=== PATIENT | male | born 1980 | race Hispanic/Latino ===

== ENCOUNTER 2016-04-04 19:41 | Emergency (ER) | payer MEDICARE, MEDICAID ==
[2016-04-04 20:47] LABS: Bilirubin Small (Negative); Blood, Urine Trace (Negative); Clarity Cloudy (Clear); Glucose, Urine (Dipstick) Negative (Negative); Icto Negative (Negative); Leukocyte Small (Negative); Nitrite Positive (Negative); Protein, Urine (Dipstick) 30 mg/dL (Neg-Trace); Urobilinogen > or = 8.0 mg/dL (0.2-1.0)
[2016-04-04 20:54] LABS: Bacteria/HPF 3+ HPF (None Seen); RBC/HPF 0-3 HPF (0-3)
[2016-04-04] MEDS ORDERED: Sulfameth/Trimethoprim DS 800-160mg TAB ONE (21:08)
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
--- NOTE | 2016-04-04 23:08 | RAD ---
RIGHT FOOT THREE VIEWS: History: Right foot swelling. 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 No acute fracture, dis location, bony destruction or periosteal reaction is seen. POS: [facility]
== END 2016-04-04 21:17 | disposition home or self-care (01) ==
LOC: MADERS 19:41
DX: S90.31XA Contusion of right foot, initial encounter (principal); S30.0XXA Contusion of lower back and pelvis, initial encounter; N39.0 Urinary tract infection, site not specified; F17.210 Nicotine dependence, cigarettes, uncomplicated; F32.9 Major depressive disorder, single episode, unspecified; F41.9 Anxiety disorder, unspecified; W19.XXXA Unspecified fall, initial encounter
CPT/HCPCS: 81003; 81015; 87077; 87086; 87186; 99284

== ENCOUNTER 2016-05-14 11:29 | Emergency (ER) | payer MEDICARE, MEDICAID ==
[~2016-05-14 11:29] MED LIST: Sodium Chloride 0.9% 1,000 ML BAG ONE; Sodium Chloride 0.9% 100 ML BAG ONE
[2016-05-14] MEDS ORDERED: Promethazine HCl 25 MG/ML VIAL ONE (12:05)
[2016-05-14 12:21] LABS: #Basophils 0.1 thou/uL (0.0-0.2); #Eosinphils 0.2 thou/uL (0.0-0.7); #Monocytes 0.8 thou/uL (0.11-0.59); #Neutrophils 4.6 thou/uL (1.40-6.50); %Basophils 1.3 % (0.0-1.0); %Eosinophils 1.9 % (0.0-10.0); %Lymphocytes 41.1 % (21.0-51.0); %Monocytes 8.2 % (0.0-10.0); %Neutrophils 47.5 % (42.0-75.0); Hemoglobin 13.6 g/dL (14.0-18.0); Mean Corpuscular HGB CONC 32.8 g/dL (32.0-36.0); Mean Corpuscular Hemoglobin 31.6 pg (27.0-31.0); Mean Corpuscular Volume 96.4 fl (80.0-94.0); Platelet Count 276 thou/uL (130-400); RBC Distribution Width 12.4 % (11.5-14.5); Red Blood Cell (RBC) Count 4.29 mill/uL (4.70-6.10); White Blood Cell (WBC) Count 9.7 thou/uL (4.8-10.8)
[2016-05-14 12:23] LABS: Blood, Urine Small (Negative); Glucose, Urine (Dipstick) Negative (Negative); Leukocyte Large (Negative); Nitrite Positive (Negative); Protein, Urine (Dipstick) 30 mg/dL (Neg-Trace); Specific Gravity, Urine 1.015 (1.005-1.030); Urobilinogen > or = 8.0 mg/dL (0.2-1.0); pH, Urine 6.5 (5.0-9.0)
[2016-05-14 12:24] LABS: Clarity Cloudy (Clear)
[2016-05-14 12:26] LABS: Bilirubin Negative (Negative); Icto Negative (Negative)
[2016-05-14 12:27] LABS: Bacteria/HPF 3+ HPF (None Seen); Squamous Epithelial 0-3 HPF (0-3); WBC/HPF 21-50 HPF (0-3)
[2016-05-14 12:29] LABS: Lactic Acid 0.9 mmol/L (0.5-2.2)
[2016-05-14 12:36] LABS: ALT (SGPT) 34 U/L (0-55); AST (SGOT) 46 U/L (5-34); Albumin 3.3 g/dL (3.5-5.0); Alkaline Phosphatase 119 U/L (40-150); Anion Gap 11 mmol/L (10-20); BUN (Urea Nitrogen) 12 mg/dL (8.9-20.6); Bilirubin, Total 0.6 mg/dL (0.2-1.2); Calc. Creatinine Clearance 0 mL/min (70-130); Calcium 8.3 mg/dL (7.8-10.44); Carbon Dioxide 27 mmol/L (22-29); Chloride 108 mmol/L (98-107); Estimated GFR-MDRD Greater than 90; Globulin 3.5 g/dL (2.4-3.5); Glucose 111 mg/dL (70-105); Potassium 3.5 mmol/L (3.5-5.1); Protein, Total 6.8 g/dL (6.0-8.3); Sodium 142 mmol/L (136-145)
[2016-05-14] MEDS ORDERED: Meropenem 1 GM VIAL ONE (12:43)
== END 2016-05-14 13:50 | disposition short-term general hospital (02) ==
LOC: MADERS 11:29
DX: N12 Tubulo-interstitial nephritis, not specified as acute or chronic (principal); K21.9 Gastro-esophageal reflux disease without esophagitis; F41.9 Anxiety disorder, unspecified; F32.9 Major depressive disorder, single episode, unspecified; F17.210 Nicotine dependence, cigarettes, uncomplicated; Z79.899 Other long term (current) drug therapy
CPT/HCPCS: 36415; 80053; 81001; 83605; 85025; 87040; 87077; 87086; 87186; 96365; 96367; 96375; J1642; J2185; J2270; J2550; J7050

== ENCOUNTER 2016-05-19 20:49 | Inpatient (IN) | payer MEDICARE, MEDICAID ==
[2016-05-19] MEDS ORDERED: Calcium Carbonate 500 MG ChewTAB PO PRN (22:40)
[2016-05-19] MEDS ORDERED: cloNIDine HCl 0.1 MG TAB PO PRN (22:40)
[2016-05-19] MEDS ORDERED: clonazePAM 0.5 MG TAB PO SCH (22:45)
[2016-05-19] MEDS ORDERED: Baclofen 10 MG TAB PO SCH (22:45)
[2016-05-19] MEDS ORDERED: Famotidine 20 MG TAB PO SCH (22:45)
[2016-05-19] MEDS ORDERED: HYDROcodone/Acetaminophen 10/325 mg Tablet PO SCH (22:45)
[2016-05-19] MEDS ORDERED: Gabapentin 300 MG CAP PO SCH (22:45)
[2016-05-19] MEDS ORDERED: cefTRIAXone\\ROCEPHIN 2 GM in Sodium Chloride 0.9% 100 ML IVPB SCH (22:45)
[2016-05-20] MEDS ORDERED: Morphine Sulfate 2 MG/ML SYRINGE SLOW IVP SCH (02:15)
[2016-05-20] MEDS: Enoxaparin Sodium 40 MG/0.4 ML SYRINGE SC SCH (06:13)
[2016-05-20] MEDS: Baclofen 10 MG TAB PO SCH ×3 (06:13→21:11)
[2016-05-20] MEDS ORDERED: Acetaminophen 325 MG TAB PO PRN (08:41)
[2016-05-20] MEDS: clonazePAM 0.5 MG TAB PO SCH ×3 (08:56→20:52)
[2016-05-20] MEDS: Gabapentin 300 MG CAP PO SCH ×3 (08:56→20:52)
[2016-05-20] MEDS: Famotidine 20 MG TAB PO SCH ×2 (08:57→20:52)
[2016-05-20] MEDS ORDERED: Mag-Al Plus 1200 MG/1200 MG/120 MG/30 ML UDCUP PO PRN (08:58)
[2016-05-20] MEDS ORDERED: FLU VACC QS2016-17 36MOS UP/PF 0.5 ML SYRINGE IM ONE (09:00)
[2016-05-20 10:02] LABS: ALT (SGPT) 52 U/L (0-55); AST (SGOT) 70 U/L (5-34); Alkaline Phosphatase 121 U/L (40-150); Anion Gap 14 mmol/L (10-20); BUN (Urea Nitrogen) 20 mg/dL (8.9-20.6); Bilirubin, Total 0.4 mg/dL (0.2-1.2); Calc. Creatinine Clearance 198 mL/min (70-130); Calcium 8.2 mg/dL (7.8-10.44); Carbon Dioxide 22 mmol/L (22-29); Chloride 106 mmol/L (98-107); Estimated GFR-MDRD Greater than 90; Globulin 3.4 g/dL (2.4-3.5); Glucose 158 mg/dL (70-105); Protein, Total 6.4 g/dL (6.0-8.3); Sodium 138 mmol/L (136-145)
[2016-05-20] MEDS: Morphine Sulfate 2 MG/ML SYRINGE SLOW IVP PRN ×2 (10:13→23:21)
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
[2016-05-20] MEDS: HYDROcodone/Acetaminophen 10/325 mg Tablet PO PRN ×2 (12:10→19:18)
[2016-05-20] MEDS: cefTRIAXone\\ROCEPHIN 2 GM in Sodium Chloride 0.9% 100 ML IVPB SCH (20:52)
[2016-05-21 05:15] LABS: #Basophils 0.1 thou/uL (0.0-0.2); #Eosinphils 0.5 thou/uL (0.0-0.7); #Lymphocytes 4.1 thou/uL (1.20-3.40); #Monocytes 0.7 thou/uL (0.11-0.59); #Neutrophils 3.4 thou/uL (1.40-6.50); %Basophils 1.5 % (0.0-1.0); %Eosinophils 5.5 % (0.0-10.0); %Lymphocytes 46.2 % (21.0-51.0); %Monocytes 8.5 % (0.0-10.0); %Neutrophils 38.3 % (42.0-75.0); Hemoglobin 12.4 g/dL (14.0-18.0); Mean Corpuscular HGB CONC 33.9 g/dL (32.0-36.0); Mean Corpuscular Hemoglobin 32.2 pg (27.0-31.0); Mean Corpuscular Volume 94.9 fl (80.0-94.0); Mean Platelet Volume 6.7 fL (7.4-10.4); Platelet Count 220 thou/uL (130-400); RBC Distribution Width 12.7 % (11.5-14.5); Red Blood Cell (RBC) Count 3.84 mill/uL (4.70-6.10); White Blood Cell (WBC) Count 8.8 thou/uL (4.8-10.8)
[2016-05-21] MEDS: Enoxaparin Sodium 40 MG/0.4 ML SYRINGE SC SCH (05:46)
[2016-05-21] MEDS: HYDROcodone/Acetaminophen 10/325 mg Tablet PO PRN ×3 (05:47→19:09)
[2016-05-21] MEDS: Baclofen 10 MG TAB PO SCH ×3 (05:47→21:15)
[2016-05-21] MEDS: Gabapentin 300 MG CAP PO SCH ×3 (08:19→21:14)
[2016-05-21] MEDS: Famotidine 20 MG TAB PO SCH ×2 (08:19→21:15)
[2016-05-21] MEDS: clonazePAM 0.5 MG TAB PO SCH ×3 (08:20→21:14)
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
[2016-05-21] MEDS: Morphine Sulfate 2 MG/ML SYRINGE SLOW IVP PRN ×2 (10:52→23:29)
[2016-05-21] MEDS: cefTRIAXone\\ROCEPHIN 2 GM in Sodium Chloride 0.9% 100 ML IVPB SCH (21:15)
[2016-05-22] MEDS: Enoxaparin Sodium 40 MG/0.4 ML SYRINGE SC SCH (05:54)
[2016-05-22] MEDS: Baclofen 10 MG TAB PO SCH ×3 (05:54→21:36)
[2016-05-22] MEDS: HYDROcodone/Acetaminophen 10/325 mg Tablet PO PRN ×2 (05:55→16:17)
[2016-05-22] MEDS: Famotidine 20 MG TAB PO SCH ×2 (09:19→21:32)
[2016-05-22] MEDS: clonazePAM 0.5 MG TAB PO SCH ×3 (09:19→21:32)
[2016-05-22] MEDS: Gabapentin 300 MG CAP PO SCH ×3 (09:20→21:32)
[2016-05-22] MEDS: Morphine Sulfate 2 MG/ML SYRINGE SLOW IVP PRN ×2 (12:02→19:47)
[2016-05-22] MEDS ORDERED: Loperamide HCl 2 MG CAP PO PRN (12:32)
[2016-05-22] MEDS: Loperamide HCl 2 MG CAP PO PRN (13:21)
[2016-05-22] MEDS ORDERED: Morphine Sulfate 2 MG/ML SYRINGE SLOW IVP PRN (17:22)
[2016-05-22] MEDS: cefTRIAXone\\ROCEPHIN 2 GM in Sodium Chloride 0.9% 100 ML IVPB SCH (21:32)
[2016-05-23] MEDS: Enoxaparin Sodium 40 MG/0.4 ML SYRINGE SC SCH (05:42)
[2016-05-23] MEDS: Baclofen 10 MG TAB PO SCH ×3 (05:42→21:11)
[2016-05-23] MEDS: Morphine Sulfate 2 MG/ML SYRINGE SLOW IVP PRN ×3 (05:45→22:58)
[2016-05-23] MEDS: Famotidine 20 MG TAB PO SCH ×2 (09:03→21:11)
[2016-05-23] MEDS: Gabapentin 300 MG CAP PO SCH ×3 (09:04→21:11)
[2016-05-23] MEDS: clonazePAM 0.5 MG TAB PO SCH ×3 (09:04→21:11)
[2016-05-23] MEDS: HYDROcodone/Acetaminophen 10/325 mg Tablet PO PRN (10:46)
[2016-05-23] MEDS: cefTRIAXone\\ROCEPHIN 2 GM in Sodium Chloride 0.9% 100 ML IVPB SCH (21:11)
[2016-05-24] MEDS: Baclofen 10 MG TAB PO SCH ×3 (05:45→21:03)
[2016-05-24] MEDS: Enoxaparin Sodium 40 MG/0.4 ML SYRINGE SC SCH (05:45)
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
[2016-05-24] MEDS: clonazePAM 0.5 MG TAB PO SCH ×3 (08:58→21:02)
[2016-05-24] MEDS: Famotidine 20 MG TAB PO SCH ×2 (08:59→21:02)
[2016-05-24] MEDS: Gabapentin 300 MG CAP PO SCH ×3 (09:01→21:02)
[2016-05-24] MEDS: Morphine Sulfate 2 MG/ML SYRINGE SLOW IVP PRN ×2 (09:12→17:09)
[2016-05-24] MEDS: cefTRIAXone\\ROCEPHIN 2 GM in Sodium Chloride 0.9% 100 ML IVPB SCH (21:03)
[2016-05-25] MEDS: Morphine Sulfate 2 MG/ML SYRINGE SLOW IVP PRN ×3 (01:37→19:08)
[2016-05-25] MEDS: Baclofen 10 MG TAB PO SCH ×3 (06:07→21:06)
[2016-05-25] MEDS: Enoxaparin Sodium 40 MG/0.4 ML SYRINGE SC SCH (06:07)
[2016-05-25] MEDS: clonazePAM 0.5 MG TAB PO SCH ×3 (08:50→21:04)
[2016-05-25] MEDS: Famotidine 20 MG TAB PO SCH ×2 (08:50→21:04)
[2016-05-25] MEDS: Gabapentin 300 MG CAP PO SCH ×3 (08:50→21:04)
[2016-05-25] MEDS: HYDROcodone/Acetaminophen 10/325 mg Tablet PO PRN ×2 (14:10→23:45)
[2016-05-25] MEDS: cefTRIAXone\\ROCEPHIN 2 GM in Sodium Chloride 0.9% 100 ML IVPB SCH (21:05)
[2016-05-26] MEDS: Morphine Sulfate 2 MG/ML SYRINGE SLOW IVP PRN ×3 (03:25→20:14)
[2016-05-26] MEDS: Enoxaparin Sodium 40 MG/0.4 ML SYRINGE SC SCH (05:59)
[2016-05-26] MEDS: Baclofen 10 MG TAB PO SCH ×3 (05:59→21:25)
[2016-05-26 09:16] LABS: ALT (SGPT) 66 U/L (0-55); AST (SGOT) 76 U/L (5-34); Albumin 2.8 g/dL (3.5-5.0); Alkaline Phosphatase 105 U/L (40-150); Anion Gap 12 mmol/L (10-20); BUN (Urea Nitrogen) 20 mg/dL (8.9-20.6); Bilirubin, Total 0.4 mg/dL (0.2-1.2); Calc. Creatinine Clearance 220 mL/min (70-130); Carbon Dioxide 22 mmol/L (22-29); Chloride 109 mmol/L (98-107); Estimated GFR-MDRD Greater than 90; Globulin 3.4 g/dL (2.4-3.5); Glucose 94 mg/dL (70-105); Potassium 4.1 mmol/L (3.5-5.1); Protein, Total 6.2 g/dL (6.0-8.3); Sodium 139 mmol/L (136-145)
[2016-05-26] MEDS: Gabapentin 300 MG CAP PO SCH ×3 (11:21→21:25)
[2016-05-26] MEDS: Famotidine 20 MG TAB PO SCH ×2 (11:22→21:25)
[2016-05-26] MEDS: clonazePAM 0.5 MG TAB PO SCH ×3 (11:22→21:25)
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
[2016-05-26] MEDS: HYDROcodone/Acetaminophen 10/325 mg Tablet PO PRN (15:04)
[2016-05-26] MEDS: cefTRIAXone\\ROCEPHIN 2 GM in Sodium Chloride 0.9% 100 ML IVPB SCH (21:24)
[2016-05-27] MEDS: Morphine Sulfate 2 MG/ML SYRINGE SLOW IVP PRN ×3 (04:38→21:06)
[2016-05-27 05:16] LABS: Eosinophils 5 % (0-10); Hemoglobin 12.9 g/dL (14.0-18.0); Lymphocytes 20 % (21-51); MDiff Complete? YES; Mean Corpuscular Hemoglobin 32.6 pg (27.0-31.0); Mean Corpuscular Volume 95.8 fl (80.0-94.0); Mean Platelet Volume 6.8 fL (7.4-10.4); Monocytes 6 % (0-10); Neutrophil 40 % (42-75); PLT Morphology Comment Appears Adequate; Platelet Count 222 thou/uL (130-400); RBC Distribution Width 12.5 % (11.5-14.5); Reactive Lymphocytes 29 % (0-10); Red Blood Cell (RBC) Count 3.97 mill/uL (4.70-6.10); White Blood Cell (WBC) Count 9.5 thou/uL (4.8-10.8)
[2016-05-27] MEDS: Baclofen 10 MG TAB PO SCH ×3 (05:59→21:05)
[2016-05-27] MEDS: Enoxaparin Sodium 40 MG/0.4 ML SYRINGE SC SCH (05:59)
[2016-05-27] MEDS: clonazePAM 0.5 MG TAB PO SCH ×3 (08:51→21:05)
[2016-05-27] MEDS: Gabapentin 300 MG CAP PO SCH ×3 (08:51→21:05)
[2016-05-27] MEDS: Famotidine 20 MG TAB PO SCH ×2 (08:51→21:05)
[2016-05-27] MEDS: HYDROcodone/Acetaminophen 10/325 mg Tablet PO PRN (15:02)
[2016-05-27] MEDS: cefTRIAXone\\ROCEPHIN 2 GM in Sodium Chloride 0.9% 100 ML IVPB SCH (21:19)
[2016-05-28] MEDS: Baclofen 10 MG TAB PO SCH ×3 (06:14→21:00)
[2016-05-28] MEDS: Enoxaparin Sodium 40 MG/0.4 ML SYRINGE SC SCH (06:14)
[2016-05-28] MEDS: Morphine Sulfate 2 MG/ML SYRINGE SLOW IVP PRN ×3 (06:17→22:21)
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
[2016-05-28] MEDS: clonazePAM 0.5 MG TAB PO SCH ×3 (08:55→21:00)
[2016-05-28] MEDS: Famotidine 20 MG TAB PO SCH ×2 (08:55→22:22)
[2016-05-28] MEDS: Gabapentin 300 MG CAP PO SCH ×3 (08:55→21:00)
[2016-05-28] MEDS: cefTRIAXone\\ROCEPHIN 2 GM in Sodium Chloride 0.9% 100 ML IVPB SCH (21:01)
[2016-05-28] MEDS: HYDROcodone/Acetaminophen 10/325 mg Tablet PO PRN (21:04)
[2016-05-29] MEDS: HYDROcodone/Acetaminophen 10/325 mg Tablet PO PRN ×2 (03:14→21:12)
[2016-05-29] MEDS: Baclofen 10 MG TAB PO SCH ×3 (04:45→21:12)
[2016-05-29] MEDS: Morphine Sulfate 2 MG/ML SYRINGE SLOW IVP PRN ×3 (04:46→23:32)
[2016-05-29] MEDS: Enoxaparin Sodium 40 MG/0.4 ML SYRINGE SC SCH (04:46)
[2016-05-29] MEDS: clonazePAM 0.5 MG TAB PO SCH ×3 (09:27→21:12)
[2016-05-29] MEDS: Gabapentin 300 MG CAP PO SCH ×3 (09:27→21:11)
[2016-05-29] MEDS: Famotidine 20 MG TAB PO SCH ×2 (09:27→21:12)
[2016-05-29] MEDS: cefTRIAXone\\ROCEPHIN 2 GM in Sodium Chloride 0.9% 100 ML IVPB SCH (21:11)
[2016-05-30] MEDS: HYDROcodone/Acetaminophen 10/325 mg Tablet PO PRN (04:21)
[2016-05-30] MEDS: Enoxaparin Sodium 40 MG/0.4 ML SYRINGE SC SCH (05:08)
[2016-05-30] MEDS: Baclofen 10 MG TAB PO SCH ×3 (05:10→21:42)
[2016-05-30] MEDS: Famotidine 20 MG TAB PO SCH ×2 (07:58→20:42)
[2016-05-30] MEDS: clonazePAM 0.5 MG TAB PO SCH ×3 (07:58→20:42)
[2016-05-30] MEDS: Gabapentin 300 MG CAP PO SCH ×3 (07:59→20:42)
[2016-05-30] MEDS: Morphine Sulfate 2 MG/ML SYRINGE SLOW IVP PRN ×2 (07:59→16:22)
[2016-05-30] MEDS: cefTRIAXone\\ROCEPHIN 2 GM in Sodium Chloride 0.9% 100 ML IVPB SCH (20:41)
[2016-05-31] MEDS: Morphine Sulfate 2 MG/ML SYRINGE SLOW IVP PRN ×3 (00:23→17:57)
[2016-05-31] MEDS: Enoxaparin Sodium 40 MG/0.4 ML SYRINGE SC SCH (05:03)
[2016-05-31] MEDS: Baclofen 10 MG TAB PO SCH ×3 (05:03→21:23)
[2016-05-31] MEDS: Famotidine 20 MG TAB PO SCH ×2 (08:47→20:21)
[2016-05-31] MEDS: clonazePAM 0.5 MG TAB PO SCH ×3 (08:48→20:21)
[2016-05-31] MEDS: Gabapentin 300 MG CAP PO SCH ×3 (08:48→20:21)
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
[2016-05-31] MEDS: Loperamide HCl 2 MG CAP PO PRN (10:01)
[2016-05-31] MEDS: cefTRIAXone\\ROCEPHIN 2 GM in Sodium Chloride 0.9% 100 ML IVPB SCH (20:20)
[2016-06-01] MEDS: Morphine Sulfate 2 MG/ML SYRINGE SLOW IVP PRN ×3 (02:42→17:48)
[2016-06-01] MEDS: Baclofen 10 MG TAB PO SCH ×3 (05:30→21:18)
[2016-06-01] MEDS: Enoxaparin Sodium 40 MG/0.4 ML SYRINGE SC SCH (05:31)
[2016-06-01] MEDS: clonazePAM 0.5 MG TAB PO SCH ×3 (09:47→21:06)
[2016-06-01] MEDS: Gabapentin 300 MG CAP PO SCH ×3 (09:47→21:06)
[2016-06-01] MEDS: Famotidine 20 MG TAB PO SCH ×2 (09:48→21:06)
[2016-06-01] MEDS: HYDROcodone/Acetaminophen 10/325 mg Tablet PO PRN (15:42)
[2016-06-01] MEDS: cefTRIAXone\\ROCEPHIN 2 GM in Sodium Chloride 0.9% 100 ML IVPB SCH (21:05)
[2016-06-02] MEDS: Morphine Sulfate 2 MG/ML SYRINGE SLOW IVP PRN ×3 (01:50→20:13)
[2016-06-02] MEDS: Baclofen 10 MG TAB PO SCH ×3 (05:35→21:29)
[2016-06-02] MEDS: Enoxaparin Sodium 40 MG/0.4 ML SYRINGE SC SCH (05:36)
[2016-06-02 08:58] LABS: ALT (SGPT) 90 U/L (0-55); AST (SGOT) 89 U/L (5-34); Albumin 3.1 g/dL (3.5-5.0); Alkaline Phosphatase 94 U/L (40-150); Anion Gap 11 mmol/L (10-20); BUN (Urea Nitrogen) 20 mg/dL (8.9-20.6); Bilirubin, Total 0.3 mg/dL (0.2-1.2); Calc. Creatinine Clearance 222 mL/min (70-130); Calcium 8.5 mg/dL (7.8-10.44); Carbon Dioxide 23 mmol/L (22-29); Chloride 107 mmol/L (98-107); Estimated GFR-MDRD Greater than 90; Globulin 3.4 g/dL (2.4-3.5); Glucose 93 mg/dL (70-105); Potassium 4.1 mmol/L (3.5-5.1); Protein, Total 6.5 g/dL (6.0-8.3); Sodium 137 mmol/L (136-145)
[2016-06-02] MEDS: clonazePAM 0.5 MG TAB PO SCH ×3 (09:09→20:12)
[2016-06-02] MEDS: Gabapentin 300 MG CAP PO SCH ×3 (09:09→20:12)
[2016-06-02] MEDS: Famotidine 20 MG TAB PO SCH ×2 (09:09→20:12)
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
[2016-06-02] MEDS: HYDROcodone/Acetaminophen 10/325 mg Tablet PO PRN (16:57)
[2016-06-02] MEDS: cefTRIAXone\\ROCEPHIN 2 GM in Sodium Chloride 0.9% 100 ML IVPB SCH (20:12)
[2016-06-03] MEDS: Morphine Sulfate 2 MG/ML SYRINGE SLOW IVP PRN ×3 (04:24→22:17)
[2016-06-03 05:13] LABS: #Basophils 0.2 thou/uL (0.0-0.2); #Eosinphils 0.3 thou/uL (0.0-0.7); #Lymphocytes 4.3 thou/uL (1.20-3.40); #Monocytes 0.7 thou/uL (0.11-0.59); #Neutrophils 4.7 thou/uL (1.40-6.50); %Basophils 1.9 % (0.0-1.0); %Eosinophils 2.8 % (0.0-10.0); %Lymphocytes 42.4 % (21.0-51.0); %Monocytes 6.8 % (0.0-10.0); %Neutrophils 46.1 % (42.0-75.0); Hemoglobin 13.5 g/dL (14.0-18.0); Mean Corpuscular HGB CONC 34.5 g/dL (32.0-36.0); Mean Corpuscular Hemoglobin 33.1 pg (27.0-31.0); Mean Corpuscular Volume 96.2 fl (80.0-94.0); Mean Platelet Volume 6.5 fL (7.4-10.4); Platelet Count 227 thou/uL (130-400); RBC Distribution Width 12.2 % (11.5-14.5); Red Blood Cell (RBC) Count 4.07 mill/uL (4.70-6.10); White Blood Cell (WBC) Count 10.2 thou/uL (4.8-10.8)
[2016-06-03] MEDS: Baclofen 10 MG TAB PO SCH ×3 (05:39→21:01)
[2016-06-03] MEDS: Enoxaparin Sodium 40 MG/0.4 ML SYRINGE SC SCH (05:39)
[2016-06-03] MEDS: Gabapentin 300 MG CAP PO SCH ×3 (10:07→20:53)
[2016-06-03] MEDS: Famotidine 20 MG TAB PO SCH ×2 (10:08→20:53)
[2016-06-03] MEDS: clonazePAM 0.5 MG TAB PO SCH ×3 (10:09→20:53)
[2016-06-03] MEDS: cefTRIAXone\\ROCEPHIN 2 GM in Sodium Chloride 0.9% 100 ML IVPB SCH (20:54)
[2016-06-04] MEDS: Enoxaparin Sodium 40 MG/0.4 ML SYRINGE SC SCH (06:13)
[2016-06-04] MEDS: Baclofen 10 MG TAB PO SCH ×3 (06:13→21:17)
[2016-06-04] MEDS: Morphine Sulfate 2 MG/ML SYRINGE SLOW IVP PRN ×3 (06:20→23:22)
[2016-06-04] MEDS: Gabapentin 300 MG CAP PO SCH ×3 (09:24→21:16)
[2016-06-04] MEDS: clonazePAM 0.5 MG TAB PO SCH ×3 (09:24→21:16)
[2016-06-04] MEDS: Famotidine 20 MG TAB PO SCH ×2 (09:24→21:16)
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
[2016-06-04] MEDS: cefTRIAXone\\ROCEPHIN 2 GM in Sodium Chloride 0.9% 100 ML IVPB SCH (21:17)
[2016-06-05] MEDS: Baclofen 10 MG TAB PO SCH ×4 (05:56→22:34)
[2016-06-05] MEDS: Enoxaparin Sodium 40 MG/0.4 ML SYRINGE SC SCH (05:56)
[2016-06-05] MEDS: Morphine Sulfate 2 MG/ML SYRINGE SLOW IVP PRN ×2 (07:26→16:41)
[2016-06-05] MEDS: Gabapentin 300 MG CAP PO SCH ×4 (09:08→21:18)
[2016-06-05] MEDS: Famotidine 20 MG TAB PO SCH ×2 (09:08→21:18)
[2016-06-05] MEDS: clonazePAM 0.5 MG TAB PO SCH ×4 (09:08→21:18)
[2016-06-05] MEDS ORDERED: cefTRIAXone\\ROCEPHIN 2 GM VIAL ONE (21:14)
[2016-06-05] MEDS: cefTRIAXone\\ROCEPHIN 2 GM in Sodium Chloride 0.9% 100 ML IVPB SCH (21:17)
[2016-06-06] MEDS: Morphine Sulfate 2 MG/ML SYRINGE SLOW IVP PRN ×3 (00:50→20:46)
[2016-06-06] MEDS: Baclofen 10 MG TAB PO SCH ×3 (05:21→21:24)
[2016-06-06] MEDS: Enoxaparin Sodium 40 MG/0.4 ML SYRINGE SC SCH (05:21)
[2016-06-06] MEDS: clonazePAM 0.5 MG TAB PO SCH ×3 (10:00→20:45)
[2016-06-06] MEDS: Gabapentin 300 MG CAP PO SCH ×3 (10:01→20:45)
[2016-06-06] MEDS: Famotidine 20 MG TAB PO SCH ×2 (10:01→20:45)
[2016-06-06] MEDS: HYDROcodone/Acetaminophen 10/325 mg Tablet PO PRN (15:43)
[2016-06-06] MEDS ORDERED: cefTRIAXone\\ROCEPHIN 2 GM VIAL ONE (21:17)
[2016-06-06] MEDS: cefTRIAXone\\ROCEPHIN 2 GM in Sodium Chloride 0.9% 100 ML IVPB SCH (21:24)
[2016-06-07] MEDS: Baclofen 10 MG TAB PO SCH ×3 (05:28→21:36)
[2016-06-07] MEDS: Enoxaparin Sodium 40 MG/0.4 ML SYRINGE SC SCH (05:28)
[2016-06-07] MEDS: Morphine Sulfate 2 MG/ML SYRINGE SLOW IVP PRN ×2 (05:37→17:36)
[2016-06-07] MEDS ORDERED: Sterile Water Irrigation 1,000 ML BOT ONE (07:29)
[2016-06-07] MEDS: Famotidine 20 MG TAB PO SCH ×2 (08:07→21:36)
[2016-06-07] MEDS: clonazePAM 0.5 MG TAB PO SCH ×3 (08:08→21:36)
[2016-06-07] MEDS: Gabapentin 300 MG CAP PO SCH ×3 (08:08→21:35)
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
[2016-06-07] MEDS ORDERED: Morphine Sulfate 2 MG/ML SYRINGE ONE (17:33)
[2016-06-07] MEDS: cefTRIAXone\\ROCEPHIN 2 GM in Sodium Chloride 0.9% 100 ML IVPB SCH (21:39)
[2016-06-08] MEDS ORDERED: Morphine Sulfate 2 MG/ML SYRINGE ONE (01:44)
[2016-06-08] MEDS: Morphine Sulfate 2 MG/ML SYRINGE SLOW IVP PRN ×3 (01:52→21:16)
[2016-06-08 05:53] VITALS: BMI 29.9
[2016-06-08] MEDS: Baclofen 10 MG TAB PO SCH ×3 (05:54→21:04)
[2016-06-08] MEDS: Enoxaparin Sodium 40 MG/0.4 ML SYRINGE SC SCH (05:55)
[2016-06-08] MEDS: clonazePAM 0.5 MG TAB PO SCH ×3 (11:56→21:04)
[2016-06-08] MEDS: Gabapentin 300 MG CAP PO SCH ×3 (11:56→21:04)
[2016-06-08] MEDS: Famotidine 20 MG TAB PO SCH ×2 (11:56→21:04)
[2016-06-08] MEDS: cefTRIAXone\\ROCEPHIN 2 GM in Sodium Chloride 0.9% 100 ML IVPB SCH (21:04)
[2016-06-09] MEDS: Baclofen 10 MG TAB PO SCH ×2 (05:19→13:24)
[2016-06-09] MEDS: Enoxaparin Sodium 40 MG/0.4 ML SYRINGE SC SCH (05:19)
[2016-06-09] MEDS: Morphine Sulfate 2 MG/ML SYRINGE SLOW IVP PRN (05:20)
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
[2016-06-09 09:03] VITALS: BP 133/74; TEMP 98.4
[2016-06-09] MEDS: clonazePAM 0.5 MG TAB PO SCH (13:11)
[2016-06-09] MEDS: Famotidine 20 MG TAB PO SCH (13:11)
[2016-06-09] MEDS: Gabapentin 300 MG CAP PO SCH (13:11)
[2016-06-09] MEDS: HYDROcodone/Acetaminophen 10/325 mg Tablet PO PRN (13:24)
--- NOTE | 2016-06-14 07:19 | PQF ---
DEBBIE SMITH GROVER MD [id number] CLINICAL DOCUMENTATION CLARIFICATION FORM: POST DISCHARGE Addendum to original discharge summary date: ____ Late entry note date: __ The following CLINICAL INDICATORS - SIGNS / SYMPTOMS are present in the medical record: ACUTE PYELONEPHRITIS URINE CULTURE E. COLI PATIENT DOES SELF-CATHERIZATION 6-8 HOURS FOR NEUROGENIC BLADDER [ ]Positive urinalysis [ ]Hematuria [ ]Fever [ ]Documentation: UTI RISKS: [ ]History of neurogenic bladder [ ]History of self-catheterization [ ]History of indwelling catheter [ ]Documentation: UTI TREATMENT: [ ]Antibiotics [ ]Mendieta cath removed / changed Please provide a response below if a more specific term indicating a diagnosis and/or acuity level for this condition can be identified. Please exercise your independent, professional judgment in responding to the clarification form. Clinical indicators are providedat the top of this form for your review. For continuity of documentation, please document condition throughout progress notes and discharge summary. Thank you. [ ] Present on Admission (POA): [ ] Yes [ ] No [ ] Unable to determine [ ] UTI Acuity:[ ] Acute[ ] Chronic[ ] Acute on Chronic Site: [ ] Kidney[ ] Ureter[ ] Bladder[ ] Urethra [ ] Other site [ ] Unable to determine [ ] UTI due to or related to: [ ] Indwelling catheter [ ] Self-catheterization [ ] Neurogenic bladder [ ] Suprapubic catheter [ ] Does not apply to this patient [ ] Unable to determine [ ] Other diagnosis: _ Physician/Provider Signature Date Time (This form is maintained as a part of the permanent medical record) 2014 [employer] All Rights Reserved Nidhi Santiago [employer], [employer] [email or web address]
== END 2016-06-09 15:25 | disposition home or self-care (01) | DRG 690 ==
LOC: MADMS 20:49
PROVIDERS: ADMIT Family Medicine; ATTEND Family Medicine
DX: N10 Acute pyelonephritis (principal); G82.20 Paraplegia, unspecified; B96.20 Unspecified Escherichia coli [E. coli] as the cause of diseases classified elsewhere; M75.101 Unspecified rotator cuff tear or rupture of right shoulder, not specified as traumatic; N31.9 Neuromuscular dysfunction of bladder, unspecified; B18.2 Chronic viral hepatitis C; G89.4 Chronic pain syndrome; E66.9 Obesity, unspecified; Z88.1 Allergy status to other antibiotic agents; Z99.3 Dependence on wheelchair; S24.104S Unspecified injury at T11-T12 level of thoracic spinal cord, sequela; V59 Occupant of pick-up truck or van injured in other and unspecified transport accidents
CPT/HCPCS: 36415; 80053; 85025; 85652; 86140; A4216; A4217; G8978-GP-CJ; G8979-GP-CI; J0696; J1650; J2270; J7050

== ENCOUNTER 2016-06-29 13:02 | Emergency (ER) | payer MEDICARE, MEDICAID ==
--- NOTE | 2016-06-29 13:48 | RAD ---
RIGHT SHOULDER THREE VIEWS HISTORY: Fall. Right shoulder pain. COMPARISON: 05/16/2016 FINDINGS: Degenerative changes are seen in the acromioclavicular joint. No fracture, dislocation, or bone azul truction is identified. POS: [facility]
[2016-06-29] MEDS ORDERED: Ketorolac Tromethamine 60 MG/2 ML VIAL ONE (13:51)
== END 2016-06-29 14:10 | disposition home or self-care (01) ==
LOC: MADERS 13:02
DX: S40.011A Contusion of right shoulder, initial encounter (principal); E66.9 Obesity, unspecified; F41.9 Anxiety disorder, unspecified; F32.9 Major depressive disorder, single episode, unspecified; Z87.891 Personal history of nicotine dependence; W17.89XA Other fall from one level to another, initial encounter
CPT/HCPCS: 96372; J1885

== ENCOUNTER 2016-08-10 01:47 | Emergency (ER) | payer MEDICARE, MEDICAID ==
[2016-08-10 02:26] LABS: Clarity Cloudy (Clear); Glucose, Urine (Dipstick) Negative (Negative); Leukocyte Small (Negative); Nitrite Positive (Negative); Protein, Urine (Dipstick) Trace mg/dL (Neg-Trace); Specific Gravity, Urine 1.015 (1.005-1.030)
[2016-08-10 02:27] LABS: Bacteria/HPF 3+ HPF (None Seen); Bilirubin Negative (Negative); Blood, Urine Small (Negative)
[2016-08-10 02:28] LABS: Crystals/HPF RARE CA OXALATE HPF (Negative)
[2016-08-10] MEDS ORDERED: cefTRIAXone\\ROCEPHIN 2 GM VIAL ONE (02:46)
[2016-08-10 03:06] LABS: #Basophils 0.1 thou/uL (0.0-0.2); #Eosinphils 0.1 thou/uL (0.0-0.7); #Lymphocytes 3.8 thou/uL (1.20-3.40); #Monocytes 0.6 thou/uL (0.11-0.59); #Neutrophils 3.5 thou/uL (1.40-6.50); %Basophils 1.6 % (0.0-1.0); %Eosinophils 1.5 % (0.0-10.0); %Lymphocytes 46.8 % (21.0-51.0); %Monocytes 7.2 % (0.0-10.0); %Neutrophils 42.9 % (42.0-75.0); Hemoglobin 15.2 g/dL (14.0-18.0); Mean Corpuscular HGB CONC 33.2 g/dL (32.0-36.0); Mean Corpuscular Hemoglobin 31.4 pg (27.0-31.0); Mean Corpuscular Volume 94.5 fl (80.0-94.0); Mean Platelet Volume 6.9 fL (7.4-10.4); Platelet Count 259 thou/uL (130-400); RBC Distribution Width 12.1 % (11.5-14.5); Red Blood Cell (RBC) Count 4.83 mill/uL (4.70-6.10); White Blood Cell (WBC) Count 8.1 thou/uL (4.8-10.8)
[2016-08-10 03:12] LABS: ALT (SGPT) 55 U/L (8-55); AST (SGOT) 66 U/L (5-34); Albumin 3.6 g/dL (3.5-5.0); Alkaline Phosphatase 116 U/L (40-150); Anion Gap 14 mmol/L (10-20); BUN (Urea Nitrogen) 16 mg/dL (8.9-20.6); Bilirubin, Total 0.8 mg/dL (0.2-1.2); Calc. Creatinine Clearance 0 mL/min (70-130); Calcium 8.8 mg/dL (7.8-10.44); Carbon Dioxide 23 mmol/L (22-29); Chloride 105 mmol/L (98-107); Estimated GFR-MDRD Greater than 90; Globulin 4.3 g/dL (2.4-3.5); Glucose 95 mg/dL (70-105); Protein, Total 7.9 g/dL (6.0-8.3); Sodium 138 mmol/L (136-145)
[2016-08-10] MEDS ORDERED: Morphine Sulfate 2 MG/ML SYRINGE ONE (03:42)
[2016-08-10] MEDS ORDERED: Sodium Chloride 0.9% 100 ML BAG ONE (08:18)
[2016-08-10] MEDS ORDERED: Sodium Chloride 0.9% 1,000 ML BAG ONE (08:18)
== END 2016-08-10 04:16 | disposition short-term general hospital (02) ==
LOC: MADERS 01:47
DX: N12 Tubulo-interstitial nephritis, not specified as acute or chronic (principal); E66.9 Obesity, unspecified; F41.9 Anxiety disorder, unspecified; F32.9 Major depressive disorder, single episode, unspecified; Z87.891 Personal history of nicotine dependence; Z79.899 Other long term (current) drug therapy
CPT/HCPCS: 51701; 80053; 81003; 81015; 83605; 85025; 87040; 87077; 87086; 87186; 96365; 96375; 96376; J0696; J2270; J7050

== ENCOUNTER 2016-09-09 14:39 | Emergency (ER) | payer MEDICARE, MEDICAID ==
[2016-09-09] MEDS ORDERED: Tetracaine 0.5% OPHTH SOLN/PF 4 ML BOT ONE (15:07)
[2016-09-09] MEDS ORDERED: HYDROcodone/Acetaminophen 10/325 mg Tablet ONE (15:27)
[2016-09-09] MEDS ORDERED: Naproxen 500 MG TAB ONE (15:28)
[2016-09-09] MEDS ORDERED: Gentamicin Ophth Ointment 0.3% 3.5 gm Tube ONE (15:28)
== END 2016-09-09 15:45 | disposition home or self-care (01) ==
LOC: MADERS 14:39
DX: S05.01XA Injury of conjunctiva and corneal abrasion without foreign body, right eye, initial encounter (principal); K21.9 Gastro-esophageal reflux disease without esophagitis; F32.9 Major depressive disorder, single episode, unspecified; F41.9 Anxiety disorder, unspecified; Z87.891 Personal history of nicotine dependence; Z86.14 Personal history of Methicillin resistant Staphylococcus aureus infection; Z79.891 Long term (current) use of opiate analgesic; Z79.899 Other long term (current) drug therapy; X58.XXXA Exposure to other specified factors, initial encounter
CPT/HCPCS: 99283

== ENCOUNTER 2016-09-30 10:18 | Emergency (ER) | payer MEDICARE, MEDICAID ==
[2016-09-30] MEDS ORDERED: metroNIDAZOLE 500 MG/100 ML BAG ONE (10:48)
[2016-09-30] MEDS ORDERED: Morphine Sulfate 2 MG/ML SYRINGE ONE (10:48)
[2016-09-30] MEDS ORDERED: Promethazine HCl 25 MG/ML VIAL ONE (10:48)
[2016-09-30] MEDS ORDERED: cefTRIAXone\\ROCEPHIN 2 GM VIAL ONE ×2 (10:48→10:53)
[2016-09-30 10:52] LABS: Clarity Clear (Clear); Specific Gravity, Urine 1.015 (1.005-1.030)
[2016-09-30] MEDS ORDERED: cefTRIAXone\\ROCEPHIN 1 GM VIAL ONE (10:52)
[2016-09-30 10:53] LABS: Bilirubin Negative (Negative); Blood, Urine Moderate (Negative); Glucose, Urine (Dipstick) Negative (Negative); Leukocyte Small (Negative); Nitrite Positive (Negative); Protein, Urine (Dipstick) 30 mg/dL (Neg-Trace); WBC/HPF 21-50 HPF (0-3); pH, Urine 5.5 (5.0-9.0)
[2016-09-30 10:54] LABS: Bacteria/HPF 1+ HPF (None Seen); Squamous Epithelial 0-3 HPF (0-3)
[2016-09-30 10:58] LABS: #Basophils 0.2 thou/uL (0.0-0.2); #Eosinphils 0.1 thou/uL (0.0-0.7); #Lymphocytes 3.1 thou/uL (1.20-3.40); #Monocytes 1.2 thou/uL (0.11-0.59); #Neutrophils 11.1 thou/uL (1.40-6.50); %Basophils 1.1 % (0.0-1.0); %Eosinophils 0.5 % (0.0-10.0); %Lymphocytes 19.8 % (21.0-51.0); %Monocytes 7.3 % (0.0-10.0); %Neutrophils 71.3 % (42.0-75.0); Mean Corpuscular HGB CONC 33.4 g/dL (32.0-36.0); Mean Corpuscular Hemoglobin 31.4 pg (27.0-31.0); Platelet Count 235 thou/uL (130-400); RBC Distribution Width 12.4 % (11.5-14.5); Red Blood Cell (RBC) Count 4.78 mill/uL (4.70-6.10); White Blood Cell (WBC) Count 15.6 thou/uL (4.8-10.8)
--- NOTE | 2016-09-30 11:01 | RAD ---
FRONTAL VIEW CHEST: Comparison: 09-13-15 Indication: Sepsis. FINDINGS: Chest is stable to prior exam. Left chest port remains. Cardiac silhouette is accentuated by portabl e technique. IMPRESSION: No new, focal consolidation. POS: [facility]
[2016-09-30] MEDS ORDERED: Acetaminophen 500 MG TAB ONE ×2 (11:05)
[2016-09-30 11:12] LABS: CRP (Inflammatory) 1.85 mg/dL (= or < 0.5)
[2016-09-30 11:17] LABS: ALT (SGPT) 47 U/L (8-55); AST (SGOT) 46 U/L (5-34); Albumin 3.6 g/dL (3.5-5.0); Alkaline Phosphatase 118 U/L (40-150); Anion Gap 15 mmol/L (10-20); BUN (Urea Nitrogen) 19 mg/dL (8.9-20.6); Bilirubin, Total 0.9 mg/dL (0.2-1.2); Calc. Creatinine Clearance 0 mL/min (70-130); Calcium 8.7 mg/dL (7.8-10.44); Carbon Dioxide 21 mmol/L (22-29); Chloride 106 mmol/L (98-107); Estimated GFR-MDRD Greater than 90; Globulin 4.4 g/dL (2.4-3.5); Glucose 114 mg/dL (70-105); Potassium 3.7 mmol/L (3.5-5.1); Sodium 138 mmol/L (136-145)
[2016-09-30] MEDS ORDERED: metroNIDAZOLE 250 MG TAB ONE (11:38)
== END 2016-09-30 11:45 | disposition short-term general hospital (02) ==
LOC: MADERS 10:18
DX: N39.0 Urinary tract infection, site not specified (principal); A41.9 Sepsis, unspecified organism; K21.9 Gastro-esophageal reflux disease without esophagitis; G82.20 Paraplegia, unspecified; F32.9 Major depressive disorder, single episode, unspecified; F41.9 Anxiety disorder, unspecified; Z87.891 Personal history of nicotine dependence
CPT/HCPCS: 71010; 80053; 81001; 82150; 83605; 83690; 85025; 86140; 87077; 87086; 87186; 96365; 96375; J0696; J2270; J2550; J3370; J7050

== ENCOUNTER 2016-10-05 13:59 | Inpatient (IN) | payer MEDICARE, MEDICAID ==
[2016-10-05] MEDS ORDERED: clonazePAM 0.5 MG TAB PO SCH ×2 (15:45→21:00)
[2016-10-05] MEDS ORDERED: Gabapentin 300 MG CAP PO SCH ×2 (15:45→21:00)
[2016-10-05] MEDS ORDERED: Loperamide HCl 2 MG CAP PO PRN (16:57)
[2016-10-05] MEDS ORDERED: cefTRIAXone\\ROCEPHIN 2 GM VIAL IVPB SCH (17:00)
[2016-10-05] MEDS ORDERED: cefTRIAXone\\ROCEPHIN 2 GM in Sodium Chloride 0.9% 100 ML IVPB SCH (18:00)
[2016-10-05] MEDS: HYDROcodone/Acetaminophen 10/325 mg Tablet PO PRN (18:04)
[2016-10-05] MEDS: Gabapentin 300 MG CAP PO SCH (21:40)
[2016-10-05] MEDS: clonazePAM 0.5 MG TAB PO SCH (21:40)
[2016-10-05] MEDS: Baclofen 10 MG TAB PO SCH (21:40)
[2016-10-06 04:42] LABS: #Basophils 0.1 thou/uL (0.0-0.2); #Eosinphils 0.4 thou/uL (0.0-0.7); #Lymphocytes 3.1 thou/uL (1.20-3.40); #Monocytes 0.7 thou/uL (0.11-0.59); #Neutrophils 2.9 thou/uL (1.40-6.50); %Basophils 1.6 % (0.0-1.0); %Eosinophils 5.1 % (0.0-10.0); %Lymphocytes 43.4 % (21.0-51.0); %Monocytes 9.2 % (0.0-10.0); %Neutrophils 40.6 % (42.0-75.0); Hemoglobin 13.6 g/dL (14.0-18.0); Mean Corpuscular HGB CONC 33.6 g/dL (32.0-36.0); Mean Corpuscular Hemoglobin 31.7 pg (27.0-31.0); Mean Corpuscular Volume 94.5 fl (80.0-94.0); Mean Platelet Volume 6.2 fL (7.4-10.4); Platelet Count 263 thou/uL (130-400); RBC Distribution Width 12.3 % (11.5-14.5); Red Blood Cell (RBC) Count 4.29 mill/uL (4.70-6.10)
[2016-10-06 05:01] LABS: ALT (SGPT) 29 U/L (8-55); AST (SGOT) 40 U/L (5-34); Albumin 2.9 g/dL (3.5-5.0); Alkaline Phosphatase 93 U/L (40-150); Anion Gap 13 mmol/L (10-20); BUN (Urea Nitrogen) 16 mg/dL (8.9-20.6); Bilirubin, Total 0.3 mg/dL (0.2-1.2); Calc. Creatinine Clearance 219 mL/min (70-130); Calcium 8.3 mg/dL (7.8-10.44); Carbon Dioxide 25 mmol/L (22-29); Chloride 105 mmol/L (98-107); Estimated GFR-MDRD Greater than 90; Globulin 3.8 g/dL (2.4-3.5); Glucose 106 mg/dL (70-105); Potassium 4.1 mmol/L (3.5-5.1); Protein, Total 6.7 g/dL (6.0-8.3); Sodium 139 mmol/L (136-145)
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
[2016-10-06] MEDS: Baclofen 10 MG TAB PO SCH ×3 (06:02→21:40)
[2016-10-06] MEDS ORDERED: Enoxaparin Sodium 40 MG/0.4 ML SYRINGE SC SCH (09:00)
[2016-10-06] MEDS: Gabapentin 300 MG CAP PO SCH ×3 (10:05→21:40)
[2016-10-06] MEDS: clonazePAM 0.5 MG TAB PO SCH ×3 (10:05→23:13)
[2016-10-06] MEDS: cefTRIAXone\\ROCEPHIN 2 GM in Sodium Chloride 0.9% 100 ML IVPB SCH (12:22)
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
[2016-10-06] MEDS ORDERED: Promethazine HCl 25 MG/ML VIAL SLOW IVP SCH (22:45)
[2016-10-07] MEDS: Baclofen 10 MG TAB PO SCH ×3 (05:58→21:26)
[2016-10-07] MEDS: Enoxaparin Sodium 40 MG/0.4 ML SYRINGE SC SCH (05:59)
[2016-10-07] MEDS: HYDROcodone/Acetaminophen 10/325 mg Tablet PO PRN (07:12)
[2016-10-07] MEDS: clonazePAM 0.5 MG TAB PO SCH ×3 (07:46→23:25)
[2016-10-07] MEDS: Gabapentin 300 MG CAP PO SCH ×3 (07:46→21:27)
[2016-10-07] MEDS: cefTRIAXone\\ROCEPHIN 2 GM in Sodium Chloride 0.9% 100 ML IVPB SCH (11:56)
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
[2016-10-08] MEDS: HYDROcodone/Acetaminophen 10/325 mg Tablet PO PRN ×2 (04:27→13:40)
[2016-10-08] MEDS: Baclofen 10 MG TAB PO SCH ×3 (05:12→21:57)
[2016-10-08] MEDS: Enoxaparin Sodium 40 MG/0.4 ML SYRINGE SC SCH (05:12)
[2016-10-08] MEDS: clonazePAM 0.5 MG TAB PO SCH ×3 (09:01→23:59)
[2016-10-08] MEDS: Gabapentin 300 MG CAP PO SCH ×3 (09:01→21:57)
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
[2016-10-08] MEDS: cefTRIAXone\\ROCEPHIN 2 GM in Sodium Chloride 0.9% 100 ML IVPB SCH (11:44)
[2016-10-08] MEDS ORDERED: Promethazine HCl 25 MG/ML VIAL SLOW IVP SCH (18:30)
[2016-10-09] MEDS: HYDROcodone/Acetaminophen 10/325 mg Tablet PO PRN (00:05)
[2016-10-09] MEDS: Baclofen 10 MG TAB PO SCH ×3 (06:29→20:54)
[2016-10-09] MEDS: Enoxaparin Sodium 40 MG/0.4 ML SYRINGE SC SCH (06:30)
[2016-10-09] MEDS: Gabapentin 300 MG CAP PO SCH ×3 (09:13→20:54)
[2016-10-09] MEDS: clonazePAM 0.5 MG TAB PO SCH ×2 (09:14→14:28)
[2016-10-09] MEDS: cefTRIAXone\\ROCEPHIN 2 GM in Sodium Chloride 0.9% 100 ML IVPB SCH (10:43)
[2016-10-09] MEDS ORDERED: Promethazine HCl 25 MG/ML VIAL SLOW IVP SCH (17:00)
[2016-10-10] MEDS: clonazePAM 0.5 MG TAB PO SCH ×4 (00:15→22:14)
[2016-10-10] MEDS: Baclofen 10 MG TAB PO SCH ×3 (05:58→22:14)
[2016-10-10] MEDS: Enoxaparin Sodium 40 MG/0.4 ML SYRINGE SC SCH (05:58)
[2016-10-10] MEDS: HYDROcodone/Acetaminophen 10/325 mg Tablet PO PRN (08:18)
[2016-10-10] MEDS: Gabapentin 300 MG CAP PO SCH ×3 (08:18→20:54)
[2016-10-10] MEDS: cefTRIAXone\\ROCEPHIN 2 GM in Sodium Chloride 0.9% 100 ML IVPB SCH (10:25)
[2016-10-11] MEDS: Baclofen 10 MG TAB PO SCH ×3 (05:46→22:10)
[2016-10-11] MEDS: Enoxaparin Sodium 40 MG/0.4 ML SYRINGE SC SCH (05:46)
[2016-10-11] MEDS: clonazePAM 0.5 MG TAB PO SCH ×3 (08:33→23:32)
[2016-10-11] MEDS: HYDROcodone/Acetaminophen 10/325 mg Tablet PO PRN (08:33)
[2016-10-11] MEDS: Gabapentin 300 MG CAP PO SCH ×3 (08:33→20:01)
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
[2016-10-11] MEDS: cefTRIAXone\\ROCEPHIN 2 GM in Sodium Chloride 0.9% 100 ML IVPB SCH (10:32)
[2016-10-11] MEDS: Morphine IR Tab 15 MG TAB PO PRN ×2 (13:40→19:57)
[2016-10-11] MEDS ORDERED: Morphine IR Tab 15 MG TAB PO PRN (14:00)
[2016-10-12] MEDS: Morphine IR Tab 15 MG TAB PO PRN ×3 (02:22→14:49)
[2016-10-12] MEDS: Enoxaparin Sodium 40 MG/0.4 ML SYRINGE SC SCH (05:56)
[2016-10-12] MEDS: Baclofen 10 MG TAB PO SCH ×3 (05:56→21:12)
[2016-10-12] MEDS: Gabapentin 300 MG CAP PO SCH ×3 (08:13→21:12)
[2016-10-12] MEDS: clonazePAM 0.5 MG TAB PO SCH ×3 (08:13→23:11)
[2016-10-12] MEDS: HYDROcodone/Acetaminophen 10/325 mg Tablet PO PRN ×2 (08:14→19:50)
[2016-10-12] MEDS: cefTRIAXone\\ROCEPHIN 2 GM in Sodium Chloride 0.9% 100 ML IVPB SCH (11:25)
[2016-10-13] MEDS: Enoxaparin Sodium 40 MG/0.4 ML SYRINGE SC SCH (05:25)
[2016-10-13] MEDS: Baclofen 10 MG TAB PO SCH ×3 (05:25→21:44)
[2016-10-13] MEDS: HYDROcodone/Acetaminophen 10/325 mg Tablet PO PRN ×2 (05:33→19:52)
[2016-10-13 06:09] LABS: Anion Gap 12 mmol/L (10-20); BUN (Urea Nitrogen) 19 mg/dL (8.9-20.6); Calc. Creatinine Clearance 170 mL/min (70-130); Calcium 8.3 mg/dL (7.8-10.44); Carbon Dioxide 25 mmol/L (22-29); Chloride 108 mmol/L (98-107); Estimated GFR-MDRD Greater than 90; Glucose 108 mg/dL (70-105); Potassium 4.1 mmol/L (3.5-5.1); Sodium 141 mmol/L (136-145)
[2016-10-13 06:12] LABS: #Basophils 0.1 thou/uL (0.0-0.2); #Eosinphils 0.4 thou/uL (0.0-0.7); #Lymphocytes 3.3 thou/uL (1.20-3.40); #Monocytes 0.5 thou/uL (0.11-0.59); #Neutrophils 2.5 thou/uL (1.40-6.50); %Basophils 1.5 % (0.0-1.0); %Lymphocytes 48.8 % (21.0-51.0); %Neutrophils 36.6 % (42.0-75.0); Hemoglobin 13.4 g/dL (14.0-18.0); Mean Corpuscular HGB CONC 32.5 g/dL (32.0-36.0); Mean Corpuscular Hemoglobin 31.2 pg (27.0-31.0); Mean Platelet Volume 6.2 fL (7.4-10.4); Platelet Count 315 thou/uL (130-400); RBC Distribution Width 12.6 % (11.5-14.5); Red Blood Cell (RBC) Count 4.28 mill/uL (4.70-6.10); White Blood Cell (WBC) Count 6.8 thou/uL (4.8-10.8)
[2016-10-13] MEDS: clonazePAM 0.5 MG TAB PO SCH ×3 (08:58→23:30)
[2016-10-13] MEDS: Gabapentin 300 MG CAP PO SCH ×3 (08:59→21:44)
[2016-10-13] MEDS: Morphine IR Tab 15 MG TAB PO PRN ×2 (09:03→17:49)
[2016-10-13] MEDS: cefTRIAXone\\ROCEPHIN 2 GM in Sodium Chloride 0.9% 100 ML IVPB SCH (11:55)
[2016-10-14] MEDS: Enoxaparin Sodium 40 MG/0.4 ML SYRINGE SC SCH (06:15)
[2016-10-14] MEDS: Baclofen 10 MG TAB PO SCH ×3 (06:16→21:10)
[2016-10-14] MEDS: Gabapentin 300 MG CAP PO SCH ×3 (09:30→21:05)
[2016-10-14] MEDS: clonazePAM 0.5 MG TAB PO SCH ×3 (09:30→23:09)
[2016-10-14] MEDS: Morphine IR Tab 15 MG TAB PO PRN ×3 (09:31→23:10)
[2016-10-14] MEDS: cefTRIAXone\\ROCEPHIN 2 GM in Sodium Chloride 0.9% 100 ML IVPB SCH (10:46)
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
[2016-10-15] MEDS: Morphine IR Tab 15 MG TAB PO PRN ×2 (06:17→15:25)
[2016-10-15] MEDS: Baclofen 10 MG TAB PO SCH ×3 (06:18→22:22)
[2016-10-15] MEDS: Enoxaparin Sodium 40 MG/0.4 ML SYRINGE SC SCH (06:19)
[2016-10-15] MEDS: HYDROcodone/Acetaminophen 10/325 mg Tablet PO PRN ×2 (07:36→16:15)
[2016-10-15] MEDS: Gabapentin 300 MG CAP PO SCH ×3 (07:57→21:13)
[2016-10-15] MEDS: clonazePAM 0.5 MG TAB PO SCH ×3 (08:01→22:22)
[2016-10-15] MEDS: cefTRIAXone\\ROCEPHIN 2 GM in Sodium Chloride 0.9% 100 ML IVPB SCH (11:28)
[2016-10-16] MEDS: Baclofen 10 MG TAB PO SCH ×3 (05:48→23:46)
[2016-10-16] MEDS: Enoxaparin Sodium 40 MG/0.4 ML SYRINGE SC SCH (05:48)
[2016-10-16] MEDS: HYDROcodone/Acetaminophen 10/325 mg Tablet PO PRN ×3 (07:41→23:49)
[2016-10-16] MEDS: clonazePAM 0.5 MG TAB PO SCH ×3 (08:26→23:46)
[2016-10-16] MEDS: Gabapentin 300 MG CAP PO SCH ×3 (08:27→20:39)
[2016-10-16] MEDS: cefTRIAXone\\ROCEPHIN 2 GM in Sodium Chloride 0.9% 100 ML IVPB SCH (12:18)
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
[2016-10-16] MEDS: Morphine IR Tab 15 MG TAB PO PRN (15:49)
[2016-10-17] MEDS: Enoxaparin Sodium 40 MG/0.4 ML SYRINGE SC SCH (05:40)
[2016-10-17] MEDS: Baclofen 10 MG TAB PO SCH ×3 (05:40→21:22)
[2016-10-17] MEDS: Gabapentin 300 MG CAP PO SCH ×3 (08:03→21:22)
[2016-10-17] MEDS: HYDROcodone/Acetaminophen 10/325 mg Tablet PO PRN ×2 (08:03→15:58)
[2016-10-17] MEDS: clonazePAM 0.5 MG TAB PO SCH ×3 (08:03→22:36)
[2016-10-17] MEDS: Morphine IR Tab 15 MG TAB PO PRN ×2 (10:07→22:42)
[2016-10-17] MEDS: cefTRIAXone\\ROCEPHIN 2 GM in Sodium Chloride 0.9% 100 ML IVPB SCH (10:08)
[2016-10-18] MEDS: Enoxaparin Sodium 40 MG/0.4 ML SYRINGE SC SCH (05:37)
[2016-10-18] MEDS: Baclofen 10 MG TAB PO SCH ×3 (05:37→22:34)
[2016-10-18] MEDS: Morphine IR Tab 15 MG TAB PO PRN ×3 (09:20→22:33)
[2016-10-18] MEDS: clonazePAM 0.5 MG TAB PO SCH ×3 (09:20→22:32)
[2016-10-18] MEDS: Gabapentin 300 MG CAP PO SCH ×3 (09:20→21:20)
[2016-10-18] MEDS: cefTRIAXone\\ROCEPHIN 2 GM in Sodium Chloride 0.9% 100 ML IVPB SCH (11:08)
[2016-10-18] MEDS: HYDROcodone/Acetaminophen 10/325 mg Tablet PO PRN (14:26)
[2016-10-19] MEDS: Baclofen 10 MG TAB PO SCH ×3 (06:12→20:59)
[2016-10-19] MEDS: Enoxaparin Sodium 40 MG/0.4 ML SYRINGE SC SCH (06:13)
[2016-10-19] MEDS: clonazePAM 0.5 MG TAB PO SCH ×3 (08:58→23:05)
[2016-10-19] MEDS: Gabapentin 300 MG CAP PO SCH ×3 (08:58→20:52)
[2016-10-19] MEDS: cefTRIAXone\\ROCEPHIN 2 GM in Sodium Chloride 0.9% 100 ML IVPB SCH (11:20)
[2016-10-19] MEDS: Morphine IR Tab 15 MG TAB PO PRN ×2 (14:32→23:23)
[2016-10-20] MEDS: Baclofen 10 MG TAB PO SCH ×3 (05:38→22:27)
[2016-10-20] MEDS: Enoxaparin Sodium 40 MG/0.4 ML SYRINGE SC SCH (05:39)
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
[2016-10-20] MEDS: clonazePAM 0.5 MG TAB PO SCH ×3 (09:48→22:26)
[2016-10-20] MEDS: Morphine IR Tab 15 MG TAB PO PRN ×2 (09:48→17:57)
[2016-10-20] MEDS: Gabapentin 300 MG CAP PO SCH ×3 (09:48→21:14)
[2016-10-20] MEDS: cefTRIAXone\\ROCEPHIN 2 GM in Sodium Chloride 0.9% 100 ML IVPB SCH (11:12)
[2016-10-21] MEDS: HYDROcodone/Acetaminophen 10/325 mg Tablet PO PRN ×3 (02:03→22:51)
[2016-10-21] MEDS: Morphine IR Tab 15 MG TAB PO PRN ×3 (04:16→21:39)
[2016-10-21] MEDS: Baclofen 10 MG TAB PO SCH ×3 (05:53→21:30)
[2016-10-21] MEDS: Enoxaparin Sodium 40 MG/0.4 ML SYRINGE SC SCH (05:55)
[2016-10-21] MEDS: clonazePAM 0.5 MG TAB PO SCH ×3 (08:27→22:48)
[2016-10-21] MEDS: Gabapentin 300 MG CAP PO SCH ×3 (08:28→21:30)
[2016-10-21] MEDS: cefTRIAXone\\ROCEPHIN 2 GM in Sodium Chloride 0.9% 100 ML IVPB SCH (11:37)
[2016-10-22] MEDS: Enoxaparin Sodium 40 MG/0.4 ML SYRINGE SC SCH (06:21)
[2016-10-22] MEDS: Baclofen 10 MG TAB PO SCH ×3 (06:21→22:21)
[2016-10-22] MEDS: Morphine IR Tab 15 MG TAB PO PRN ×2 (06:28→17:24)
[2016-10-22 07:06] LABS: #Basophils 0.2 thou/uL (0.0-0.2); #Eosinphils 0.3 thou/uL (0.0-0.7); #Monocytes 0.6 thou/uL (0.11-0.59); #Neutrophils 3.4 thou/uL (1.40-6.50); %Basophils 1.9 % (0.0-1.0); %Eosinophils 3.8 % (0.0-10.0); %Monocytes 7.4 % (0.0-10.0); Hemoglobin 13.2 g/dL (14.0-18.0); Mean Corpuscular HGB CONC 32.9 g/dL (32.0-36.0); Mean Corpuscular Hemoglobin 31.1 pg (27.0-31.0); Mean Corpuscular Volume 94.7 fl (80.0-94.0); Mean Platelet Volume 7.2 fL (7.4-10.4); Platelet Count 216 thou/uL (130-400); RBC Distribution Width 12.4 % (11.5-14.5); Red Blood Cell (RBC) Count 4.25 mill/uL (4.70-6.10); White Blood Cell (WBC) Count 8.6 thou/uL (4.8-10.8)
[2016-10-22 07:18] LABS: Anion Gap 11 mmol/L (10-20); BUN (Urea Nitrogen) 24 mg/dL (8.9-20.6); Calc. Creatinine Clearance 213 mL/min (70-130); Calcium 8.4 mg/dL (7.8-10.44); Carbon Dioxide 23 mmol/L (22-29); Chloride 105 mmol/L (98-107); Estimated GFR-MDRD Greater than 90; Glucose 97 mg/dL (70-105); Sodium 135 mmol/L (136-145)
[2016-10-22] MEDS: HYDROcodone/Acetaminophen 10/325 mg Tablet PO PRN ×2 (08:14→16:22)
[2016-10-22] MEDS: Gabapentin 300 MG CAP PO SCH ×3 (08:14→22:21)
[2016-10-22] MEDS: clonazePAM 0.5 MG TAB PO SCH ×3 (08:15→23:40)
[2016-10-22] MEDS: cefTRIAXone\\ROCEPHIN 2 GM in Sodium Chloride 0.9% 100 ML IVPB SCH (10:59)
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
[2016-10-23] MEDS: Baclofen 10 MG TAB PO SCH ×3 (05:33→21:53)
[2016-10-23] MEDS: Enoxaparin Sodium 40 MG/0.4 ML SYRINGE SC SCH (05:34)
[2016-10-23] MEDS: clonazePAM 0.5 MG TAB PO SCH ×3 (08:56→23:18)
[2016-10-23] MEDS: Gabapentin 300 MG CAP PO SCH ×3 (08:57→21:53)
[2016-10-23] MEDS: Morphine IR Tab 15 MG TAB PO PRN (09:25)
[2016-10-23] MEDS: cefTRIAXone\\ROCEPHIN 2 GM in Sodium Chloride 0.9% 100 ML IVPB SCH (10:39)
[2016-10-23] MEDS: HYDROcodone/Acetaminophen 10/325 mg Tablet PO PRN (21:58)
[2016-10-24] MEDS: Morphine IR Tab 15 MG TAB PO PRN (01:47)
[2016-10-24] MEDS: Enoxaparin Sodium 40 MG/0.4 ML SYRINGE SC SCH (05:32)
[2016-10-24] MEDS: Baclofen 10 MG TAB PO SCH ×3 (05:32→21:07)
[2016-10-24] MEDS: clonazePAM 0.5 MG TAB PO SCH ×3 (09:15→22:33)
[2016-10-24] MEDS: Gabapentin 300 MG CAP PO SCH ×3 (09:16→21:06)
[2016-10-24] MEDS: cefTRIAXone\\ROCEPHIN 2 GM in Sodium Chloride 0.9% 100 ML IVPB SCH (11:03)
[2016-10-24] MEDS: HYDROcodone/Acetaminophen 10/325 mg Tablet PO PRN (21:07)
[2016-10-25] MEDS: Morphine IR Tab 15 MG TAB PO PRN ×3 (03:07→18:21)
[2016-10-25] MEDS: Enoxaparin Sodium 40 MG/0.4 ML SYRINGE SC SCH (05:17)
[2016-10-25] MEDS: Baclofen 10 MG TAB PO SCH ×3 (05:17→21:26)
[2016-10-25] MEDS: clonazePAM 0.5 MG TAB PO SCH ×3 (09:22→23:26)
[2016-10-25] MEDS: Gabapentin 300 MG CAP PO SCH ×3 (09:22→21:26)
[2016-10-25] MEDS ORDERED: Mag-Al Plus 1200 MG/1200 MG/120 MG/30 ML UDCUP PO PRN (11:19)
[2016-10-25] MEDS: cefTRIAXone\\ROCEPHIN 2 GM in Sodium Chloride 0.9% 100 ML IVPB SCH (11:27)
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
[2016-10-25] MEDS: HYDROcodone/Acetaminophen 10/325 mg Tablet PO PRN (14:07)
[2016-10-26] MEDS: Baclofen 10 MG TAB PO SCH ×3 (05:57→21:18)
[2016-10-26] MEDS: Enoxaparin Sodium 40 MG/0.4 ML SYRINGE SC SCH (05:58)
[2016-10-26] MEDS: Morphine IR Tab 15 MG TAB PO PRN ×3 (06:02→22:26)
[2016-10-26] MEDS: clonazePAM 0.5 MG TAB PO SCH ×3 (09:00→22:23)
[2016-10-26] MEDS: Gabapentin 300 MG CAP PO SCH ×3 (09:01→21:18)
[2016-10-26] MEDS: cefTRIAXone\\ROCEPHIN 2 GM in Sodium Chloride 0.9% 100 ML IVPB SCH (11:16)
[2016-10-26] MEDS: HYDROcodone/Acetaminophen 10/325 mg Tablet PO PRN (19:34)
[2016-10-27] MEDS: Enoxaparin Sodium 40 MG/0.4 ML SYRINGE SC SCH (05:08)
[2016-10-27] MEDS: Baclofen 10 MG TAB PO SCH ×3 (05:08→21:08)
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
[2016-10-27] MEDS: clonazePAM 0.5 MG TAB PO SCH ×3 (09:19→23:04)
[2016-10-27] MEDS: Gabapentin 300 MG CAP PO SCH ×3 (09:20→21:08)
[2016-10-27] MEDS: cefTRIAXone\\ROCEPHIN 2 GM in Sodium Chloride 0.9% 100 ML IVPB SCH (10:53)
[2016-10-27] MEDS: Morphine IR Tab 15 MG TAB PO PRN ×2 (10:58→16:54)
[2016-10-27] MEDS: HYDROcodone/Acetaminophen 7.5/325 mg Tablet PO PRN ×2 (13:41→21:14)
[2016-10-28] MEDS: Morphine IR Tab 15 MG TAB PO PRN ×3 (01:44→20:28)
[2016-10-28] MEDS: HYDROcodone/Acetaminophen 7.5/325 mg Tablet PO PRN ×2 (02:52→06:59)
[2016-10-28] MEDS: Enoxaparin Sodium 40 MG/0.4 ML SYRINGE SC SCH (05:16)
[2016-10-28] MEDS: Baclofen 10 MG TAB PO SCH ×3 (05:17→20:22)
[2016-10-28] MEDS: Gabapentin 300 MG CAP PO SCH ×3 (09:46→20:21)
[2016-10-28] MEDS: clonazePAM 0.5 MG TAB PO SCH ×3 (09:46→22:41)
[2016-10-28] MEDS: cefTRIAXone\\ROCEPHIN 2 GM in Sodium Chloride 0.9% 100 ML IVPB SCH (10:56)
[2016-10-28] MEDS ORDERED: Morphine IR Tab 15 MG TAB PO SCH (13:15)
[2016-10-28] MEDS: HYDROcodone/Acetaminophen 10/325 mg Tablet PO PRN (22:49)
[2016-10-29] MEDS: Morphine IR Tab 15 MG TAB PO PRN ×2 (06:13→17:18)
[2016-10-29] MEDS: Enoxaparin Sodium 40 MG/0.4 ML SYRINGE SC SCH (06:15)
[2016-10-29] MEDS: Baclofen 10 MG TAB PO SCH ×3 (06:15→21:11)
[2016-10-29] MEDS: HYDROcodone/Acetaminophen 10/325 mg Tablet PO PRN ×2 (07:57→16:25)
[2016-10-29] MEDS: clonazePAM 0.5 MG TAB PO SCH ×3 (07:57→21:17)
[2016-10-29] MEDS: Gabapentin 300 MG CAP PO SCH ×3 (07:58→21:11)
[2016-10-29] MEDS: cefTRIAXone\\ROCEPHIN 2 GM in Sodium Chloride 0.9% 100 ML IVPB SCH (10:57)
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
[2016-10-30] MEDS: Morphine IR Tab 15 MG TAB PO PRN ×3 (03:34→23:31)
[2016-10-30] MEDS: Enoxaparin Sodium 40 MG/0.4 ML SYRINGE SC SCH (06:12)
[2016-10-30] MEDS: Baclofen 10 MG TAB PO SCH ×3 (06:12→21:13)
[2016-10-30] MEDS: HYDROcodone/Acetaminophen 10/325 mg Tablet PO PRN ×2 (07:41→15:16)
[2016-10-30] MEDS: clonazePAM 0.5 MG TAB PO SCH ×3 (08:14→22:11)
[2016-10-30] MEDS: Gabapentin 300 MG CAP PO SCH ×3 (08:14→21:12)
[2016-10-30] MEDS: cefTRIAXone\\ROCEPHIN 2 GM in Sodium Chloride 0.9% 100 ML IVPB SCH (10:24)
[2016-10-31] MEDS: Enoxaparin Sodium 40 MG/0.4 ML SYRINGE SC SCH (06:00)
[2016-10-31] MEDS: Baclofen 10 MG TAB PO SCH ×3 (06:00→22:02)
[2016-10-31] MEDS: HYDROcodone/Acetaminophen 10/325 mg Tablet PO PRN ×2 (07:32→15:43)
[2016-10-31] MEDS: Gabapentin 300 MG CAP PO SCH ×3 (08:28→20:30)
[2016-10-31] MEDS: clonazePAM 0.5 MG TAB PO SCH ×3 (08:28→22:01)
[2016-10-31] MEDS: cefTRIAXone\\ROCEPHIN 2 GM in Sodium Chloride 0.9% 100 ML IVPB SCH (10:58)
[2016-10-31] MEDS: Morphine IR Tab 15 MG TAB PO PRN ×2 (12:56→22:07)
[2016-11-01] MEDS: Baclofen 10 MG TAB PO SCH ×3 (05:52→21:21)
[2016-11-01] MEDS: Enoxaparin Sodium 40 MG/0.4 ML SYRINGE SC SCH (05:53)
[2016-11-01] MEDS: HYDROcodone/Acetaminophen 10/325 mg Tablet PO PRN ×2 (07:37→15:26)
[2016-11-01] MEDS: Gabapentin 300 MG CAP PO SCH ×3 (08:23→21:20)
[2016-11-01] MEDS: clonazePAM 0.5 MG TAB PO SCH ×3 (08:23→22:31)
[2016-11-01] MEDS: cefTRIAXone\\ROCEPHIN 2 GM in Sodium Chloride 0.9% 100 ML IVPB SCH (10:43)
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
[2016-11-01] MEDS: Morphine IR Tab 15 MG TAB PO PRN ×2 (14:12→21:22)
[2016-11-02] MEDS: Morphine IR Tab 15 MG TAB PO PRN ×3 (04:54→20:46)
[2016-11-02] MEDS: Baclofen 10 MG TAB PO SCH ×3 (04:55→20:45)
[2016-11-02] MEDS: Enoxaparin Sodium 40 MG/0.4 ML SYRINGE SC SCH (04:55)
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
[2016-11-02] MEDS: Gabapentin 300 MG CAP PO SCH ×3 (09:16→20:45)
[2016-11-02] MEDS: clonazePAM 0.5 MG TAB PO SCH ×2 (09:16→23:02)
[2016-11-02] MEDS ORDERED: clonazePAM 0.5 MG TAB PO SCH (16:30)
[2016-11-02] MEDS: HYDROcodone/Acetaminophen 10/325 mg Tablet PO PRN (16:47)
[2016-11-03] MEDS: Baclofen 10 MG TAB PO SCH ×3 (05:39→20:23)
[2016-11-03] MEDS: Morphine IR Tab 15 MG TAB PO PRN ×3 (05:40→20:23)
[2016-11-03] MEDS: Enoxaparin Sodium 40 MG/0.4 ML SYRINGE SC SCH (05:40)
[2016-11-03] MEDS: clonazePAM 0.5 MG TAB PO SCH ×3 (09:23→23:02)
[2016-11-03] MEDS: Gabapentin 300 MG CAP PO SCH ×3 (09:24→20:23)
[2016-11-04] MEDS: Baclofen 10 MG TAB PO SCH ×3 (04:17→21:01)
[2016-11-04] MEDS: Morphine IR Tab 15 MG TAB PO PRN ×3 (04:18→14:30)
[2016-11-04] MEDS: Enoxaparin Sodium 40 MG/0.4 ML SYRINGE SC SCH (04:19)
[2016-11-04] MEDS: clonazePAM 0.5 MG TAB PO SCH ×3 (08:08→22:53)
[2016-11-04] MEDS: HYDROcodone/Acetaminophen 10/325 mg Tablet PO PRN ×2 (08:09→22:58)
[2016-11-04] MEDS: Gabapentin 300 MG CAP PO SCH ×3 (08:10→21:01)
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
[2016-11-04] MEDS ORDERED: Morphine IR Tab 15 MG TAB PO SCH (12:00)
[2016-11-05] MEDS: Morphine IR Tab 15 MG TAB PO PRN ×2 (02:50→11:49)
[2016-11-05] MEDS: Enoxaparin Sodium 40 MG/0.4 ML SYRINGE SC SCH (05:47)
[2016-11-05] MEDS: Baclofen 10 MG TAB PO SCH ×3 (05:48→22:04)
[2016-11-05] MEDS: HYDROcodone/Acetaminophen 10/325 mg Tablet PO PRN ×2 (07:31→15:37)
[2016-11-05] MEDS: clonazePAM 0.5 MG TAB PO SCH ×3 (08:09→22:04)
[2016-11-05] MEDS: Gabapentin 300 MG CAP PO SCH ×3 (08:09→20:32)
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
[2016-11-06] MEDS: Morphine IR Tab 15 MG TAB PO PRN ×2 (02:49→14:50)
[2016-11-06] MEDS: Enoxaparin Sodium 40 MG/0.4 ML SYRINGE SC SCH (05:54)
[2016-11-06] MEDS: Baclofen 10 MG TAB PO SCH ×3 (05:54→21:12)
[2016-11-06] MEDS: HYDROcodone/Acetaminophen 10/325 mg Tablet PO PRN (07:54)
[2016-11-06] MEDS: clonazePAM 0.5 MG TAB PO SCH ×3 (08:17→22:31)
[2016-11-06] MEDS: Gabapentin 300 MG CAP PO SCH ×3 (08:18→21:12)
[2016-11-07] MEDS: Baclofen 10 MG TAB PO SCH ×3 (05:28→22:32)
[2016-11-07] MEDS: Enoxaparin Sodium 40 MG/0.4 ML SYRINGE SC SCH (05:28)
[2016-11-07] MEDS: HYDROcodone/Acetaminophen 10/325 mg Tablet PO PRN ×2 (07:45→15:30)
[2016-11-07] MEDS: clonazePAM 0.5 MG TAB PO SCH ×3 (07:59→22:32)
[2016-11-07] MEDS: Gabapentin 300 MG CAP PO SCH ×3 (07:59→20:38)
[2016-11-07] MEDS: Morphine IR Tab 15 MG TAB PO PRN (12:13)
[2016-11-08] MEDS: Enoxaparin Sodium 40 MG/0.4 ML SYRINGE SC SCH (05:33)
[2016-11-08] MEDS: Baclofen 10 MG TAB PO SCH ×3 (05:33→21:32)
[2016-11-08] MEDS: clonazePAM 0.5 MG TAB PO SCH ×2 (09:26→14:58)
[2016-11-08] MEDS: Gabapentin 300 MG CAP PO SCH ×3 (09:26→21:33)
[2016-11-08] MEDS: HYDROcodone/Acetaminophen 10/325 mg Tablet PO PRN (09:31)
[2016-11-08] MEDS: Morphine IR Tab 15 MG TAB PO PRN (12:04)
[2016-11-09] MEDS: clonazePAM 0.5 MG TAB PO SCH ×4 (00:01→23:28)
[2016-11-09] MEDS: Baclofen 10 MG TAB PO SCH ×3 (05:31→21:20)
[2016-11-09] MEDS: Enoxaparin Sodium 40 MG/0.4 ML SYRINGE SC SCH (05:31)
[2016-11-09] MEDS: Gabapentin 300 MG CAP PO SCH ×3 (10:27→21:19)
[2016-11-09] MEDS: Morphine IR Tab 15 MG TAB PO PRN ×2 (10:27→23:33)
[2016-11-09] MEDS: HYDROcodone/Acetaminophen 10/325 mg Tablet PO PRN (21:33)
[2016-11-10] MEDS: Baclofen 10 MG TAB PO SCH ×3 (06:00→21:33)
[2016-11-10] MEDS: Enoxaparin Sodium 40 MG/0.4 ML SYRINGE SC SCH (06:00)
[2016-11-10] MEDS: clonazePAM 0.5 MG TAB PO SCH ×3 (09:30→23:19)
[2016-11-10] MEDS: Gabapentin 300 MG CAP PO SCH ×3 (09:31→21:31)
[2016-11-10] MEDS: Morphine IR Tab 15 MG TAB PO PRN (12:01)
[2016-11-10] MEDS: HYDROcodone/Acetaminophen 10/325 mg Tablet PO PRN (21:32)
[2016-11-11] MEDS: Enoxaparin Sodium 40 MG/0.4 ML SYRINGE SC SCH (05:37)
[2016-11-11] MEDS: Baclofen 10 MG TAB PO SCH ×3 (05:37→21:07)
[2016-11-11] MEDS: clonazePAM 0.5 MG TAB PO SCH ×3 (09:44→22:46)
[2016-11-11] MEDS: Gabapentin 300 MG CAP PO SCH ×3 (09:44→21:08)
[2016-11-11] MEDS: Morphine IR Tab 15 MG TAB PO PRN ×2 (11:44→18:22)
[2016-11-11] MEDS: HYDROcodone/Acetaminophen 10/325 mg Tablet PO PRN (21:06)
[2016-11-12] MEDS: Enoxaparin Sodium 40 MG/0.4 ML SYRINGE SC SCH (05:31)
[2016-11-12] MEDS: Morphine IR Tab 15 MG TAB PO PRN ×3 (05:32→22:53)
[2016-11-12] MEDS: Baclofen 10 MG TAB PO SCH ×3 (05:32→21:06)
[2016-11-12] MEDS: clonazePAM 0.5 MG TAB PO SCH ×3 (09:27→22:54)
[2016-11-12] MEDS: Gabapentin 300 MG CAP PO SCH ×3 (09:27→21:06)
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
[2016-11-13] MEDS: Baclofen 10 MG TAB PO SCH ×3 (05:08→20:40)
[2016-11-13] MEDS: Morphine IR Tab 15 MG TAB PO PRN ×3 (05:08→23:00)
[2016-11-13] MEDS: Enoxaparin Sodium 40 MG/0.4 ML SYRINGE SC SCH (05:10)
[2016-11-13] MEDS: Gabapentin 300 MG CAP PO SCH ×3 (08:36→20:40)
[2016-11-13] MEDS: clonazePAM 0.5 MG TAB PO SCH ×3 (08:36→22:59)
[2016-11-14] MEDS: Morphine IR Tab 15 MG TAB PO PRN ×3 (05:00→21:27)
[2016-11-14] MEDS: Enoxaparin Sodium 40 MG/0.4 ML SYRINGE SC SCH (05:00)
[2016-11-14] MEDS: Baclofen 10 MG TAB PO SCH ×3 (05:00→21:27)
[2016-11-14] MEDS: Gabapentin 300 MG CAP PO SCH ×3 (09:54→21:27)
[2016-11-14] MEDS: clonazePAM 0.5 MG TAB PO SCH ×3 (09:54→22:50)
[2016-11-15] MEDS: Morphine IR Tab 15 MG TAB PO PRN ×2 (05:29→21:25)
[2016-11-15] MEDS: Baclofen 10 MG TAB PO SCH ×3 (05:30→21:24)
[2016-11-15] MEDS: Enoxaparin Sodium 40 MG/0.4 ML SYRINGE SC SCH (05:31)
[2016-11-15] MEDS: clonazePAM 0.5 MG TAB PO SCH ×3 (09:29→23:01)
[2016-11-15] MEDS: Gabapentin 300 MG CAP PO SCH ×3 (09:29→21:24)
[2016-11-16] MEDS: HYDROcodone/Acetaminophen 10/325 mg Tablet PO PRN (01:16)
[2016-11-16] MEDS: Enoxaparin Sodium 40 MG/0.4 ML SYRINGE SC SCH (05:03)
[2016-11-16] MEDS: Morphine IR Tab 15 MG TAB PO PRN ×3 (05:03→20:29)
[2016-11-16] MEDS: Baclofen 10 MG TAB PO SCH ×3 (05:03→20:28)
[2016-11-16] MEDS: Gabapentin 300 MG CAP PO SCH ×3 (09:58→20:28)
[2016-11-16] MEDS: clonazePAM 0.5 MG TAB PO SCH ×3 (09:58→22:36)
[2016-11-17] MEDS: Baclofen 10 MG TAB PO SCH ×3 (04:30→21:24)
[2016-11-17] MEDS: Morphine IR Tab 15 MG TAB PO PRN ×3 (04:31→21:25)
[2016-11-17] MEDS: clonazePAM 0.5 MG TAB PO SCH ×3 (08:48→21:26)
[2016-11-17] MEDS: Gabapentin 300 MG CAP PO SCH ×3 (08:49→21:26)
[2016-11-17] MEDS: HYDROcodone/Acetaminophen 10/325 mg Tablet PO PRN ×2 (08:49→16:28)
[2016-11-18] MEDS: Morphine IR Tab 15 MG TAB PO PRN ×3 (05:35→19:39)
[2016-11-18] MEDS: Baclofen 10 MG TAB PO SCH ×3 (05:35→21:59)
[2016-11-18] MEDS: HYDROcodone/Acetaminophen 10/325 mg Tablet PO PRN ×2 (07:59→17:04)
[2016-11-18] MEDS: clonazePAM 0.5 MG TAB PO SCH ×3 (07:59→22:00)
[2016-11-18] MEDS: Gabapentin 300 MG CAP PO SCH ×3 (08:00→22:00)
[2016-11-19] MEDS: Baclofen 10 MG TAB PO SCH ×3 (05:54→20:57)
[2016-11-19] MEDS: Morphine IR Tab 15 MG TAB PO PRN ×3 (05:58→21:00)
[2016-11-19] MEDS: HYDROcodone/Acetaminophen 10/325 mg Tablet PO PRN ×2 (07:59→17:13)
[2016-11-19] MEDS: clonazePAM 0.5 MG TAB PO SCH ×3 (08:00→23:18)
[2016-11-19] MEDS: Gabapentin 300 MG CAP PO SCH ×3 (08:30→20:56)
[2016-11-19 09:47] LABS: #Basophils 0.1 thou/uL (0.0-0.2); #Eosinphils 0.4 thou/uL (0.0-0.7); #Lymphocytes 3.4 thou/uL (1.20-3.40); #Monocytes 0.8 thou/uL (0.11-0.59); #Neutrophils 2.7 thou/uL (1.40-6.50); %Basophils 1.8 % (0.0-1.0); %Eosinophils 5.5 % (0.0-10.0); %Lymphocytes 46.1 % (21.0-51.0); %Monocytes 10.2 % (0.0-10.0); %Neutrophils 36.4 % (42.0-75.0); Hemoglobin 13.9 g/dL (14.0-18.0); Mean Corpuscular HGB CONC 31.9 g/dL (32.0-36.0); Mean Corpuscular Hemoglobin 30.4 pg (27.0-31.0); Mean Corpuscular Volume 95.3 fl (80.0-94.0); Mean Platelet Volume 6.9 fL (7.4-10.4); Platelet Count 211 thou/uL (130-400); RBC Distribution Width 12.2 % (11.5-14.5); Red Blood Cell (RBC) Count 4.56 mill/uL (4.70-6.10); White Blood Cell (WBC) Count 7.4 thou/uL (4.8-10.8)
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
[2016-11-19 10:51] LABS: INR-International Normal Ratio 1.1; PTT 35.2 SEC (22.9-36.1); Prothrombin Time 14.3 SEC (12.0-14.7)
[2016-11-19 11:11] LABS: ALT (SGPT) 70 U/L (8-55); AST (SGOT) 58 U/L (5-34); Albumin 3.2 g/dL (3.5-5.0); Alkaline Phosphatase 105 U/L (40-150); Anion Gap 10 mmol/L (10-20); BUN (Urea Nitrogen) 14 mg/dL (8.9-20.6); Bilirubin, Total 0.5 mg/dL (0.2-1.2); Calc. Creatinine Clearance 203 mL/min (70-130); Calcium 8.5 mg/dL (7.8-10.44); Carbon Dioxide 27 mmol/L (22-29); Chloride 108 mmol/L (98-107); Estimated GFR-MDRD Greater than 90; Globulin 3.7 g/dL (2.4-3.5); Glucose 132 mg/dL (70-105); Potassium 4.2 mmol/L (3.5-5.1); Protein, Total 6.9 g/dL (6.0-8.3); Sodium 141 mmol/L (136-145)
[2016-11-20] MEDS: Baclofen 10 MG TAB PO SCH ×3 (06:05→22:09)
[2016-11-20] MEDS: Morphine IR Tab 15 MG TAB PO PRN ×3 (06:08→22:08)
[2016-11-20] MEDS: Gabapentin 300 MG CAP PO SCH ×3 (08:18→22:08)
[2016-11-20] MEDS: clonazePAM 0.5 MG TAB PO SCH ×3 (08:18→22:09)
[2016-11-20] MEDS: HYDROcodone/Acetaminophen 10/325 mg Tablet PO PRN ×2 (08:35→17:25)
[2016-11-21] MEDS: Baclofen 10 MG TAB PO SCH ×3 (05:51→21:25)
[2016-11-21] MEDS: Gabapentin 300 MG CAP PO SCH ×3 (08:41→21:24)
[2016-11-21] MEDS: clonazePAM 0.5 MG TAB PO SCH ×3 (08:41→21:25)
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
[2016-11-21] MEDS: Morphine IR Tab 15 MG TAB PO PRN ×2 (13:41→21:25)
[2016-11-21] MEDS: HYDROcodone/Acetaminophen 10/325 mg Tablet PO PRN (21:25)
[2016-11-22] MEDS: Baclofen 10 MG TAB PO SCH ×3 (05:20→22:42)
[2016-11-22] MEDS: Gabapentin 300 MG CAP PO SCH ×3 (10:11→22:41)
[2016-11-22] MEDS: clonazePAM 0.5 MG TAB PO SCH ×3 (10:11→22:43)
[2016-11-23] MEDS: Baclofen 10 MG TAB PO SCH ×2 (19:47→21:25)
[2016-11-23] MEDS: clonazePAM 0.5 MG TAB PO SCH ×3 (19:47→23:35)
[2016-11-23] MEDS: Gabapentin 300 MG CAP PO SCH ×2 (19:48→21:25)
[2016-11-23] MEDS ORDERED: Morphine 4 MG/ML Carpuject SLOW IVP PRN ×2 (20:11)
[2016-11-23] MEDS ORDERED: Morphine 10 MG/ML VIAL SLOW IVP PRN ×2 (20:17→23:26)
[2016-11-23] MEDS: Morphine 10 MG/ML VIAL SLOW IVP PRN ×2 (20:27→20:31)
[2016-11-23] MEDS: HYDROcodone/Acetaminophen 10/325 mg Tablet PO PRN (21:45)
[2016-11-23] MEDS ORDERED: Morphine 10 MG/ML VIAL SLOW IVP SCH (23:30)
[2016-11-24] MEDS: Morphine 10 MG/ML VIAL SLOW IVP PRN ×5 (05:12→22:12)
[2016-11-24] MEDS: Baclofen 10 MG TAB PO SCH ×3 (05:14→21:38)
[2016-11-24] MEDS: clonazePAM 0.5 MG TAB PO SCH ×3 (08:20→22:11)
[2016-11-24] MEDS: Gabapentin 300 MG CAP PO SCH ×3 (08:20→21:38)
[2016-11-24] MEDS: HYDROcodone/Acetaminophen 10/325 mg Tablet PO PRN ×2 (08:22→17:10)
[2016-11-24] MEDS: Enoxaparin Sodium 40 MG/0.4 ML SYRINGE SC SCH (08:38)
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
[2016-11-24] MEDS: Morphine IR Tab 15 MG TAB PO PRN (11:51)
[2016-11-24 13:53] LABS: Bilirubin Small (Negative); Blood, Urine Negative (Negative); Clarity Hazy (Clear); Glucose, Urine (Dipstick) Negative (Negative); Leukocyte Negative (Negative); Nitrite Negative (Negative); Protein, Urine (Dipstick) 30 mg/dL (Neg-Trace)
[2016-11-24 13:54] LABS: Bacteria/HPF 1+ HPF (None Seen); RBC/HPF None Seen HPF (0-3); Squamous Epithelial 0-3 HPF (0-3); WBC/HPF 0-3 HPF (0-3)
[2016-11-24 13:55] LABS: Other Microscopic Description MUCOUS PRESENT
[2016-11-25] MEDS: Morphine 10 MG/ML VIAL SLOW IVP PRN ×5 (04:19→22:44)
[2016-11-25] MEDS: Baclofen 10 MG TAB PO SCH ×3 (05:31→21:48)
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
[2016-11-25] MEDS: Enoxaparin Sodium 40 MG/0.4 ML SYRINGE SC SCH (09:44)
[2016-11-25] MEDS: Gabapentin 300 MG CAP PO SCH ×3 (09:44→21:47)
[2016-11-25] MEDS: clonazePAM 0.5 MG TAB PO SCH ×3 (09:45→22:30)
[2016-11-25] MEDS: Morphine IR Tab 15 MG TAB PO PRN (12:10)
[2016-11-25] MEDS: HYDROcodone/Acetaminophen 10/325 mg Tablet PO PRN (21:48)
[2016-11-26] MEDS: Morphine 10 MG/ML VIAL SLOW IVP PRN ×5 (02:42→22:08)
[2016-11-26 05:15] LABS: #Basophils 0.2 thou/uL (0.0-0.2); #Eosinphils 0.3 thou/uL (0.0-0.7); #Lymphocytes 4.4 thou/uL (1.20-3.40); #Monocytes 0.9 thou/uL (0.11-0.59); #Neutrophils 3.8 thou/uL (1.40-6.50); %Basophils 2.3 % (0.0-1.0); %Eosinophils 3.6 % (0.0-10.0); %Lymphocytes 45.6 % (21.0-51.0); %Monocytes 9.1 % (0.0-10.0); %Neutrophils 39.4 % (42.0-75.0); Hemoglobin 12.7 g/dL (14.0-18.0); Mean Corpuscular HGB CONC 32.5 g/dL (32.0-36.0); Mean Corpuscular Hemoglobin 30.7 pg (27.0-31.0); Mean Corpuscular Volume 94.5 fl (80.0-94.0); Mean Platelet Volume 6.8 fL (7.4-10.4); Platelet Count 223 thou/uL (130-400); Red Blood Cell (RBC) Count 4.12 mill/uL (4.70-6.10); White Blood Cell (WBC) Count 9.6 thou/uL (4.8-10.8)
[2016-11-26 05:23] LABS: Anion Gap 13 mmol/L (10-20); BUN (Urea Nitrogen) 19 mg/dL (8.9-20.6); Calc. Creatinine Clearance 213 mL/min (70-130); Calcium 8.5 mg/dL (7.8-10.44); Carbon Dioxide 23 mmol/L (22-29); Chloride 107 mmol/L (98-107); Estimated GFR-MDRD Greater than 90; Glucose 102 mg/dL (70-105); Potassium 3.9 mmol/L (3.5-5.1); Sodium 139 mmol/L (136-145)
[2016-11-26] MEDS: Baclofen 10 MG TAB PO SCH ×3 (06:12→22:04)
[2016-11-26] MEDS: Gabapentin 300 MG CAP PO SCH ×3 (07:44→22:05)
[2016-11-26] MEDS: clonazePAM 0.5 MG TAB PO SCH ×3 (07:44→22:04)
[2016-11-26] MEDS: Enoxaparin Sodium 40 MG/0.4 ML SYRINGE SC SCH (07:44)
[2016-11-26] MEDS: HYDROcodone/Acetaminophen 10/325 mg Tablet PO PRN ×2 (07:46→15:49)
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
[2016-11-27] MEDS: Morphine 10 MG/ML VIAL SLOW IVP PRN ×5 (02:49→21:33)
[2016-11-27] MEDS: Baclofen 10 MG TAB PO SCH ×3 (05:25→21:30)
[2016-11-27] MEDS: HYDROcodone/Acetaminophen 10/325 mg Tablet PO PRN ×2 (07:56→16:06)
[2016-11-27] MEDS: clonazePAM 0.5 MG TAB PO SCH ×3 (08:22→22:24)
[2016-11-27] MEDS: Enoxaparin Sodium 40 MG/0.4 ML SYRINGE SC SCH (08:23)
[2016-11-27] MEDS: Gabapentin 300 MG CAP PO SCH ×3 (08:23→21:30)
[2016-11-28] MEDS: Morphine 10 MG/ML VIAL SLOW IVP PRN ×5 (02:14→23:39)
[2016-11-28] MEDS: Baclofen 10 MG TAB PO SCH ×3 (05:56→23:37)
[2016-11-28] MEDS: Gabapentin 300 MG CAP PO SCH ×3 (07:39→19:31)
[2016-11-28] MEDS: HYDROcodone/Acetaminophen 10/325 mg Tablet PO PRN ×2 (07:39→16:46)
[2016-11-28] MEDS: clonazePAM 0.5 MG TAB PO SCH ×3 (07:40→23:38)
[2016-11-28] MEDS: Enoxaparin Sodium 40 MG/0.4 ML SYRINGE SC SCH (07:40)
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
[2016-11-29] MEDS: HYDROcodone/Acetaminophen 10/325 mg Tablet PO PRN ×2 (02:46→10:46)
[2016-11-29] MEDS: Morphine 10 MG/ML VIAL SLOW IVP PRN ×3 (04:23→22:37)
[2016-11-29] MEDS: Baclofen 10 MG TAB PO SCH ×3 (05:00→20:26)
[2016-11-29] MEDS: clonazePAM 0.5 MG TAB PO SCH ×3 (08:03→22:36)
[2016-11-29] MEDS: Gabapentin 300 MG CAP PO SCH ×3 (08:04→20:27)
[2016-11-29] MEDS: Enoxaparin Sodium 40 MG/0.4 ML SYRINGE SC SCH (08:05)
[2016-11-29] MEDS ORDERED: Morphine IR Tab 15 MG TAB PO PRN (15:04)
[2016-11-29] MEDS: Morphine IR Tab 15 MG TAB PO PRN (17:37)
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
[2016-11-29] MEDS ORDERED: FLU VACC QS2017-18 36 mo. & older 0.5 ML SYRINGE IM ONE (21:00)
[2016-11-30] MEDS: Morphine IR Tab 15 MG TAB PO PRN ×2 (03:10→18:06)
[2016-11-30] MEDS: Baclofen 10 MG TAB PO SCH ×3 (06:27→21:08)
[2016-11-30] MEDS: Morphine 10 MG/ML VIAL SLOW IVP PRN ×3 (06:29→22:35)
[2016-11-30] MEDS: clonazePAM 0.5 MG TAB PO SCH ×3 (09:01→22:35)
[2016-11-30] MEDS: Enoxaparin Sodium 40 MG/0.4 ML SYRINGE SC SCH (09:02)
[2016-11-30] MEDS: Gabapentin 300 MG CAP PO SCH ×3 (09:02→21:07)
[2016-12-01] MEDS: Morphine IR Tab 15 MG TAB PO PRN ×2 (02:56→13:37)
[2016-12-01] MEDS: Baclofen 10 MG TAB PO SCH ×3 (05:36→21:22)
[2016-12-01] MEDS: Morphine 10 MG/ML VIAL SLOW IVP PRN ×3 (07:15→22:59)
[2016-12-01] MEDS: Enoxaparin Sodium 40 MG/0.4 ML SYRINGE SC SCH (08:49)
[2016-12-01] MEDS: clonazePAM 0.5 MG TAB PO SCH ×3 (08:49→22:59)
[2016-12-01] MEDS: Gabapentin 300 MG CAP PO SCH ×3 (08:50→21:22)
[2016-12-01 09:58] LABS: Anion Gap 11 mmol/L (10-20); BUN (Urea Nitrogen) 18 mg/dL (8.9-20.6); Calc. Creatinine Clearance 186 mL/min (70-130); Calcium 8.6 mg/dL (7.8-10.44); Carbon Dioxide 25 mmol/L (22-29); Chloride 104 mmol/L (98-107); Estimated GFR-MDRD Greater than 90; Glucose 115 mg/dL (70-105); Potassium 3.9 mmol/L (3.5-5.1); Sodium 136 mmol/L (136-145)
[2016-12-01] MEDS: Acetaminophen 325 MG TAB PO PRN (11:05)
[2016-12-01 11:12] LABS: Mean Corpuscular HGB CONC 33.4 g/dL (32.0-36.0); Mean Corpuscular Hemoglobin 31.4 pg (27.0-31.0); Mean Platelet Volume 5.5 fL (7.4-10.4); Platelet Count 274 thou/uL (130-400); RBC Distribution Width 11.9 % (11.5-14.5); Red Blood Cell (RBC) Count 4.14 mill/uL (4.70-6.10); White Blood Cell (WBC) Count 14.9 thou/uL (4.8-10.8)
[2016-12-01 11:13] LABS: Eosinophils 1 % (0-10); Lymphocytes 26 % (21-51); MDiff Complete? YES; Monocytes 6 % (0-10); Neutrophil 50 % (42-75); PLT Morphology Comment Appears Adequate; RBC Morphology Normal; Reactive Lymphocytes 17 % (0-10)
[2016-12-01 11:21] LABS: Bilirubin Negative (Negative); Blood, Urine Negative (Negative); Glucose, Urine (Dipstick) Negative (Negative); Leukocyte Large (Negative); Nitrite Positive (Negative); Protein, Urine (Dipstick) Trace mg/dL (Neg-Trace); Urobilinogen > or = 8.0 mg/dL (0.2-1.0)
[2016-12-01 11:22] LABS: Clarity Cloudy (Clear)
[2016-12-01 11:36] LABS: Bacteria/HPF 3+ HPF (None Seen); Crystals/HPF 3+ AMORPH PHOS HPF (Negative); RBC/HPF 0-3 HPF (0-3); Squamous Epithelial 0-3 HPF (0-3)
[2016-12-01] MEDS: cefTRIAXone\\ROCEPHIN 2 GM in Sodium Chloride 0.9% 100 ML IVPB SCH (14:49)
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
[2016-12-01] MEDS: Cyclobenzaprine 10 MG TAB PO PRN (21:22)
[2016-12-02] MEDS: Morphine IR Tab 15 MG TAB PO PRN ×3 (04:40→20:27)
[2016-12-02] MEDS: Baclofen 10 MG TAB PO SCH ×3 (04:47→22:44)
[2016-12-02 06:16] LABS: Hemoglobin 13.8 g/dL (14.0-18.0); Mean Corpuscular HGB CONC 32.7 g/dL (32.0-36.0); Mean Corpuscular Hemoglobin 32.6 pg (27.0-31.0); Mean Corpuscular Volume 99.7 fL (80.0-94.0); RBC Distribution Width 12.6 % (11.5-14.5); Red Blood Cell (RBC) Count 4.23 mill/uL (4.70-6.10); White Blood Cell (WBC) Count 10.7 thou/uL (4.8-10.8)
[2016-12-02 06:17] LABS: Manual Diff?? YES; Mean Platelet Volume 6.3 fL (7.4-10.4); Platelet Count 240 thou/uL (130-400)
[2016-12-02 06:31] LABS: Band 1 % (5-11); Eosinophils 3 % (0-10); Lymphocytes 43 % (21-51); MDiff Complete? YES; Monocytes 5 % (0-10); Neutrophil 48 % (42-75)
[2016-12-02 06:32] LABS: Anisocytosis SLIGHT = 6-15 cells (100X) (0-5/hpf); PLT Morphology Comment Appears Adequate
[2016-12-02] MEDS: clonazePAM 0.5 MG TAB PO SCH ×3 (07:37→22:44)
[2016-12-02] MEDS: Enoxaparin Sodium 40 MG/0.4 ML SYRINGE SC SCH (07:38)
[2016-12-02] MEDS: Cyclobenzaprine 10 MG TAB PO PRN (07:39)
[2016-12-02] MEDS: Gabapentin 300 MG CAP PO SCH ×3 (07:39→20:28)
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
[2016-12-02] MEDS: Morphine 10 MG/ML VIAL SLOW IVP PRN ×2 (09:21→18:06)
[2016-12-02] MEDS: cefTRIAXone\\ROCEPHIN 2 GM in Sodium Chloride 0.9% 100 ML IVPB SCH (15:11)
[2016-12-03] MEDS: Morphine 10 MG/ML VIAL SLOW IVP PRN ×3 (02:01→17:11)
[2016-12-03] MEDS: Baclofen 10 MG TAB PO SCH ×3 (05:57→21:11)
[2016-12-03] MEDS: Cyclobenzaprine 10 MG TAB PO PRN (06:01)
[2016-12-03] MEDS: clonazePAM 0.5 MG TAB PO SCH ×3 (08:15→23:06)
[2016-12-03] MEDS: Gabapentin 300 MG CAP PO SCH ×3 (08:15→21:10)
[2016-12-03] MEDS: Enoxaparin Sodium 40 MG/0.4 ML SYRINGE SC SCH (08:16)
[2016-12-03 08:50] LABS: #Basophils 0.1 thou/uL (0.0-0.2); #Eosinphils 0.4 thou/uL (0.0-0.7); #Lymphocytes 4.1 thou/uL (1.20-3.40); #Monocytes 0.9 thou/uL (0.11-0.59); #Neutrophils 5.1 thou/uL (1.40-6.50); %Basophils 1.2 % (0.0-1.0); %Eosinophils 3.9 % (0.0-10.0); %Lymphocytes 38.2 % (21.0-51.0); %Monocytes 8.4 % (0.0-10.0); %Neutrophils 48.3 % (42.0-75.0); Mean Corpuscular HGB CONC 33.7 g/dL (32.0-36.0); Mean Corpuscular Volume 95.2 fl (80.0-94.0); Mean Platelet Volume 6.2 fL (7.4-10.4); Platelet Count 335 thou/uL (130-400); RBC Distribution Width 12.2 % (11.5-14.5); Red Blood Cell (RBC) Count 4.37 mill/uL (4.70-6.10); White Blood Cell (WBC) Count 10.6 thou/uL (4.8-10.8)
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
[2016-12-03] MEDS: cefTRIAXone\\ROCEPHIN 2 GM in Sodium Chloride 0.9% 100 ML IVPB SCH (13:55)
[2016-12-03] MEDS: Morphine IR Tab 15 MG TAB PO PRN (13:56)
[2016-12-04] MEDS: Morphine 10 MG/ML VIAL SLOW IVP PRN ×3 (01:47→18:08)
[2016-12-04] MEDS: Baclofen 10 MG TAB PO SCH ×3 (05:38→22:15)
[2016-12-04] MEDS: Morphine IR Tab 15 MG TAB PO PRN ×2 (05:55→14:19)
[2016-12-04] MEDS: clonazePAM 0.5 MG TAB PO SCH ×3 (08:59→22:15)
[2016-12-04] MEDS: Enoxaparin Sodium 40 MG/0.4 ML SYRINGE SC SCH (08:59)
[2016-12-04] MEDS: Gabapentin 300 MG CAP PO SCH ×3 (09:00→20:50)
[2016-12-04] MEDS: cefTRIAXone\\ROCEPHIN 2 GM in Sodium Chloride 0.9% 100 ML IVPB SCH (14:12)
[2016-12-04] MEDS: Cyclobenzaprine 10 MG TAB PO PRN (20:55)
[2016-12-05] MEDS: Morphine 10 MG/ML VIAL SLOW IVP PRN ×2 (02:51→14:42)
[2016-12-05] MEDS: Baclofen 10 MG TAB PO SCH ×3 (05:34→22:01)
[2016-12-05] MEDS: Enoxaparin Sodium 40 MG/0.4 ML SYRINGE SC SCH (09:32)
[2016-12-05] MEDS: Gabapentin 300 MG CAP PO SCH ×3 (09:32→20:51)
[2016-12-05] MEDS: clonazePAM 0.5 MG TAB PO SCH ×3 (09:32→22:01)
[2016-12-05] MEDS: Cyclobenzaprine 10 MG TAB PO PRN (09:35)
[2016-12-05] MEDS: cefTRIAXone\\ROCEPHIN 2 GM in Sodium Chloride 0.9% 100 ML IVPB SCH (14:40)
[2016-12-06] MEDS: Morphine 10 MG/ML VIAL SLOW IVP PRN ×3 (02:12→21:25)
[2016-12-06] MEDS: Baclofen 10 MG TAB PO SCH ×3 (05:11→21:13)
[2016-12-06 05:31] LABS: #Basophils 0.1 thou/uL (0.0-0.2); #Eosinphils 0.2 thou/uL (0.0-0.7); #Lymphocytes 2.6 thou/uL (1.20-3.40); #Monocytes 0.8 thou/uL (0.11-0.59); #Neutrophils 3.9 thou/uL (1.40-6.50); %Basophils 1.9 % (0.0-1.0); %Eosinophils 2.5 % (0.0-10.0); %Lymphocytes 34.4 % (21.0-51.0); %Monocytes 10.1 % (0.0-10.0); %Neutrophils 51.1 % (42.0-75.0); Hemoglobin 13.1 g/dL (14.0-18.0); Mean Corpuscular HGB CONC 33.9 g/dL (32.0-36.0); Mean Corpuscular Hemoglobin 32.4 pg (27.0-31.0); Mean Corpuscular Volume 95.6 fl (80.0-94.0); Platelet Count 301 thou/uL (130-400); RBC Distribution Width 12.2 % (11.5-14.5); Red Blood Cell (RBC) Count 4.03 mill/uL (4.70-6.10); White Blood Cell (WBC) Count 7.7 thou/uL (4.8-10.8)
[2016-12-06 05:54] LABS: ALT (SGPT) 68 U/L (8-55); AST (SGOT) 78 U/L (5-34); Alkaline Phosphatase 96 U/L (40-150); Anion Gap 15 mmol/L (10-20); BUN (Urea Nitrogen) 15 mg/dL (8.9-20.6); Bilirubin, Total 0.5 mg/dL (0.2-1.2); Calc. Creatinine Clearance 210 mL/min (70-130); Calcium 8.5 mg/dL (7.8-10.44); Carbon Dioxide 20 mmol/L (22-29); Chloride 108 mmol/L (98-107); Estimated GFR-MDRD Greater than 90; Globulin 4.4 g/dL (2.4-3.5); Glucose 119 mg/dL (70-105); Potassium 5.2 mmol/L (3.5-5.1); Protein, Total 7.4 g/dL (6.0-8.3); Sodium 138 mmol/L (136-145)
[2016-12-06] MEDS: Enoxaparin Sodium 40 MG/0.4 ML SYRINGE SC SCH (08:00)
[2016-12-06] MEDS: clonazePAM 0.5 MG TAB PO SCH ×3 (08:00→23:17)
[2016-12-06] MEDS: Cyclobenzaprine 10 MG TAB PO PRN ×2 (08:01→15:37)
[2016-12-06] MEDS: Gabapentin 300 MG CAP PO SCH ×3 (08:01→21:13)
[2016-12-06] MEDS: Morphine IR Tab 15 MG TAB PO PRN ×2 (08:02→15:37)
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
[2016-12-06] MEDS: cefTRIAXone\\ROCEPHIN 2 GM in Sodium Chloride 0.9% 100 ML IVPB SCH (14:04)
[2016-12-07] MEDS: Baclofen 10 MG TAB PO SCH ×3 (05:23→22:44)
[2016-12-07] MEDS: Morphine 10 MG/ML VIAL SLOW IVP PRN ×3 (05:54→22:54)
[2016-12-07] MEDS: clonazePAM 0.5 MG TAB PO SCH ×3 (09:23→22:44)
[2016-12-07] MEDS: Morphine IR Tab 15 MG TAB PO PRN ×2 (09:27→21:02)
[2016-12-07] MEDS: Enoxaparin Sodium 40 MG/0.4 ML SYRINGE SC SCH (09:29)
[2016-12-07] MEDS: Gabapentin 300 MG CAP PO SCH ×3 (09:30→20:49)
[2016-12-07] MEDS: cefTRIAXone\\ROCEPHIN 2 GM in Sodium Chloride 0.9% 100 ML IVPB SCH ×2 (14:23→15:03)
[2016-12-07] MEDS ORDERED: cefTRIAXone\\ROCEPHIN 2 GM VIAL ONE (14:40)
[2016-12-08] MEDS: Baclofen 10 MG TAB PO SCH ×3 (05:23→22:53)
[2016-12-08] MEDS: Gabapentin 300 MG CAP PO SCH ×3 (09:15→20:54)
[2016-12-08] MEDS: Morphine 10 MG/ML VIAL SLOW IVP PRN ×2 (09:15→17:14)
[2016-12-08] MEDS: clonazePAM 0.5 MG TAB PO SCH ×3 (09:16→22:53)
[2016-12-08] MEDS: Enoxaparin Sodium 40 MG/0.4 ML SYRINGE SC SCH (09:17)
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
[2016-12-08] MEDS: Morphine IR Tab 15 MG TAB PO PRN ×2 (12:04→22:52)
[2016-12-08] MEDS: Cyclobenzaprine 10 MG TAB PO PRN (12:05)
[2016-12-08] MEDS: cefTRIAXone\\ROCEPHIN 2 GM in Sodium Chloride 0.9% 100 ML IVPB SCH (14:24)
[2016-12-09] MEDS: Morphine 10 MG/ML VIAL SLOW IVP PRN ×3 (02:12→17:31)
[2016-12-09] MEDS: Baclofen 10 MG TAB PO SCH ×3 (05:32→20:46)
[2016-12-09] MEDS: clonazePAM 0.5 MG TAB PO SCH ×3 (09:26→22:52)
[2016-12-09] MEDS: Gabapentin 300 MG CAP PO SCH ×3 (09:26→20:45)
[2016-12-09] MEDS: Enoxaparin Sodium 40 MG/0.4 ML SYRINGE SC SCH (09:39)
[2016-12-09] MEDS: Morphine IR Tab 15 MG TAB PO PRN ×2 (13:21→20:46)
[2016-12-09] MEDS: cefTRIAXone\\ROCEPHIN 2 GM in Sodium Chloride 0.9% 100 ML IVPB SCH (13:58)
[2016-12-09] MEDS: Cyclobenzaprine 10 MG TAB PO PRN (22:53)
[2016-12-10] MEDS: Morphine 10 MG/ML VIAL SLOW IVP PRN ×2 (01:33→12:51)
[2016-12-10] MEDS: Baclofen 10 MG TAB PO SCH ×3 (05:25→20:09)
[2016-12-10] MEDS: Morphine IR Tab 15 MG TAB PO PRN ×3 (05:26→20:08)
[2016-12-10] MEDS: Enoxaparin Sodium 40 MG/0.4 ML SYRINGE SC SCH (08:42)
[2016-12-10] MEDS: Gabapentin 300 MG CAP PO SCH ×3 (08:42→20:10)
[2016-12-10] MEDS: clonazePAM 0.5 MG TAB PO SCH ×3 (08:42→22:45)
[2016-12-10] MEDS ORDERED: Morphine 10 MG/ML VIAL SLOW IVP PRN (09:07)
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
[2016-12-10] MEDS ORDERED: Morphine 4 MG/ML Carpuject SLOW IVP PRN ×2 (12:38→12:42)
[2016-12-10] MEDS: Cyclobenzaprine 10 MG TAB PO PRN ×2 (14:55→22:45)
[2016-12-10] MEDS: cefTRIAXone\\ROCEPHIN 2 GM in Sodium Chloride 0.9% 100 ML IVPB SCH (14:55)
[2016-12-11] MEDS: Morphine 10 MG/ML VIAL SLOW IVP PRN ×2 (00:50→13:10)
[2016-12-11] MEDS: Morphine IR Tab 15 MG TAB PO PRN ×3 (05:16→20:59)
[2016-12-11] MEDS: Baclofen 10 MG TAB PO SCH ×3 (05:16→20:49)
[2016-12-11] MEDS: Enoxaparin Sodium 40 MG/0.4 ML SYRINGE SC SCH (08:37)
[2016-12-11] MEDS: clonazePAM 0.5 MG TAB PO SCH ×3 (08:37→22:40)
[2016-12-11] MEDS: Gabapentin 300 MG CAP PO SCH ×3 (08:37→20:49)
[2016-12-11] MEDS: cefTRIAXone\\ROCEPHIN 2 GM in Sodium Chloride 0.9% 100 ML IVPB SCH (13:59)
[2016-12-11] MEDS: Cyclobenzaprine 10 MG TAB PO PRN (22:40)
[2016-12-12] MEDS: Morphine 10 MG/ML VIAL SLOW IVP PRN ×2 (01:18→13:16)
[2016-12-12] MEDS: Morphine IR Tab 15 MG TAB PO PRN ×3 (05:24→20:29)
[2016-12-12] MEDS: Baclofen 10 MG TAB PO SCH ×3 (05:24→20:29)
[2016-12-12] MEDS: Gabapentin 300 MG CAP PO SCH ×3 (08:43→20:28)
[2016-12-12] MEDS: Enoxaparin Sodium 40 MG/0.4 ML SYRINGE SC SCH (08:43)
[2016-12-12] MEDS: clonazePAM 0.5 MG TAB PO SCH ×3 (08:43→22:48)
[2016-12-12] MEDS: cefTRIAXone\\ROCEPHIN 2 GM in Sodium Chloride 0.9% 100 ML IVPB SCH (13:24)
[2016-12-12] MEDS: Cyclobenzaprine 10 MG TAB PO PRN (20:29)
[2016-12-13] MEDS: Morphine 10 MG/ML VIAL SLOW IVP PRN (01:20)
[2016-12-13] MEDS: Baclofen 10 MG TAB PO SCH ×3 (05:22→20:51)
[2016-12-13 06:41] LABS: #Basophils 0.1 thou/uL (0.0-0.2); #Eosinphils 0.3 thou/uL (0.0-0.7); #Lymphocytes 3.7 thou/uL (1.20-3.40); #Monocytes 0.7 thou/uL (0.11-0.59); %Basophils 1.5 % (0.0-1.0); %Eosinophils 4.3 % (0.0-10.0); %Lymphocytes 47.4 % (21.0-51.0); %Monocytes 8.4 % (0.0-10.0); %Neutrophils 38.4 % (42.0-75.0); Hemoglobin 13.2 g/dL (14.0-18.0); Mean Corpuscular HGB CONC 34.5 g/dL (32.0-36.0); Mean Corpuscular Hemoglobin 32.7 pg (27.0-31.0); Mean Corpuscular Volume 94.9 fl (80.0-94.0); Mean Platelet Volume 5.9 fL (7.4-10.4); Platelet Count 276 thou/uL (130-400); RBC Distribution Width 11.9 % (11.5-14.5); Red Blood Cell (RBC) Count 4.02 mill/uL (4.70-6.10); White Blood Cell (WBC) Count 7.7 thou/uL (4.8-10.8)
[2016-12-13 08:37] LABS: ALT (SGPT) 83 U/L (8-55); AST (SGOT) 80 U/L (5-34); Alkaline Phosphatase 92 U/L (40-150); Anion Gap 12 mmol/L (10-20); BUN (Urea Nitrogen) 24 mg/dL (8.9-20.6); Bilirubin, Total 0.4 mg/dL (0.2-1.2); Calc. Creatinine Clearance 214 mL/min (70-130); Calcium 8.5 mg/dL (7.8-10.44); Carbon Dioxide 24 mmol/L (22-29); Chloride 106 mmol/L (98-107); Estimated GFR-MDRD Greater than 90; Glucose 106 mg/dL (70-105); Sodium 138 mmol/L (136-145)
[2016-12-13 08:50] LABS: Potassium 3.9 mmol/L (3.5-5.1)
[2016-12-13] MEDS: Enoxaparin Sodium 40 MG/0.4 ML SYRINGE SC SCH (09:04)
[2016-12-13] MEDS: clonazePAM 0.5 MG TAB PO SCH ×3 (09:05→22:53)
[2016-12-13] MEDS: Gabapentin 300 MG CAP PO SCH ×3 (09:05→20:50)
[2016-12-13] MEDS: Morphine IR Tab 15 MG TAB PO PRN ×3 (09:09→20:51)
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
[2016-12-13] MEDS: cefTRIAXone\\ROCEPHIN 2 GM in Sodium Chloride 0.9% 100 ML IVPB SCH (13:37)
[2016-12-13] MEDS: Cyclobenzaprine 10 MG TAB PO PRN (22:53)
[2016-12-14] MEDS: Morphine IR Tab 15 MG TAB PO PRN ×5 (02:55→22:03)
[2016-12-14] MEDS: Baclofen 10 MG TAB PO SCH ×3 (05:14→22:03)
[2016-12-14] MEDS: clonazePAM 0.5 MG TAB PO SCH ×3 (10:39→22:59)
[2016-12-14] MEDS: Gabapentin 300 MG CAP PO SCH ×3 (10:40→22:03)
[2016-12-14] MEDS: Enoxaparin Sodium 40 MG/0.4 ML SYRINGE SC SCH (10:41)
[2016-12-14] MEDS: cefTRIAXone\\ROCEPHIN 2 GM in Sodium Chloride 0.9% 100 ML IVPB SCH (14:05)
[2016-12-14] MEDS: Cyclobenzaprine 10 MG TAB PO PRN (22:59)
[2016-12-15] MEDS: Morphine IR Tab 15 MG TAB PO PRN ×4 (02:56→19:36)
[2016-12-15] MEDS: Baclofen 10 MG TAB PO SCH ×3 (05:49→22:21)
[2016-12-15] MEDS: Gabapentin 300 MG CAP PO SCH ×3 (09:18→19:36)
[2016-12-15] MEDS: Enoxaparin Sodium 40 MG/0.4 ML SYRINGE SC SCH (09:18)
[2016-12-15] MEDS: Nitrofurantoin Monohyd/M-Cryst 100 MG CAP PO SCH ×2 (09:18→19:36)
[2016-12-15] MEDS: clonazePAM 0.5 MG TAB PO SCH ×3 (09:19→22:20)
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
[2016-12-15] MEDS: Cyclobenzaprine 10 MG TAB PO PRN (19:41)
[2016-12-16] MEDS: Morphine IR Tab 15 MG TAB PO PRN ×3 (05:33→22:04)
[2016-12-16] MEDS: Baclofen 10 MG TAB PO SCH ×3 (05:33→22:02)
[2016-12-16] MEDS: Nitrofurantoin Monohyd/M-Cryst 100 MG CAP PO SCH ×2 (08:53→20:36)
[2016-12-16] MEDS: Enoxaparin Sodium 40 MG/0.4 ML SYRINGE SC SCH (08:53)
[2016-12-16] MEDS: clonazePAM 0.5 MG TAB PO SCH ×3 (08:53→22:02)
[2016-12-16] MEDS: Gabapentin 300 MG CAP PO SCH ×3 (08:53→20:36)
[2016-12-17] MEDS: Morphine IR Tab 15 MG TAB PO PRN ×3 (05:34→20:57)
[2016-12-17] MEDS: Baclofen 10 MG TAB PO SCH ×3 (05:34→20:56)
[2016-12-17] MEDS: Enoxaparin Sodium 40 MG/0.4 ML SYRINGE SC SCH (08:29)
[2016-12-17] MEDS: Nitrofurantoin Monohyd/M-Cryst 100 MG CAP PO SCH ×2 (08:30→20:55)
[2016-12-17] MEDS: clonazePAM 0.5 MG TAB PO SCH ×3 (08:30→22:44)
[2016-12-17] MEDS: Gabapentin 300 MG CAP PO SCH ×3 (08:30→20:55)
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
[2016-12-18] MEDS: Morphine IR Tab 15 MG TAB PO PRN ×3 (06:01→20:41)
[2016-12-18] MEDS: Baclofen 10 MG TAB PO SCH ×3 (06:01→22:04)
[2016-12-18] MEDS: clonazePAM 0.5 MG TAB PO SCH ×3 (09:35→22:04)
[2016-12-18] MEDS: Gabapentin 300 MG CAP PO SCH ×3 (09:36→20:38)
[2016-12-18] MEDS: Nitrofurantoin Monohyd/M-Cryst 100 MG CAP PO SCH ×2 (09:36→20:38)
[2016-12-18] MEDS: Enoxaparin Sodium 40 MG/0.4 ML SYRINGE SC SCH (09:36)
[2016-12-18] MEDS: Cyclobenzaprine 10 MG TAB PO PRN (13:10)
[2016-12-19] MEDS: Morphine IR Tab 15 MG TAB PO PRN ×3 (03:31→20:41)
[2016-12-19] MEDS: Baclofen 10 MG TAB PO SCH ×3 (05:53→22:11)
[2016-12-19] MEDS: clonazePAM 0.5 MG TAB PO SCH ×3 (09:18→22:11)
[2016-12-19] MEDS: Nitrofurantoin Monohyd/M-Cryst 100 MG CAP PO SCH ×2 (09:18→20:34)
[2016-12-19] MEDS: Gabapentin 300 MG CAP PO SCH ×3 (09:18→20:34)
[2016-12-19] MEDS: Enoxaparin Sodium 40 MG/0.4 ML SYRINGE SC SCH (09:19)
[2016-12-20] MEDS: Morphine IR Tab 15 MG TAB PO PRN ×5 (02:14→23:08)
[2016-12-20] MEDS: Baclofen 10 MG TAB PO SCH ×3 (06:18→22:34)
[2016-12-20] MEDS: clonazePAM 0.5 MG TAB PO SCH ×3 (08:58→22:33)
[2016-12-20] MEDS: Gabapentin 300 MG CAP PO SCH ×3 (08:58→20:16)
[2016-12-20] MEDS: Enoxaparin Sodium 40 MG/0.4 ML SYRINGE SC SCH (08:59)
[2016-12-20] MEDS: Nitrofurantoin Monohyd/M-Cryst 100 MG CAP PO SCH ×2 (08:59→20:15)
[2016-12-20] MEDS: Cyclobenzaprine 10 MG TAB PO PRN (14:06)
[2016-12-21] MEDS: Cyclobenzaprine 10 MG TAB PO PRN ×2 (02:27→11:37)
[2016-12-21] MEDS: Baclofen 10 MG TAB PO SCH ×3 (06:10→22:27)
[2016-12-21] MEDS: Morphine IR Tab 15 MG TAB PO PRN ×3 (06:14→21:01)
[2016-12-21] MEDS ORDERED: Morphine IR Tab 15 MG TAB PO PRN (08:43)
[2016-12-21] MEDS: Nitrofurantoin Monohyd/M-Cryst 100 MG CAP PO SCH ×2 (09:43→20:18)
[2016-12-21] MEDS: clonazePAM 0.5 MG TAB PO SCH ×3 (09:43→22:27)
[2016-12-21] MEDS: Gabapentin 300 MG CAP PO SCH ×3 (09:43→20:18)
[2016-12-21] MEDS: Enoxaparin Sodium 40 MG/0.4 ML SYRINGE SC SCH (09:44)
--- NOTE | 2016-12-21 11:22 | ULT ---
TESTICULAR ULTRASOUND WITH DOPPLER (Grayscale, color flow and spectral doppler imaging): History: Enlarged left scrotum, scrotal swelling. FINDINGS: The right testes measures 2.8 x 1.7 x 2.5 cm and the left testes measures 2.6 x 2.2 x 2.2 cm. No mas s is seen. The right epididymis measures 1.4 x 1.2 cm and left epididymis measures 1.3 x 0.8 cm. A l arge left hydrocele is present. Symmetric flow is demonstrated to the testes. IMPRESSION: 1. No evidence of testicular mass or epididymo-orchitis. 2. Large left hydrocele. POS: [facility]
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
[2016-12-22] MEDS: Baclofen 10 MG TAB PO SCH ×3 (05:25→23:30)
[2016-12-22] MEDS: Gabapentin 300 MG CAP PO SCH ×3 (09:39→21:13)
[2016-12-22] MEDS: clonazePAM 0.5 MG TAB PO SCH ×3 (09:39→23:57)
[2016-12-22] MEDS: Nitrofurantoin Monohyd/M-Cryst 100 MG CAP PO SCH ×2 (09:39→21:13)
[2016-12-22] MEDS: Morphine IR Tab 15 MG TAB PO PRN ×3 (09:40→23:30)
[2016-12-22] MEDS: Enoxaparin Sodium 40 MG/0.4 ML SYRINGE SC SCH (09:40)
[2016-12-22] MEDS ORDERED: Azithromycin 250 MG TAB ONE (13:07)
[2016-12-22] MEDS: Cyclobenzaprine 10 MG TAB PO PRN (19:22)
[2016-12-23] MEDS: Baclofen 10 MG TAB PO SCH ×3 (05:52→22:11)
[2016-12-23] MEDS: Enoxaparin Sodium 40 MG/0.4 ML SYRINGE SC SCH (08:43)
[2016-12-23] MEDS: clonazePAM 0.5 MG TAB PO SCH ×3 (08:44→22:11)
[2016-12-23] MEDS: Nitrofurantoin Monohyd/M-Cryst 100 MG CAP PO SCH ×2 (08:44→20:01)
[2016-12-23] MEDS: Gabapentin 300 MG CAP PO SCH ×3 (08:44→20:01)
[2016-12-23] MEDS: Morphine IR Tab 15 MG TAB PO PRN ×2 (13:49→20:01)
[2016-12-23] MEDS: Cyclobenzaprine 10 MG TAB PO PRN (20:01)
[2016-12-24] MEDS: Baclofen 10 MG TAB PO SCH ×3 (04:48→22:05)
[2016-12-24] MEDS: Cyclobenzaprine 10 MG TAB PO PRN (04:48)
[2016-12-24] MEDS: Morphine IR Tab 15 MG TAB PO PRN ×2 (04:48→19:51)
[2016-12-24 05:41] LABS: #Basophils 0.2 thou/uL (0.0-0.2); #Eosinphils 0.4 thou/uL (0.0-0.7); #Monocytes 0.7 thou/uL (0.11-0.59); #Neutrophils 2.8 thou/uL (1.40-6.50); %Basophils 2.5 % (0.0-1.0); %Eosinophils 4.6 % (0.0-10.0); %Lymphocytes 49.4 % (21.0-51.0); %Monocytes 8.2 % (0.0-10.0); %Neutrophils 35.2 % (42.0-75.0); Hemoglobin 14.3 g/dL (14.0-18.0); Mean Corpuscular Hemoglobin 31.1 pg (27.0-31.0); Mean Corpuscular Volume 97.3 fl (80.0-94.0); Mean Platelet Volume 6.5 fL (7.4-10.4); Platelet Count 152 thou/uL (130-400); RBC Distribution Width 12.5 % (11.5-14.5); Red Blood Cell (RBC) Count 4.61 mill/uL (4.70-6.10); White Blood Cell (WBC) Count 8.1 thou/uL (4.8-10.8)
[2016-12-24] MEDS: Nitrofurantoin Monohyd/M-Cryst 100 MG CAP PO SCH ×2 (08:28→19:47)
[2016-12-24] MEDS: clonazePAM 0.5 MG TAB PO SCH ×3 (08:28→22:04)
[2016-12-24] MEDS: Enoxaparin Sodium 40 MG/0.4 ML SYRINGE SC SCH (08:28)
[2016-12-24] MEDS: Gabapentin 300 MG CAP PO SCH ×3 (08:29→19:47)
[2016-12-24] MEDS ORDERED: Morphine IR Tab 15 MG TAB PO PRN (09:45)
[2016-12-24 11:45] LABS: ALT (SGPT) 106 U/L (8-55); AST (SGOT) 106 U/L (5-34); Anion Gap 11 mmol/L (10-20); BUN (Urea Nitrogen) 21 mg/dL (8.9-20.6); Bilirubin, Total 0.8 mg/dL (0.2-1.2); Calc. Creatinine Clearance 218 mL/min (70-130); Calcium 8.8 mg/dL (7.8-10.44); Carbon Dioxide 26 mmol/L (22-29); Estimated GFR-MDRD Greater than 90; Glucose 120 mg/dL (70-105)
[2016-12-24 11:52] LABS: Chloride 107 mmol/L (98-107); Sodium 140 mmol/L (136-145)
[2016-12-24 11:53] LABS: Alkaline Phosphatase 100 U/L (40-150)
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
[2016-12-25] MEDS: Morphine IR Tab 15 MG TAB PO PRN ×2 (05:37→20:05)
[2016-12-25] MEDS: Baclofen 10 MG TAB PO SCH ×3 (05:37→22:18)
[2016-12-25] MEDS: clonazePAM 0.5 MG TAB PO SCH ×3 (08:18→22:18)
[2016-12-25] MEDS: Gabapentin 300 MG CAP PO SCH ×3 (08:19→20:05)
[2016-12-25] MEDS: Nitrofurantoin Monohyd/M-Cryst 100 MG CAP PO SCH ×2 (08:19→20:05)
[2016-12-25] MEDS: Enoxaparin Sodium 40 MG/0.4 ML SYRINGE SC SCH (08:19)
[2016-12-26] MEDS: Cyclobenzaprine 10 MG TAB PO PRN (03:02)
[2016-12-26] MEDS: Morphine IR Tab 15 MG TAB PO PRN ×2 (05:59→21:01)
[2016-12-26] MEDS: Baclofen 10 MG TAB PO SCH ×3 (05:59→21:01)
[2016-12-26] MEDS: Nitrofurantoin Monohyd/M-Cryst 100 MG CAP PO SCH ×2 (09:09→21:01)
[2016-12-26] MEDS: Gabapentin 300 MG CAP PO SCH ×3 (09:09→21:01)
[2016-12-26] MEDS: Enoxaparin Sodium 40 MG/0.4 ML SYRINGE SC SCH (09:10)
[2016-12-26] MEDS: clonazePAM 0.5 MG TAB PO SCH ×3 (09:10→23:02)
[2016-12-27] MEDS: Baclofen 10 MG TAB PO SCH ×3 (05:17→21:39)
[2016-12-27] MEDS: Morphine IR Tab 15 MG TAB PO PRN ×3 (05:19→21:39)
[2016-12-27] MEDS: Gabapentin 300 MG CAP PO SCH ×3 (09:53→21:39)
[2016-12-27] MEDS: clonazePAM 0.5 MG TAB PO SCH ×3 (09:53→21:38)
[2016-12-27] MEDS: Nitrofurantoin Monohyd/M-Cryst 100 MG CAP PO SCH ×2 (09:53→21:38)
[2016-12-27] MEDS: Enoxaparin Sodium 40 MG/0.4 ML SYRINGE SC SCH (09:54)
[2016-12-28] MEDS: Cyclobenzaprine 10 MG TAB PO PRN ×2 (02:04→21:56)
[2016-12-28 05:45] VITALS: BMI 31.1
[2016-12-28] MEDS: Baclofen 10 MG TAB PO SCH ×3 (06:07→21:51)
[2016-12-28] MEDS: Morphine IR Tab 15 MG TAB PO PRN ×2 (06:07→15:28)
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
[2016-12-28] MEDS: Gabapentin 300 MG CAP PO SCH ×3 (09:31→21:51)
[2016-12-28] MEDS: Nitrofurantoin Monohyd/M-Cryst 100 MG CAP PO SCH ×2 (09:31→21:51)
[2016-12-28] MEDS: clonazePAM 0.5 MG TAB PO SCH ×3 (09:31→21:56)
[2016-12-28] MEDS: Enoxaparin Sodium 40 MG/0.4 ML SYRINGE SC SCH (09:31)
[2016-12-29] MEDS ORDERED: Morphine IR Tab 15 MG TAB ONE (02:17)
[2016-12-29] MEDS: Morphine IR Tab 15 MG TAB PO PRN ×3 (04:04→22:23)
[2016-12-29] MEDS: Baclofen 10 MG TAB PO SCH ×3 (05:24→22:23)
[2016-12-29] MEDS: Enoxaparin Sodium 40 MG/0.4 ML SYRINGE SC SCH (08:42)
[2016-12-29] MEDS: Gabapentin 300 MG CAP PO SCH ×3 (08:42→22:22)
[2016-12-29] MEDS: clonazePAM 0.5 MG TAB PO SCH ×3 (08:42→22:22)
[2016-12-29] MEDS: Nitrofurantoin Monohyd/M-Cryst 100 MG CAP PO SCH (08:42)
[2016-12-30] MEDS: Baclofen 10 MG TAB PO SCH ×3 (05:30→22:22)
[2016-12-30] MEDS: Morphine IR Tab 15 MG TAB PO PRN ×3 (05:30→22:22)
[2016-12-30] MEDS: clonazePAM 0.5 MG TAB PO SCH ×3 (08:29→23:16)
[2016-12-30] MEDS: Enoxaparin Sodium 40 MG/0.4 ML SYRINGE SC SCH (08:29)
[2016-12-30] MEDS: Gabapentin 300 MG CAP PO SCH ×3 (08:31→20:21)
[2016-12-30] MEDS: Cyclobenzaprine 10 MG TAB PO PRN (19:27)
[2016-12-31] MEDS: Baclofen 10 MG TAB PO SCH ×3 (05:24→21:21)
[2016-12-31] MEDS: Gabapentin 300 MG CAP PO SCH ×3 (08:50→21:21)
[2016-12-31] MEDS: clonazePAM 0.5 MG TAB PO SCH ×3 (08:51→22:57)
[2016-12-31] MEDS: Enoxaparin Sodium 40 MG/0.4 ML SYRINGE SC SCH (08:52)
[2016-12-31] MEDS: Morphine IR Tab 15 MG TAB PO PRN (23:00)
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
[2017-01-01] MEDS: Baclofen 10 MG TAB PO SCH ×3 (06:09→21:13)
[2017-01-01] MEDS: Gabapentin 300 MG CAP PO SCH ×3 (09:06→21:13)
[2017-01-01] MEDS: clonazePAM 0.5 MG TAB PO SCH ×3 (09:06→22:36)
[2017-01-01] MEDS: Nitrofurantoin Macrocrystal 50 MG CAP PO SCH (09:06)
[2017-01-01] MEDS: Morphine IR Tab 15 MG TAB PO PRN ×2 (09:07→16:37)
[2017-01-01] MEDS: Enoxaparin Sodium 40 MG/0.4 ML SYRINGE SC SCH (09:07)
[2017-01-01] MEDS: Cyclobenzaprine 10 MG TAB PO PRN ×2 (14:07→21:13)
[2017-01-02] MEDS: Morphine IR Tab 15 MG TAB PO PRN ×3 (03:22→21:01)
[2017-01-02] MEDS: Baclofen 10 MG TAB PO SCH ×3 (05:31→21:00)
[2017-01-02] MEDS: clonazePAM 0.5 MG TAB PO SCH ×3 (09:38→22:52)
[2017-01-02] MEDS: Nitrofurantoin Macrocrystal 50 MG CAP PO SCH (09:38)
[2017-01-02] MEDS: Gabapentin 300 MG CAP PO SCH ×3 (09:38→21:00)
[2017-01-02] MEDS: Enoxaparin Sodium 40 MG/0.4 ML SYRINGE SC SCH (09:39)
[2017-01-03] MEDS: Morphine IR Tab 15 MG TAB PO PRN ×3 (05:48→23:33)
[2017-01-03] MEDS: Baclofen 10 MG TAB PO SCH ×3 (05:48→21:52)
[2017-01-03] MEDS: Enoxaparin Sodium 40 MG/0.4 ML SYRINGE SC SCH (09:23)
[2017-01-03] MEDS: Nitrofurantoin Macrocrystal 50 MG CAP PO SCH (09:24)
[2017-01-03] MEDS: clonazePAM 0.5 MG TAB PO SCH ×3 (09:24→21:52)
[2017-01-03] MEDS: Gabapentin 300 MG CAP PO SCH ×3 (09:24→20:11)
[2017-01-04] MEDS: Baclofen 10 MG TAB PO SCH ×3 (05:11→23:00)
[2017-01-04] MEDS: clonazePAM 0.5 MG TAB PO SCH ×3 (08:39→23:05)
[2017-01-04] MEDS: Enoxaparin Sodium 40 MG/0.4 ML SYRINGE SC SCH (08:39)
[2017-01-04] MEDS: Nitrofurantoin Macrocrystal 50 MG CAP PO SCH (08:39)
[2017-01-04] MEDS: Gabapentin 300 MG CAP PO SCH ×3 (08:39→19:49)
[2017-01-04] MEDS: Morphine IR Tab 15 MG TAB PO PRN ×2 (08:43→15:58)
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
[2017-01-04] MEDS: Cyclobenzaprine 10 MG TAB PO PRN (13:17)
[2017-01-04] MEDS: Acetaminophen 325 MG TAB PO PRN (13:17)
[2017-01-05] MEDS: Baclofen 10 MG TAB PO SCH ×3 (05:55→20:35)
[2017-01-05] MEDS: Morphine IR Tab 15 MG TAB PO PRN ×2 (07:46→17:16)
[2017-01-05] MEDS: clonazePAM 0.5 MG TAB PO SCH ×3 (07:47→22:11)
[2017-01-05] MEDS: Nitrofurantoin Macrocrystal 50 MG CAP PO SCH (08:22)
[2017-01-05] MEDS: Enoxaparin Sodium 40 MG/0.4 ML SYRINGE SC SCH (08:22)
[2017-01-05] MEDS: Gabapentin 300 MG CAP PO SCH ×3 (08:22→20:35)
[2017-01-05] MEDS: Cyclobenzaprine 10 MG TAB PO PRN ×2 (17:21→22:11)
[2017-01-06] MEDS: Morphine IR Tab 15 MG TAB PO PRN ×3 (01:34→21:09)
[2017-01-06 05:53] LABS: ALT (SGPT) 74 U/L (8-55); AST (SGOT) 66 U/L (5-34); Albumin 2.8 g/dL (3.5-5.0); Alkaline Phosphatase 87 U/L (40-150); Anion Gap 11 mmol/L (10-20); BUN (Urea Nitrogen) 14 mg/dL (8.9-20.6); Bilirubin, Total 0.5 mg/dL (0.2-1.2); Calc. Creatinine Clearance 195 mL/min (70-130); Calcium 8.1 mg/dL (7.8-10.44); Carbon Dioxide 26 mmol/L (22-29); Chloride 108 mmol/L (98-107); Estimated GFR-MDRD Greater than 90; Globulin 3.6 g/dL (2.4-3.5); Glucose 125 mg/dL (70-105); Potassium 4.1 mmol/L (3.5-5.1); Protein, Total 6.4 g/dL (6.0-8.3); Sodium 141 mmol/L (136-145)
[2017-01-06] MEDS: Baclofen 10 MG TAB PO SCH ×3 (06:01→22:43)
[2017-01-06] MEDS: Gabapentin 300 MG CAP PO SCH ×3 (10:04→21:10)
[2017-01-06] MEDS: clonazePAM 0.5 MG TAB PO SCH ×3 (10:04→22:43)
[2017-01-06] MEDS: Nitrofurantoin Macrocrystal 50 MG CAP PO SCH (10:04)
[2017-01-06] MEDS: Enoxaparin Sodium 40 MG/0.4 ML SYRINGE SC SCH (10:05)
[2017-01-06] MEDS: Cyclobenzaprine 10 MG TAB PO PRN (17:35)
[2017-01-07] MEDS: Baclofen 10 MG TAB PO SCH ×3 (05:49→21:02)
[2017-01-07] MEDS: Enoxaparin Sodium 40 MG/0.4 ML SYRINGE SC SCH (09:32)
[2017-01-07] MEDS: clonazePAM 0.5 MG TAB PO SCH ×3 (09:32→22:33)
[2017-01-07] MEDS: Nitrofurantoin Macrocrystal 50 MG CAP PO SCH (09:32)
[2017-01-07] MEDS: Gabapentin 300 MG CAP PO SCH ×3 (09:32→21:01)
[2017-01-07] MEDS: Morphine IR Tab 15 MG TAB PO PRN (09:34)
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
[2017-01-07] MEDS: HYDROcodone/Acetaminophen 10/325 mg Tablet PO PRN ×2 (14:30→21:12)
[2017-01-07] MEDS: Cyclobenzaprine 10 MG TAB PO PRN (14:31)
[2017-01-08] MEDS: Baclofen 10 MG TAB PO SCH ×3 (06:00→22:05)
[2017-01-08] MEDS: Gabapentin 300 MG CAP PO SCH ×3 (08:33→20:45)
[2017-01-08] MEDS: Nitrofurantoin Macrocrystal 50 MG CAP PO SCH (08:34)
[2017-01-08] MEDS: clonazePAM 0.5 MG TAB PO SCH ×3 (08:34→22:56)
[2017-01-08] MEDS: HYDROcodone/Acetaminophen 10/325 mg Tablet PO PRN ×2 (11:14→16:49)
[2017-01-08] MEDS: Cyclobenzaprine 10 MG TAB PO PRN (14:34)
[2017-01-09] MEDS: Baclofen 10 MG TAB PO SCH ×3 (05:14→21:29)
[2017-01-09] MEDS: HYDROcodone/Acetaminophen 10/325 mg Tablet PO PRN ×3 (06:25→18:08)
[2017-01-09] MEDS: clonazePAM 0.5 MG TAB PO SCH ×3 (08:18→21:28)
[2017-01-09] MEDS: Gabapentin 300 MG CAP PO SCH ×3 (08:18→20:24)
[2017-01-09] MEDS: Nitrofurantoin Macrocrystal 50 MG CAP PO SCH (08:18)
[2017-01-09] MEDS: Cyclobenzaprine 10 MG TAB PO PRN ×2 (14:40→20:23)
[2017-01-10] MEDS: Baclofen 10 MG TAB PO SCH ×3 (06:10→23:11)
[2017-01-10] MEDS: clonazePAM 0.5 MG TAB PO SCH ×3 (08:25→23:11)
[2017-01-10] MEDS: Nitrofurantoin Macrocrystal 50 MG CAP PO SCH (08:26)
[2017-01-10] MEDS: Gabapentin 300 MG CAP PO SCH ×3 (08:26→20:56)
[2017-01-10] MEDS: HYDROcodone/Acetaminophen 10/325 mg Tablet PO PRN ×2 (11:54→20:57)
[2017-01-10] MEDS: Cyclobenzaprine 10 MG TAB PO PRN (17:49)
[2017-01-11] MEDS: HYDROcodone/Acetaminophen 10/325 mg Tablet PO PRN ×4 (03:48→23:15)
[2017-01-11] MEDS: Baclofen 10 MG TAB PO SCH ×3 (05:36→21:39)
[2017-01-11] MEDS: clonazePAM 0.5 MG TAB PO SCH ×3 (08:39→23:14)
[2017-01-11] MEDS: Nitrofurantoin Macrocrystal 50 MG CAP PO SCH (08:39)
[2017-01-11] MEDS: Cyclobenzaprine 10 MG TAB PO PRN (08:39)
[2017-01-11] MEDS: Gabapentin 300 MG CAP PO SCH ×3 (08:40→21:39)
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
[2017-01-12] MEDS: HYDROcodone/Acetaminophen 10/325 mg Tablet PO PRN ×3 (05:13→19:54)
[2017-01-12] MEDS: Baclofen 10 MG TAB PO SCH ×3 (05:13→22:19)
[2017-01-12] MEDS: Gabapentin 300 MG CAP PO SCH ×3 (08:29→19:54)
[2017-01-12] MEDS: Nitrofurantoin Macrocrystal 50 MG CAP PO SCH (08:29)
[2017-01-12] MEDS: clonazePAM 0.5 MG TAB PO SCH ×3 (08:29→22:18)
[2017-01-13] MEDS: Cyclobenzaprine 10 MG TAB PO PRN ×2 (00:45→13:00)
[2017-01-13] MEDS: Baclofen 10 MG TAB PO SCH ×2 (05:58→13:00)
[2017-01-13] MEDS: Gabapentin 300 MG CAP PO SCH (08:09)
[2017-01-13] MEDS: clonazePAM 0.5 MG TAB PO SCH (08:09)
[2017-01-13] MEDS: Nitrofurantoin Macrocrystal 50 MG CAP PO SCH (08:09)
[2017-01-13 08:27] VITALS: BP 116/65; TEMP 97.2
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
[2017-01-13] MEDS: HYDROcodone/Acetaminophen 10/325 mg Tablet PO PRN (11:21)
== END 2017-01-13 15:05 | disposition home health service (06) | DRG 690 ==
LOC: MADMS 13:59
PROVIDERS: ADMIT Family Medicine; ATTEND Family Medicine
DX: N10 Acute pyelonephritis (principal); G82.20 Paraplegia, unspecified; B96.20 Unspecified Escherichia coli [E. coli] as the cause of diseases classified elsewhere; N31.9 Neuromuscular dysfunction of bladder, unspecified; Z90.5 Acquired absence of kidney; Z90.81 Acquired absence of spleen; B18.2 Chronic viral hepatitis C; G58.0 Intercostal neuropathy; Z89.422 Acquired absence of other left toe(s); Z89.421 Acquired absence of other right toe(s); Z88.1 Allergy status to other antibiotic agents; Z88.8 Allergy status to other drugs, medicaments and biological substances; Z95.828 Presence of other vascular implants and grafts; N47.1 Phimosis; N45.3 Epididymo-orchitis; M75.101 Unspecified rotator cuff tear or rupture of right shoulder, not specified as traumatic; G89.4 Chronic pain syndrome; K21.9 Gastro-esophageal reflux disease without esophagitis; N43.3 Hydrocele, unspecified; Z79.2 Long term (current) use of antibiotics; Z47.89 Encounter for other orthopedic aftercare; R53.81 Other malaise
CPT/HCPCS: 36415; 76870; 80048; 80053; 81001; 85007; 85025; 85027; 85610; 85730; 87040; 87086; 87186; A4216; G0283-GP; G8978-GP-CK; G8978-GP-CM; G8979-GP-CJ; G8981-GP-CM; G8982-GP-CJ; G8984-GP-CK; G8985-GP-CJ; J0696; J1650; J2270; J2550; J7050

== ENCOUNTER 2017-02-10 20:05 | Emergency (ER) | payer MEDICARE, MEDICAID ==
[~2017-02-10 20:05] MED LIST changes: -Sodium Chloride 0.9% 100 ML BAG ONE
[2017-02-10] MEDS ORDERED: Promethazine HCl 25 MG/ML VIAL ONE (20:31)
[2017-02-10] MEDS ORDERED: MORPHINE 10 MG/ML SYRINGE ONE (20:31)
[2017-02-10 20:55] LABS: #Basophils 0.2 thou/uL (0.0-0.2); #Eosinphils 0.2 thou/uL (0.0-0.7); #Lymphocytes 3.9 thou/uL (1.20-3.40); #Monocytes 0.8 thou/uL (0.11-0.59); #Neutrophils 4.3 thou/uL (1.40-6.50); %Basophils 1.6 % (0.0-1.0); %Eosinophils 1.8 % (0.0-10.0); %Lymphocytes 41.7 % (21.0-51.0); %Monocytes 8.7 % (0.0-10.0); %Neutrophils 46.2 % (42.0-75.0); Mean Corpuscular HGB CONC 32.7 g/dL (32.0-36.0); Mean Corpuscular Hemoglobin 31.3 pg (27.0-31.0); Mean Corpuscular Volume 95.6 fl (80.0-94.0); Mean Platelet Volume 6.6 fL (7.4-10.4); Platelet Count 273 thou/uL (130-400); RBC Distribution Width 13.1 % (11.5-14.5); Red Blood Cell (RBC) Count 4.78 mill/uL (4.70-6.10); White Blood Cell (WBC) Count 9.4 thou/uL (4.8-10.8)
[2017-02-10 21:03] LABS: ALT (SGPT) 57 U/L (8-55); AST (SGOT) 64 U/L (5-34); Albumin 3.3 g/dL (3.5-5.0); Alkaline Phosphatase 128 U/L (40-150); Anion Gap 17 mmol/L (10-20); BUN (Urea Nitrogen) 21 mg/dL (8.9-20.6); Bilirubin, Total 0.6 mg/dL (0.2-1.2); Calc. Creatinine Clearance 0 mL/min (70-130); Calcium 8.6 mg/dL (7.8-10.44); Carbon Dioxide 20 mmol/L (22-29); Chloride 110 mmol/L (98-107); Estimated GFR-MDRD Greater than 90; Globulin 4.2 g/dL (2.4-3.5); Glucose 127 mg/dL (70-105); Lipase 26 U/L (8-78); Potassium 3.9 mmol/L (3.5-5.1); Protein, Total 7.5 g/dL (6.0-8.3); Sodium 143 mmol/L (136-145)
[2017-02-10] MEDS ORDERED: Morphine 4 MG/ML VIAL ONE (21:37)
--- NOTE | 2017-02-10 22:17 | RAD ---
THREE VIEWS RIGHT SHOULDER 02/10/17 HISTORY: Right shoulder pain. AP internally, externally, and scapular Y-views right shoulder is obtained. Comparison made to previous exam from 06/29/16. Images demonstrate rotator cuff repair of the right shoulder. No evidence of acute fractures or bony lesions seen. There has been surgical resection of the distal right clavicle. IMPRESSION: Postoperative changes seen in the right shoulder. No acute right shoulder abnormality is seen. POS: [facility]
== END 2017-02-10 22:31 | disposition home or self-care (01) ==
LOC: MADERS 20:05
DX: M25.511 Pain in right shoulder (principal); G89.29 Other chronic pain; R11.2 Nausea with vomiting, unspecified; E66.9 Obesity, unspecified; F32.9 Major depressive disorder, single episode, unspecified; F41.9 Anxiety disorder, unspecified; F17.210 Nicotine dependence, cigarettes, uncomplicated; K21.9 Gastro-esophageal reflux disease without esophagitis; M86.9 Osteomyelitis, unspecified
CPT/HCPCS: 80053; 83690; 85025; 96365; 96375; 96376; J1642; J2270; J2550; J7050

== ENCOUNTER 2017-05-22 11:54 | Emergency (ER) | payer MEDICARE, MEDICAID ==
--- NOTE | 2017-05-22 13:26 | RAD ---
RIGHT SHOULDER 3 VIEWS: Date: 05/22/17 PROVIDED CLINICAL HISTORY: Right shoulder pain. FINDINGS: Comparison made with study dated 02/10/17. Changes of prior acromioplasty are redemonstrated. Distal clavicular resection changes are again seen . Prior changes of rotator cuff repair are again noted. There is no evidence for fracture. The subacr omial space appears preserved. The visualized right lung field appears clear. Glenohumeral relationsh ip appears normal. IMPRESSION: Postoperative changes involving the right shoulder are redemonstrated. No evidence for fracture or boyer bluxation. POS: [facility]
== END 2017-05-22 13:00 | disposition home or self-care (01) ==
LOC: MADERS 11:54
DX: S46.911A Strain of unspecified muscle, fascia and tendon at shoulder and upper arm level, right arm, initial encounter (principal); K21.9 Gastro-esophageal reflux disease without esophagitis; F41.9 Anxiety disorder, unspecified; F32.9 Major depressive disorder, single episode, unspecified; X50.9XXA Other and unspecified overexertion or strenuous movements or postures, initial encounter

== ENCOUNTER 2017-06-02 02:10 | Emergency (ER) | payer MEDICARE, MEDICAID ==
[2017-06-02 02:55] LABS: Bilirubin Negative (Negative); Blood, Urine Small (Negative); Glucose, Urine (Dipstick) Negative (Negative); Leukocyte Negative (Negative); Nitrite Negative (Negative); Protein, Urine (Dipstick) 30 mg/dL (Neg-Trace); Urobilinogen > or = 8.0 mg/dL (0.2-1.0)
[2017-06-02 02:57] LABS: Clarity Cloudy (Clear)
[2017-06-02 03:08] LABS: Amphetamine Not Detected (NotDetected); Barbiturates Screen Not Detected (NotDetected); Benzodiazepine Screen Not Detected (NotDetected); Cocaine Metabolite Screen Not Detected (NotDetected); Methadone Not Detected (NotDetected); Methamphetamine Not Detected (NotDetected); Opiate Screen Detected (NotDetected); Oxycodone Screen Not Detected (NotDetected); Phencyclidine (PCP) Not Detected (NotDetected); THC/Cannabinoid Screen Not Detected (NotDetected); Tricyclic Screen Not Detected (NotDetected)
[2017-06-02] MEDS ORDERED: Morphine 10 MG/ML VIAL ONE (03:08)
[2017-06-02] MEDS ORDERED: Promethazine HCl 25 MG/ML VIAL ONE (03:08)
[2017-06-02 03:09] LABS: Medtox Control Line Valid? VALID (VALID)
[2017-06-02 03:20] LABS: #Basophils 0.1 thou/uL (0.0-0.2); #Eosinphils 0.2 thou/uL (0.0-0.7); #Lymphocytes 3.5 thou/uL (1.20-3.40); #Monocytes 0.6 thou/uL (0.11-0.59); #Neutrophils 4.6 thou/uL (1.40-6.50); %Basophils 1.6 % (0.0-1.0); %Eosinophils 1.9 % (0.0-10.0); %Monocytes 6.6 % (0.0-10.0); Hemoglobin 14.5 g/dL (14.0-18.0); Mean Corpuscular HGB CONC 33.1 g/dL (32.0-36.0); Mean Corpuscular Hemoglobin 31.6 pg (27.0-31.0); Mean Corpuscular Volume 95.3 fl (80.0-94.0); Mean Platelet Volume 6.2 fL (7.4-10.4); Platelet Count 255 thou/uL (130-400); RBC Distribution Width 12.5 % (11.5-14.5); White Blood Cell (WBC) Count 9.1 thou/uL (4.8-10.8)
[2017-06-02 03:27] LABS: ALT (SGPT) 53 U/L (8-55); AST (SGOT) 66 U/L (5-34); Albumin 3.4 g/dL (3.5-5.0); Alkaline Phosphatase 127 U/L (40-150); Anion Gap 14 mmol/L (10-20); BUN (Urea Nitrogen) 18 mg/dL (8.9-20.6); Bilirubin, Total 1.1 mg/dL (0.2-1.2); Calc. Creatinine Clearance 0 mL/min (70-130); Calcium 8.5 mg/dL (7.8-10.44); Carbon Dioxide 23 mmol/L (22-29); Chloride 107 mmol/L (98-107); Estimated GFR-MDRD Greater than 90; Globulin 4.1 g/dL (2.4-3.5); Glucose 116 mg/dL (70-105); Potassium 3.4 mmol/L (3.5-5.1); Protein, Total 7.5 g/dL (6.0-8.3); Sodium 141 mmol/L (136-145)
[2017-06-02 03:29] LABS: Squamous Epithelial 0-3 HPF (0-3)
[2017-06-02 03:30] LABS: Bacteria/HPF Rare-Few HPF (None Seen); Yeast-All Forms 1+ HPF (None Seen)
[2017-06-02] MEDS ORDERED: Sulfameth/Trimethoprim DS 800-160mg TAB ONE (03:39)
--- NOTE | 2017-06-02 07:59 | RAD ---
PORTABLE CHEST: Date: 06/02/17 HISTORY: Nausea and vomiting. COMPARISON: 09/30/16. FINDINGS: Lungs appear clear with no definite infiltrate seen on this portable projection. The heart is mildly prominent, although accentuated by this projection. MediPort catheter appears in adequate position. IMPRESSION: No definite infiltrate seen on this portable exam. POS: [facility]
== END 2017-06-02 05:10 | disposition home or self-care (01) ==
LOC: MADERS 02:10
DX: N39.0 Urinary tract infection, site not specified (principal); K21.9 Gastro-esophageal reflux disease without esophagitis; E66.9 Obesity, unspecified; M86.9 Osteomyelitis, unspecified; F41.9 Anxiety disorder, unspecified; F32.9 Major depressive disorder, single episode, unspecified; F17.210 Nicotine dependence, cigarettes, uncomplicated
CPT/HCPCS: 71045; 80053; 80306; 81001; 83880; 85025; 85652; 87077; 87081; 87086; 87186; 87430; 87804; 96372; 96374; 96376; J1642; J2270; J2550

== ENCOUNTER 2017-07-04 04:22 | Emergency (ER) | payer MEDICARE, MEDICAID ==
[2017-07-04 05:13] LABS: Bilirubin Negative (Negative); Blood, Urine Trace (Negative); Clarity Cloudy (Clear); Glucose, Urine (Dipstick) Negative (Negative); Leukocyte Trace (Negative); Nitrite Positive (Negative); Protein, Urine (Dipstick) Negative (Neg-Trace); pH, Urine 5.5 (5.0-9.0)
[2017-07-04 05:23] LABS: Bacteria/HPF 4+ HPF (None Seen); Renal Epithelial 0-3 HPF (0-3); Transitional Epithelial 0-3 HPF (0-3); WBC/HPF 21-50 HPF (0-3); Yeast-All Forms Rare HPF (None Seen)
[2017-07-04] MEDS ORDERED: Promethazine HCl 25 MG/ML VIAL ONE (05:34)
[2017-07-04] MEDS ORDERED: Morphine 10 MG/ML VIAL ONE (05:34)
[2017-07-04 05:52] LABS: #Basophils 0.1 thou/uL (0.0-0.2); #Eosinphils 0.3 thou/uL (0.0-0.7); #Monocytes 0.7 thou/uL (0.11-0.59); %Eosinophils 3.3 % (0.0-10.0); %Lymphocytes 43.9 % (21.0-51.0); %Monocytes 7.7 % (0.0-10.0); %Neutrophils 44.2 % (42.0-75.0); Hemoglobin 14.6 g/dL (14.0-18.0); Mean Corpuscular HGB CONC 34.2 g/dL (32.0-36.0); Mean Corpuscular Hemoglobin 31.3 pg (27.0-31.0); Mean Corpuscular Volume 91.5 fl (80.0-94.0); Mean Platelet Volume 6.2 fL (7.4-10.4); Platelet Count 242 thou/uL (130-400); RBC Distribution Width 12.1 % (11.5-14.5); Red Blood Cell (RBC) Count 4.65 mill/uL (4.70-6.10); White Blood Cell (WBC) Count 9.1 thou/uL (4.8-10.8)
[2017-07-04 06:02] LABS: ALT (SGPT) 49 U/L (8-55); AST (SGOT) 55 U/L (5-34); Albumin 3.3 g/dL (3.5-5.0); Alkaline Phosphatase 119 U/L (40-150); Anion Gap 13 mmol/L (10-20); BUN (Urea Nitrogen) 15 mg/dL (8.9-20.6); Bilirubin, Total 0.7 mg/dL (0.2-1.2); CK (CPK) 102 U/L (30-200); Calc. Creatinine Clearance 0 mL/min (70-130); Calcium 8.3 mg/dL (7.8-10.44); Carbon Dioxide 24 mmol/L (22-29); Chloride 109 mmol/L (98-107); Estimated GFR-MDRD Greater than 90; Glucose 119 mg/dL (70-105); Lipase 26 U/L (8-78); Potassium 3.9 mmol/L (3.5-5.1); Protein, Total 7.3 g/dL (6.0-8.3); Sodium 142 mmol/L (136-145)
[2017-07-04] MEDS ORDERED: metroNIDAZOLE 500 MG/100 ML BAG ONE (06:04)
[2017-07-04] MEDS ORDERED: cefTRIAXone\\ROCEPHIN 2 GM VIAL ONE (07:21)
--- NOTE | 2017-07-04 08:16 | RAD ---
CHEST 1 VIEW: COMPARISON: 06/02/17. HISTORY: Fever. Pain. FINDINGS: Stable left-sided MediPort catheter. There is a stable circular density projecting over the expected region in the AP window. Normal cervical spine. Diminished lung volumes, likely due to poor inspir atory effort. No consolidation or mass. No pneumothorax or osseous abnormalities. IMPRESSION: 1. No acute cardiopulmonary process. 2. No significant interval change. POS: [facility]
--- NOTE | 2017-07-04 09:05 | CT ---
PRELIMINARY REPORT/[facility]/EMERGENTY AFTER-HOURS PROCEDURE EXAM: CT Abdomen and Pelvis With Intravenous Contrast EXAM DATE/TIME: Exam ordered 07/04/2017 6:53 AM CLINICAL HISTORY: 37 years old, male; Pain; Abdominal pain; Acute; Patient HX: Paralyzed; Rlq pain started early this m orning TECHNIQUE: Axial computed tomography images of the abdomen and pelvis with intravenous contrast. All CT scans at this facility use one or more dose reduction techniques, viz.: automated exposure control; ma/kV adj ustment per patient size (including targeted exams where dose is matched to indication; i.e. head); or iterative reconstruction technique. Coronal reformatted images were created and reviewed. CONTRAST: 100 mL of ISOVUE 370 administered intravenously. COMPARISON: No relevant prior studies available. FINDINGS: Lung bases: There is subpleural atelectasis of the dependent portions of the lungs. ABDOMEN: Liver: There are no focal liver lesions identified. Gallbladder and bile ducts: There is a mild degree of common bile duct dilation. This may be related to prior cholecystectomy, however, correlation with bilirubin levels is recommended. Pancreas: The pancreas appears normal. No ductal dilation. Spleen: The spleen is normal. Adrenals: The adrenal glands are normal. Kidneys and ureters: Patient is post LEFT nephrectomy. The right kidney is normal. Stomach and bowel: Technique: The stomach is normal. The colon is normal. Patient is post partial bow el resection and reanastomosis. No obstruction. No mucosal thickening. PELVIS: Appendix: A normal appendix is identified. Bladder: There is nonspecific urinary bladder wall thickening possibly due to under distention. Reproductive: Penile implant is present with reservoir to the RIGHT of the urinary bladder. ABDOMEN and PELVIS: Intraperitoneal space: Normal. No free air. No significant fluid collection. Bones/joints: There is dextroscoliosis of the lumbar spine. There is a large LEFT hip joint effusion with superior dislocation of the LEFT femoral head. The RIGHT femoral head is absent and a RIGHT hip joint effusion/postsurgical changes present. No acute fracture. Soft tissues: There is thickening of the skin of the RIGHT buttock which may represent postsurgical c hange however decubitus ulcer is possible and clinical correlation is advised. Vasculature: Normal. No abdominal aortic aneurysm. Lymph nodes: Normal. No enlarged lymph nodes. IMPRESSION: There is thickening of the skin of the RIGHT buttock which may represent postsurgical change however decubitus ulcer is possible and clinical correlation is advised. Nonspecific urinary bladder wall thi ckening possibly due to an underdistention or infection. Correlation with urinalysis is advised. Large LEFT hip joint effusion with femoral head dislocation. RIGHT femora l head is absent. Thank you for allowing us to participate in the care of your patient. Dictated and Authenticated by: Bereket Sharma MD 07/04/2017 7:32 AM Central Time ([place] & [place]) FINAL REPORT ABDOMEN CT WITH CONTRAST PELVIC CT WITH CONTRAST: Date: 07/04/17 HISTORY: Right lower quadrant pain. COMPARISON: 03/03/06, 10/01/16. TECHNIQUE: Abdomen and pelvic CT performed with IV and oral contrast. Coronal reformatted images are submitted f or interpretation. FINDINGS: This report is in agreement with the preliminary report by Abdoul. Normal caliber appendix. There is a left hip joint effusion with irregularity involving the femoral head and hip. There is subluxation. C hronic changes of right femoral head are suspected. Scoliotic curvature of the lumbar spine is noted. Induration of the medial right gluteal subcutaneous fat, similar to previous examination and likely r epresents chronic change. Superimposed cellulitis/decubitus ulcer cannot be excluded. POS: CRISTIANO
[2017-07-04] MEDS ORDERED: Iopamidol 370 76% 100 ML VIAL ONE (12:33)
[2017-07-04] MEDS ORDERED: Sodium Chloride 0.9% 100 ML BAG ONE (14:12)
== END 2017-07-04 08:28 | disposition short-term general hospital (02) ==
LOC: MADERS 04:22
DX: N39.0 Urinary tract infection, site not specified (principal); G82.20 Paraplegia, unspecified; I10 Essential (primary) hypertension; K21.9 Gastro-esophageal reflux disease without esophagitis; E66.9 Obesity, unspecified; G62.9 Polyneuropathy, unspecified; F41.9 Anxiety disorder, unspecified; F17.210 Nicotine dependence, cigarettes, uncomplicated; F32.9 Major depressive disorder, single episode, unspecified
CPT/HCPCS: 36415; 71045; 74177; 80053; 81001; 82150; 82550; 83605; 83690; 85025; 87040; 87077; 87086; 87186; 96365; 96367; 96375; J0696; J2270; J2550; J7050

== ENCOUNTER 2017-08-27 00:22 | Emergency (ER) | payer MEDICARE, OTHER ==
[2017-08-27] MEDS ORDERED: Promethazine HCl 25 MG/ML VIAL ONE (01:09)
[2017-08-27] MEDS ORDERED: Ketorolac Tromethamine 30 MG/ML VIAL ONE (01:09)
[2017-08-27 01:24] LABS: Bilirubin Small (Negative); Blood, Urine Large (Negative); Clarity Turbid (Clear); Glucose, Urine (Dipstick) Negative (Negative); Leukocyte Small (Negative); Nitrite Positive (Negative); Protein, Urine (Dipstick) 100 mg/dL (Neg-Trace); Specific Gravity, Urine 1.025 (1.005-1.030); pH, Urine 5.5 (5.0-9.0)
[2017-08-27 01:33] LABS: ALT (SGPT) 48 U/L (8-55); AST (SGOT) 54 U/L (5-34); Albumin 3.7 g/dL (3.5-5.0); Alkaline Phosphatase 104 U/L (40-150); Anion Gap 16 mmol/L (10-20); BUN (Urea Nitrogen) 16 mg/dL (8.9-20.6); Bilirubin, Total 1.3 mg/dL (0.2-1.2); Calc. Creatinine Clearance 0 mL/min (70-130); Calcium 8.9 mg/dL (7.8-10.44); Carbon Dioxide 22 mmol/L (22-29); Chloride 108 mmol/L (98-107); Estimated GFR-MDRD Greater than 90; Globulin 4.5 g/dL (2.4-3.5); Glucose 126 mg/dL (70-105); Lipase 16 U/L (8-78); Potassium 3.7 mmol/L (3.5-5.1); Protein, Total 8.2 g/dL (6.0-8.3); Sodium 142 mmol/L (136-145)
[2017-08-27 01:34] LABS: Bacteria/HPF 4+ HPF (None Seen); RBC/HPF GREATER THAN 50-TNTC HPF (0-3); Renal Epithelial 0-3 HPF (0-3); Transitional Epithelial 0-3 HPF (0-3)
[2017-08-27 01:34] LABS: #Basophils 0.1 thou/uL (0.0-0.2); #Eosinphils 0.1 thou/uL (0.0-0.7); #Lymphocytes 3.3 thou/uL (1.20-3.40); #Monocytes 0.5 thou/uL (0.11-0.59); %Basophils 1.4 % (0.0-1.0); %Eosinophils 1.4 % (0.0-10.0); %Lymphocytes 36.3 % (21.0-51.0); %Monocytes 5.9 % (0.0-10.0); %Neutrophils 55.1 % (42.0-75.0); Hemoglobin 15.2 g/dL (14.0-18.0); Mean Corpuscular HGB CONC 33.8 g/dL (32.0-36.0); Mean Corpuscular Hemoglobin 30.7 pg (27.0-31.0); Mean Corpuscular Volume 90.8 fL (78.0-98.0); Mean Platelet Volume 5.9 fL (7.4-10.4); Platelet Count 276 thou/uL (130-400); RBC Distribution Width 12.2 % (11.5-14.5); Red Blood Cell (RBC) Count 4.96 mill/uL (4.70-6.10)
[2017-08-27] MEDS ORDERED: Sodium Chloride 0.9% 1,000 ML BAG ONE (02:00)
[2017-08-27] MEDS ORDERED: Sodium Chloride 0.9% 100 ML BAG ONE (02:00)
[2017-08-27] MEDS ORDERED: Morphine 10 MG/ML VIAL ONE (02:07)
[2017-08-27] MEDS ORDERED: cefTRIAXone\\ROCEPHIN 1 GM VIAL ONE (04:09)
--- NOTE | 2017-08-27 08:43 | RAD ---
PORTABLE CHEST: Date: 08/27/17 HISTORY: Shortness of breath. Chest pain. COMPARISON: 07/07/17. FINDINGS: Lungs are clear. Heart size upper normal and stable. MediPort catheter is unchanged. IMPRESSION: No acute abnormality. POS: CRISTIANOH
== END 2017-08-27 04:29 | disposition short-term general hospital (02) ==
LOC: MADERS 00:22
DX: N39.0 Urinary tract infection, site not specified (principal); G82.20 Paraplegia, unspecified; E66.9 Obesity, unspecified; F41.9 Anxiety disorder, unspecified; F32.9 Major depressive disorder, single episode, unspecified; F17.210 Nicotine dependence, cigarettes, uncomplicated; Z79.899 Other long term (current) drug therapy
CPT/HCPCS: 36415; 71045; 80053; 81001; 82150; 83605; 83690; 85025; 87040; 87077; 87086; 87186; 96361; 96374; 96375; J0696; J1885; J2270; J2550; J7050

== ENCOUNTER 2017-08-30 14:18 | Inpatient (IN) | payer MEDICARE, MEDICAID ==
[2017-08-30 22:22] VITALS: BMI 30.5
[2017-08-31] MEDS ORDERED: HYDROcodone/Acetaminophen 5/325 mg Tablet PO PRN (01:19)
[2017-08-31] MEDS ORDERED: Temazepam 15 MG CAP PO PRN (01:20)
[2017-08-31] MEDS: cefTRIAXone\\ROCEPHIN 1 GM in Sodium Chloride 0.9% 100 ML IVPB SCH (05:37)
[2017-08-31] MEDS: HYDROcodone/Acetaminophen 10/325 mg Tablet PO PRN (08:20)
[2017-08-31] MEDS: TROSPIUM 20 MG TABLET PO SCH ×2 (08:20→20:25)
[2017-08-31] MEDS: Famotidine 20 MG TAB PO SCH ×2 (08:21→20:25)
[2017-08-31] MEDS: Enoxaparin Sodium 40 MG/0.4 ML SYRINGE SC SCH (08:21)
[2017-08-31] MEDS: Gabapentin 300 MG CAP PO SCH ×3 (08:21→20:25)
[2017-08-31] MEDS ORDERED: Baclofen 10 MG TAB PO SCH ×2 (09:00→13:00)
[2017-08-31] MEDS ORDERED: clonazePAM 0.5 MG TAB PO SCH (09:00)
[2017-08-31] MEDS ORDERED: Polyethylene Glycol 3350 17 GM Packet PO SCH (09:00)
[2017-08-31] MEDS ORDERED: Saccharomyces boulardii 250 MG CAP PO SCH (09:00)
[2017-08-31] MEDS: Promethazine HCl 25 MG/ML VIAL SLOW IVP PRN ×2 (09:59→21:53)
[2017-08-31] MEDS ORDERED: Milk Of Magnesia 30 ML UDCUP PO PRN (10:10)
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
[2017-08-31] MEDS: clonazePAM 0.5 MG TAB PO SCH ×2 (15:16→21:59)
[2017-08-31] MEDS: Baclofen 10 MG TAB PO SCH ×2 (15:16→20:26)
[2017-08-31] MEDS ORDERED: TROSPIUM 20 MG TABLET PO SCH (21:00)
[2017-09-01] MEDS: cefTRIAXone\\ROCEPHIN 1 GM in Sodium Chloride 0.9% 100 ML IVPB SCH (05:04)
[2017-09-01 05:44] LABS: ALT (SGPT) 48 U/L (8-55); Anion Gap 14 mmol/L (10-20); Calcium 8.5 mg/dL (7.8-10.44); Carbon Dioxide 23 mmol/L (22-29); Chloride 109 mmol/L (98-107); Glucose 114 mg/dL (70-105); Potassium 4.9 mmol/L (3.5-5.1); Sodium 141 mmol/L (136-145)
[2017-09-01 05:45] LABS: #Basophils 0.1 thou/uL (0.0-0.2); #Eosinphils 0.3 thou/uL (0.0-0.7); #Lymphocytes 2.8 thou/uL (1.20-3.40); #Monocytes 0.7 thou/uL (0.11-0.59); #Neutrophils 3.8 thou/uL (1.40-6.50); %Basophils 1.3 % (0.0-1.0); %Eosinophils 3.8 % (0.0-10.0); %Lymphocytes 36.7 % (21.0-51.0); %Monocytes 8.9 % (0.0-10.0); %Neutrophils 49.2 % (42.0-75.0); Hemoglobin 14.8 g/dL (14.0-18.0); Mean Corpuscular HGB CONC 32.2 g/dL (32.0-36.0); Mean Corpuscular Hemoglobin 29.8 pg (27.0-31.0); Mean Corpuscular Volume 92.5 fL (78.0-98.0); Mean Platelet Volume 5.7 fL (7.4-10.4); Platelet Count 226 thou/uL (130-400); RBC Distribution Width 12.1 % (11.5-14.5); Red Blood Cell (RBC) Count 4.97 mill/uL (4.70-6.10); White Blood Cell (WBC) Count 7.7 thou/uL (4.8-10.8)
[2017-09-01 05:50] LABS: AST (SGOT) 52 U/L (5-34); Albumin 3.1 g/dL (3.5-5.0); Alkaline Phosphatase 100 U/L (40-150); BUN (Urea Nitrogen) 20 mg/dL (8.9-20.6); Bilirubin, Total 0.7 mg/dL (0.2-1.2); Calc. Creatinine Clearance 164 mL/min (70-130); Estimated GFR-MDRD Greater than 90; Globulin 3.9 g/dL (2.4-3.5)
[2017-09-01] MEDS: Saccharomyces boulardii 250 MG CAP PO SCH (08:53)
[2017-09-01] MEDS: TROSPIUM 20 MG TABLET PO SCH ×2 (08:53→20:57)
[2017-09-01] MEDS: Gabapentin 300 MG CAP PO SCH ×3 (08:53→20:57)
[2017-09-01] MEDS: Baclofen 10 MG TAB PO SCH ×3 (08:54→20:58)
[2017-09-01] MEDS: clonazePAM 0.5 MG TAB PO SCH ×3 (08:54→23:24)
[2017-09-01] MEDS: Enoxaparin Sodium 40 MG/0.4 ML SYRINGE SC SCH (08:54)
[2017-09-01] MEDS: Famotidine 20 MG TAB PO SCH ×2 (08:56→20:57)
[2017-09-01] MEDS: Polyethylene Glycol 3350 17 GM Packet PO SCH (08:57)
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
[2017-09-01] MEDS: Promethazine HCl 25 MG/ML VIAL SLOW IVP PRN ×2 (09:14→16:08)
[2017-09-01] MEDS: HYDROcodone/Acetaminophen 10/325 mg Tablet PO PRN (15:06)
[2017-09-02] MEDS: cefTRIAXone\\ROCEPHIN 1 GM in Sodium Chloride 0.9% 100 ML IVPB SCH (05:29)
[2017-09-02] MEDS: Promethazine HCl 25 MG/ML VIAL SLOW IVP PRN ×3 (05:35→23:21)
[2017-09-02] MEDS: Polyethylene Glycol 3350 17 GM Packet PO SCH (09:20)
[2017-09-02] MEDS: TROSPIUM 20 MG TABLET PO SCH ×2 (09:21→20:41)
[2017-09-02] MEDS: Baclofen 10 MG TAB PO SCH ×3 (09:21→20:40)
[2017-09-02] MEDS: Famotidine 20 MG TAB PO SCH ×2 (09:21→20:40)
[2017-09-02] MEDS: Saccharomyces boulardii 250 MG CAP PO SCH (09:21)
[2017-09-02] MEDS: clonazePAM 0.5 MG TAB PO SCH ×3 (09:21→23:20)
[2017-09-02] MEDS: Enoxaparin Sodium 40 MG/0.4 ML SYRINGE SC SCH (09:21)
[2017-09-02] MEDS: Gabapentin 300 MG CAP PO SCH ×3 (09:21→20:40)
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
[2017-09-03] MEDS: cefTRIAXone\\ROCEPHIN 1 GM in Sodium Chloride 0.9% 100 ML IVPB SCH (05:44)
[2017-09-03] MEDS: HYDROcodone/Acetaminophen 10/325 mg Tablet PO PRN ×2 (07:50→18:20)
[2017-09-03] MEDS: Promethazine HCl 25 MG/ML VIAL SLOW IVP PRN ×2 (07:51→18:20)
[2017-09-03] MEDS: Enoxaparin Sodium 40 MG/0.4 ML SYRINGE SC SCH (08:04)
[2017-09-03] MEDS: Famotidine 20 MG TAB PO SCH ×2 (08:05→20:29)
[2017-09-03] MEDS: TROSPIUM 20 MG TABLET PO SCH ×2 (08:05→20:29)
[2017-09-03] MEDS: Gabapentin 300 MG CAP PO SCH ×3 (08:05→20:30)
[2017-09-03] MEDS: Polyethylene Glycol 3350 17 GM Packet PO SCH (08:05)
[2017-09-03] MEDS: Saccharomyces boulardii 250 MG CAP PO SCH (08:05)
[2017-09-03] MEDS: clonazePAM 0.5 MG TAB PO SCH ×3 (08:05→23:16)
[2017-09-03] MEDS: Baclofen 10 MG TAB PO SCH ×3 (08:05→20:30)
[2017-09-04] MEDS: cefTRIAXone\\ROCEPHIN 1 GM in Sodium Chloride 0.9% 100 ML IVPB SCH (06:03)
[2017-09-04] MEDS: Promethazine HCl 25 MG/ML VIAL SLOW IVP PRN ×3 (06:05→22:15)
[2017-09-04] MEDS: HYDROcodone/Acetaminophen 10/325 mg Tablet PO PRN ×2 (07:17→14:45)
[2017-09-04] MEDS: clonazePAM 0.5 MG TAB PO SCH ×3 (07:19→22:09)
[2017-09-04] MEDS: Enoxaparin Sodium 40 MG/0.4 ML SYRINGE SC SCH (08:49)
[2017-09-04] MEDS: Baclofen 10 MG TAB PO SCH ×3 (08:49→22:07)
[2017-09-04] MEDS: Gabapentin 300 MG CAP PO SCH ×3 (08:49→22:07)
[2017-09-04] MEDS: TROSPIUM 20 MG TABLET PO SCH ×2 (08:49→22:09)
[2017-09-04] MEDS: Polyethylene Glycol 3350 17 GM Packet PO SCH (08:49)
[2017-09-04] MEDS: Saccharomyces boulardii 250 MG CAP PO SCH (08:49)
[2017-09-04] MEDS: Famotidine 20 MG TAB PO SCH ×2 (08:50→22:07)
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
[2017-09-04] MEDS ORDERED: HYDROcodone/Acetaminophen 10/325 mg Tablet PO SCH (15:15)
[2017-09-05] MEDS: cefTRIAXone\\ROCEPHIN 1 GM in Sodium Chloride 0.9% 100 ML IVPB SCH (05:56)
[2017-09-05] MEDS: Promethazine HCl 25 MG/ML VIAL SLOW IVP PRN ×3 (05:58→22:29)
[2017-09-05] MEDS: HYDROcodone/Acetaminophen 10/325 mg Tablet PO PRN (07:16)
[2017-09-05] MEDS: Gabapentin 300 MG CAP PO SCH ×3 (08:00→22:20)
[2017-09-05] MEDS: Famotidine 20 MG TAB PO SCH ×2 (08:00→22:28)
[2017-09-05] MEDS: Saccharomyces boulardii 250 MG CAP PO SCH (08:00)
[2017-09-05] MEDS: clonazePAM 0.5 MG TAB PO SCH ×3 (08:00→22:29)
[2017-09-05] MEDS: TROSPIUM 20 MG TABLET PO SCH ×2 (08:00→22:20)
[2017-09-05] MEDS: Polyethylene Glycol 3350 17 GM Packet PO SCH (08:01)
[2017-09-05] MEDS: Enoxaparin Sodium 40 MG/0.4 ML SYRINGE SC SCH (08:01)
[2017-09-05] MEDS: Baclofen 10 MG TAB PO SCH ×3 (08:01→22:20)
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
[2017-09-06] MEDS: cefTRIAXone\\ROCEPHIN 1 GM in Sodium Chloride 0.9% 100 ML IVPB SCH (06:17)
[2017-09-06] MEDS: HYDROcodone/Acetaminophen 10/325 mg Tablet PO PRN (07:07)
[2017-09-06] MEDS: Promethazine HCl 25 MG/ML VIAL SLOW IVP PRN ×2 (07:12→13:36)
[2017-09-06 07:39] VITALS: BP 132/74; TEMP 97.4
[2017-09-06] MEDS: Saccharomyces boulardii 250 MG CAP PO SCH (09:41)
[2017-09-06] MEDS: clonazePAM 0.5 MG TAB PO SCH (09:41)
[2017-09-06] MEDS: Baclofen 10 MG TAB PO SCH (09:41)
[2017-09-06] MEDS: Polyethylene Glycol 3350 17 GM Packet PO SCH (09:42)
[2017-09-06] MEDS: Gabapentin 300 MG CAP PO SCH (09:42)
[2017-09-06] MEDS: Famotidine 20 MG TAB PO SCH (09:42)
[2017-09-06] MEDS: TROSPIUM 20 MG TABLET PO SCH (09:42)
[2017-09-06] MEDS: Enoxaparin Sodium 40 MG/0.4 ML SYRINGE SC SCH (09:42)
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
== END 2017-09-06 14:00 | disposition home or self-care (01) | DRG 690 ==
LOC: UNDOADMIN 21:55 → MADMS 21:55
PROVIDERS: ADMIT Family Medicine; ATTEND Family Medicine
DX: N12 Tubulo-interstitial nephritis, not specified as acute or chronic (principal); G82.20 Paraplegia, unspecified; B96.20 Unspecified Escherichia coli [E. coli] as the cause of diseases classified elsewhere; N31.9 Neuromuscular dysfunction of bladder, unspecified; G58.0 Intercostal neuropathy; K21.9 Gastro-esophageal reflux disease without esophagitis; S30.810A Abrasion of lower back and pelvis, initial encounter; G43.909 Migraine, unspecified, not intractable, without status migrainosus; M54.10 Radiculopathy, site unspecified; Z86.19 Personal history of other infectious and parasitic diseases; L98.419 Non-pressure chronic ulcer of buttock with unspecified severity
CPT/HCPCS: 36415; 80053; 85025; A4216; G8987-GO-CJ; G8988-GO-CH; J0696; J1650; J2550; J7050

== ENCOUNTER 2017-10-18 02:41 | Emergency (ER) | payer MEDICARE, OTHER ==
[2017-10-18 03:04] LABS: Bilirubin Small (Negative); Blood, Urine Small (Negative); Clarity Slightly Cloudy (Clear); Glucose, Urine (Dipstick) Negative (Negative); Leukocyte Moderate (Negative); Nitrite Positive (Negative); Protein, Urine (Dipstick) 100 mg/dL (Neg-Trace); Specific Gravity, Urine 1.025 (1.005-1.030)
[2017-10-18 03:09] LABS: Bacteria/HPF 3+ HPF (None Seen); RBC/HPF 21-50 HPF (0-3)
[2017-10-18 03:47] LABS: Bilirubin Negative (Negative); Blood, Urine Small (Negative); Clarity Slightly Cloudy (Clear); Glucose, Urine (Dipstick) Negative (Negative); Leukocyte Moderate (Negative); Nitrite Positive (Negative); Protein, Urine (Dipstick) 30 mg/dL (Neg-Trace)
[2017-10-18 03:54] LABS: Bacteria/HPF 3+ HPF (None Seen); RBC/HPF 21-50 HPF (0-3)
[2017-10-18] MEDS ORDERED: Promethazine HCl 25 MG/ML VIAL ONE (04:29)
[2017-10-18] MEDS ORDERED: Morphine 4 MG/ML VIAL ONE (04:29)
[2017-10-18] MEDS ORDERED: cefTRIAXone\\ROCEPHIN 1 GM VIAL ONE (04:29)
[2017-10-18 04:33] LABS: #Basophils 0.1 thou/uL (0.0-0.2); #Eosinphils 0.2 thou/uL (0.0-0.7); #Lymphocytes 2.9 thou/uL (1.20-3.40); #Neutrophils 7.4 thou/uL (1.40-6.50); %Basophils 0.8 % (0.0-1.0); %Eosinophils 1.4 % (0.0-10.0); %Lymphocytes 25.3 % (21.0-51.0); %Monocytes 8.3 % (0.0-10.0); %Neutrophils 64.3 % (42.0-75.0); Hemoglobin 14.2 g/dL (14.0-18.0); Mean Corpuscular HGB CONC 33.9 g/dL (32.0-36.0); Mean Corpuscular Hemoglobin 31.2 pg (27.0-31.0); Mean Corpuscular Volume 91.9 fL (78.0-98.0); Mean Platelet Volume 5.9 fL (7.4-10.4); Platelet Count 225 thou/uL (130-400); RBC Distribution Width 12.2 % (11.5-14.5); Red Blood Cell (RBC) Count 4.54 mill/uL (4.70-6.10); White Blood Cell (WBC) Count 11.4 thou/uL (4.8-10.8)
[2017-10-18 04:49] LABS: ALT (SGPT) 42 U/L (8-55); AST (SGOT) 44 U/L (5-34); Albumin 3.5 g/dL (3.5-5.0); Alkaline Phosphatase 108 U/L (40-150); Anion Gap 14 mmol/L (10-20); BUN (Urea Nitrogen) 15 mg/dL (8.9-20.6); Bilirubin, Total 0.9 mg/dL (0.2-1.2); Calc. Creatinine Clearance 0 mL/min (70-130); Calcium 8.7 mg/dL (7.8-10.44); Carbon Dioxide 21 mmol/L (22-29); Chloride 105 mmol/L (98-107); Estimated GFR-MDRD Greater than 90; Globulin 3.9 g/dL (2.4-3.5); Glucose 134 mg/dL (70-105); Potassium 3.3 mmol/L (3.5-5.1); Protein, Total 7.4 g/dL (6.0-8.3); Sodium 137 mmol/L (136-145)
[2017-10-18] MEDS ORDERED: Sodium Chloride 0.9% 100 ML BAG ONE (08:23)
[2017-10-18] MEDS ORDERED: Sodium Chloride 0.9% 1,000 ML BAG ONE (08:23)
== END 2017-10-18 05:00 | disposition short-term general hospital (02) ==
LOC: MADERS 02:41
DX: N12 Tubulo-interstitial nephritis, not specified as acute or chronic (principal); E66.9 Obesity, unspecified; F41.9 Anxiety disorder, unspecified; F32.9 Major depressive disorder, single episode, unspecified; F17.210 Nicotine dependence, cigarettes, uncomplicated; Z79.899 Other long term (current) drug therapy
CPT/HCPCS: 51701; 80053; 81001; 81015; 85025; 87077; 87086; 87186; 96365; 96375; J0696; J2270; J2550; J7050

== ENCOUNTER 2017-11-03 00:01 | Emergency (ER) | payer MEDICARE, OTHER ==
[2017-11-03] MEDS ORDERED: Acetaminophen 325 MG TAB ONE (00:21)
[2017-11-03] MEDS ORDERED: Morphine 10 MG/ML VIAL ONE (00:58)
[2017-11-03] MEDS ORDERED: cefTRIAXone\\ROCEPHIN 1 GM VIAL ONE (00:58)
[2017-11-03 01:20] LABS: Bilirubin Negative (Negative); Blood, Urine Small (Negative); Clarity Turbid (Clear); Glucose, Urine (Dipstick) Negative (Negative); Leukocyte Trace (Negative); Nitrite Negative (Negative); Protein, Urine (Dipstick) 30 mg/dL (Neg-Trace); pH, Urine 6.5 (5.0-9.0)
[2017-11-03 01:22] LABS: #Basophils 0.2 thou/uL (0.0-0.2); #Lymphocytes 3.2 thou/uL (1.20-3.40); #Monocytes 1.5 thou/uL (0.11-0.59); #Neutrophils 12.8 thou/uL (1.40-6.50); %Basophils 1.1 % (0.0-1.0); %Eosinophils 0.1 % (0.0-10.0); %Lymphocytes 18.1 % (21.0-51.0); %Monocytes 8.4 % (0.0-10.0); %Neutrophils 72.3 % (42.0-75.0); Hemoglobin 14.7 g/dL (14.0-18.0); Mean Corpuscular HGB CONC 34.5 g/dL (32.0-36.0); Mean Corpuscular Hemoglobin 31.2 pg (27.0-31.0); Mean Corpuscular Volume 90.5 fL (78.0-98.0); Mean Platelet Volume 5.6 fL (7.4-10.4); Platelet Count 226 thou/uL (130-400); RBC Distribution Width 12.4 % (11.5-14.5); White Blood Cell (WBC) Count 17.8 thou/uL (4.8-10.8)
[2017-11-03 01:26] LABS: ALT (SGPT) 51 U/L (8-55); AST (SGOT) 55 U/L (5-34); Albumin 3.4 g/dL (3.5-5.0); Alkaline Phosphatase 108 U/L (40-150); Anion Gap 13 mmol/L (10-20); BUN (Urea Nitrogen) 12 mg/dL (8.9-20.6); Bilirubin, Total 1.7 mg/dL (0.2-1.2); Calc. Creatinine Clearance 0 mL/min (70-130); Calcium 8.7 mg/dL (7.8-10.44); Carbon Dioxide 23 mmol/L (22-29); Chloride 106 mmol/L (98-107); Estimated GFR-MDRD Greater than 90; Glucose 96 mg/dL (70-105); Potassium 3.7 mmol/L (3.5-5.1); Protein, Total 7.4 g/dL (6.0-8.3); Sodium 138 mmol/L (136-145)
[2017-11-03] MEDS ORDERED: Promethazine HCl 25 MG/ML VIAL ONE (01:26)
[2017-11-03 01:36] LABS: Bacteria/HPF 3+ HPF (None Seen); WBC/HPF 21-50 HPF (0-3)
[2017-11-03] MEDS ORDERED: Sodium Chloride 0.9% 1,000 ML BAG ONE (07:36)
[2017-11-03] MEDS ORDERED: Sodium Chloride 0.9% 100 ML BAG ONE (07:36)
--- NOTE | 2017-11-03 08:49 | RAD ---
RADIOGRAPH CHEST 1 VIEW: HISTORY: 37-year-old male with fever. FINDINGS: There are no air space densities, pulmonary edema, pneumothorax, or cardiomegaly. The lateral costop hrenic angles are sharp. There is a left subclavian implantable vascular access port with distal tip at the SVC/right atrial j unction. IMPRESSION: 1. No acute cardiopulmonary findings. 2. Implantable vascular access port. molly orozco POS: CAITLIN
== END 2017-11-03 02:15 | disposition short-term general hospital (02) ==
LOC: MADERS 00:01
DX: N39.0 Urinary tract infection, site not specified (principal); R50.9 Fever, unspecified; E86.0 Dehydration; F41.9 Anxiety disorder, unspecified; F32.9 Major depressive disorder, single episode, unspecified; F17.210 Nicotine dependence, cigarettes, uncomplicated; Z79.899 Other long term (current) drug therapy
CPT/HCPCS: 36415; 71045; 80053; 81003; 81015; 83605; 85025; 87040; 87077; 87086; 87186; 96365; 96367; 96375; J0696; J2270; J2550; J7050

== ENCOUNTER 2017-11-07 17:48 | Inpatient (IN) | payer MEDICARE, MEDICAID ==
[2017-11-07 18:15] VITALS: BMI 31.6
[2017-11-07] MEDS: Meropenem 1 GM in Sodium Chloride 0.9% 100 ML IVPB SCH (21:08)
[2017-11-07] MEDS: Gabapentin 300 MG CAP PO SCH (21:23)
[2017-11-07] MEDS: Baclofen 10 MG TAB PO SCH (21:23)
[2017-11-07] MEDS: Famotidine 20 MG TAB PO SCH (21:23)
[2017-11-07] MEDS: clonazePAM 0.5 MG TAB PO SCH (23:42)
[2017-11-08] MEDS: Meropenem 1 GM in Sodium Chloride 0.9% 100 ML IVPB SCH ×3 (05:09→21:59)
[2017-11-08] MEDS: Acetaminophen 500 MG TAB PO PRN (05:37)
[2017-11-08 06:07] LABS: #Basophils 0.1 thou/uL (0.0-0.2); #Eosinphils 0.4 thou/uL (0.0-0.7); #Lymphocytes 2.5 thou/uL (1.20-3.40); #Monocytes 0.6 thou/uL (0.11-0.59); #Neutrophils 3.2 thou/uL (1.40-6.50); %Basophils 1.6 % (0.0-1.0); %Eosinophils 5.4 % (0.0-10.0); Hemoglobin 14.5 g/dL (14.0-18.0); Mean Corpuscular HGB CONC 32.5 g/dL (32.0-36.0); Mean Corpuscular Hemoglobin 31.1 pg (27.0-31.0); Mean Corpuscular Volume 95.6 fL (78.0-98.0); Mean Platelet Volume 5.9 fL (7.4-10.4); Platelet Count 245 thou/uL (130-400); Red Blood Cell (RBC) Count 4.66 mill/uL (4.70-6.10); White Blood Cell (WBC) Count 6.8 thou/uL (4.8-10.8)
[2017-11-08 06:35] LABS: ALT (SGPT) 49 U/L (8-55); AST (SGOT) 48 U/L (5-34); Alkaline Phosphatase 99 U/L (40-150); Anion Gap 11 mmol/L (10-20); BUN (Urea Nitrogen) 15 mg/dL (8.9-20.6); Bilirubin, Total 0.7 mg/dL (0.2-1.2); Calc. Creatinine Clearance 190 mL/min (70-130); Calcium 8.7 mg/dL (7.8-10.44); Carbon Dioxide 26 mmol/L (22-29); Chloride 111 mmol/L (98-107); Estimated GFR-MDRD Greater than 90; Globulin 3.8 g/dL (2.4-3.5); Glucose 118 mg/dL (70-105); Potassium 4.1 mmol/L (3.5-5.1); Protein, Total 6.8 g/dL (6.0-8.3); Sodium 144 mmol/L (136-145)
[2017-11-08] MEDS: clonazePAM 0.5 MG TAB PO SCH ×3 (10:36→22:00)
[2017-11-08] MEDS: Famotidine 20 MG TAB PO SCH ×2 (10:36→20:55)
[2017-11-08] MEDS: Baclofen 10 MG TAB PO SCH ×3 (10:36→20:55)
[2017-11-08] MEDS: Gabapentin 300 MG CAP PO SCH ×3 (10:37→20:55)
[2017-11-08] MEDS: HYDROcodone/Acetaminophen 10/325 mg Tablet PO PRN (12:07)
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
[2017-11-08 12:48] LABS: CRP (Inflammatory) Less than 0.50 mg/dL (= or < 0.5)
[2017-11-08] MEDS: Promethazine 25 MG TAB PO PRN (14:34)
[2017-11-09] MEDS: Meropenem 1 GM in Sodium Chloride 0.9% 100 ML IVPB SCH ×3 (05:36→21:36)
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
[2017-11-09] MEDS: Baclofen 10 MG TAB PO SCH ×3 (09:15→21:38)
[2017-11-09] MEDS: clonazePAM 0.5 MG TAB PO SCH ×2 (09:16→14:55)
[2017-11-09] MEDS: Enoxaparin Sodium 40 MG/0.4 ML SYRINGE SC SCH (09:17)
[2017-11-09] MEDS: Famotidine 20 MG TAB PO SCH ×2 (09:17→21:38)
[2017-11-09] MEDS: Gabapentin 300 MG CAP PO SCH ×3 (09:17→21:38)
[2017-11-09] MEDS: HYDROcodone/Acetaminophen 10/325 mg Tablet PO PRN (10:12)
[2017-11-09] MEDS: Promethazine 25 MG TAB PO PRN (10:12)
[2017-11-10] MEDS: clonazePAM 0.5 MG TAB PO SCH ×4 (00:12→22:01)
[2017-11-10] MEDS: Meropenem 1 GM in Sodium Chloride 0.9% 100 ML IVPB SCH ×3 (05:48→21:56)
[2017-11-10] MEDS: HYDROcodone/Acetaminophen 10/325 mg Tablet PO PRN ×2 (07:53→21:58)
[2017-11-10] MEDS: Promethazine 25 MG TAB PO PRN (07:55)
[2017-11-10] MEDS: Baclofen 10 MG TAB PO SCH ×3 (07:55→21:54)
[2017-11-10] MEDS: Enoxaparin Sodium 40 MG/0.4 ML SYRINGE SC SCH (07:56)
[2017-11-10] MEDS: Gabapentin 300 MG CAP PO SCH ×3 (07:56→21:54)
[2017-11-10] MEDS: Famotidine 20 MG TAB PO SCH ×2 (07:56→21:54)
[2017-11-10] MEDS: Promethazine HCl 25 MG/ML VIAL SLOW IVP PRN (13:54)
[2017-11-11] MEDS: Meropenem 1 GM in Sodium Chloride 0.9% 100 ML IVPB SCH ×3 (05:21→21:10)
[2017-11-11] MEDS: Baclofen 10 MG TAB PO SCH ×3 (09:36→21:08)
[2017-11-11] MEDS: clonazePAM 0.5 MG TAB PO SCH ×3 (09:36→22:12)
[2017-11-11] MEDS: Gabapentin 300 MG CAP PO SCH ×3 (09:37→21:09)
[2017-11-11] MEDS: HYDROcodone/Acetaminophen 10/325 mg Tablet PO PRN (09:37)
[2017-11-11] MEDS: Famotidine 20 MG TAB PO SCH ×2 (09:37→21:08)
[2017-11-11] MEDS: Promethazine HCl 25 MG/ML VIAL SLOW IVP PRN ×2 (09:38→15:31)
[2017-11-11] MEDS: Enoxaparin Sodium 40 MG/0.4 ML SYRINGE SC SCH (09:39)
[2017-11-12] MEDS: Promethazine HCl 25 MG/ML VIAL SLOW IVP PRN ×3 (00:06→17:05)
[2017-11-12] MEDS: Meropenem 1 GM in Sodium Chloride 0.9% 100 ML IVPB SCH ×3 (05:14→21:54)
[2017-11-12] MEDS: Gabapentin 300 MG CAP PO SCH ×3 (09:44→21:54)
[2017-11-12] MEDS: Enoxaparin Sodium 40 MG/0.4 ML SYRINGE SC SCH (09:44)
[2017-11-12] MEDS: Baclofen 10 MG TAB PO SCH ×3 (09:44→21:53)
[2017-11-12] MEDS: HYDROcodone/Acetaminophen 10/325 mg Tablet PO PRN (09:44)
[2017-11-12] MEDS: clonazePAM 0.5 MG TAB PO SCH ×3 (09:44→22:00)
[2017-11-12] MEDS: Famotidine 20 MG TAB PO SCH ×2 (09:44→21:53)
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
[2017-11-13] MEDS: Meropenem 1 GM in Sodium Chloride 0.9% 100 ML IVPB SCH ×3 (05:36→21:59)
[2017-11-13] MEDS: Promethazine HCl 25 MG/ML VIAL SLOW IVP PRN ×3 (05:40→22:06)
[2017-11-13] MEDS: Enoxaparin Sodium 40 MG/0.4 ML SYRINGE SC SCH (08:19)
[2017-11-13] MEDS: Baclofen 10 MG TAB PO SCH ×3 (08:19→21:58)
[2017-11-13] MEDS: Famotidine 20 MG TAB PO SCH ×2 (08:19→21:59)
[2017-11-13] MEDS: clonazePAM 0.5 MG TAB PO SCH ×3 (08:19→22:03)
[2017-11-13] MEDS: Gabapentin 300 MG CAP PO SCH ×3 (08:20→21:59)
[2017-11-13] MEDS: HYDROcodone/Acetaminophen 10/325 mg Tablet PO PRN (22:02)
[2017-11-14] MEDS: Meropenem 1 GM in Sodium Chloride 0.9% 100 ML IVPB SCH ×3 (05:22→21:56)
[2017-11-14] MEDS: Promethazine HCl 25 MG/ML VIAL SLOW IVP PRN ×3 (05:22→21:57)
[2017-11-14] MEDS: Baclofen 10 MG TAB PO SCH ×3 (09:09→21:20)
[2017-11-14] MEDS: Gabapentin 300 MG CAP PO SCH ×3 (09:10→21:20)
[2017-11-14] MEDS: Enoxaparin Sodium 40 MG/0.4 ML SYRINGE SC SCH (09:10)
[2017-11-14] MEDS: clonazePAM 0.5 MG TAB PO SCH ×3 (09:10→22:42)
[2017-11-14] MEDS: Famotidine 20 MG TAB PO SCH ×2 (09:10→21:20)
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
[2017-11-14] MEDS: HYDROcodone/Acetaminophen 10/325 mg Tablet PO PRN (21:58)
[2017-11-15] MEDS: Meropenem 1 GM in Sodium Chloride 0.9% 100 ML IVPB SCH ×3 (05:36→22:12)
[2017-11-15 05:44] LABS: ALT (SGPT) 73 U/L (8-55); AST (SGOT) 92 U/L (5-34); Albumin 2.9 g/dL (3.5-5.0); Alkaline Phosphatase 116 U/L (40-150); Anion Gap 11 mmol/L (10-20); BUN (Urea Nitrogen) 20 mg/dL (8.9-20.6); Bilirubin, Total 0.8 mg/dL (0.2-1.2); Calc. Creatinine Clearance 199 mL/min (70-130); Calcium 8.6 mg/dL (7.8-10.44); Chloride 109 mmol/L (98-107); Estimated GFR-MDRD Greater than 90; Globulin 3.9 g/dL (2.4-3.5); Glucose 116 mg/dL (70-105); Potassium 3.6 mmol/L (3.5-5.1); Protein, Total 6.8 g/dL (6.0-8.3); Sodium 142 mmol/L (136-145)
[2017-11-15 05:46] LABS: Carbon Dioxide 26 mmol/L (22-29)
[2017-11-15 06:05] LABS: Eosinophils 5 % (0-10); Hemoglobin 13.6 g/dL (14.0-18.0); Lymphocytes 41 % (21-51); MDiff Complete? YES; Mean Corpuscular Hemoglobin 32.6 pg (27.0-31.0); Mean Corpuscular Volume 95.8 fL (78.0-98.0); Mean Platelet Volume 6.2 fL (7.4-10.4); Monocytes 8 % (0-10); Neutrophil 35 % (42-75); PLT Morphology Comment Appears Adequate; Platelet Count 216 thou/uL (130-400); RBC Distribution Width 12.9 % (11.5-14.5); RBC Morphology Normal; Reactive Lymphocytes 11 % (0-10); Red Blood Cell (RBC) Count 4.16 mill/uL (4.70-6.10); White Blood Cell (WBC) Count 7.8 thou/uL (4.8-10.8)
[2017-11-15] MEDS: Baclofen 10 MG TAB PO SCH ×3 (08:59→20:07)
[2017-11-15] MEDS: Famotidine 20 MG TAB PO SCH ×2 (08:59→20:07)
[2017-11-15] MEDS: clonazePAM 0.5 MG TAB PO SCH ×3 (08:59→22:50)
[2017-11-15] MEDS: Gabapentin 300 MG CAP PO SCH ×3 (09:00→20:07)
[2017-11-15] MEDS: Enoxaparin Sodium 40 MG/0.4 ML SYRINGE SC SCH (09:00)
[2017-11-15] MEDS: Promethazine HCl 25 MG/ML VIAL SLOW IVP PRN ×2 (09:10→17:16)
[2017-11-15] MEDS: HYDROcodone/Acetaminophen 10/325 mg Tablet PO PRN (12:14)
[2017-11-15 12:44] LABS: CRP (Inflammatory) Less than 0.50 mg/dL (= or < 0.5)
[2017-11-15] MEDS: Acetaminophen 500 MG TAB PO PRN (14:12)
[2017-11-16] MEDS: Promethazine HCl 25 MG/ML VIAL SLOW IVP PRN ×3 (01:45→17:57)
[2017-11-16] MEDS: HYDROcodone/Acetaminophen 10/325 mg Tablet PO PRN (01:46)
[2017-11-16] MEDS: Meropenem 1 GM in Sodium Chloride 0.9% 100 ML IVPB SCH ×3 (05:37→21:15)
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
[2017-11-16] MEDS: clonazePAM 0.5 MG TAB PO SCH ×3 (09:43→22:19)
[2017-11-16] MEDS: Baclofen 10 MG TAB PO SCH ×3 (09:43→21:16)
[2017-11-16] MEDS: Gabapentin 300 MG CAP PO SCH ×3 (09:44→21:16)
[2017-11-16] MEDS: Enoxaparin Sodium 40 MG/0.4 ML SYRINGE SC SCH (09:44)
[2017-11-16] MEDS: Famotidine 20 MG TAB PO SCH ×2 (09:44→21:16)
[2017-11-17] MEDS: Promethazine HCl 25 MG/ML VIAL SLOW IVP PRN ×3 (03:37→20:31)
[2017-11-17] MEDS: Meropenem 1 GM in Sodium Chloride 0.9% 100 ML IVPB SCH ×3 (05:07→22:44)
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
[2017-11-17] MEDS: Gabapentin 300 MG CAP PO SCH ×3 (08:47→20:33)
[2017-11-17] MEDS: Enoxaparin Sodium 40 MG/0.4 ML SYRINGE SC SCH (08:47)
[2017-11-17] MEDS: Famotidine 20 MG TAB PO SCH ×2 (08:47→20:10)
[2017-11-17] MEDS: Baclofen 10 MG TAB PO SCH ×3 (08:47→20:10)
[2017-11-17] MEDS: clonazePAM 0.5 MG TAB PO SCH ×3 (08:47→22:43)
[2017-11-18] MEDS: Meropenem 1 GM in Sodium Chloride 0.9% 100 ML IVPB SCH ×3 (05:23→21:07)
[2017-11-18] MEDS: Promethazine HCl 25 MG/ML VIAL SLOW IVP PRN ×3 (05:23→21:09)
[2017-11-18] MEDS: clonazePAM 0.5 MG TAB PO SCH ×3 (09:34→22:04)
[2017-11-18] MEDS: Enoxaparin Sodium 40 MG/0.4 ML SYRINGE SC SCH (09:34)
[2017-11-18] MEDS: Gabapentin 300 MG CAP PO SCH ×3 (09:34→21:08)
[2017-11-18] MEDS: Baclofen 10 MG TAB PO SCH ×3 (09:34→21:08)
[2017-11-18] MEDS: Famotidine 20 MG TAB PO SCH ×2 (09:34→21:08)
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
[2017-11-18] MEDS: HYDROcodone/Acetaminophen 10/325 mg Tablet PO PRN (12:23)
[2017-11-19] MEDS: Meropenem 1 GM in Sodium Chloride 0.9% 100 ML IVPB SCH ×3 (05:24→21:27)
[2017-11-19] MEDS: Promethazine HCl 25 MG/ML VIAL SLOW IVP PRN ×3 (05:26→21:29)
[2017-11-19] MEDS: clonazePAM 0.5 MG TAB PO SCH ×3 (09:48→22:08)
[2017-11-19] MEDS: Famotidine 20 MG TAB PO SCH ×2 (09:48→21:11)
[2017-11-19] MEDS: Baclofen 10 MG TAB PO SCH ×3 (09:48→21:11)
[2017-11-19] MEDS: Gabapentin 300 MG CAP PO SCH ×3 (09:48→21:11)
[2017-11-19] MEDS: Enoxaparin Sodium 40 MG/0.4 ML SYRINGE SC SCH (09:48)
[2017-11-19] MEDS: HYDROcodone/Acetaminophen 10/325 mg Tablet PO PRN ×2 (14:24→17:56)
[2017-11-19] MEDS ORDERED: HYDROcodone/Acetaminophen 10/325 mg Tablet PO SCH (18:00)
[2017-11-20] MEDS: Promethazine HCl 25 MG/ML VIAL SLOW IVP PRN ×3 (05:33→21:45)
[2017-11-20] MEDS: Meropenem 1 GM in Sodium Chloride 0.9% 100 ML IVPB SCH ×3 (05:33→21:43)
[2017-11-20] MEDS: Famotidine 20 MG TAB PO SCH ×2 (09:34→21:42)
[2017-11-20] MEDS: clonazePAM 0.5 MG TAB PO SCH ×3 (09:34→22:37)
[2017-11-20] MEDS: Enoxaparin Sodium 40 MG/0.4 ML SYRINGE SC SCH (09:34)
[2017-11-20] MEDS: Baclofen 10 MG TAB PO SCH ×3 (09:34→21:42)
[2017-11-20] MEDS: Gabapentin 300 MG CAP PO SCH ×3 (09:34→21:42)
[2017-11-20] MEDS: HYDROcodone/Acetaminophen 10/325 mg Tablet PO PRN (12:25)
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
[2017-11-21] MEDS: HYDROcodone/Acetaminophen 10/325 mg Tablet PO PRN (03:01)
[2017-11-21] MEDS ORDERED: Meropenem 1 GM VIAL ONE (04:02)
[2017-11-21] MEDS: Meropenem 1 GM in Sodium Chloride 0.9% 100 ML IVPB SCH ×3 (05:27→21:30)
[2017-11-21] MEDS: Promethazine HCl 25 MG/ML VIAL SLOW IVP PRN ×3 (05:29→21:29)
[2017-11-21 05:38] LABS: ALT (SGPT) 101 U/L (8-55); AST (SGOT) 114 U/L (5-34); Alkaline Phosphatase 106 U/L (40-150); Anion Gap 11 mmol/L (10-20); BUN (Urea Nitrogen) 20 mg/dL (8.9-20.6); Bilirubin, Total 0.9 mg/dL (0.2-1.2); Calc. Creatinine Clearance 208 mL/min (70-130); Calcium 8.5 mg/dL (7.8-10.44); Carbon Dioxide 23 mmol/L (22-29); Chloride 110 mmol/L (98-107); Estimated GFR-MDRD Greater than 90; Globulin 4.2 g/dL (2.4-3.5); Glucose 98 mg/dL (70-105); Potassium 4.4 mmol/L (3.5-5.1); Protein, Total 7.2 g/dL (6.0-8.3); Sodium 140 mmol/L (136-145)
[2017-11-21 06:02] LABS: Eosinophils 6 % (0-10); Hemoglobin 13.6 g/dL (14.0-18.0); Lymphocytes 41 % (21-51); MDiff Complete? YES; Mean Corpuscular HGB CONC 32.4 g/dL (32.0-36.0); Mean Corpuscular Hemoglobin 31.1 pg (27.0-31.0); Mean Corpuscular Volume 95.9 fL (78.0-98.0); Mean Platelet Volume 6.7 fL (7.4-10.4); Monocytes 12 % (0-10); Neutrophil 35 % (42-75); PLT Morphology Comment Appears Adequate; Platelet Count 243 thou/uL (130-400); RBC Distribution Width 12.6 % (11.5-14.5); RBC Morphology Normal; Reactive Lymphocytes 6 % (0-10); Red Blood Cell (RBC) Count 4.38 mill/uL (4.70-6.10); White Blood Cell (WBC) Count 8.2 thou/uL (4.8-10.8)
[2017-11-21] MEDS: Baclofen 10 MG TAB PO SCH ×3 (09:51→21:27)
[2017-11-21] MEDS: clonazePAM 0.5 MG TAB PO SCH ×2 (09:51→15:54)
[2017-11-21] MEDS: Gabapentin 300 MG CAP PO SCH ×3 (09:51→21:27)
[2017-11-21] MEDS: Famotidine 20 MG TAB PO SCH ×2 (09:51→21:25)
[2017-11-21] MEDS: Enoxaparin Sodium 40 MG/0.4 ML SYRINGE SC SCH (09:51)
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
[2017-11-21 12:02] LABS: CRP (Inflammatory) Less than 0.50 mg/dL (= or < 0.5)
[2017-11-22] MEDS: clonazePAM 0.5 MG TAB PO SCH ×3 (00:05→14:40)
[2017-11-22 07:07] VITALS: BP 124/72; TEMP 97.8
[2017-11-22] MEDS: Enoxaparin Sodium 40 MG/0.4 ML SYRINGE SC SCH (08:32)
[2017-11-22] MEDS: Baclofen 10 MG TAB PO SCH ×2 (08:34→14:40)
[2017-11-22] MEDS: Famotidine 20 MG TAB PO SCH (08:35)
[2017-11-22] MEDS: Gabapentin 300 MG CAP PO SCH ×2 (08:35→14:40)
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
== END 2017-11-22 16:11 | disposition home or self-care (01) | DRG 690 ==
LOC: MADMS 17:48
PROVIDERS: ADMIT Family Medicine; ATTEND Family Medicine
DX: N39.0 Urinary tract infection, site not specified (principal); G82.20 Paraplegia, unspecified; N31.9 Neuromuscular dysfunction of bladder, unspecified; Z90.5 Acquired absence of kidney; Z90.81 Acquired absence of spleen; B96.5 Pseudomonas (aeruginosa) (mallei) (pseudomallei) as the cause of diseases classified elsewhere; B95.2 Enterococcus as the cause of diseases classified elsewhere; B18.2 Chronic viral hepatitis C; Z90.49 Acquired absence of other specified parts of digestive tract; Z89.422 Acquired absence of other left toe(s); Z89.421 Acquired absence of other right toe(s); G89.29 Other chronic pain; M54.9 Dorsalgia, unspecified; G62.9 Polyneuropathy, unspecified; G43.909 Migraine, unspecified, not intractable, without status migrainosus; Z87.81 Personal history of (healed) traumatic fracture; M47.894 Other spondylosis, thoracic region
CPT/HCPCS: 36415; 80053; 85025; 86140; A4216; G8981-GP-CK; G8982-GP-CI; G8987-GO-CJ; G8988-GO-CH; J1642; J1650; J2185; J2550; J7050

== ENCOUNTER 2017-12-09 08:20 | Emergency (ER) | payer MEDICARE, MEDICAID ==
[~2017-12-09 08:20] MED LIST changes: +Sodium Chloride 0.9% 100 ML BAG ONE
[2017-12-09] MEDS ORDERED: Fentanyl 100 MCG/2 ML VIAL ONE (09:05)
[2017-12-09] MEDS ORDERED: Ketorolac Tromethamine 30 MG/ML VIAL ONE (09:05)
[2017-12-09] MEDS ORDERED: Promethazine HCl 25 MG/ML VIAL ONE (09:05)
[2017-12-09] MEDS ORDERED: cefTRIAXone\\ROCEPHIN 1 GM VIAL ONE (11:06)
--- NOTE | 2017-12-09 12:04 | CT ---
CT ABDOMEN AND PELVIS WITHOUT IV CONTRAST: Date: 12/09/17 HISTORY: Right flank pain. Question calculus. Comparison made to recent CT abdomen and pelvis dated 10/18/17. FINDINGS: The lung bases appear clear. Liver, spleen, and pancreas remain unremarkable. Left kidney is surgical ly absent and has been described previously. The right kidney appears unremarkable with evidence of m ild incomplete rotation. There is no evidence of hydronephrosis. Ureters are normal caliber. No evide nce of ureteral calculus or obstruction. The urinary bladder is contracted and not well evaluated. Small bowel loops are normal caliber. Prominent stool throughout the colon. Aorta is normal caliber. There is a scoliotic curvature of the spine with degenerative change. Penile implant is noted and has been previously seen. There is severe degenerative change at both hips. There are bilateral hip joint effusions, larger on the left, unchanged in appearance from the prior exam. There has been excision of the right proximal femur. The left femoral head is subluxed with large left joint effusion and degenerative change. IMPRESSION: No acute intra-abdominal process and no evidence of significant interval change. No evidence of acute urinary calculus or obstruction. POS: [facility]
[2017-12-09 12:08] LABS: Bilirubin Negative (Negative); Blood, Urine Moderate (Negative); Clarity Slightly Cloudy (Clear); Glucose, Urine (Dipstick) Negative (Negative); Leukocyte Trace (Negative); Nitrite Negative (Negative); Protein, Urine (Dipstick) 100 mg/dL (Neg-Trace); Specific Gravity, Urine 1.025 (1.005-1.030)
[2017-12-09 12:10] LABS: Bacteria/HPF 2+ HPF (None Seen)
[2017-12-09 12:11] LABS: Mean Corpuscular HGB CONC 32.8 g/dL (32.0-36.0); Mean Corpuscular Hemoglobin 31.3 pg (27.0-31.0); Mean Corpuscular Volume 95.4 fL (78.0-98.0); Mean Platelet Volume 6.8 fL (7.4-10.4); Platelet Count 208 thou/uL (130-400); RBC Distribution Width 11.8 % (11.5-14.5); Red Blood Cell (RBC) Count 4.47 mill/uL (4.70-6.10)
[2017-12-09 12:12] LABS: #Basophils 0.1 thou/uL (0.0-0.2); #Eosinphils 0.1 thou/uL (0.0-0.7); #Lymphocytes 2.8 thou/uL (1.20-3.40); #Monocytes 0.6 thou/uL (0.11-0.59); #Neutrophils 3.5 thou/uL (1.40-6.50); %Basophils 1.2 % (0.0-1.0); %Eosinophils 1.9 % (0.0-10.0); %Lymphocytes 39.4 % (21.0-51.0); %Neutrophils 49.5 % (42.0-75.0)
[2017-12-09 12:32] LABS: ALT (SGPT) 86 U/L (8-55); AST (SGOT) 86 U/L (5-34); Albumin 3.5 g/dL (3.5-5.0); Alkaline Phosphatase 95 U/L (40-150); Anion Gap 13 mmol/L (10-20); BUN (Urea Nitrogen) 19 mg/dL (8.9-20.6); Bilirubin, Total 1.2 mg/dL (0.2-1.2); Calc. Creatinine Clearance 0 mL/min (70-130); Calcium 8.7 mg/dL (7.8-10.44); Carbon Dioxide 23 mmol/L (22-29); Chloride 109 mmol/L (98-107); Estimated GFR-MDRD Greater than 90; Globulin 4.1 g/dL (2.4-3.5); Glucose 112 mg/dL (70-105); Potassium 3.8 mmol/L (3.5-5.1); Protein, Total 7.6 g/dL (6.0-8.3); Sodium 141 mmol/L (136-145)
== END 2017-12-09 13:06 | disposition home or self-care (01) ==
LOC: MADERS 08:20
DX: N10 Acute pyelonephritis (principal); F41.9 Anxiety disorder, unspecified; F32.9 Major depressive disorder, single episode, unspecified; F17.210 Nicotine dependence, cigarettes, uncomplicated; E66.9 Obesity, unspecified; I71.2 Thoracic aortic aneurysm, without rupture
CPT/HCPCS: 74176; 80053; 81001; 85025; 87077; 87086; 96374; 96375; J0696; J1885; J2550; J3010; J7050

== ENCOUNTER 2017-12-11 12:55 | Emergency (ER) | payer MEDICARE, MEDICAID ==
[2017-12-11] MEDS ORDERED: Sodium Chloride 0.9% 1,000 ML ONE (13:40)
[2017-12-11] MEDS ORDERED: Promethazine HCl 25 MG/ML VIAL ONE (13:40)
[2017-12-11] MEDS ORDERED: Cefepime 1 GM VIAL ONE (13:40)
[2017-12-11] MEDS ORDERED: Morphine 4 MG/ML VIAL ONE ×2 (13:40→15:25)
[2017-12-11 14:01] LABS: #Basophils 0.1 thou/uL (0.0-0.2); #Eosinphils 0.1 thou/uL (0.0-0.7); #Lymphocytes 3.3 thou/uL (1.20-3.40); #Monocytes 0.6 thou/uL (0.11-0.59); #Neutrophils 6.7 thou/uL (1.40-6.50); %Basophils 0.9 % (0.0-1.0); %Eosinophils 0.7 % (0.0-10.0); %Lymphocytes 30.5 % (21.0-51.0); %Monocytes 5.6 % (0.0-10.0); %Neutrophils 62.3 % (42.0-75.0); Hemoglobin 14.5 g/dL (14.0-18.0); Mean Corpuscular HGB CONC 34.8 g/dL (32.0-36.0); Mean Corpuscular Hemoglobin 33.1 pg (27.0-31.0); Mean Corpuscular Volume 95.3 fL (78.0-98.0); Mean Platelet Volume 6.6 fL (7.4-10.4); Platelet Count 207 thou/uL (130-400); RBC Distribution Width 12.1 % (11.5-14.5); Red Blood Cell (RBC) Count 4.37 mill/uL (4.70-6.10); White Blood Cell (WBC) Count 10.7 thou/uL (4.8-10.8)
[2017-12-11 14:19] LABS: ALT (SGPT) 78 U/L (8-55); AST (SGOT) 85 U/L (5-34); Albumin 3.3 g/dL (3.5-5.0); Alkaline Phosphatase 93 U/L (40-150); Anion Gap 11 mmol/L (10-20); BUN (Urea Nitrogen) 15 mg/dL (8.9-20.6); Bilirubin, Total 1.2 mg/dL (0.2-1.2); Calc. Creatinine Clearance 0 mL/min (70-130); Calcium 8.6 mg/dL (7.8-10.44); Carbon Dioxide 23 mmol/L (22-29); Chloride 108 mmol/L (98-107); Estimated GFR-MDRD Greater than 90; Globulin 3.9 g/dL (2.4-3.5); Glucose 141 mg/dL (70-105); Lipase 20 U/L (8-78); Potassium 3.2 mmol/L (3.5-5.1); Protein, Total 7.2 g/dL (6.0-8.3); Sodium 139 mmol/L (136-145)
== END 2017-12-11 16:50 | disposition short-term general hospital (02) ==
LOC: MADERS 12:55
DX: N12 Tubulo-interstitial nephritis, not specified as acute or chronic (principal); K21.9 Gastro-esophageal reflux disease without esophagitis; E66.9 Obesity, unspecified; F41.9 Anxiety disorder, unspecified; F32.9 Major depressive disorder, single episode, unspecified; F17.210 Nicotine dependence, cigarettes, uncomplicated; Z79.899 Other long term (current) drug therapy
CPT/HCPCS: 80053; 83605; 83690; 85025; 87040; 96361; 96374; 96375; 96376; J0692; J2270; J2550; J7050

== ENCOUNTER 2018-01-09 19:53 | Emergency (ER) | payer MEDICARE, OTHER ==
[2018-01-09] MEDS ORDERED: Sodium Chloride 0.9% 1,000 ML BAG ONE (20:01)
[2018-01-09] MEDS ORDERED: Morphine 4 MG/ML VIAL ONE ×2 (20:25→22:21)
[2018-01-09] MEDS ORDERED: Promethazine HCl 25 MG/ML VIAL ONE (20:25)
[2018-01-09 20:52] LABS: #Basophils 0.1 thou/uL (0.0-0.2); #Eosinphils 0.2 thou/uL (0.0-0.7); #Lymphocytes 3.3 thou/uL (1.20-3.40); #Monocytes 0.7 thou/uL (0.11-0.59); #Neutrophils 4.9 thou/uL (1.40-6.50); %Basophils 1.2 % (0.0-1.0); %Eosinophils 2.4 % (0.0-10.0); %Lymphocytes 36.2 % (21.0-51.0); %Monocytes 7.3 % (0.0-10.0); %Neutrophils 52.9 % (42.0-75.0); Hemoglobin 14.4 g/dL (14.0-18.0); Mean Corpuscular HGB CONC 34.1 g/dL (32.0-36.0); Mean Corpuscular Hemoglobin 32.6 pg (27.0-31.0); Mean Corpuscular Volume 95.6 fL (78.0-98.0); Mean Platelet Volume 7.3 fL (7.4-10.4); Platelet Count 215 thou/uL (130-400); RBC Distribution Width 11.9 % (11.5-14.5); Red Blood Cell (RBC) Count 4.44 mill/uL (4.70-6.10); White Blood Cell (WBC) Count 9.2 thou/uL (4.8-10.8)
[2018-01-09 21:08] LABS: ALT (SGPT) 59 U/L (8-55); AST (SGOT) 73 U/L (5-34); Albumin 3.5 g/dL (3.5-5.0); Alkaline Phosphatase 96 U/L (40-150); Anion Gap 13 mmol/L (10-20); BUN (Urea Nitrogen) 13 mg/dL (8.9-20.6); Bilirubin, Total 1.1 mg/dL (0.2-1.2); Calc. Creatinine Clearance 0 mL/min (70-130); Calcium 8.7 mg/dL (7.8-10.44); Carbon Dioxide 23 mmol/L (22-29); Chloride 106 mmol/L (98-107); Estimated GFR-MDRD Greater than 90; Globulin 3.9 g/dL (2.4-3.5); Glucose 94 mg/dL (70-105); Potassium 3.8 mmol/L (3.5-5.1); Protein, Total 7.4 g/dL (6.0-8.3); Sodium 138 mmol/L (136-145)
[2018-01-09 21:18] LABS: Bilirubin Negative (Negative); Blood, Urine Small (Negative); Glucose, Urine (Dipstick) Negative (Negative); Leukocyte Large (Negative); Nitrite Positive (Negative); Protein, Urine (Dipstick) Trace mg/dL (Neg-Trace); Specific Gravity, Urine 1.015 (1.005-1.030); pH, Urine 6.5 (5.0-9.0)
[2018-01-09 21:22] LABS: Clarity Hazy (Clear)
[2018-01-09 21:23] LABS: Bacteria/HPF 2+ HPF (None Seen)
[2018-01-09] MEDS ORDERED: cefTRIAXone\\ROCEPHIN 1 GM VIAL ONE (21:30)
--- NOTE | 2018-01-09 22:39 | CT ---
CT ABDOMEN AND PELVIS WITHOUT IV CONTRAST: INDICATIONS: Right-sided flank pain; rule out stones, with history of nephrectomy. COMPARISON: 12/09/2017 FINDINGS: There are calcified lymph nodes within the left infrahilar region. The lung bases are clear. The unopacified liver, spleen, pancreas, and adrenal glands are within normal limits. The left kidne y is surgically absent. No right-sided hydronephrosis is evident. No lymphadenopathy or free fluid is evident. The visualized bladder and artificial sphincter is unchanged. The unopacified colon is within normal limits. Only a mild amount of retained stool is present. There is a normal appendix in the right l ower quadrant. There is stable post surgical change involving loops of small bowel within the right lower quadrant. There is stable post surgical change of a Girdlestone arthroplasty involving the proximal right hip. There is prominent effusion and soft tissue thickening surrounding the left hip, which is stable. No definite acute osseous abnormality is evident. There is stable instrumentation involving the uppe r lumbar spine. IMPRESSION: No acute abnormality. No acute renal or ureteral calculus demonstrated. No hydronephrosis is seen. POS: [facility]
== END 2018-01-09 23:14 | disposition home or self-care (01) ==
LOC: MADERS 19:53
DX: N10 Acute pyelonephritis (principal); F41.9 Anxiety disorder, unspecified; F32.9 Major depressive disorder, single episode, unspecified; F17.210 Nicotine dependence, cigarettes, uncomplicated; E66.9 Obesity, unspecified; Z79.899 Other long term (current) drug therapy
CPT/HCPCS: 51701; 74176; 80053; 81003; 81015; 83605; 85025; 87040; 87077; 87086; 87149; 87186; 96365; 96375; 96376; J0696; J2270; J2550; J7050

== ENCOUNTER 2018-02-06 20:05 | Emergency (ER) | payer MEDICARE, MEDICAID ==
[2018-02-06 21:10] LABS: #Basophils 0.1 thou/uL (0.0-0.2); #Eosinphils 0.1 thou/uL (0.0-0.7); #Lymphocytes 2.7 thou/uL (1.20-3.40); #Monocytes 0.6 thou/uL (0.11-0.59); #Neutrophils 4.4 thou/uL (1.40-6.50); %Basophils 1.2 % (0.0-1.0); %Eosinophils 0.8 % (0.0-10.0); %Lymphocytes 34.7 % (21.0-51.0); %Monocytes 7.8 % (0.0-10.0); %Neutrophils 55.5 % (42.0-75.0); Hemoglobin 15.6 g/dL (14.0-18.0); Mean Corpuscular HGB CONC 33.2 g/dL (32.0-36.0); Mean Corpuscular Hemoglobin 31.9 pg (27.0-31.0); Mean Corpuscular Volume 96.1 fL (78.0-98.0); Mean Platelet Volume 6.9 fL (7.4-10.4); Platelet Count 199 thou/uL (130-400); RBC Distribution Width 11.7 % (11.5-14.5); Red Blood Cell (RBC) Count 4.88 mill/uL (4.70-6.10); White Blood Cell (WBC) Count 7.8 thou/uL (4.8-10.8)
[2018-02-06] MEDS ORDERED: Morphine 4 MG/ML VIAL ONE (21:17)
[2018-02-06] MEDS ORDERED: Promethazine HCl 25 MG/ML VIAL ONE (21:18)
[2018-02-06] MEDS ORDERED: cefTRIAXone\\ROCEPHIN 1 GM VIAL ONE (21:18)
[2018-02-06] MEDS ORDERED: Sodium Chloride 0.9% 200 ML ONE (21:18)
[2018-02-06 21:24] LABS: Bilirubin Small (Negative); Blood, Urine Moderate (Negative); Glucose, Urine (Dipstick) Negative (Negative); Leukocyte Small (Negative); Nitrite Positive (Negative); Protein, Urine (Dipstick) 100 mg/dL (Neg-Trace); pH, Urine 5.5 (5.0-9.0)
[2018-02-06 21:27] LABS: Bacteria/HPF 3+ HPF (None Seen); Clarity Hazy (Clear); RBC/HPF GREATER THAN 50-TNTC HPF (0-3); Specific Gravity, Urine 1.021 (1.002-1.036)
[2018-02-06 21:29] LABS: ALT (SGPT) 61 U/L (8-55); AST (SGOT) 72 U/L (5-34); Albumin 3.7 g/dL (3.5-5.0); Alkaline Phosphatase 100 U/L (40-150); Anion Gap 16 mmol/L (10-20); BUN (Urea Nitrogen) 17 mg/dL (8.9-20.6); Bilirubin, Total 1.3 mg/dL (0.2-1.2); Calc. Creatinine Clearance 0 mL/min (70-130); Calcium 9.1 mg/dL (7.8-10.44); Carbon Dioxide 21 mmol/L (22-29); Chloride 106 mmol/L (98-107); Estimated GFR-MDRD Greater than 90; Globulin 4.3 g/dL (2.4-3.5); Glucose 96 mg/dL (70-105); Lipase 27 U/L (8-78); Potassium 3.8 mmol/L (3.5-5.1); Sodium 139 mmol/L (136-145)
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
[2018-02-07] MEDS ORDERED: Morphine 4 MG/ML VIAL ONE (00:23)
== END 2018-02-07 01:15 | disposition short-term general hospital (02) ==
LOC: MADERS 20:05
DX: N39.0 Urinary tract infection, site not specified (principal); E66.9 Obesity, unspecified; F41.9 Anxiety disorder, unspecified; F32.9 Major depressive disorder, single episode, unspecified; F17.210 Nicotine dependence, cigarettes, uncomplicated; Z79.899 Other long term (current) drug therapy
CPT/HCPCS: 36415; 74177; 80053; 81003; 81015; 83605; 83690; 85025; 96365; 96367; 96375; 96376; J0696; J2270; J2550; J7050

== ENCOUNTER 2018-03-06 23:45 | Emergency (ER) | payer MEDICARE, MEDICAID ==
[~2018-03-06 23:45] MED LIST changes: -Sodium Chloride 0.9% 100 ML BAG ONE
[2018-03-07] MEDS ORDERED: Promethazine HCl 25 MG/ML VIAL ONE (00:10)
[2018-03-07] MEDS ORDERED: Morphine 4 MG/ML VIAL ONE ×2 (00:10→00:12)
[2018-03-07 00:29] LABS: #Basophils 0.1 thou/uL (0.0-0.2); #Eosinphils 0.1 thou/uL (0.0-0.7); #Lymphocytes 2.4 thou/uL (1.20-3.40); #Monocytes 0.8 thou/uL (0.11-0.59); #Neutrophils 5.2 thou/uL (1.40-6.50); %Basophils 1.3 % (0.0-1.0); %Lymphocytes 27.7 % (21.0-51.0); %Monocytes 8.9 % (0.0-10.0); %Neutrophils 61.1 % (42.0-75.0); Hemoglobin 14.5 g/dL (14.0-18.0); Mean Corpuscular HGB CONC 33.1 g/dL (32.0-36.0); Mean Corpuscular Hemoglobin 32.2 pg (27.0-31.0); Mean Corpuscular Volume 97.3 fL (78.0-98.0); Mean Platelet Volume 6.5 fL (7.4-10.4); Platelet Count 236 thou/uL (130-400); Red Blood Cell (RBC) Count 4.51 mill/uL (4.70-6.10); White Blood Cell (WBC) Count 8.5 thou/uL (4.8-10.8)
[2018-03-07 00:46] LABS: ALT (SGPT) 52 U/L (8-55); AST (SGOT) 60 U/L (5-34); Albumin 3.6 g/dL (3.5-5.0); Alkaline Phosphatase 87 U/L (40-150); Anion Gap 16 mmol/L (10-20); BUN (Urea Nitrogen) 17 mg/dL (8.9-20.6); Bilirubin, Total 0.9 mg/dL (0.2-1.2); Calc. Creatinine Clearance 0 mL/min (70-130); Carbon Dioxide 20 mmol/L (22-29); Chloride 108 mmol/L (98-107); Estimated GFR-MDRD Greater than 90; Globulin 4.2 g/dL (2.4-3.5); Glucose 139 mg/dL (70-105); Potassium 3.7 mmol/L (3.5-5.1); Protein, Total 7.8 g/dL (6.0-8.3); Sodium 140 mmol/L (136-145)
[2018-03-07 01:02] LABS: Bilirubin Small (Negative); Blood, Urine Small (Negative); Clarity Clear (Clear); Glucose, Urine (Dipstick) Negative (Negative); Leukocyte Trace (Negative); Nitrite Positive (Negative); Protein, Urine (Dipstick) 100 mg/dL (Neg-Trace)
[2018-03-07 01:06] LABS: Specific Gravity, Urine 1.028 (1.002-1.036)
[2018-03-07 01:07] LABS: Bacteria/HPF 2+ HPF (None Seen); WBC/HPF 21-50 HPF (0-3)
[2018-03-07] MEDS ORDERED: cefTRIAXone\\ROCEPHIN 1 GM VIAL ONE (01:16)
== END 2018-03-07 01:15 | disposition home or self-care (01) ==
LOC: MADERS 23:45
DX: N10 Acute pyelonephritis (principal); I71.4 Abdominal aortic aneurysm, without rupture; E66.9 Obesity, unspecified; F41.9 Anxiety disorder, unspecified; F32.9 Major depressive disorder, single episode, unspecified; F17.210 Nicotine dependence, cigarettes, uncomplicated; Z71.6 Tobacco abuse counseling; Z79.891 Long term (current) use of opiate analgesic; Z79.899 Other long term (current) drug therapy
CPT/HCPCS: 51701; 80053; 81003; 81015; 85025; 87077; 87086; 96365; 96375; 99406; J0696; J1642; J2270; J2550; J7050

== ENCOUNTER 2018-04-04 15:39 | Inpatient (IN) | payer MEDICARE, MEDICAID ==
[2018-04-04] MEDS: clonazePAM 0.5 MG TAB PO SCH (20:15)
[2018-04-04] MEDS: Baclofen 10 MG TAB PO SCH (20:16)
[2018-04-04] MEDS: Sulfameth/Trimethoprim DS 800-160mg TAB PO SCH (20:16)
[2018-04-04] MEDS: Gabapentin 300 MG CAP PO SCH (20:16)
[2018-04-04] MEDS: HYDROcodone/Acetaminophen 10/325 mg Tablet PO PRN (20:18)
[2018-04-05] MEDS: HYDROcodone/Acetaminophen 10/325 mg Tablet PO PRN ×2 (02:42→15:41)
[2018-04-05 05:19] LABS: #Basophils 0.2 thou/uL (0.0-0.2); #Eosinphils 0.3 thou/uL (0.0-0.7); #Lymphocytes 4.1 thou/uL (1.20-3.40); #Monocytes 0.9 thou/uL (0.11-0.59); #Neutrophils 4.2 thou/uL (1.40-6.50); %Basophils 1.6 % (0.0-1.0); %Eosinophils 3.5 % (0.0-10.0); %Lymphocytes 42.3 % (21.0-51.0); %Monocytes 9.1 % (0.0-10.0); %Neutrophils 43.5 % (42.0-75.0); Hemoglobin 13.9 g/dL (14.0-18.0); Mean Corpuscular HGB CONC 31.9 g/dL (32.0-36.0); Mean Corpuscular Hemoglobin 31.4 pg (27.0-31.0); Mean Corpuscular Volume 98.4 fL (78.0-98.0); Mean Platelet Volume 6.1 fL (7.4-10.4); Platelet Count 291 thou/uL (130-400); Red Blood Cell (RBC) Count 4.42 mill/uL (4.70-6.10); White Blood Cell (WBC) Count 9.6 thou/uL (4.8-10.8)
[2018-04-05 05:31] LABS: ALT (SGPT) 33 U/L (8-55); AST (SGOT) 41 U/L (5-34); Albumin 3.2 g/dL (3.5-5.0); Alkaline Phosphatase 84 U/L (40-150); Anion Gap 11 mmol/L (10-20); BUN (Urea Nitrogen) 17 mg/dL (8.9-20.6); Bilirubin, Total 0.6 mg/dL (0.2-1.2); Calc. Creatinine Clearance 191 mL/min (70-130); Calcium 8.9 mg/dL (7.8-10.44); Carbon Dioxide 23 mmol/L (22-29); Chloride 109 mmol/L (98-107); Estimated GFR-MDRD Greater than 90; Globulin 4.4 g/dL (2.4-3.5); Glucose 78 mg/dL (70-105); Potassium 4.3 mmol/L (3.5-5.1); Protein, Total 7.6 g/dL (6.0-8.3); Sodium 139 mmol/L (136-145)
[2018-04-05] MEDS: Gabapentin 300 MG CAP PO SCH ×3 (08:08→20:45)
[2018-04-05] MEDS: Baclofen 10 MG TAB PO SCH ×3 (08:08→20:45)
[2018-04-05] MEDS: clonazePAM 0.5 MG TAB PO SCH ×3 (08:08→20:45)
[2018-04-05] MEDS: Sulfameth/Trimethoprim DS 800-160mg TAB PO SCH ×2 (08:08→20:45)
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
[2018-04-06] MEDS: HYDROcodone/Acetaminophen 10/325 mg Tablet PO PRN ×3 (00:35→21:05)
[2018-04-06] MEDS: Gabapentin 300 MG CAP PO SCH ×3 (08:41→21:05)
[2018-04-06] MEDS: clonazePAM 0.5 MG TAB PO SCH ×3 (08:41→21:04)
[2018-04-06] MEDS: Sulfameth/Trimethoprim DS 800-160mg TAB PO SCH ×2 (08:41→21:05)
[2018-04-06] MEDS: Baclofen 10 MG TAB PO SCH ×3 (08:41→21:05)
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
[2018-04-06] MEDS: Promethazine 25 MG TAB PO PRN (21:06)
[2018-04-07] MEDS: Baclofen 10 MG TAB PO SCH ×3 (08:47→20:35)
[2018-04-07] MEDS: Gabapentin 300 MG CAP PO SCH ×3 (08:47→20:35)
[2018-04-07] MEDS: Sulfameth/Trimethoprim DS 800-160mg TAB PO SCH ×2 (08:47→20:35)
[2018-04-07] MEDS: clonazePAM 0.5 MG TAB PO SCH ×3 (08:47→20:35)
[2018-04-07] MEDS: Promethazine 25 MG TAB PO PRN (10:25)
[2018-04-07] MEDS: HYDROcodone/Acetaminophen 10/325 mg Tablet PO PRN (10:25)
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
[2018-04-08] MEDS: HYDROcodone/Acetaminophen 10/325 mg Tablet PO PRN ×3 (01:22→20:25)
[2018-04-08] MEDS: Promethazine 25 MG TAB PO PRN ×3 (01:22→20:27)
[2018-04-08] MEDS: clonazePAM 0.5 MG TAB PO SCH ×3 (08:52→20:26)
[2018-04-08] MEDS: Gabapentin 300 MG CAP PO SCH ×3 (08:53→20:27)
[2018-04-08] MEDS: Baclofen 10 MG TAB PO SCH ×3 (08:53→20:27)
[2018-04-08] MEDS: Sulfameth/Trimethoprim DS 800-160mg TAB PO SCH ×2 (08:53→20:27)
[2018-04-08] MEDS ORDERED: HYDROcodone/Acetaminophen 10/325 mg Tablet PO SCH (21:45)
[2018-04-09] MEDS: HYDROcodone/Acetaminophen 10/325 mg Tablet PO PRN ×3 (06:08→20:26)
[2018-04-09] MEDS: Promethazine 25 MG TAB PO PRN ×3 (06:09→20:25)
[2018-04-09] MEDS: Gabapentin 300 MG CAP PO SCH ×3 (08:22→20:25)
[2018-04-09] MEDS: clonazePAM 0.5 MG TAB PO SCH ×3 (08:22→20:25)
[2018-04-09] MEDS: Sulfameth/Trimethoprim DS 800-160mg TAB PO SCH ×2 (08:22→20:25)
[2018-04-09] MEDS: Baclofen 10 MG TAB PO SCH ×3 (08:22→20:27)
[2018-04-09] MEDS ORDERED: HYDROcodone/Acetaminophen 10/325 mg Tablet PO SCH (20:00)
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
[2018-04-10] MEDS: Gabapentin 300 MG CAP PO SCH ×3 (09:03→20:53)
[2018-04-10] MEDS: clonazePAM 0.5 MG TAB PO SCH ×3 (09:03→20:52)
[2018-04-10] MEDS: Baclofen 10 MG TAB PO SCH ×3 (09:04→20:52)
[2018-04-10] MEDS: Sulfameth/Trimethoprim DS 800-160mg TAB PO SCH ×2 (09:04→20:53)
[2018-04-10] MEDS: HYDROcodone/Acetaminophen 10/325 mg Tablet PO PRN ×2 (11:18→20:54)
[2018-04-10] MEDS: Promethazine 25 MG TAB PO PRN ×2 (11:18→17:22)
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
[2018-04-11] MEDS: Promethazine 25 MG TAB PO PRN ×3 (02:20→20:55)
[2018-04-11] MEDS ORDERED: methylPREDNISolone 4 mg Tablet PO SCH ×2 (08:00→08:15)
[2018-04-11] MEDS: clonazePAM 0.5 MG TAB PO SCH ×3 (08:03→20:54)
[2018-04-11] MEDS: HYDROcodone/Acetaminophen 10/325 mg Tablet PO PRN ×3 (08:03→21:23)
[2018-04-11] MEDS: Sulfameth/Trimethoprim DS 800-160mg TAB PO SCH ×2 (08:03→20:55)
[2018-04-11] MEDS: Baclofen 10 MG TAB PO SCH ×3 (08:03→20:54)
[2018-04-11] MEDS: Gabapentin 300 MG CAP PO SCH ×3 (08:04→20:54)
[2018-04-11] MEDS: methylPREDNISolone 4 mg Tablet PO SCH ×4 (08:54→20:55)
[2018-04-11] MEDS ORDERED: Benzonatate 100 MG CAP PO SCH (09:00)
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
[2018-04-12] MEDS: methylPREDNISolone 4 mg Tablet PO SCH ×4 (08:41→17:38)
[2018-04-12] MEDS: clonazePAM 0.5 MG TAB PO SCH ×3 (08:42→20:00)
[2018-04-12] MEDS: Sulfameth/Trimethoprim DS 800-160mg TAB PO SCH ×2 (08:42→19:59)
[2018-04-12] MEDS: Baclofen 10 MG TAB PO SCH ×3 (08:43→20:01)
[2018-04-12] MEDS: Gabapentin 300 MG CAP PO SCH ×3 (08:43→19:59)
[2018-04-12] MEDS: HYDROcodone/Acetaminophen 10/325 mg Tablet PO PRN ×2 (08:45→19:57)
[2018-04-12] MEDS: Promethazine 25 MG TAB PO PRN ×2 (08:46→19:57)
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
[2018-04-13] MEDS: methylPREDNISolone 4 mg Tablet PO SCH ×5 (06:00→20:24)
[2018-04-13] MEDS: Promethazine 25 MG TAB PO PRN ×3 (06:11→20:24)
[2018-04-13] MEDS: clonazePAM 0.5 MG TAB PO SCH ×3 (08:54→20:23)
[2018-04-13] MEDS: Sulfameth/Trimethoprim DS 800-160mg TAB PO SCH ×2 (08:55→20:24)
[2018-04-13] MEDS: Gabapentin 300 MG CAP PO SCH ×3 (08:55→20:24)
[2018-04-13] MEDS: Baclofen 10 MG TAB PO SCH ×3 (08:55→20:25)
[2018-04-13] MEDS: HYDROcodone/Acetaminophen 10/325 mg Tablet PO PRN ×2 (09:00→20:23)
[2018-04-13 18:20] VITALS: BMI 32.7
[2018-04-14] MEDS: methylPREDNISolone 4 mg Tablet PO SCH ×3 (10:50→17:30)
[2018-04-14] MEDS: Baclofen 10 MG TAB PO SCH ×3 (10:51→21:22)
[2018-04-14] MEDS: clonazePAM 0.5 MG TAB PO SCH ×3 (10:51→21:22)
[2018-04-14] MEDS: Gabapentin 300 MG CAP PO SCH ×3 (10:52→21:22)
[2018-04-14] MEDS: Sulfameth/Trimethoprim DS 800-160mg TAB PO SCH ×2 (10:53→21:22)
[2018-04-14] MEDS: HYDROcodone/Acetaminophen 10/325 mg Tablet PO PRN ×2 (10:56→21:23)
[2018-04-14] MEDS: Promethazine 25 MG TAB PO PRN ×2 (10:56→21:22)
[2018-04-15] MEDS: Gabapentin 300 MG CAP PO SCH ×3 (08:17→20:57)
[2018-04-15] MEDS: clonazePAM 0.5 MG TAB PO SCH ×3 (08:17→20:56)
[2018-04-15] MEDS: Baclofen 10 MG TAB PO SCH ×3 (08:17→20:56)
[2018-04-15] MEDS: Sulfameth/Trimethoprim DS 800-160mg TAB PO SCH ×2 (08:17→20:57)
[2018-04-15] MEDS: HYDROcodone/Acetaminophen 10/325 mg Tablet PO PRN ×3 (08:18→23:11)
[2018-04-15] MEDS: methylPREDNISolone 4 mg Tablet PO SCH ×2 (08:19→17:10)
[2018-04-15] MEDS: Promethazine 25 MG TAB PO PRN ×2 (08:33→20:57)
[2018-04-15] MEDS ORDERED: Lantiseptic Ointment 130 GM JAR ONE (13:14)
[2018-04-15] MEDS ORDERED: Lantiseptic Ointment 130 GM JAR TOP PRN (13:38)
[2018-04-15] MEDS ORDERED: Loperamide HCl 2 MG CAP PO PRN (13:39)
[2018-04-15] MEDS: Lantiseptic Ointment 130 GM JAR TOP SCH (20:59)
[2018-04-16] MEDS ORDERED: methylPREDNISolone 4 mg Tablet PO SCH (08:00)
[2018-04-16] MEDS: HYDROcodone/Acetaminophen 10/325 mg Tablet PO PRN ×2 (08:01→15:23)
[2018-04-16] MEDS: Baclofen 10 MG TAB PO SCH ×3 (08:01→21:01)
[2018-04-16] MEDS: Promethazine 25 MG TAB PO PRN ×3 (08:01→21:01)
[2018-04-16] MEDS: Gabapentin 300 MG CAP PO SCH ×3 (08:01→21:01)
[2018-04-16] MEDS: Sulfameth/Trimethoprim DS 800-160mg TAB PO SCH ×2 (08:01→21:01)
[2018-04-16] MEDS: clonazePAM 0.5 MG TAB PO SCH ×3 (08:02→21:01)
[2018-04-16] MEDS: Lantiseptic Ointment 130 GM JAR TOP SCH ×2 (08:03→21:01)
[2018-04-16] MEDS ORDERED: Calcium Carbonate 500 MG ChewTAB PO PRN (13:58)
[2018-04-17] MEDS: HYDROcodone/Acetaminophen 10/325 mg Tablet PO PRN ×3 (00:43→22:19)
[2018-04-17] MEDS: Baclofen 10 MG TAB PO SCH ×3 (08:51→20:01)
[2018-04-17] MEDS: Sulfameth/Trimethoprim DS 800-160mg TAB PO SCH ×2 (08:51→20:02)
[2018-04-17] MEDS: clonazePAM 0.5 MG TAB PO SCH ×3 (08:51→20:01)
[2018-04-17] MEDS: Gabapentin 300 MG CAP PO SCH ×3 (08:51→20:02)
[2018-04-17] MEDS: Lantiseptic Ointment 130 GM JAR TOP SCH ×2 (08:52→20:53)
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
[2018-04-17] MEDS: Promethazine 25 MG TAB PO PRN (14:32)
[2018-04-18] MEDS: Promethazine 25 MG TAB PO PRN ×2 (02:27→21:43)
[2018-04-18] MEDS: Gabapentin 300 MG CAP PO SCH ×3 (09:13→20:42)
[2018-04-18] MEDS: Baclofen 10 MG TAB PO SCH ×3 (09:13→20:42)
[2018-04-18] MEDS: clonazePAM 0.5 MG TAB PO SCH ×3 (09:13→20:42)
[2018-04-18] MEDS: Sulfameth/Trimethoprim DS 800-160mg TAB PO SCH ×2 (09:13→20:42)
[2018-04-18] MEDS: Lantiseptic Ointment 130 GM JAR TOP SCH ×2 (09:14→20:42)
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
[2018-04-18] MEDS: HYDROcodone/Acetaminophen 10/325 mg Tablet PO PRN (21:43)
[2018-04-19] MEDS: Lantiseptic Ointment 130 GM JAR TOP SCH (08:09)
[2018-04-19] MEDS: clonazePAM 0.5 MG TAB PO SCH (08:10)
[2018-04-19] MEDS: HYDROcodone/Acetaminophen 10/325 mg Tablet PO PRN (08:10)
[2018-04-19] MEDS: Promethazine 25 MG TAB PO PRN (08:10)
[2018-04-19] MEDS: Baclofen 10 MG TAB PO SCH (08:10)
[2018-04-19] MEDS: Nitrofurantoin Macrocrystal 50 MG CAP PO SCH ×3 (08:10→08:12)
[2018-04-19] MEDS: Gabapentin 300 MG CAP PO SCH (08:11)
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
[2018-04-19 09:14] VITALS: BP 131/66; TEMP 97.4
== END 2018-04-19 13:31 | disposition home or self-care (01) | DRG 690 ==
LOC: MADMS 15:39
PROVIDERS: ADMIT Family Medicine; ATTEND Family Medicine
DX: N39.0 Urinary tract infection, site not specified (principal); G82.20 Paraplegia, unspecified; S24.104S Unspecified injury at T11-T12 level of thoracic spinal cord, sequela; N31.9 Neuromuscular dysfunction of bladder, unspecified; B18.2 Chronic viral hepatitis C; R53.1 Weakness; B96.89 Other specified bacterial agents as the cause of diseases classified elsewhere; G89.29 Other chronic pain; S39.012A Strain of muscle, fascia and tendon of lower back, initial encounter; M47.814 Spondylosis without myelopathy or radiculopathy, thoracic region; Z86.69 Personal history of other diseases of the nervous system and sense organs; Z90.5 Acquired absence of kidney; Z90.81 Acquired absence of spleen; Z99.3 Dependence on wheelchair; Z90.49 Acquired absence of other specified parts of digestive tract; Z98.1 Arthrodesis status; Z88.1 Allergy status to other antibiotic agents; Z88.8 Allergy status to other drugs, medicaments and biological substances; V03.99XS Pedestrian with other conveyance injured in collision with car, pick-up truck or van, unspecified whether traffic or nontraffic accident, sequela; X58.XXXA Exposure to other specified factors, initial encounter
CPT/HCPCS: 36415; 80053; 85025; Q0169

== ENCOUNTER 2018-05-28 11:20 | Emergency (ER) | payer MEDICARE, MEDICAID ==
[2018-05-28 12:14] LABS: #Basophils 0.1 thou/uL (0.0-0.2); #Eosinphils 0.3 thou/uL (0.0-0.7); #Lymphocytes 3.9 thou/uL (1.20-3.40); #Monocytes 0.8 thou/uL (0.11-0.59); #Neutrophils 3.9 thou/uL (1.40-6.50); %Basophils 1.6 % (0.0-1.0); %Eosinophils 2.9 % (0.0-10.0); %Lymphocytes 43.1 % (21.0-51.0); %Monocytes 8.8 % (0.0-10.0); %Neutrophils 43.5 % (42.0-75.0); Mean Corpuscular HGB CONC 32.3 g/dL (32.0-36.0); Mean Corpuscular Hemoglobin 31.3 pg (27.0-31.0); Mean Corpuscular Volume 96.8 fL (78.0-98.0); Mean Platelet Volume 6.5 fL (7.4-10.4); Platelet Count 164 thou/uL (130-400); RBC Distribution Width 12.7 % (11.5-14.5); Red Blood Cell (RBC) Count 4.49 mill/uL (4.70-6.10)
[2018-05-28 12:24] LABS: ALT (SGPT) 50 U/L (8-55); AST (SGOT) 62 U/L (5-34); Albumin 3.3 g/dL (3.5-5.0); Alkaline Phosphatase 124 U/L (40-150); Anion Gap 14 mmol/L (10-20); BUN (Urea Nitrogen) 18 mg/dL (8.9-20.6); Calc. Creatinine Clearance 0 mL/min (70-130); Calcium 8.6 mg/dL (7.8-10.44); Carbon Dioxide 23 mmol/L (22-29); Chloride 108 mmol/L (98-107); Estimated GFR-MDRD Greater than 90; Globulin 3.6 g/dL (2.4-3.5); Glucose 97 mg/dL (70-105); Potassium 3.8 mmol/L (3.5-5.1); Protein, Total 6.9 g/dL (6.0-8.3); Sodium 141 mmol/L (136-145)
--- NOTE | 2018-05-28 12:26 | CT ---
[facility] Protocol: 05/28/2018 11:53 AM INDICATION: Abdominal pain. COMPARISON: 12/09/2017 at 01/09/2018. TECHNIQUE: Multiple noncontrast CT images were obtained of the abdomen and pelvis. FINDINGS: This examination is limited for the evaluation of solid organs and vascular structures due to the lac k of intravenous contrast which is standard for urinary calculus assessment CT. The liver is within normal limits. The spleen is within normal limits. The pancreas is within normal limits. The adrenal glands are within normal limits. No retroperitoneal lymphadenopathy. No mesenteric lymphadenopathy. No free fluid in the abdomen. There is postsurgical change of a partial small bowel resection with primary anastomosis. This is sta ble to the prior exam. There are bilateral hip effusions, left greater than right which are stable. T here is a Girdlestone arthroplasty involving the right hip which is stable. There is prominent thorac olumbar scoliosis. There is stable instrumentation involving the thoracolumbar junction. There is sta ble artificial urethral sphincter seen within the lower pelvis which is stable. Kidneys: There is a 1 mm nonobstructing calculus seen within the right mid kidney. Left kidney & ureter: The left kidney is surgically absent. Other: No other significant abnormalities of the upper urinary tract. The unopacified bowel is within normal limits. No free fluid in the pelvis. No pelvic lymphadenopathy. No inguinal lymphadenopathy. Urinary bladder: - No calculi. Size not applicable. - Bladder is distended adequately. - Wall is mildly thickened but stable. IMPRESSION: 1. No CT explanation for the patient's abdominal pain 2. Examination is not appreciably changed from comparison dated 01/09/2018 or 12/09/2017.
--- NOTE | 2018-05-28 12:27 | RAD ---
FChest AP view INDICATION: Chest pain COMPARISON: Prior exam dated March 26, 2018. FINDINGS: The lungs are clear. The heart size is normal. No pleural effusion or pneumothorax is evide nt. No acute osseous abnormality is noted. There is a stable left subclavian chest wall port. There are stable postsurgical changes of a right rotator cuff repair. IMPRESSION: No acute cardiopulmonary abnormality.
[2018-05-28 12:35] LABS: Bilirubin Negative (Negative); Blood, Urine Small (Negative); Glucose, Urine (Dipstick) Negative (Negative); Leukocyte Trace (Negative); Nitrite Positive (Negative); Protein, Urine (Dipstick) 30 mg/dL (Neg-Trace)
[2018-05-28 12:36] LABS: Clarity Cloudy (Clear)
[2018-05-28 12:44] LABS: Bacteria/HPF 2+ HPF (None Seen); Crystals/HPF 2+ URIC ACID HPF (Negative); RBC/HPF 0-3 HPF (0-3); Squamous Epithelial 0-3 HPF (0-3); Transitional Epithelial 0-3 HPF (0-3)
[2018-05-28] MEDS ORDERED: Promethazine HCl 25 MG/ML VIAL ONE (13:59)
[2018-05-28] MEDS ORDERED: Piperacillin/Tazobactam 4.5 GM VIAL ONE ×2 (13:59→14:00)
[2018-05-28] MEDS ORDERED: Morphine 10 MG/ML VIAL ONE (13:59)
[2018-05-28] MEDS ORDERED: Sodium Chloride 0.9% 100 ML ONE (14:01)
== END 2018-05-28 15:45 | disposition short-term general hospital (02) ==
LOC: MADERS 11:20
DX: N39.0 Urinary tract infection, site not specified (principal); E66.9 Obesity, unspecified; F41.9 Anxiety disorder, unspecified; F32.9 Major depressive disorder, single episode, unspecified; F17.210 Nicotine dependence, cigarettes, uncomplicated; Z79.899 Other long term (current) drug therapy; Z79.891 Long term (current) use of opiate analgesic
CPT/HCPCS: 36415; 51701; 71045; 74176; 80053; 81003; 81015; 83605; 85025; 87077; 87086; 87186; 93005; 96365; 96375; J2270; J2543; J2550; J7050

== ENCOUNTER 2018-06-07 15:00 | Inpatient (IN) | payer MEDICARE, MEDICAID ==
[2018-06-07] MEDS: cefTRIAXone\\ROCEPHIN 2 GM in Sodium Chloride 0.9% 100 ML IVPB SCH (17:45)
[2018-06-07] MEDS ORDERED: Baclofen 10 MG TAB PO SCH (21:00)
[2018-06-07] MEDS ORDERED: Gabapentin 300 MG CAP PO SCH (21:00)
[2018-06-07] MEDS: Gabapentin 300 MG CAP PO SCH (21:13)
[2018-06-07] MEDS: Baclofen 10 MG TAB PO SCH (21:14)
[2018-06-07] MEDS: clonazePAM 0.5 MG TAB PO SCH (21:14)
[2018-06-07] MEDS: Promethazine HCl 25 MG/ML VIAL IVPB PRN (22:01)
[2018-06-08 05:11] LABS: #Basophils 0.1 thou/uL (0.0-0.2); #Eosinphils 0.4 thou/uL (0.0-0.7); #Lymphocytes 2.2 thou/uL (1.20-3.40); #Monocytes 0.7 thou/uL (0.11-0.59); #Neutrophils 2.9 thou/uL (1.40-6.50); %Basophils 1.7 % (0.0-1.0); %Eosinophils 6.1 % (0.0-10.0); %Lymphocytes 35.4 % (21.0-51.0); %Monocytes 10.6 % (0.0-10.0); %Neutrophils 46.1 % (42.0-75.0); Hemoglobin 13.4 g/dL (14.0-18.0); Mean Corpuscular HGB CONC 33.6 g/dL (32.0-36.0); Mean Corpuscular Hemoglobin 32.2 pg (27.0-31.0); Mean Corpuscular Volume 95.9 fL (78.0-98.0); Mean Platelet Volume 6.2 fL (7.4-10.4); Platelet Count 226 thou/uL (130-400); Red Blood Cell (RBC) Count 4.15 mill/uL (4.70-6.10); White Blood Cell (WBC) Count 6.2 thou/uL (4.8-10.8)
[2018-06-08 05:23] LABS: ALT (SGPT) 39 U/L (8-55); AST (SGOT) 48 U/L (5-34); Albumin 3.1 g/dL (3.5-5.0); Alkaline Phosphatase 88 U/L (40-150); Anion Gap 11 mmol/L (10-20); BUN (Urea Nitrogen) 11 mg/dL (8.9-20.6); Bilirubin, Total 0.4 mg/dL (0.2-1.2); Calc. Creatinine Clearance 187 mL/min (70-130); Calcium 8.5 mg/dL (7.8-10.44); Carbon Dioxide 24 mmol/L (22-29); Chloride 110 mmol/L (98-107); Estimated GFR-MDRD Greater than 90; Glucose 119 mg/dL (70-105); Potassium 4.2 mmol/L (3.5-5.1); Sodium 141 mmol/L (136-145)
[2018-06-08 05:25] LABS: Globulin 3.5 g/dL (2.4-3.5); Protein, Total 6.6 g/dL (6.0-8.3)
[2018-06-08] MEDS: HYDROcodone/Acetaminophen 10/325 mg Tablet PO PRN (05:36)
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
[2018-06-08] MEDS: clonazePAM 0.5 MG TAB PO SCH ×3 (08:58→21:53)
[2018-06-08] MEDS: Enoxaparin Sodium 40 MG/0.4 ML SYRINGE SC SCH (08:58)
[2018-06-08] MEDS: Baclofen 10 MG TAB PO SCH ×3 (08:59→21:53)
[2018-06-08] MEDS: Gabapentin 300 MG CAP PO SCH ×3 (08:59→21:53)
--- NOTE | 2018-06-08 10:04 | PRG ---
DATE OF SERVICE: 06/08/2018 SUBJECTIVE: The patient said he rested good last night. He is still sleeping this morning, but was easily aroused. He has no new complaint. OBJECTIVE: GENERAL: The patient is lying in bed, alert, talkative, appears comfortable, and in no distress. VITAL SIGNS: Temp 97.1, pulse 90, respirations 20, O2 saturation 95% on room air, blood pressure 140/70. LUNGS: Clear. HEART: Regular rate. LABORATORY DATA: Shows hemoglobin and hematocrit of 13.4 and 39.8, white cell count 6200 with 46% segs, 35% lymphocytes, and a platelet count of 226,000. Sodium 141, potassium 4.2, BUN 11, creatinine 0.64, glucose 111, albumin 3.1, AST 48, ALT 39. ASSESSMENT: 1. Urinary tract infection/pyelonephritis. a. On 28-day course of IV Rocephin. b. Doing well. Remains afebrile as of 06/08/2018. 2. Paraplegia. 3. Neurogenic bladder. a. Managed with intermittent catheterization. 4. Chronic hepatitis C. a. The patient has opted for no treatment. Concern treatment would cause immunosuppression and increase risk of infection. b. Complicated by mild elevation of liver enzymes. 5. Chronic left thoracic neuropathy. a. Controlled. 6. Chronic mid low back pain. a. Controlled. PLAN: Continue present care. Continue IV antibiotics. Job ID: [id number] [facility]
[2018-06-08] MEDS: Promethazine HCl 25 MG/ML VIAL IVPB PRN (12:47)
[2018-06-08] MEDS: Morphine 4 MG/ML VIAL SLOW IVP PRN (13:01)
[2018-06-08] MEDS: cefTRIAXone\\ROCEPHIN 2 GM in Sodium Chloride 0.9% 100 ML IVPB SCH (16:44)
[2018-06-09] MEDS: Baclofen 10 MG TAB PO SCH ×3 (09:17→20:37)
[2018-06-09] MEDS: HYDROcodone/Acetaminophen 10/325 mg Tablet PO PRN ×2 (09:17→20:42)
[2018-06-09] MEDS: Gabapentin 300 MG CAP PO SCH ×3 (09:17→20:37)
[2018-06-09] MEDS: clonazePAM 0.5 MG TAB PO SCH ×3 (09:17→20:37)
[2018-06-09] MEDS: Enoxaparin Sodium 40 MG/0.4 ML SYRINGE SC SCH (09:18)
[2018-06-09] MEDS: Promethazine HCl 25 MG/ML VIAL IVPB PRN ×2 (09:19→20:44)
--- NOTE | 2018-06-09 13:41 | PRG ---
DATE OF SERVICE: 06/09/2018 SUBJECTIVE: The patient said he is doing better. He is having a little rumbling in his stomach and a little loose stools. The patient has received the promethazine 25 mg IV on a couple of occasion. The nurse reports that he just sleeps for prolonged period after getting this. This dose has been reduced to 12.5 and the patient reports it worked well to control the nausea, and he is awake, alert and not sleeping as he did on the higher dose. OBJECTIVE: GENERAL: The patient is lying in bed, alert, appears very comfortable, in no distress. VITAL SIGNS: Temp 97.4, pulse 84, respirations 20, O2 saturation 98% on room air , and blood pressure 145/83. LUNGS: Clear. HEART: Regular rate. ASSESSMENT: 1. Urinary tract infection/pyelonephritis. a. On 28-day course of IV Rocephin. b. Doing well. Remains afebrile as of 06/08/2018. c. Presently on a 28-day course of IV Rocephin as of 06/09/2018. 2. Paraplegia. 3. Neurogenic bladder. a. Managed with intermittent catheterization. 4. Chronic hepatitis C. a. The patient has opted for no treatment. Concern treatment would cause immunosuppression and increase risk of infection. b. Complicated by mild elevation of liver enzymes. 5. Chronic left thoracic neuropathy. a. Controlled. 6. Chronic mid low back pain. a. Controlled. PLAN: Continue present care. Continue PT. Cut the promethazine back to 12.5, which has worked well. Continue the IV Rocephin. Job ID: [id number] [facility]
[2018-06-09] MEDS: Morphine 4 MG/ML VIAL SLOW IVP PRN (14:29)
[2018-06-09] MEDS: cefTRIAXone\\ROCEPHIN 2 GM in Sodium Chloride 0.9% 100 ML IVPB SCH (17:12)
[2018-06-10] MEDS: Morphine 4 MG/ML VIAL SLOW IVP PRN ×2 (03:23→15:27)
[2018-06-10] MEDS: Gabapentin 300 MG CAP PO SCH ×3 (09:59→19:14)
[2018-06-10] MEDS: Baclofen 10 MG TAB PO SCH ×3 (10:00→19:14)
[2018-06-10] MEDS: clonazePAM 0.5 MG TAB PO SCH ×3 (10:00→19:12)
[2018-06-10] MEDS: Enoxaparin Sodium 40 MG/0.4 ML SYRINGE SC SCH (10:00)
[2018-06-10] MEDS: Promethazine HCl 25 MG/ML VIAL IVPB PRN ×2 (10:15→20:41)
[2018-06-10] MEDS: HYDROcodone/Acetaminophen 10/325 mg Tablet PO PRN ×2 (10:17→19:11)
[2018-06-10] MEDS: cefTRIAXone\\ROCEPHIN 2 GM in Sodium Chloride 0.9% 100 ML IVPB SCH (17:22)
[2018-06-11] MEDS: Morphine 4 MG/ML VIAL SLOW IVP PRN ×2 (03:21→16:06)
[2018-06-11] MEDS: Baclofen 10 MG TAB PO SCH ×3 (08:14→20:41)
[2018-06-11] MEDS: HYDROcodone/Acetaminophen 10/325 mg Tablet PO PRN (08:14)
[2018-06-11] MEDS: Promethazine HCl 25 MG/ML VIAL IVPB PRN ×2 (08:14→20:46)
[2018-06-11] MEDS: Enoxaparin Sodium 40 MG/0.4 ML SYRINGE SC SCH (08:15)
[2018-06-11] MEDS: Gabapentin 300 MG CAP PO SCH ×3 (08:15→20:41)
[2018-06-11] MEDS: clonazePAM 0.5 MG TAB PO SCH ×3 (08:16→20:41)
[2018-06-11] MEDS: cefTRIAXone\\ROCEPHIN 2 GM in Sodium Chloride 0.9% 100 ML IVPB SCH (16:07)
--- NOTE | 2018-06-12 08:16 | PRG ---
DATE OF SERVICE: 06/10/2018 SUBJECTIVE: The patient said he is doing good. He slept good last night. He has no complaint. He is working with physical therapy. OBJECTIVE: GENERAL: The patient is lying in bed. He is alert and talkative. He has 2 ladies visiting him. VITAL SIGNS: Show a temperature 97.7, pulse 95, respirations 18, O2 saturation 98% on room air, blood pressure 142/73. LUNGS: Clear. HEART: Regular rate. ASSESSMENT: 1. Urinary tract infection/pyelonephritis. a. On a 28-day course of IV Rocephin as of 06/10/2018 that was started on 06/07/2018. b. Doing well. Remains afebrile as of 06/08/2018. 2. Paraplegia. 3. Neurogenic bladder. a. Managed with intermittent catheterization. 4. Chronic hepatitis C. a. The patient has opted for no treatment. Concern treatment would cause immunosuppression and increase risk of infection. b. Complicated by mild elevation of liver enzymes. 5. Chronic left thoracic neuropathy. a. Controlled. 6. Chronic mid low back pain. a. Controlled. PLAN: Continue present care. Continue PT. Job ID: [id number] [facility]
[2018-06-12] MEDS: Promethazine HCl 25 MG/ML VIAL IVPB PRN ×2 (08:20→21:06)
[2018-06-12] MEDS: HYDROcodone/Acetaminophen 10/325 mg Tablet PO PRN ×2 (08:22→17:06)
[2018-06-12] MEDS: clonazePAM 0.5 MG TAB PO SCH ×3 (08:22→20:57)
[2018-06-12] MEDS: Enoxaparin Sodium 40 MG/0.4 ML SYRINGE SC SCH (08:23)
[2018-06-12] MEDS: Gabapentin 300 MG CAP PO SCH ×3 (08:23→20:54)
[2018-06-12] MEDS: Baclofen 10 MG TAB PO SCH ×3 (08:23→20:54)
[2018-06-12] MEDS: Morphine 4 MG/ML VIAL SLOW IVP PRN (13:49)
[2018-06-12] MEDS: cefTRIAXone\\ROCEPHIN 2 GM in Sodium Chloride 0.9% 100 ML IVPB SCH (17:01)
[2018-06-13] MEDS ORDERED: Promethazine HCl 25 MG/ML VIAL SLOW IVP PRN (03:12)
[2018-06-13] MEDS ORDERED: Morphine 4 MG/ML VIAL SLOW IVP PRN (08:06)
[2018-06-13] MEDS: HYDROcodone/Acetaminophen 10/325 mg Tablet PO PRN ×2 (08:15→15:37)
[2018-06-13] MEDS: Enoxaparin Sodium 40 MG/0.4 ML SYRINGE SC SCH (08:15)
[2018-06-13] MEDS: Gabapentin 300 MG CAP PO SCH ×3 (08:15→21:03)
[2018-06-13] MEDS: Baclofen 10 MG TAB PO SCH ×3 (08:16→21:03)
[2018-06-13] MEDS: clonazePAM 0.5 MG TAB PO SCH ×3 (08:16→21:05)
--- NOTE | 2018-06-13 09:42 | PRG ---
DATE OF SERVICE: 06/13/2018 SUBJECTIVE: The patient is doing well. He has no complaint. OBJECTIVE: GENERAL: The patient is lying in bed. He is sleeping, but easily aroused. He is in no distress. VITAL SIGNS: His temperature is 97, pulse 73, respiration is 20, O2 saturation is 95% on room air, and blood pressure 138/66. LUNGS: Clear. HEART: Regular rate. ASSESSMENT: 1. Urinary tract infection/pyelonephritis. a. On a 28-day course of IV Rocephin as of 06/10/2018 that was started on 06/07/2018. b. Doing well on day 7 of 28 of the IV Rocephin as of 06/13/2018. 2. Paraplegia. 3. Neurogenic bladder. a. Managed with intermittent catheterization. 4. Chronic hepatitis C. a. The patient has opted for no treatment. Concern treatment would cause immunosuppression and increase risk of infection. b. Complicated by mild elevation of liver enzymes. 5. Chronic left thoracic neuropathy. a. Controlled. 6. Chronic mid low back pain. a. Controlled. PLAN: We will reduce the morphine to just 1 mg IV every 12 hours p.r.n. within few days to stop this. Continue PT. Job ID: [id number] [facility]
[2018-06-13] MEDS: Promethazine HCl 25 MG/ML VIAL SLOW IVP PRN (11:50)
[2018-06-13] MEDS: cefTRIAXone\\ROCEPHIN 2 GM in Sodium Chloride 0.9% 100 ML IVPB SCH (17:09)
[2018-06-14] MEDS: Promethazine HCl 25 MG/ML VIAL SLOW IVP PRN ×2 (00:53→12:40)
[2018-06-14] MEDS: Gabapentin 300 MG CAP PO SCH ×3 (08:08→20:25)
[2018-06-14] MEDS: HYDROcodone/Acetaminophen 10/325 mg Tablet PO PRN (08:09)
[2018-06-14] MEDS: Baclofen 10 MG TAB PO SCH ×3 (08:10→20:24)
[2018-06-14] MEDS: Enoxaparin Sodium 40 MG/0.4 ML SYRINGE SC SCH (08:10)
[2018-06-14] MEDS: clonazePAM 0.5 MG TAB PO SCH ×3 (08:10→20:24)
[2018-06-14] MEDS: cefTRIAXone\\ROCEPHIN 2 GM in Sodium Chloride 0.9% 100 ML IVPB SCH (16:53)
[2018-06-15] MEDS: Promethazine HCl 25 MG/ML VIAL SLOW IVP PRN ×2 (00:30→14:37)
[2018-06-15] MEDS: HYDROcodone/Acetaminophen 10/325 mg Tablet PO PRN ×2 (08:18→15:42)
[2018-06-15] MEDS: Enoxaparin Sodium 40 MG/0.4 ML SYRINGE SC SCH (08:19)
[2018-06-15] MEDS: clonazePAM 0.5 MG TAB PO SCH ×3 (08:19→21:26)
[2018-06-15] MEDS: Baclofen 10 MG TAB PO SCH ×3 (08:20→21:26)
[2018-06-15] MEDS: Gabapentin 300 MG CAP PO SCH ×3 (08:20→21:26)
[2018-06-15] MEDS: cefTRIAXone\\ROCEPHIN 2 GM in Sodium Chloride 0.9% 100 ML IVPB SCH (16:38)
[2018-06-16] MEDS: HYDROcodone/Acetaminophen 10/325 mg Tablet PO PRN ×2 (02:02→10:31)
[2018-06-16] MEDS: Promethazine HCl 25 MG/ML VIAL SLOW IVP PRN ×2 (02:03→14:23)
--- NOTE | 2018-06-16 09:49 | PRG ---
DATE OF SERVICE: 06/16/2018 SUBJECTIVE: The patient says he is feeling good. He has not required any of the low dose morphine in the last few days, but still using his hydrocodone some. Occasionally, he will use the promethazine for nausea. Overall, he is feeling better. He has had no trouble with the infusion of the ceftriaxone. OBJECTIVE: GENERAL: The patient is lying in bed, alert, appears comfortable, and in no distress. VITAL SIGNS: His temperature is 97.6, pulse 79, respirations 18, O2 saturation 98% on room air, blood pressure 127/62. LUNGS: Clear. HEART: Regular rate. ASSESSMENT: 1. Urinary tract infection/pyelonephritis. a. On a 28-day course of IV Rocephin as of 06/10/2018 that was started on 06/07/2018. b. Doing well on day 10 of 28-day course of IV Rocephin as of 06/16/2018. 2. Paraplegia. 3. Neurogenic bladder. a. Managed with intermittent catheterization. 4. Chronic hepatitis C. a. The patient has opted for no treatment. Concern treatment would cause immunosuppression and increase risk of infection. b. Complicated by mild elevation of liver enzymes. 5. Chronic left thoracic neuropathy. a. Controlled. 6. Chronic mid low back pain. a. Controlled. PLAN: Continue present care. Continue IV Rocephin. Continue PT, which he is enjoying. He thinks it is helping him. We will discontinue the morphine. Job ID: [id number] MTDD
[2018-06-16] MEDS: Gabapentin 300 MG CAP PO SCH ×3 (10:30→21:13)
[2018-06-16] MEDS: clonazePAM 0.5 MG TAB PO SCH ×3 (10:31→21:12)
[2018-06-16] MEDS: Enoxaparin Sodium 40 MG/0.4 ML SYRINGE SC SCH (10:32)
[2018-06-16] MEDS: Baclofen 10 MG TAB PO SCH ×3 (10:32→21:13)
[2018-06-16] MEDS: cefTRIAXone\\ROCEPHIN 2 GM in Sodium Chloride 0.9% 100 ML IVPB SCH (17:12)
[2018-06-17] MEDS: Promethazine HCl 25 MG/ML VIAL SLOW IVP PRN ×2 (03:25→15:56)
[2018-06-17] MEDS: Enoxaparin Sodium 40 MG/0.4 ML SYRINGE SC SCH (10:01)
[2018-06-17] MEDS: Baclofen 10 MG TAB PO SCH ×3 (10:01→21:03)
[2018-06-17] MEDS: clonazePAM 0.5 MG TAB PO SCH ×3 (10:01→21:03)
[2018-06-17] MEDS: Gabapentin 300 MG CAP PO SCH ×3 (10:01→21:03)
[2018-06-17] MEDS: cefTRIAXone\\ROCEPHIN 2 GM in Sodium Chloride 0.9% 100 ML IVPB SCH (16:32)
[2018-06-18] MEDS: Promethazine HCl 25 MG/ML VIAL SLOW IVP PRN ×2 (03:13→15:01)
[2018-06-18] MEDS: HYDROcodone/Acetaminophen 10/325 mg Tablet PO PRN (03:13)
[2018-06-18] MEDS: Baclofen 10 MG TAB PO SCH ×3 (08:49→20:19)
[2018-06-18] MEDS: clonazePAM 0.5 MG TAB PO SCH ×3 (08:49→20:18)
[2018-06-18] MEDS: Gabapentin 300 MG CAP PO SCH ×3 (08:50→20:19)
[2018-06-18] MEDS: Enoxaparin Sodium 40 MG/0.4 ML SYRINGE SC SCH (08:50)
[2018-06-18] MEDS: cefTRIAXone\\ROCEPHIN 2 GM in Sodium Chloride 0.9% 100 ML IVPB SCH (16:50)
[2018-06-19] MEDS: Promethazine HCl 25 MG/ML VIAL SLOW IVP PRN ×2 (05:16→17:40)
[2018-06-19] MEDS: Baclofen 10 MG TAB PO SCH ×3 (09:15→21:25)
[2018-06-19] MEDS: clonazePAM 0.5 MG TAB PO SCH ×3 (09:15→21:25)
[2018-06-19] MEDS: Gabapentin 300 MG CAP PO SCH ×3 (09:15→21:25)
[2018-06-19] MEDS: Enoxaparin Sodium 40 MG/0.4 ML SYRINGE SC SCH ×2 (09:15→09:16)
--- NOTE | 2018-06-19 11:17 | PRG ---
DATE OF SERVICE: 06/19/2018 SUBJECTIVE: The patient says he is doing fine. He had no complaint. Nurses report no problems or any difficulties. OBJECTIVE: GENERAL: The patient is lying in bed, alert, appears comfortable, and in no distress. VITAL SIGNS: Show a temperature 98.5, pulse 100, respirations 20, O2 saturation 97%, and blood pressure 155/80. These were vitals from last night, this morning's are pending. LUNGS: The patient's lungs were clear. HEART: Regular rate. ASSESSMENT: 1. Urinary tract infection/pyelonephritis. a. On a 28-day course of IV Rocephin as of 06/10/2018 that was started on 06/07/2018. b. Doing well on day on day 13 of a 28-day course of IV Rocephin as of 06/19/2018. 2. Paraplegia. 3. Neurogenic bladder. a. Managed with intermittent catheterization. 4. Chronic hepatitis C. a. The patient has opted for no treatment. Concern treatment would cause immunosuppression and increase risk of infection. b. Complicated by mild elevation of liver enzymes. 5. Chronic left thoracic neuropathy. a. Controlled. 6. Chronic mid low back pain. a. Controlled. PLAN: Continue present care. Job ID: [id number] MTDD
[2018-06-19] MEDS: HYDROcodone/Acetaminophen 10/325 mg Tablet PO PRN (11:32)
[2018-06-19] MEDS: cefTRIAXone\\ROCEPHIN 2 GM in Sodium Chloride 0.9% 100 ML IVPB SCH (16:46)
[2018-06-20] MEDS: Promethazine HCl 25 MG/ML VIAL SLOW IVP PRN ×3 (05:47→20:43)
[2018-06-20] MEDS: clonazePAM 0.5 MG TAB PO SCH ×3 (08:07→20:39)
[2018-06-20] MEDS: HYDROcodone/Acetaminophen 10/325 mg Tablet PO PRN ×2 (08:07→15:56)
[2018-06-20] MEDS: Gabapentin 300 MG CAP PO SCH ×3 (08:08→20:39)
[2018-06-20] MEDS: Baclofen 10 MG TAB PO SCH ×3 (08:08→20:39)
[2018-06-20] MEDS: Enoxaparin Sodium 40 MG/0.4 ML SYRINGE SC SCH (08:08)
[2018-06-20] MEDS: cefTRIAXone\\ROCEPHIN 2 GM in Sodium Chloride 0.9% 100 ML IVPB SCH (17:26)
[2018-06-21] MEDS: HYDROcodone/Acetaminophen 10/325 mg Tablet PO PRN ×2 (03:35→14:23)
[2018-06-21] MEDS: Promethazine HCl 25 MG/ML VIAL SLOW IVP PRN ×3 (03:37→20:59)
[2018-06-21 05:21] LABS: #Basophils 0.2 thou/uL (0.0-0.2); #Eosinphils 0.4 thou/uL (0.0-0.7); #Lymphocytes 4.1 thou/uL (1.20-3.40); #Monocytes 0.8 thou/uL (0.11-0.59); #Neutrophils 2.8 thou/uL (1.40-6.50); %Basophils 2.3 % (0.0-1.0); %Eosinophils 4.4 % (0.0-10.0); %Lymphocytes 49.1 % (21.0-51.0); %Monocytes 10.1 % (0.0-10.0); %Neutrophils 34.1 % (42.0-75.0); Hemoglobin 13.2 g/dL (14.0-18.0); Mean Corpuscular HGB CONC 32.5 g/dL (32.0-36.0); Mean Corpuscular Hemoglobin 31.4 pg (27.0-31.0); Mean Corpuscular Volume 96.9 fL (78.0-98.0); Mean Platelet Volume 6.1 fL (7.4-10.4); Platelet Count 180 thou/uL (130-400); RBC Distribution Width 12.8 % (11.5-14.5); White Blood Cell (WBC) Count 8.3 thou/uL (4.8-10.8)
[2018-06-21 05:30] LABS: ALT (SGPT) 72 U/L (8-55); AST (SGOT) 78 U/L (5-34); Albumin 3.2 g/dL (3.5-5.0); Alkaline Phosphatase 105 U/L (40-150); Anion Gap 10 mmol/L (10-20); BUN (Urea Nitrogen) 19 mg/dL (8.9-20.6); Bilirubin, Total 0.6 mg/dL (0.2-1.2); Calc. Creatinine Clearance 183 mL/min (70-130); Calcium 8.4 mg/dL (7.8-10.44); Carbon Dioxide 23 mmol/L (22-29); Chloride 108 mmol/L (98-107); Estimated GFR-MDRD Greater than 90; Globulin 3.6 g/dL (2.4-3.5); Glucose 99 mg/dL (70-105); Potassium 4.2 mmol/L (3.5-5.1); Protein, Total 6.8 g/dL (6.0-8.3); Sodium 137 mmol/L (136-145)
[2018-06-21] MEDS: clonazePAM 0.5 MG TAB PO SCH ×3 (08:10→20:58)
[2018-06-21] MEDS: Baclofen 10 MG TAB PO SCH ×3 (08:10→20:57)
[2018-06-21] MEDS: Gabapentin 300 MG CAP PO SCH ×3 (08:12→20:56)
[2018-06-21] MEDS: Enoxaparin Sodium 40 MG/0.4 ML SYRINGE SC SCH (08:12)
--- NOTE | 2018-06-21 11:27 | PRG ---
DATE OF SERVICE: 06/21/2018 SUBJECTIVE: The patient said he is doing okay. He said he is just having more the nausea. He said this usually happens when he has been on the IV antibiotics for a while. He had yesterday asked that if he could get low-dose Phenergan a little more often, this was ordered 12.5 mg for him to receive IV every 6 hours if needed. We will also try him on some pantoprazole to see if this will help some with the nausea. The patient said he is still getting up with physical therapy and his intermittent catheterizations are going fine. OBJECTIVE: GENERAL: The patient is lying in bed. He is alert, talkative, appears comfortable, in no distress. VITAL SIGNS: His temperature 97.3, pulse 93, respirations 18, O2 saturation 98% on room air, blood pressure 138/67. LUNGS: Clear. HEART: Regular rate. LABORATORY DATA: His lab shows a hemoglobin and hematocrit of 13.2 and 40.7, white cell count 8300 with 34% neutrophils, 49% lymphocytes, platelet count of 180, 000. Sodium 137, potassium 4.2, BUN 19, creatinine 0.73, GFR greater than 90, glucose 99, AST 78, ALT 72. ASSESSMENT: 1. Urinary tract infection/pyelonephritis. a. On a 28-day course of IV Rocephin as of 06/10/2018 that was started on 06/07/2018. b. Doing well on day 15 of 28-day course of IV Rocephin, but having some nausea as of 06/21/2018. 2. Paraplegia. 3. Neurogenic bladder. a. Managed with intermittent catheterization. 4. Chronic hepatitis C. a. The patient has opted for no treatment. Concern treatment would cause immunosuppression and increase risk of infection. b. Complicated by mild elevation of liver enzymes. 5. Chronic left thoracic neuropathy. a. Controlled. 6. Chronic mid low back pain. a. Controlled. PLAN: We will add pantoprazole to his present regimen. Utilize the promethazine intermittently if needed. Continue the IV Rocephin. The patient had a mild increase in his liver enzymes. We will do a followup on this later. Job ID: [id number] [facility]
[2018-06-21] MEDS: cefTRIAXone\\ROCEPHIN 2 GM in Sodium Chloride 0.9% 100 ML IVPB SCH (16:58)
[2018-06-22] MEDS: Baclofen 10 MG TAB PO SCH ×3 (09:59→21:08)
[2018-06-22] MEDS: Gabapentin 300 MG CAP PO SCH ×3 (09:59→21:07)
[2018-06-22] MEDS: clonazePAM 0.5 MG TAB PO SCH ×3 (09:59→21:08)
[2018-06-22] MEDS: Enoxaparin Sodium 40 MG/0.4 ML SYRINGE SC SCH (09:59)
[2018-06-22] MEDS: Promethazine HCl 25 MG/ML VIAL SLOW IVP PRN ×3 (11:00→23:35)
[2018-06-22] MEDS: cefTRIAXone\\ROCEPHIN 2 GM in Sodium Chloride 0.9% 100 ML IVPB SCH (16:14)
[2018-06-22] MEDS: HYDROcodone/Acetaminophen 10/325 mg Tablet PO PRN (21:07)
[2018-06-23] MEDS: Promethazine HCl 25 MG/ML VIAL SLOW IVP PRN ×3 (05:49→17:47)
[2018-06-23] MEDS: Baclofen 10 MG TAB PO SCH ×3 (09:12→20:13)
[2018-06-23] MEDS: clonazePAM 0.5 MG TAB PO SCH ×3 (09:12→20:13)
[2018-06-23] MEDS: Gabapentin 300 MG CAP PO SCH ×3 (09:12→20:13)
[2018-06-23] MEDS: Enoxaparin Sodium 40 MG/0.4 ML SYRINGE SC SCH (09:12)
[2018-06-23] MEDS: cefTRIAXone\\ROCEPHIN 2 GM in Sodium Chloride 0.9% 100 ML IVPB SCH (17:40)
[2018-06-24] MEDS: Promethazine HCl 25 MG/ML VIAL SLOW IVP PRN ×3 (01:31→15:26)
[2018-06-24] MEDS: clonazePAM 0.5 MG TAB PO SCH ×3 (08:06→20:36)
[2018-06-24] MEDS: Gabapentin 300 MG CAP PO SCH ×3 (08:06→20:36)
[2018-06-24] MEDS: Baclofen 10 MG TAB PO SCH ×3 (08:06→20:35)
[2018-06-24] MEDS: Enoxaparin Sodium 40 MG/0.4 ML SYRINGE SC SCH (08:06)
[2018-06-24] MEDS: HYDROcodone/Acetaminophen 10/325 mg Tablet PO PRN ×2 (08:07→15:25)
[2018-06-24] MEDS: cefTRIAXone\\ROCEPHIN 2 GM in Sodium Chloride 0.9% 100 ML IVPB SCH (15:23)
[2018-06-25] MEDS: Promethazine HCl 25 MG/ML VIAL SLOW IVP PRN ×4 (00:09→22:04)
[2018-06-25] MEDS: HYDROcodone/Acetaminophen 10/325 mg Tablet PO PRN ×2 (07:58→15:55)
[2018-06-25] MEDS: Enoxaparin Sodium 40 MG/0.4 ML SYRINGE SC SCH (08:02)
[2018-06-25] MEDS: Baclofen 10 MG TAB PO SCH ×3 (08:02→20:53)
[2018-06-25] MEDS: Gabapentin 300 MG CAP PO SCH ×3 (08:03→20:53)
[2018-06-25] MEDS: clonazePAM 0.5 MG TAB PO SCH ×3 (08:03→20:52)
[2018-06-25] MEDS: cefTRIAXone\\ROCEPHIN 2 GM in Sodium Chloride 0.9% 100 ML IVPB SCH (16:01)
[2018-06-26] MEDS: Promethazine HCl 25 MG/ML VIAL SLOW IVP PRN ×4 (05:24→23:44)
--- NOTE | 2018-06-26 07:22 | PRG ---
DATE OF SERVICE: 06/24/2018 SUBJECTIVE: The patient said he has been doing well. He still has periodic nausea, but receives the Phenergan, and this gives him relief. Overall, he thinks he is doing better. He attributes the nausea to the IV antibiotics. He said this is very common for him when he has to receive these. OBJECTIVE: GENERAL: The patient is sitting upright in his bed. He is awake, appears very comfortable, and very talkative. VITAL SIGNS: Show a temperature of 97.9, pulse 87, respirations 16, O2 saturation 98% on room air, blood pressure 130/75. LUNGS: Clear. HEART: Regular rate. ASSESSMENT: 1. Urinary tract infection/pyelonephritis. a. On a 28-day course of IV Rocephin as of 06/10/2018 that was started on 06/07/2018. b. Doing well on day 18 of 28-day course of IV Rocephin as of 06/24/2018, having some intermittent nausea that he attributes to the antibiotics. 2. Paraplegia. 3. Neurogenic bladder. a. Managed with intermittent catheterization. 4. Chronic hepatitis C. a. The patient has opted for no treatment. Concern treatment would cause immunosuppression and increase risk of infection. b. Complicated by mild elevation of liver enzymes. 5. Chronic left thoracic neuropathy. a. Controlled. 6. Chronic mid low back pain. a. Controlled. PLAN: Complete the 28-day course of IV Rocephin. Continue present medicines. Continue PT. Job ID: [id number] MTDD
[2018-06-26] MEDS: Enoxaparin Sodium 40 MG/0.4 ML SYRINGE SC SCH (09:48)
[2018-06-26] MEDS: Gabapentin 300 MG CAP PO SCH ×3 (09:49→20:25)
[2018-06-26] MEDS: clonazePAM 0.5 MG TAB PO SCH ×3 (09:49→20:24)
[2018-06-26] MEDS: Baclofen 10 MG TAB PO SCH ×3 (09:49→20:25)
[2018-06-26] MEDS: HYDROcodone/Acetaminophen 10/325 mg Tablet PO PRN (10:39)
[2018-06-26] MEDS: cefTRIAXone\\ROCEPHIN 2 GM in Sodium Chloride 0.9% 100 ML IVPB SCH (16:05)
[2018-06-27] MEDS: Promethazine HCl 25 MG/ML VIAL SLOW IVP PRN ×3 (06:07→19:11)
[2018-06-27] MEDS: Enoxaparin Sodium 40 MG/0.4 ML SYRINGE SC SCH (08:15)
[2018-06-27] MEDS: Baclofen 10 MG TAB PO SCH ×3 (08:16→20:52)
[2018-06-27] MEDS: Gabapentin 300 MG CAP PO SCH ×3 (08:16→20:52)
[2018-06-27] MEDS: clonazePAM 0.5 MG TAB PO SCH ×3 (08:16→20:52)
[2018-06-27] MEDS: HYDROcodone/Acetaminophen 10/325 mg Tablet PO PRN ×2 (08:16→15:46)
--- NOTE | 2018-06-27 10:20 | PRG ---
DATE OF SERVICE: 06/27/2018 SUBJECTIVE: The patient said he is doing fine, had no complaints. Nurses report no problems or new complaints. OBJECTIVE: GENERAL: The patient is lying in bed in prone position. He is alert and comfortable and appears in no distress. VITAL SIGNS: His temperature is 98.2, pulse 100, respirations 18, O2 saturation 97% on room air, and blood pressure 127/62. LUNGS: Clear. HEART: Regular rate. ASSESSMENT: 1. Urinary tract infection/pyelonephritis. a. On a 28-day course of IV Rocephin as of 06/10/2018 that was started on 06/07/2018. b. Doing well on day 21 of 28 day course of IV Rocephin as of 06/27/2018. 2. Paraplegia. 3. Neurogenic bladder. a. Managed with intermittent catheterization. 4. Chronic hepatitis C. a. The patient has opted for no treatment. Concern treatment would cause immunosuppression and increase risk of infection. b. Complicated by mild elevation of liver enzymes. 5. Chronic left thoracic neuropathy. a. Controlled. 6. Chronic mid low back pain. a. Controlled. PLAN: Continue present care. Continue IV Rocephin. Job ID: [id number] MTDD
[2018-06-27] MEDS: cefTRIAXone\\ROCEPHIN 2 GM in Sodium Chloride 0.9% 100 ML IVPB SCH (16:18)
[2018-06-28] MEDS: Promethazine HCl 25 MG/ML VIAL SLOW IVP PRN ×3 (01:53→15:45)
[2018-06-28] MEDS: clonazePAM 0.5 MG TAB PO SCH ×3 (08:47→20:34)
[2018-06-28] MEDS: HYDROcodone/Acetaminophen 10/325 mg Tablet PO PRN ×2 (08:47→15:49)
[2018-06-28] MEDS: Baclofen 10 MG TAB PO SCH ×3 (08:48→20:34)
[2018-06-28] MEDS: Gabapentin 300 MG CAP PO SCH ×3 (08:48→20:34)
[2018-06-28] MEDS: Enoxaparin Sodium 40 MG/0.4 ML SYRINGE SC SCH (08:48)
[2018-06-28] MEDS: cefTRIAXone\\ROCEPHIN 2 GM in Sodium Chloride 0.9% 100 ML IVPB SCH (16:48)
[2018-06-29] MEDS: Promethazine HCl 25 MG/ML VIAL SLOW IVP PRN ×4 (00:17→21:47)
[2018-06-29] MEDS: Gabapentin 300 MG CAP PO SCH ×3 (08:07→21:48)
[2018-06-29] MEDS: clonazePAM 0.5 MG TAB PO SCH ×3 (08:07→21:48)
[2018-06-29] MEDS: Enoxaparin Sodium 40 MG/0.4 ML SYRINGE SC SCH (08:07)
[2018-06-29] MEDS: HYDROcodone/Acetaminophen 10/325 mg Tablet PO PRN ×2 (08:08→15:33)
[2018-06-29] MEDS: Baclofen 10 MG TAB PO SCH ×3 (08:08→21:48)
--- NOTE | 2018-06-29 15:02 | PRG ---
DATE OF SERVICE: 06/29/2018 SUBJECTIVE: The patient said he is doing good. He said he still has a little intermittent nausea, but he is dealing with this and he gets intermittent promethazine injections for this. His self-catheterizations are going fine. OBJECTIVE: GENERAL: The patient is lying in bed. He is alert, talkative, appears in no distress. VITAL SIGNS: His temperature is 98.1, pulse 99, respirations 18, O2 saturation 98% on room air, blood pressure 146/71. LUNGS: Clear. HEART: Regular rate. ASSESSMENT: 1. Urinary tract infection/pyelonephritis. a. On a 28-day course of IV Rocephin as of 06/10/2018 that was started on 06/07/2018. b. Doing well on day 23 of 28-day course of IV Rocephin as of 06/29/2018. 2. Paraplegia. 3. Neurogenic bladder. a. Managed with intermittent catheterization. 4. Chronic hepatitis C. a. The patient has opted for no treatment. Concern treatment would cause immunosuppression and increase risk of infection. b. Complicated by mild elevation of liver enzymes. 5. Chronic left thoracic neuropathy. a. Controlled. 6. Chronic mid low back pain. a. Controlled. PLAN: Continue present care. Job ID: [id number] MTDD
[2018-06-29] MEDS: cefTRIAXone\\ROCEPHIN 2 GM in Sodium Chloride 0.9% 100 ML IVPB SCH (16:48)
[2018-06-30] MEDS: Promethazine HCl 25 MG/ML VIAL SLOW IVP PRN ×3 (05:12→20:36)
[2018-06-30] MEDS: clonazePAM 0.5 MG TAB PO SCH ×3 (09:35→20:32)
[2018-06-30] MEDS: Baclofen 10 MG TAB PO SCH ×3 (09:36→20:31)
[2018-06-30] MEDS: Enoxaparin Sodium 40 MG/0.4 ML SYRINGE SC SCH (09:36)
[2018-06-30] MEDS: Gabapentin 300 MG CAP PO SCH ×3 (09:36→20:32)
[2018-06-30] MEDS: cefTRIAXone\\ROCEPHIN 2 GM in Sodium Chloride 0.9% 100 ML IVPB SCH (15:59)
[2018-07-01] MEDS: Promethazine HCl 25 MG/ML VIAL SLOW IVP PRN ×4 (02:53→23:06)
[2018-07-01] MEDS: Baclofen 10 MG TAB PO SCH ×3 (08:50→21:43)
[2018-07-01] MEDS: Gabapentin 300 MG CAP PO SCH ×3 (08:51→21:42)
[2018-07-01] MEDS: clonazePAM 0.5 MG TAB PO SCH ×3 (08:54→21:43)
[2018-07-01] MEDS: Enoxaparin Sodium 40 MG/0.4 ML SYRINGE SC SCH (08:55)
[2018-07-01] MEDS: cefTRIAXone\\ROCEPHIN 2 GM in Sodium Chloride 0.9% 100 ML IVPB SCH (16:44)
[2018-07-02] MEDS: HYDROcodone/Acetaminophen 10/325 mg Tablet PO PRN (04:10)
[2018-07-02] MEDS: Promethazine HCl 25 MG/ML VIAL SLOW IVP PRN ×3 (05:52→21:15)
[2018-07-02] MEDS: clonazePAM 0.5 MG TAB PO SCH ×3 (09:14→19:59)
[2018-07-02] MEDS: Enoxaparin Sodium 40 MG/0.4 ML SYRINGE SC SCH (09:15)
[2018-07-02] MEDS: Gabapentin 300 MG CAP PO SCH ×3 (09:15→19:59)
[2018-07-02] MEDS: Baclofen 10 MG TAB PO SCH ×3 (09:15→19:59)
[2018-07-02] MEDS: cefTRIAXone\\ROCEPHIN 2 GM in Sodium Chloride 0.9% 100 ML IVPB SCH (16:26)
[2018-07-03] MEDS: Promethazine HCl 25 MG/ML VIAL SLOW IVP PRN ×3 (03:39→18:07)
[2018-07-03] MEDS: clonazePAM 1 MG TAB PO SCH ×3 (08:58→20:35)
[2018-07-03] MEDS: Baclofen 10 MG TAB PO SCH ×3 (08:58→20:35)
[2018-07-03] MEDS: Gabapentin 300 MG CAP PO SCH ×3 (08:58→20:35)
[2018-07-03] MEDS: Enoxaparin Sodium 40 MG/0.4 ML SYRINGE SC SCH (08:58)
--- NOTE | 2018-07-03 10:46 | PRG ---
DATE OF SERVICE: 07/03/2018 SUBJECTIVE: The patient says he is doing fine. He had no complaints this morning. OBJECTIVE: GENERAL: The patient lying in bed in a prone position. He is alert and in no distress. VITAL SIGNS: Show a temperature of 98.5, pulse 96, respirations 20, O2 saturation 98%, and blood pressure 156/86. LUNGS: Clear. HEART: Regular rate. ASSESSMENT: 1. Urinary tract infection/pyelonephritis. a. On a 28-day course of IV Rocephin as of 06/10/2018 that was started on 06/07/2018. b. Doing well on day 27 of 28-day course of IV Rocephin as of 07/03/2018. 2. Paraplegia. 3. Neurogenic bladder. a. Managed with intermittent catheterization. 4. Chronic hepatitis C. a. The patient has opted for no treatment. Concern treatment would cause immunosuppression and increase risk of infection. b. Complicated by mild elevation of liver enzymes. 5. Chronic left thoracic neuropathy. a. Controlled. 6. Chronic mid low back pain. a. Controlled. PLAN: The patient will complete his IV antibiotics tomorrow and then will be placed on oral antibiotics. Job ID: [id number] MTDD
[2018-07-03 16:47] VITALS: BMI 32.7
[2018-07-03] MEDS: cefTRIAXone\\ROCEPHIN 2 GM in Sodium Chloride 0.9% 100 ML IVPB SCH (17:04)
[2018-07-04] MEDS: Promethazine HCl 25 MG/ML VIAL SLOW IVP PRN ×4 (01:09→19:33)
[2018-07-04] MEDS: Baclofen 10 MG TAB PO SCH ×3 (08:02→20:03)
[2018-07-04] MEDS: Gabapentin 300 MG CAP PO SCH ×3 (08:02→20:02)
[2018-07-04] MEDS: clonazePAM 1 MG TAB PO SCH ×3 (08:02→20:02)
[2018-07-04] MEDS: HYDROcodone/Acetaminophen 10/325 mg Tablet PO PRN ×2 (08:02→15:26)
[2018-07-04] MEDS: Enoxaparin Sodium 40 MG/0.4 ML SYRINGE SC SCH (08:04)
[2018-07-04] MEDS: cefTRIAXone\\ROCEPHIN 2 GM in Sodium Chloride 0.9% 100 ML IVPB SCH (16:23)
[2018-07-05] MEDS: Promethazine HCl 25 MG/ML VIAL SLOW IVP PRN ×2 (02:59→09:55)
[2018-07-05 07:09] VITALS: BP 140/73; TEMP 97.7
--- NOTE | 2018-07-05 07:13 | PRG ---
DATE OF SERVICE: 07/04/2018 SUBJECTIVE: The patient said he is doing fine. He had a good night. He is having no problems this morning. OBJECTIVE: GENERAL: The patient lying in bed. He is alert, talkative, appears comfortable, and in no distress. VITAL SIGNS: His temperature is 98.1; pulse 98; respirations 18; O2 saturation 97% on room air; blood pressure 153/78, last evening 123/67. LUNGS: Clear. HEART: Regular rate. ASSESSMENT: 1. Urinary tract infection/pyelonephritis. a. On a 28-day course of IV Rocephin as of 06/10/2018 that was started on 06/07/2018. b. Doing well on day 28 of 28-day course of IV Rocephin as of 07/04/2018. 2. Paraplegia. 3. Neurogenic bladder. a. Managed with intermittent catheterization. 4. Chronic hepatitis C. a. The patient has opted for no treatment. Concern treatment would cause immunosuppression and increase risk of infection. b. Complicated by mild elevation of liver enzymes. 5. Chronic left thoracic neuropathy. a. Controlled. 6. Chronic mid low back pain. a. Controlled. PLAN: The patient will receive his last dose of IV Rocephin late this afternoon. Plans are to discharge him tomorrow and he will be placed on a low-dose suppressive dose of single dose Septra. Job ID: [id number] MTDD
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
[2018-07-05] MEDS: HYDROcodone/Acetaminophen 10/325 mg Tablet PO PRN (08:38)
[2018-07-05] MEDS: Gabapentin 300 MG CAP PO SCH (08:39)
[2018-07-05] MEDS: clonazePAM 1 MG TAB PO SCH (08:39)
[2018-07-05] MEDS: Enoxaparin Sodium 40 MG/0.4 ML SYRINGE SC SCH (08:39)
[2018-07-05] MEDS: Baclofen 10 MG TAB PO SCH (08:40)
== END 2018-07-05 15:26 | disposition home or self-care (01) | DRG 690 ==
LOC: MADMS 15:00
PROVIDERS: ADMIT Family Medicine; ATTEND Family Medicine
DX: N12 Tubulo-interstitial nephritis, not specified as acute or chronic (principal); G82.20 Paraplegia, unspecified; N31.9 Neuromuscular dysfunction of bladder, unspecified; G89.29 Other chronic pain; B18.2 Chronic viral hepatitis C; M54.5 Low back pain; G62.9 Polyneuropathy, unspecified; S24.104S Unspecified injury at T11-T12 level of thoracic spinal cord, sequela; Z88.1 Allergy status to other antibiotic agents; Z88.8 Allergy status to other drugs, medicaments and biological substances; Z90.5 Acquired absence of kidney; Z90.49 Acquired absence of other specified parts of digestive tract
CPT/HCPCS: 36415; 80053; 85025; J0696; J1650; J2270; J2550; J3490

== ENCOUNTER 2018-07-24 09:41 | Emergency (ER) | payer MEDICARE, MEDICAID ==
[~2018-07-24 09:41] MED LIST changes: -Sodium Chloride 0.9% 1,000 ML BAG ONE; +Sodium Chloride 0.9% 100 ML BAG ONE
[2018-07-24 10:36] LABS: #Basophils 0.1 thou/uL (0.0-0.2); #Eosinphils 0.2 thou/uL (0.0-0.7); #Lymphocytes 3.8 thou/uL (1.20-3.40); #Monocytes 0.8 thou/uL (0.11-0.59); #Neutrophils 5.1 thou/uL (1.40-6.50); %Basophils 1.4 % (0.0-1.0); %Eosinophils 1.7 % (0.0-10.0); %Lymphocytes 37.7 % (21.0-51.0); %Monocytes 8.4 % (0.0-10.0); %Neutrophils 50.8 % (42.0-75.0); Hemoglobin 14.2 g/dL (14.0-18.0); Mean Corpuscular HGB CONC 32.8 g/dL (32.0-36.0); Mean Corpuscular Hemoglobin 31.4 pg (27.0-31.0); Mean Corpuscular Volume 95.8 fL (78.0-98.0); Mean Platelet Volume 6.5 fL (7.4-10.4); Platelet Count 202 thou/uL (130-400); Red Blood Cell (RBC) Count 4.51 mill/uL (4.70-6.10)
[2018-07-24 10:51] LABS: ALT (SGPT) 85 U/L (8-55); AST (SGOT) 94 U/L (5-34); Albumin 3.7 g/dL (3.5-5.0); Alkaline Phosphatase 111 U/L (40-150); Anion Gap 14 mmol/L (10-20); BUN (Urea Nitrogen) 21 mg/dL (8.9-20.6); Bilirubin, Total 1.1 mg/dL (0.2-1.2); Calc. Creatinine Clearance 0 mL/min (70-130); Carbon Dioxide 21 mmol/L (22-29); Chloride 108 mmol/L (98-107); Estimated GFR-MDRD Greater than 90; Globulin 4.2 g/dL (2.4-3.5); Glucose 105 mg/dL (70-105); Potassium 3.7 mmol/L (3.5-5.1); Protein, Total 7.9 g/dL (6.0-8.3); Sodium 139 mmol/L (136-145)
[2018-07-24] MEDS ORDERED: Meropenem 1 GM VIAL ONE (10:51)
[2018-07-24] MEDS ORDERED: Vancomycin HCl 500 MG VIAL ONE (10:51)
[2018-07-24] MEDS ORDERED: Sodium Chloride 0.9% 1,000 ML ONE (10:51)
[2018-07-24 10:56] LABS: Bilirubin Negative (Negative); Blood, Urine Moderate (Negative); Glucose, Urine (Dipstick) Negative (Negative); Leukocyte Negative (Negative); Nitrite Positive (Negative); Protein, Urine (Dipstick) 30 mg/dL (Neg-Trace); Specific Gravity, Urine 1.025 (1.005-1.030)
[2018-07-24 11:08] LABS: Clarity Cloudy (Clear)
[2018-07-24 11:19] LABS: Bacteria/HPF Rare-Few HPF (None Seen); Squamous Epithelial 0-3 HPF (0-3); WBC/HPF 21-50 HPF (0-3)
[2018-07-24] MEDS ORDERED: Morphine 4 MG/ML VIAL ONE (11:33)
[2018-07-24] MEDS ORDERED: Prochlorperazine 10 MG/2 ML VIAL ONE (11:34)
== END 2018-07-24 13:30 | disposition short-term general hospital (02) ==
LOC: MADERS 09:41
DX: N12 Tubulo-interstitial nephritis, not specified as acute or chronic (principal); F41.9 Anxiety disorder, unspecified; F32.9 Major depressive disorder, single episode, unspecified; F17.210 Nicotine dependence, cigarettes, uncomplicated; Z79.899 Other long term (current) drug therapy
CPT/HCPCS: 36415; 51701; 80053; 81003; 81015; 83605; 85025; 87040; 87077; 87086; 87186; 96365; 96367; 96375; J0780; J2185; J2270; J3370; J3490; J7050

== ENCOUNTER 2018-07-28 16:01 | Inpatient (IN) | payer MEDICARE, MEDICAID ==
[2018-07-28] MEDS ORDERED: Guaifenesin DM 100-10/5 ML UDCUP PO PRN (18:06)
[2018-07-28] MEDS ORDERED: Senokot 8.6 MG TAB PO PRN (18:06)
[2018-07-28] MEDS ORDERED: Morphine 4 MG/ML VIAL SLOW IVP PRN (18:07)
[2018-07-28] MEDS: Promethazine HCl 25 MG/ML VIAL SLOW IVP PRN (19:26)
[2018-07-28] MEDS: HYDROcodone/Acetaminophen 10/325 mg Tablet PO PRN (19:27)
[2018-07-28] MEDS: clonazePAM 0.5 MG TAB PO SCH (20:26)
[2018-07-28] MEDS: Gabapentin 300 MG CAP PO SCH (20:27)
[2018-07-28] MEDS: Baclofen 10 MG TAB PO SCH (20:27)
[2018-07-28] MEDS: Meropenem 1 GM in Sodium Chloride 0.9% 100 ML IVPB SCH (23:24)
[2018-07-29] MEDS: HYDROcodone/Acetaminophen 10/325 mg Tablet PO PRN ×2 (08:54→17:37)
[2018-07-29] MEDS: Saccharomyces boulardii 250 MG CAP PO SCH (08:56)
[2018-07-29] MEDS: clonazePAM 0.5 MG TAB PO SCH ×3 (08:56→20:01)
[2018-07-29] MEDS: Baclofen 10 MG TAB PO SCH ×3 (08:56→20:01)
[2018-07-29] MEDS: Enoxaparin Sodium 40 MG/0.4 ML SYRINGE SC SCH (08:57)
[2018-07-29] MEDS: Meropenem 1 GM in Sodium Chloride 0.9% 100 ML IVPB SCH ×3 (08:57→23:12)
[2018-07-29] MEDS: Gabapentin 300 MG CAP PO SCH ×3 (08:58→20:01)
[2018-07-29] MEDS ORDERED: Morphine 4 MG/ML VIAL SLOW IVP PRN (11:28)
[2018-07-29] MEDS: Promethazine HCl 25 MG/ML VIAL SLOW IVP PRN ×2 (11:30→23:12)
[2018-07-29] MEDS: Morphine 4 MG/ML VIAL SLOW IVP PRN (19:41)
[2018-07-30] MEDS: Morphine 4 MG/ML VIAL SLOW IVP PRN ×2 (05:04→17:45)
[2018-07-30] MEDS: clonazePAM 0.5 MG TAB PO SCH ×3 (08:18→20:27)
[2018-07-30] MEDS: Promethazine HCl 25 MG/ML VIAL SLOW IVP PRN ×3 (08:18→23:25)
[2018-07-30] MEDS: Gabapentin 300 MG CAP PO SCH ×3 (08:18→20:32)
[2018-07-30] MEDS: Enoxaparin Sodium 40 MG/0.4 ML SYRINGE SC SCH (08:19)
[2018-07-30] MEDS: Saccharomyces boulardii 250 MG CAP PO SCH (08:19)
[2018-07-30] MEDS: Baclofen 10 MG TAB PO SCH ×3 (08:19→20:32)
[2018-07-30] MEDS: Meropenem 1 GM in Sodium Chloride 0.9% 100 ML IVPB SCH ×3 (08:19→23:24)
[2018-07-30] MEDS: HYDROcodone/Acetaminophen 10/325 mg Tablet PO PRN ×2 (13:09→20:28)
[2018-07-31] MEDS: Morphine 4 MG/ML VIAL SLOW IVP PRN ×2 (01:52→11:38)
[2018-07-31 06:09] LABS: #Basophils 0.1 thou/uL (0.0-0.2); #Eosinphils 0.3 thou/uL (0.0-0.7); #Lymphocytes 3.1 thou/uL (1.20-3.40); #Monocytes 0.8 thou/uL (0.11-0.59); #Neutrophils 2.1 thou/uL (1.40-6.50); %Eosinophils 5.1 % (0.0-10.0); %Lymphocytes 48.1 % (21.0-51.0); %Monocytes 12.3 % (0.0-10.0); %Neutrophils 32.6 % (42.0-75.0); Mean Corpuscular HGB CONC 32.8 g/dL (32.0-36.0); Mean Corpuscular Hemoglobin 31.2 pg (27.0-31.0); Mean Corpuscular Volume 95.1 fL (78.0-98.0); Mean Platelet Volume 5.6 fL (7.4-10.4); Platelet Count 225 thou/uL (130-400); RBC Distribution Width 11.8 % (11.5-14.5); Red Blood Cell (RBC) Count 4.18 mill/uL (4.70-6.10); White Blood Cell (WBC) Count 6.5 thou/uL (4.8-10.8)
[2018-07-31 06:23] LABS: ALT (SGPT) 83 U/L (8-55); AST (SGOT) 98 U/L (5-34); Albumin 2.9 g/dL (3.5-5.0); Alkaline Phosphatase 104 U/L (40-150); Anion Gap 9 mmol/L (10-20); BUN (Urea Nitrogen) 20 mg/dL (8.9-20.6); Bilirubin, Total 0.5 mg/dL (0.2-1.2); Calc. Creatinine Clearance 214 mL/min (70-130); Calcium 8.3 mg/dL (7.8-10.44); Carbon Dioxide 26 mmol/L (22-29); Chloride 111 mmol/L (98-107); Estimated GFR-MDRD Greater than 90; Globulin 3.9 g/dL (2.4-3.5); Glucose 104 mg/dL (70-105); Potassium 4.4 mmol/L (3.5-5.1); Protein, Total 6.8 g/dL (6.0-8.3); Sodium 142 mmol/L (136-145)
[2018-07-31] MEDS: Meropenem 1 GM in Sodium Chloride 0.9% 100 ML IVPB SCH ×2 (08:21→16:01)
[2018-07-31] MEDS: clonazePAM 0.5 MG TAB PO SCH ×3 (08:22→21:08)
[2018-07-31] MEDS: Baclofen 10 MG TAB PO SCH ×3 (08:22→21:08)
[2018-07-31] MEDS: Enoxaparin Sodium 40 MG/0.4 ML SYRINGE SC SCH (08:22)
[2018-07-31] MEDS: Promethazine HCl 25 MG/ML VIAL SLOW IVP PRN ×2 (08:22→16:00)
[2018-07-31] MEDS: Gabapentin 300 MG CAP PO SCH ×3 (08:22→21:08)
[2018-07-31] MEDS: Saccharomyces boulardii 250 MG CAP PO SCH (08:22)
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
--- NOTE | 2018-07-31 10:46 | PRG ---
DATE OF SERVICE: 07/31/2018 SUBJECTIVE: He is feeling fine. He had no complaint. He said everything is going just fine. His back is feeling better. OBJECTIVE: GENERAL: The patient is alert, smiling, appears comfortable, in no distress. VITAL SIGNS: His temp 97.3, pulse 92, respirations 18, O2 saturation 96% on room air, and blood pressure 132/73. LUNGS: Clear. HEART: Regular rate. LABORATORY DATA: Shows H and H of 13 and 39.3, white cell count 6500 with 33% segs, 48% lymphocytes, and platelet count of 225,000. Sodium 142, potassium 4.4, BUN 20, creatinine 0.63, AST 98, ALT 83, albumin 2.9. ASSESSMENT: 1. Recurrent urinary tract infection. a. Doing well. Remains afebrile. Flank pain improved. b. On four-week course of IV meropenem. 2. Paraplegic. PLAN: Continue present care. Job ID: [id number]
[2018-07-31 13:50] LABS: CRP (Inflammatory) 0.56 mg/dL (= or < 0.5)
[2018-08-01] MEDS: Promethazine HCl 25 MG/ML VIAL SLOW IVP PRN ×3 (00:32→16:39)
[2018-08-01] MEDS: Meropenem 1 GM in Sodium Chloride 0.9% 100 ML IVPB SCH ×3 (00:33→15:27)
[2018-08-01] MEDS: Morphine 4 MG/ML VIAL SLOW IVP PRN (05:28)
[2018-08-01] MEDS: Enoxaparin Sodium 40 MG/0.4 ML SYRINGE SC SCH (08:58)
[2018-08-01] MEDS: clonazePAM 0.5 MG TAB PO SCH ×3 (08:58→20:28)
[2018-08-01] MEDS: Gabapentin 300 MG CAP PO SCH ×3 (08:58→20:28)
[2018-08-01] MEDS: Saccharomyces boulardii 250 MG CAP PO SCH (08:58)
[2018-08-01] MEDS: Baclofen 10 MG TAB PO SCH ×3 (08:59→20:28)
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
[2018-08-02] MEDS: Promethazine HCl 25 MG/ML VIAL SLOW IVP PRN ×4 (00:25→23:50)
[2018-08-02] MEDS: Meropenem 1 GM in Sodium Chloride 0.9% 100 ML IVPB SCH ×4 (00:26→23:49)
[2018-08-02] MEDS: HYDROcodone/Acetaminophen 10/325 mg Tablet PO PRN (00:26)
[2018-08-02] MEDS: Morphine 4 MG/ML VIAL SLOW IVP PRN ×2 (05:16→13:27)
[2018-08-02] MEDS: Saccharomyces boulardii 250 MG CAP PO SCH (08:53)
[2018-08-02] MEDS: clonazePAM 0.5 MG TAB PO SCH ×3 (08:53→20:51)
[2018-08-02] MEDS: Enoxaparin Sodium 40 MG/0.4 ML SYRINGE SC SCH (08:54)
[2018-08-02] MEDS: Gabapentin 300 MG CAP PO SCH ×3 (08:54→20:52)
[2018-08-02] MEDS: Baclofen 10 MG TAB PO SCH ×3 (08:55→20:51)
[2018-08-03] MEDS: HYDROcodone/Acetaminophen 10/325 mg Tablet PO PRN (00:41)
[2018-08-03] MEDS: Loperamide HCl 2 MG CAP PO PRN (04:29)
[2018-08-03] MEDS: Morphine 4 MG/ML VIAL SLOW IVP PRN ×2 (04:29→12:40)
[2018-08-03] MEDS: clonazePAM 0.5 MG TAB PO SCH ×3 (08:38→21:13)
[2018-08-03] MEDS: Meropenem 1 GM in Sodium Chloride 0.9% 100 ML IVPB SCH ×2 (08:38→16:37)
[2018-08-03] MEDS: Enoxaparin Sodium 40 MG/0.4 ML SYRINGE SC SCH (08:38)
[2018-08-03] MEDS: Baclofen 10 MG TAB PO SCH ×3 (08:39→21:13)
[2018-08-03] MEDS: Saccharomyces boulardii 250 MG CAP PO SCH (08:39)
[2018-08-03] MEDS: Gabapentin 300 MG CAP PO SCH ×3 (08:39→21:13)
[2018-08-03] MEDS: Promethazine HCl 25 MG/ML VIAL SLOW IVP PRN ×2 (08:39→16:37)
[2018-08-04] MEDS: Meropenem 1 GM in Sodium Chloride 0.9% 100 ML IVPB SCH ×3 (00:28→15:50)
[2018-08-04] MEDS: HYDROcodone/Acetaminophen 10/325 mg Tablet PO PRN ×3 (00:29→15:49)
[2018-08-04] MEDS: Promethazine HCl 25 MG/ML VIAL SLOW IVP PRN ×3 (00:30→15:50)
[2018-08-04] MEDS: Baclofen 10 MG TAB PO SCH ×3 (08:11→21:05)
[2018-08-04] MEDS: Enoxaparin Sodium 40 MG/0.4 ML SYRINGE SC SCH (08:12)
[2018-08-04] MEDS: Gabapentin 300 MG CAP PO SCH ×3 (08:12→21:05)
[2018-08-04] MEDS: Saccharomyces boulardii 250 MG CAP PO SCH (08:12)
[2018-08-04] MEDS: clonazePAM 0.5 MG TAB PO SCH ×3 (08:12→21:04)
[2018-08-04] MEDS: Morphine 4 MG/ML VIAL SLOW IVP PRN (10:54)
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
[2018-08-05] MEDS: Meropenem 1 GM in Sodium Chloride 0.9% 100 ML IVPB SCH ×3 (00:22→16:11)
[2018-08-05] MEDS: HYDROcodone/Acetaminophen 10/325 mg Tablet PO PRN ×2 (00:23→08:28)
[2018-08-05] MEDS: Promethazine HCl 25 MG/ML VIAL SLOW IVP PRN ×3 (00:25→16:19)
[2018-08-05] MEDS: Saccharomyces boulardii 250 MG CAP PO SCH (08:29)
[2018-08-05] MEDS: clonazePAM 0.5 MG TAB PO SCH ×3 (08:30→20:35)
[2018-08-05] MEDS: Enoxaparin Sodium 40 MG/0.4 ML SYRINGE SC SCH (08:30)
[2018-08-05] MEDS: Baclofen 10 MG TAB PO SCH ×3 (08:30→20:35)
[2018-08-05] MEDS: Gabapentin 300 MG CAP PO SCH ×3 (08:30→20:35)
[2018-08-05] MEDS: Morphine 4 MG/ML VIAL SLOW IVP PRN (12:56)
[2018-08-05] MEDS ORDERED: Meropenem 1 GM VIAL ONE (15:00)
[2018-08-06] MEDS: Meropenem 1 GM in Sodium Chloride 0.9% 100 ML IVPB SCH ×3 (00:11→15:33)
[2018-08-06] MEDS: Promethazine HCl 25 MG/ML VIAL SLOW IVP PRN ×3 (00:12→15:33)
[2018-08-06] MEDS: HYDROcodone/Acetaminophen 10/325 mg Tablet PO PRN ×2 (00:12→08:13)
[2018-08-06] MEDS: Enoxaparin Sodium 40 MG/0.4 ML SYRINGE SC SCH (08:12)
[2018-08-06] MEDS: Saccharomyces boulardii 250 MG CAP PO SCH (08:13)
[2018-08-06] MEDS: Gabapentin 300 MG CAP PO SCH ×3 (08:14→20:16)
[2018-08-06] MEDS: Baclofen 10 MG TAB PO SCH ×3 (08:14→20:17)
[2018-08-06] MEDS: clonazePAM 0.5 MG TAB PO SCH ×3 (08:14→20:16)
[2018-08-06] MEDS: Morphine 4 MG/ML VIAL SLOW IVP PRN (12:23)
[2018-08-07] MEDS: Meropenem 1 GM in Sodium Chloride 0.9% 100 ML IVPB SCH ×4 (00:16→23:23)
[2018-08-07] MEDS: Promethazine HCl 25 MG/ML VIAL SLOW IVP PRN ×3 (00:16→17:14)
[2018-08-07] MEDS: HYDROcodone/Acetaminophen 10/325 mg Tablet PO PRN (00:17)
[2018-08-07] MEDS: Morphine 4 MG/ML VIAL SLOW IVP PRN ×3 (03:12→23:24)
[2018-08-07 06:02] LABS: #Basophils 0.1 thou/uL (0.0-0.2); #Lymphocytes 2.5 thou/uL (1.20-3.40); #Monocytes 0.4 thou/uL (0.11-0.59); #Neutrophils 4.4 thou/uL (1.40-6.50); %Basophils 0.7 % (0.0-1.0); %Eosinophils 0.4 % (0.0-10.0); %Lymphocytes 33.3 % (21.0-51.0); %Monocytes 5.8 % (0.0-10.0); %Neutrophils 59.8 % (42.0-75.0); Hemoglobin 13.5 g/dL (14.0-18.0); Mean Corpuscular HGB CONC 32.2 g/dL (32.0-36.0); Mean Corpuscular Hemoglobin 30.9 pg (27.0-31.0); Mean Platelet Volume 6.1 fL (7.4-10.4); Platelet Count 216 thou/uL (130-400); RBC Distribution Width 11.6 % (11.5-14.5); Red Blood Cell (RBC) Count 4.36 mill/uL (4.70-6.10); White Blood Cell (WBC) Count 7.4 thou/uL (4.8-10.8)
[2018-08-07 06:22] LABS: ALT (SGPT) 79 U/L (8-55); AST (SGOT) 81 U/L (5-34); Albumin 3.1 g/dL (3.5-5.0); Alkaline Phosphatase 104 U/L (40-150); Anion Gap 13 mmol/L (10-20); BUN (Urea Nitrogen) 16 mg/dL (8.9-20.6); Bilirubin, Total 0.6 mg/dL (0.2-1.2); Calc. Creatinine Clearance 226 mL/min (70-130); Calcium 8.4 mg/dL (7.8-10.44); Carbon Dioxide 22 mmol/L (22-29); Chloride 108 mmol/L (98-107); Estimated GFR-MDRD Greater than 90; Globulin 4.1 g/dL (2.4-3.5); Glucose 119 mg/dL (70-105); Potassium 4.1 mmol/L (3.5-5.1); Protein, Total 7.2 g/dL (6.0-8.3); Sodium 139 mmol/L (136-145)
[2018-08-07] MEDS: Enoxaparin Sodium 40 MG/0.4 ML SYRINGE SC SCH (09:08)
[2018-08-07] MEDS: Gabapentin 300 MG CAP PO SCH ×3 (09:09→21:47)
[2018-08-07] MEDS: clonazePAM 0.5 MG TAB PO SCH ×3 (09:09→21:46)
[2018-08-07] MEDS: Baclofen 10 MG TAB PO SCH ×3 (09:09→21:47)
[2018-08-07] MEDS: Saccharomyces boulardii 250 MG CAP PO SCH (09:09)
[2018-08-07 12:05] LABS: CRP (Inflammatory) Less than 0.50 mg/dL (= or < 0.5)
[2018-08-08] MEDS: Promethazine HCl 25 MG/ML VIAL SLOW IVP PRN ×3 (00:17→16:55)
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
[2018-08-08] MEDS: Saccharomyces boulardii 250 MG CAP PO SCH (08:50)
[2018-08-08] MEDS: Gabapentin 300 MG CAP PO SCH ×3 (08:50→21:00)
[2018-08-08] MEDS: Baclofen 10 MG TAB PO SCH ×3 (08:50→21:00)
[2018-08-08] MEDS: clonazePAM 0.5 MG TAB PO SCH ×3 (08:50→21:00)
[2018-08-08] MEDS: Enoxaparin Sodium 40 MG/0.4 ML SYRINGE SC SCH (08:55)
[2018-08-08] MEDS: Meropenem 1 GM in Sodium Chloride 0.9% 100 ML IVPB SCH ×2 (08:57→16:54)
[2018-08-08] MEDS: Morphine 4 MG/ML VIAL SLOW IVP PRN (12:14)
[2018-08-09] MEDS: Meropenem 1 GM in Sodium Chloride 0.9% 100 ML IVPB SCH ×5 (00:18→15:46)
[2018-08-09] MEDS: Promethazine HCl 25 MG/ML VIAL SLOW IVP PRN ×3 (00:19→15:48)
[2018-08-09] MEDS: HYDROcodone/Acetaminophen 10/325 mg Tablet PO PRN ×2 (04:43→15:49)
[2018-08-09] MEDS: Baclofen 10 MG TAB PO SCH ×3 (08:16→20:20)
[2018-08-09] MEDS: Gabapentin 300 MG CAP PO SCH ×3 (08:16→20:21)
[2018-08-09] MEDS: clonazePAM 0.5 MG TAB PO SCH ×3 (08:16→20:20)
[2018-08-09] MEDS: Enoxaparin Sodium 40 MG/0.4 ML SYRINGE SC SCH (08:16)
[2018-08-09] MEDS: Saccharomyces boulardii 250 MG CAP PO SCH (08:16)
[2018-08-09] MEDS: Morphine 4 MG/ML VIAL SLOW IVP PRN ×2 (11:25→20:30)
[2018-08-09] MEDS ORDERED: Silver Sulfadiazine 1% Cream 50 GM JAR TOP SCH ×2 (16:00→16:50)
[2018-08-10] MEDS: Meropenem 1 GM in Sodium Chloride 0.9% 100 ML IVPB SCH ×4 (00:13→23:53)
[2018-08-10] MEDS: Promethazine HCl 25 MG/ML VIAL SLOW IVP PRN ×3 (00:17→15:06)
[2018-08-10] MEDS: Morphine 4 MG/ML VIAL SLOW IVP PRN ×2 (08:38→21:03)
[2018-08-10] MEDS: Baclofen 10 MG TAB PO SCH ×3 (08:46→21:02)
[2018-08-10] MEDS: Gabapentin 300 MG CAP PO SCH ×3 (08:46→21:02)
[2018-08-10] MEDS: Saccharomyces boulardii 250 MG CAP PO SCH (08:46)
[2018-08-10] MEDS: clonazePAM 0.5 MG TAB PO SCH ×3 (08:46→21:01)
[2018-08-10] MEDS: Silver Sulfadiazine 1% Cream 50 GM JAR TOP SCH ×2 (08:47→21:07)
[2018-08-10] MEDS: Enoxaparin Sodium 40 MG/0.4 ML SYRINGE SC SCH (08:47)
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
[2018-08-10] MEDS: HYDROcodone/Acetaminophen 10/325 mg Tablet PO PRN (13:52)
[2018-08-11] MEDS: HYDROcodone/Acetaminophen 10/325 mg Tablet PO PRN ×2 (04:12→15:30)
[2018-08-11] MEDS: Morphine 4 MG/ML VIAL SLOW IVP PRN ×2 (07:37→20:32)
[2018-08-11] MEDS: Meropenem 1 GM in Sodium Chloride 0.9% 100 ML IVPB SCH ×3 (08:45→23:53)
[2018-08-11] MEDS: Promethazine HCl 25 MG/ML VIAL SLOW IVP PRN ×3 (08:45→23:51)
[2018-08-11] MEDS: Baclofen 10 MG TAB PO SCH ×3 (08:46→22:03)
[2018-08-11] MEDS: Saccharomyces boulardii 250 MG CAP PO SCH (08:46)
[2018-08-11] MEDS: Gabapentin 300 MG CAP PO SCH ×3 (08:46→22:03)
[2018-08-11] MEDS: Enoxaparin Sodium 40 MG/0.4 ML SYRINGE SC SCH (08:46)
[2018-08-11] MEDS: Silver Sulfadiazine 1% Cream 50 GM JAR TOP SCH (08:47)
[2018-08-11] MEDS: clonazePAM 0.5 MG TAB PO SCH ×3 (08:48→22:03)
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
[2018-08-12] MEDS: Promethazine HCl 25 MG/ML VIAL SLOW IVP PRN ×2 (08:37→16:21)
[2018-08-12] MEDS: Enoxaparin Sodium 40 MG/0.4 ML SYRINGE SC SCH (08:38)
[2018-08-12] MEDS: Meropenem 1 GM in Sodium Chloride 0.9% 100 ML IVPB SCH ×2 (08:38→16:21)
[2018-08-12] MEDS: Gabapentin 300 MG CAP PO SCH ×3 (08:38→21:15)
[2018-08-12] MEDS: Baclofen 10 MG TAB PO SCH ×3 (08:38→21:15)
[2018-08-12] MEDS: Saccharomyces boulardii 250 MG CAP PO SCH (08:38)
[2018-08-12] MEDS: clonazePAM 0.5 MG TAB PO SCH ×3 (08:38→21:15)
[2018-08-12] MEDS: HYDROcodone/Acetaminophen 10/325 mg Tablet PO PRN ×2 (08:39→14:57)
[2018-08-12] MEDS: Silver Sulfadiazine 1% Cream 50 GM JAR TOP SCH (08:40)
[2018-08-12] MEDS: Loperamide HCl 2 MG CAP PO PRN (09:24)
[2018-08-12] MEDS: Morphine 4 MG/ML VIAL SLOW IVP PRN ×2 (12:18→20:22)
[2018-08-13] MEDS: Meropenem 1 GM in Sodium Chloride 0.9% 100 ML IVPB SCH ×3 (00:01→16:38)
[2018-08-13] MEDS: Promethazine HCl 25 MG/ML VIAL SLOW IVP PRN ×2 (00:06→16:36)
[2018-08-13] MEDS: Baclofen 10 MG TAB PO SCH ×3 (09:05→20:17)
[2018-08-13] MEDS: Gabapentin 300 MG CAP PO SCH ×3 (09:05→20:16)
[2018-08-13] MEDS: Saccharomyces boulardii 250 MG CAP PO SCH (09:05)
[2018-08-13] MEDS: clonazePAM 0.5 MG TAB PO SCH ×3 (09:05→20:16)
[2018-08-13] MEDS: Enoxaparin Sodium 40 MG/0.4 ML SYRINGE SC SCH (09:05)
[2018-08-13] MEDS: Silver Sulfadiazine 1% Cream 50 GM JAR TOP SCH (09:06)
[2018-08-13] MEDS: HYDROcodone/Acetaminophen 10/325 mg Tablet PO PRN ×2 (09:07→16:37)
[2018-08-13] MEDS: Loperamide HCl 2 MG CAP PO PRN (11:29)
[2018-08-13] MEDS: Morphine 4 MG/ML VIAL SLOW IVP PRN ×2 (12:20→20:19)
[2018-08-14] MEDS: Meropenem 1 GM in Sodium Chloride 0.9% 100 ML IVPB SCH ×3 (00:19→16:46)
[2018-08-14] MEDS: Promethazine HCl 25 MG/ML VIAL SLOW IVP PRN ×3 (00:19→16:46)
[2018-08-14 07:58] LABS: ALT (SGPT) 96 U/L (8-55); AST (SGOT) 120 U/L (5-34); Albumin 3.1 g/dL (3.5-5.0); Alkaline Phosphatase 104 U/L (40-150); Anion Gap 14 mmol/L (10-20); BUN (Urea Nitrogen) 18 mg/dL (8.9-20.6); Bilirubin, Total 0.8 mg/dL (0.2-1.2); Calc. Creatinine Clearance 230 mL/min (70-130); Calcium 8.2 mg/dL (7.8-10.44); Chloride 107 mmol/L (98-107); Estimated GFR-MDRD Greater than 90; Globulin 3.8 g/dL (2.4-3.5); Glucose 108 mg/dL (70-105); Protein, Total 6.9 g/dL (6.0-8.3); Sodium 139 mmol/L (136-145)
[2018-08-14 08:25] LABS: Carbon Dioxide 22 mmol/L (22-29)
[2018-08-14] MEDS: clonazePAM 0.5 MG TAB PO SCH ×3 (09:23→20:25)
[2018-08-14] MEDS: Baclofen 10 MG TAB PO SCH ×3 (09:23→20:25)
[2018-08-14] MEDS: Gabapentin 300 MG CAP PO SCH ×3 (09:23→20:25)
[2018-08-14] MEDS: Saccharomyces boulardii 250 MG CAP PO SCH (09:23)
[2018-08-14] MEDS: Enoxaparin Sodium 40 MG/0.4 ML SYRINGE SC SCH (09:24)
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
[2018-08-14] MEDS: HYDROcodone/Acetaminophen 10/325 mg Tablet PO PRN (10:55)
[2018-08-14] MEDS: Loperamide HCl 2 MG CAP PO PRN (10:55)
[2018-08-14] MEDS: Silver Sulfadiazine 1% Cream 50 GM JAR TOP SCH (10:56)
[2018-08-14 11:46] LABS: CRP (Inflammatory) Less than 0.50 mg/dL (= or < 0.5)
[2018-08-14] MEDS: Morphine 4 MG/ML VIAL SLOW IVP PRN ×2 (12:19→20:22)
[2018-08-15] MEDS: Meropenem 1 GM in Sodium Chloride 0.9% 100 ML IVPB SCH ×3 (00:36→15:28)
[2018-08-15] MEDS: Promethazine HCl 25 MG/ML VIAL SLOW IVP PRN ×2 (00:37→15:28)
[2018-08-15] MEDS: Baclofen 10 MG TAB PO SCH ×3 (08:11→20:17)
[2018-08-15] MEDS: clonazePAM 0.5 MG TAB PO SCH ×3 (08:11→20:17)
[2018-08-15] MEDS: Gabapentin 300 MG CAP PO SCH ×3 (08:11→20:17)
[2018-08-15] MEDS: HYDROcodone/Acetaminophen 10/325 mg Tablet PO PRN ×2 (08:11→15:29)
[2018-08-15] MEDS: Saccharomyces boulardii 250 MG CAP PO SCH (08:12)
[2018-08-15] MEDS: Enoxaparin Sodium 40 MG/0.4 ML SYRINGE SC SCH (08:19)
[2018-08-15] MEDS: Silver Sulfadiazine 1% Cream 50 GM JAR TOP SCH (11:00)
[2018-08-15] MEDS: Morphine 4 MG/ML VIAL SLOW IVP PRN ×2 (12:09→20:29)
[2018-08-15] MEDS ORDERED: Sodium Chloride Irrig Solution 250 ML BOT ONE (14:14)
[2018-08-16] MEDS: Meropenem 1 GM in Sodium Chloride 0.9% 100 ML IVPB SCH ×4 (00:13→15:59)
[2018-08-16] MEDS: Promethazine HCl 25 MG/ML VIAL SLOW IVP PRN ×3 (00:13→15:58)
[2018-08-16] MEDS: clonazePAM 0.5 MG TAB PO SCH ×2 (08:05→16:01)
[2018-08-16] MEDS: Baclofen 10 MG TAB PO SCH ×2 (08:06→16:01)
[2018-08-16] MEDS: Saccharomyces boulardii 250 MG CAP PO SCH (08:06)
[2018-08-16] MEDS: Gabapentin 300 MG CAP PO SCH ×2 (08:06→16:00)
[2018-08-16] MEDS: HYDROcodone/Acetaminophen 10/325 mg Tablet PO PRN ×2 (08:06→16:00)
[2018-08-16] MEDS: Silver Sulfadiazine 1% Cream 50 GM JAR TOP SCH (08:07)
[2018-08-16] MEDS: Enoxaparin Sodium 40 MG/0.4 ML SYRINGE SC SCH (08:08)
[2018-08-16] MEDS: Morphine 4 MG/ML VIAL SLOW IVP PRN (11:29)
[2018-08-16] MEDS: Loperamide HCl 2 MG CAP PO PRN (16:39)
[2018-08-16] MEDS ORDERED: Gabapentin 100 MG CAP ONE (22:32)
[2018-08-17] MEDS ORDERED: Meropenem 1 GM VIAL ONE (00:57)
[2018-08-17] MEDS: Promethazine HCl 25 MG/ML VIAL SLOW IVP PRN ×3 (08:30→23:07)
[2018-08-17] MEDS: Baclofen 10 MG TAB PO SCH ×4 (09:28→20:51)
[2018-08-17] MEDS: clonazePAM 0.5 MG TAB PO SCH ×4 (09:28→20:51)
[2018-08-17] MEDS: HYDROcodone/Acetaminophen 10/325 mg Tablet PO PRN (09:29)
[2018-08-17] MEDS: Gabapentin 300 MG CAP PO SCH ×5 (09:29→20:51)
[2018-08-17] MEDS: Saccharomyces boulardii 250 MG CAP PO SCH (09:29)
[2018-08-17] MEDS: Silver Sulfadiazine 1% Cream 50 GM JAR TOP SCH (09:38)
[2018-08-17] MEDS: Meropenem 1 GM in Sodium Chloride 0.9% 100 ML IVPB SCH ×3 (09:39→23:09)
[2018-08-17] MEDS: Enoxaparin Sodium 40 MG/0.4 ML SYRINGE SC SCH (09:40)
[2018-08-17] MEDS: Morphine 4 MG/ML VIAL SLOW IVP PRN ×2 (13:48→23:07)
[2018-08-17] MEDS: Loperamide HCl 2 MG CAP PO PRN (23:06)
[2018-08-18] MEDS: Meropenem 1 GM in Sodium Chloride 0.9% 100 ML IVPB SCH ×3 (07:47→23:26)
[2018-08-18] MEDS: Promethazine HCl 25 MG/ML VIAL SLOW IVP PRN ×3 (07:47→23:22)
[2018-08-18] MEDS: Baclofen 10 MG TAB PO SCH ×3 (09:44→21:08)
[2018-08-18] MEDS: clonazePAM 0.5 MG TAB PO SCH ×3 (09:44→21:08)
[2018-08-18] MEDS: Saccharomyces boulardii 250 MG CAP PO SCH (09:45)
[2018-08-18] MEDS: Gabapentin 300 MG CAP PO SCH ×3 (09:45→21:08)
[2018-08-18] MEDS: Silver Sulfadiazine 1% Cream 50 GM JAR TOP SCH (09:45)
[2018-08-18] MEDS: Enoxaparin Sodium 40 MG/0.4 ML SYRINGE SC SCH (09:45)
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
[2018-08-18] MEDS: Morphine 4 MG/ML VIAL SLOW IVP PRN ×2 (13:06→23:25)
[2018-08-18] MEDS: Loperamide HCl 2 MG CAP PO PRN (13:12)
[2018-08-19] MEDS: Meropenem 1 GM in Sodium Chloride 0.9% 100 ML IVPB SCH ×3 (08:24→23:53)
[2018-08-19] MEDS: Saccharomyces boulardii 250 MG CAP PO SCH ×2 (08:24→08:25)
[2018-08-19] MEDS: Promethazine HCl 25 MG/ML VIAL SLOW IVP PRN ×3 (08:25→23:52)
[2018-08-19] MEDS: HYDROcodone/Acetaminophen 10/325 mg Tablet PO PRN ×2 (08:25→15:09)
[2018-08-19] MEDS: Gabapentin 300 MG CAP PO SCH ×3 (08:26→20:18)
[2018-08-19] MEDS: Baclofen 10 MG TAB PO SCH ×3 (08:26→20:18)
[2018-08-19] MEDS: Enoxaparin Sodium 40 MG/0.4 ML SYRINGE SC SCH (08:26)
[2018-08-19] MEDS: clonazePAM 0.5 MG TAB PO SCH ×3 (08:26→20:18)
[2018-08-19] MEDS: Silver Sulfadiazine 1% Cream 50 GM JAR TOP SCH (08:27)
[2018-08-19] MEDS: Morphine 4 MG/ML VIAL SLOW IVP PRN ×2 (12:19→20:57)
[2018-08-20] MEDS: Meropenem 1 GM in Sodium Chloride 0.9% 100 ML IVPB SCH ×3 (08:22→23:08)
[2018-08-20] MEDS: Promethazine HCl 25 MG/ML VIAL SLOW IVP PRN ×3 (08:23→22:21)
[2018-08-20] MEDS: HYDROcodone/Acetaminophen 10/325 mg Tablet PO PRN ×2 (08:23→15:12)
[2018-08-20] MEDS: clonazePAM 0.5 MG TAB PO SCH ×3 (08:23→20:59)
[2018-08-20] MEDS: Enoxaparin Sodium 40 MG/0.4 ML SYRINGE SC SCH (08:24)
[2018-08-20] MEDS: Baclofen 10 MG TAB PO SCH ×3 (08:25→21:00)
[2018-08-20] MEDS: Gabapentin 300 MG CAP PO SCH ×4 (08:25→21:04)
[2018-08-20] MEDS: Saccharomyces boulardii 250 MG CAP PO SCH (08:25)
[2018-08-20] MEDS: Silver Sulfadiazine 1% Cream 50 GM JAR TOP SCH (08:26)
[2018-08-20] MEDS: Morphine 4 MG/ML VIAL SLOW IVP PRN ×2 (12:36→22:26)
[2018-08-21 06:04] LABS: #Basophils 0.1 thou/uL (0.0-0.2); #Eosinphils 0.5 thou/uL (0.0-0.7); #Lymphocytes 3.3 thou/uL (1.20-3.40); #Monocytes 0.7 thou/uL (0.11-0.59); #Neutrophils 2.3 thou/uL (1.40-6.50); %Basophils 1.9 % (0.0-1.0); %Lymphocytes 47.3 % (21.0-51.0); %Monocytes 10.5 % (0.0-10.0); %Neutrophils 33.3 % (42.0-75.0); Hemoglobin 12.2 g/dL (14.0-18.0); Mean Corpuscular HGB CONC 32.9 g/dL (32.0-36.0); Mean Corpuscular Hemoglobin 31.1 pg (27.0-31.0); Mean Corpuscular Volume 94.6 fL (78.0-98.0); Mean Platelet Volume 6.7 fL (7.4-10.4); Platelet Count 192 thou/uL (130-400); RBC Distribution Width 12.1 % (11.5-14.5); Red Blood Cell (RBC) Count 3.93 mill/uL (4.70-6.10); White Blood Cell (WBC) Count 6.9 thou/uL (4.8-10.8)
[2018-08-21 06:24] LABS: ALT (SGPT) 114 U/L (8-55); AST (SGOT) 136 U/L (5-34); Alkaline Phosphatase 102 U/L (40-150); Anion Gap 9 mmol/L (10-20); BUN (Urea Nitrogen) 22 mg/dL (8.9-20.6); Bilirubin, Total 0.6 mg/dL (0.2-1.2); Calc. Creatinine Clearance 231 mL/min (70-130); Carbon Dioxide 26 mmol/L (22-29); Chloride 109 mmol/L (98-107); Estimated GFR-MDRD Greater than 90; Globulin 3.7 g/dL (2.4-3.5); Glucose 103 mg/dL (70-105); Potassium 4.1 mmol/L (3.5-5.1); Protein, Total 6.7 g/dL (6.0-8.3); Sodium 140 mmol/L (136-145)
[2018-08-21] MEDS: Promethazine HCl 25 MG/ML VIAL SLOW IVP PRN ×3 (07:48→23:32)
[2018-08-21] MEDS: Meropenem 1 GM in Sodium Chloride 0.9% 100 ML IVPB SCH ×3 (07:48→23:24)
[2018-08-21] MEDS: clonazePAM 0.5 MG TAB PO SCH ×3 (08:35→20:53)
[2018-08-21] MEDS: Enoxaparin Sodium 40 MG/0.4 ML SYRINGE SC SCH (08:36)
[2018-08-21] MEDS: Silver Sulfadiazine 1% Cream 50 GM JAR TOP SCH (08:36)
[2018-08-21] MEDS: Baclofen 10 MG TAB PO SCH ×3 (08:36→20:52)
[2018-08-21] MEDS: Gabapentin 300 MG CAP PO SCH ×3 (08:36→20:53)
[2018-08-21] MEDS: Saccharomyces boulardii 250 MG CAP PO SCH (08:36)
[2018-08-21] MEDS: Morphine 4 MG/ML VIAL SLOW IVP PRN (12:07)
[2018-08-21 16:48] LABS: CRP (Inflammatory) Less than 0.50 mg/dL (= or < 0.5)
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
[2018-08-22] MEDS: Morphine 4 MG/ML VIAL SLOW IVP PRN ×3 (00:07→20:44)
[2018-08-22] MEDS: Promethazine HCl 25 MG/ML VIAL SLOW IVP PRN ×2 (08:24→16:01)
[2018-08-22] MEDS: clonazePAM 0.5 MG TAB PO SCH ×3 (08:24→20:31)
[2018-08-22] MEDS: Saccharomyces boulardii 250 MG CAP PO SCH (08:25)
[2018-08-22] MEDS: Gabapentin 300 MG CAP PO SCH ×3 (08:25→20:31)
[2018-08-22] MEDS: Baclofen 10 MG TAB PO SCH ×3 (08:25→20:31)
[2018-08-22] MEDS: HYDROcodone/Acetaminophen 10/325 mg Tablet PO PRN ×2 (08:25→16:01)
[2018-08-22] MEDS: Meropenem 1 GM in Sodium Chloride 0.9% 100 ML IVPB SCH ×2 (08:27→16:00)
[2018-08-22] MEDS: Silver Sulfadiazine 1% Cream 50 GM JAR TOP SCH (08:27)
[2018-08-22] MEDS: Enoxaparin Sodium 40 MG/0.4 ML SYRINGE SC SCH (08:27)
[2018-08-23] MEDS: HYDROcodone/Acetaminophen 10/325 mg Tablet PO PRN ×3 (00:12→15:39)
[2018-08-23] MEDS: Promethazine HCl 25 MG/ML VIAL SLOW IVP PRN ×3 (00:12→15:39)
[2018-08-23] MEDS: Meropenem 1 GM in Sodium Chloride 0.9% 100 ML IVPB SCH ×3 (00:13→15:38)
[2018-08-23] MEDS: Gabapentin 300 MG CAP PO SCH ×3 (08:24→20:55)
[2018-08-23] MEDS: Saccharomyces boulardii 250 MG CAP PO SCH (08:24)
[2018-08-23] MEDS: clonazePAM 0.5 MG TAB PO SCH ×3 (08:24→20:54)
[2018-08-23] MEDS: Baclofen 10 MG TAB PO SCH ×3 (08:24→20:54)
[2018-08-23] MEDS: Silver Sulfadiazine 1% Cream 50 GM JAR TOP SCH (08:25)
[2018-08-23] MEDS: Enoxaparin Sodium 40 MG/0.4 ML SYRINGE SC SCH (08:25)
[2018-08-23] MEDS: Morphine 4 MG/ML VIAL SLOW IVP PRN ×2 (12:13→21:02)
[2018-08-24] MEDS: Promethazine HCl 25 MG/ML VIAL SLOW IVP PRN ×3 (00:08→15:37)
[2018-08-24] MEDS: Meropenem 1 GM in Sodium Chloride 0.9% 100 ML IVPB SCH ×3 (00:10→15:38)
[2018-08-24] MEDS: HYDROcodone/Acetaminophen 10/325 mg Tablet PO PRN ×2 (08:24→21:59)
[2018-08-24] MEDS: clonazePAM 0.5 MG TAB PO SCH ×3 (08:25→21:43)
[2018-08-24] MEDS: Enoxaparin Sodium 40 MG/0.4 ML SYRINGE SC SCH (08:27)
[2018-08-24] MEDS: Baclofen 10 MG TAB PO SCH ×3 (08:30→21:43)
[2018-08-24] MEDS: Saccharomyces boulardii 250 MG CAP PO SCH (08:30)
[2018-08-24] MEDS: Gabapentin 300 MG CAP PO SCH ×3 (08:30→21:43)
[2018-08-24] MEDS: Silver Sulfadiazine 1% Cream 50 GM JAR TOP SCH (08:30)
[2018-08-24] MEDS ORDERED: Mag-Al Plus 1200 MG/1200 MG/120 MG/30 ML UDCUP PO PRN (09:52)
[2018-08-24] MEDS: Morphine 4 MG/ML VIAL SLOW IVP PRN (13:02)
[2018-08-25] MEDS: Meropenem 1 GM in Sodium Chloride 0.9% 100 ML IVPB SCH ×3 (00:09→15:47)
[2018-08-25] MEDS: Promethazine HCl 25 MG/ML VIAL SLOW IVP PRN ×3 (00:11→15:46)
[2018-08-25] MEDS: Morphine 4 MG/ML VIAL SLOW IVP PRN ×2 (04:53→16:32)
[2018-08-25] MEDS: Gabapentin 300 MG CAP PO SCH ×3 (09:56→21:22)
[2018-08-25] MEDS: Saccharomyces boulardii 250 MG CAP PO SCH (09:56)
[2018-08-25] MEDS: Baclofen 10 MG TAB PO SCH ×3 (09:56→21:22)
[2018-08-25] MEDS: clonazePAM 0.5 MG TAB PO SCH ×3 (09:56→21:22)
[2018-08-25] MEDS: Enoxaparin Sodium 40 MG/0.4 ML SYRINGE SC SCH (09:57)
[2018-08-25] MEDS: Silver Sulfadiazine 1% Cream 50 GM JAR TOP SCH (09:57)
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
[2018-08-26] MEDS: Morphine 4 MG/ML VIAL SLOW IVP PRN ×3 (00:25→23:20)
[2018-08-26] MEDS: Meropenem 1 GM in Sodium Chloride 0.9% 100 ML IVPB SCH ×4 (00:26→23:21)
[2018-08-26] MEDS: Promethazine HCl 25 MG/ML VIAL SLOW IVP PRN ×4 (00:27→23:19)
[2018-08-26] MEDS: HYDROcodone/Acetaminophen 10/325 mg Tablet PO PRN (09:42)
[2018-08-26] MEDS: Enoxaparin Sodium 40 MG/0.4 ML SYRINGE SC SCH (09:42)
[2018-08-26] MEDS: clonazePAM 0.5 MG TAB PO SCH ×3 (09:42→20:07)
[2018-08-26] MEDS: Gabapentin 300 MG CAP PO SCH ×3 (09:43→20:07)
[2018-08-26] MEDS: Saccharomyces boulardii 250 MG CAP PO SCH (09:43)
[2018-08-26] MEDS: Silver Sulfadiazine 1% Cream 50 GM JAR TOP SCH (09:43)
[2018-08-26] MEDS: Baclofen 10 MG TAB PO SCH ×3 (09:43→20:07)
[2018-08-27] MEDS: Meropenem 1 GM in Sodium Chloride 0.9% 100 ML IVPB SCH ×2 (09:21→16:13)
[2018-08-27] MEDS: HYDROcodone/Acetaminophen 10/325 mg Tablet PO PRN (09:22)
[2018-08-27] MEDS: Promethazine HCl 25 MG/ML VIAL SLOW IVP PRN ×2 (09:22→16:13)
[2018-08-27] MEDS: Gabapentin 300 MG CAP PO SCH ×3 (09:23→20:55)
[2018-08-27] MEDS: clonazePAM 0.5 MG TAB PO SCH ×3 (09:23→20:53)
[2018-08-27] MEDS: Enoxaparin Sodium 40 MG/0.4 ML SYRINGE SC SCH (09:23)
[2018-08-27] MEDS: Baclofen 10 MG TAB PO SCH ×3 (09:23→20:55)
[2018-08-27] MEDS: Silver Sulfadiazine 1% Cream 50 GM JAR TOP SCH (09:24)
[2018-08-27] MEDS: Saccharomyces boulardii 250 MG CAP PO SCH (09:24)
[2018-08-27] MEDS: Morphine 4 MG/ML VIAL SLOW IVP PRN ×2 (13:01→22:41)
[2018-08-28] MEDS: Meropenem 1 GM in Sodium Chloride 0.9% 100 ML IVPB SCH ×4 (00:03→23:57)
[2018-08-28] MEDS: Promethazine HCl 25 MG/ML VIAL SLOW IVP PRN ×3 (00:03→15:33)
[2018-08-28 06:16] LABS: #Basophils 0.1 thou/uL (0.0-0.2); #Eosinphils 0.4 thou/uL (0.0-0.7); #Lymphocytes 2.8 thou/uL (1.20-3.40); #Monocytes 0.6 thou/uL (0.11-0.59); #Neutrophils 1.9 thou/uL (1.40-6.50); %Basophils 1.8 % (0.0-1.0); %Eosinophils 6.8 % (0.0-10.0); %Lymphocytes 48.1 % (21.0-51.0); %Monocytes 10.3 % (0.0-10.0); %Neutrophils 33.1 % (42.0-75.0); Hemoglobin 12.9 g/dL (14.0-18.0); Mean Corpuscular HGB CONC 32.6 g/dL (32.0-36.0); Mean Corpuscular Hemoglobin 30.7 pg (27.0-31.0); Mean Corpuscular Volume 94.3 fL (78.0-98.0); Mean Platelet Volume 6.2 fL (7.4-10.4); Platelet Count 217 thou/uL (130-400); RBC Distribution Width 12.2 % (11.5-14.5); Red Blood Cell (RBC) Count 4.21 mill/uL (4.70-6.10); White Blood Cell (WBC) Count 5.7 thou/uL (4.8-10.8)
[2018-08-28 06:30] LABS: ALT (SGPT) 145 U/L (8-55); AST (SGOT) 167 U/L (5-34); Alkaline Phosphatase 109 U/L (40-150); Anion Gap 10 mmol/L (10-20); BUN (Urea Nitrogen) 15 mg/dL (8.9-20.6); Bilirubin, Total 0.8 mg/dL (0.2-1.2); Calc. Creatinine Clearance 228 mL/min (70-130); Calcium 8.2 mg/dL (7.8-10.44); Carbon Dioxide 26 mmol/L (22-29); Chloride 108 mmol/L (98-107); Estimated GFR-MDRD Greater than 90; Glucose 105 mg/dL (70-105); Potassium 4.3 mmol/L (3.5-5.1); Sodium 140 mmol/L (136-145)
[2018-08-28] MEDS: clonazePAM 0.5 MG TAB PO SCH ×3 (08:39→21:47)
[2018-08-28] MEDS: Gabapentin 300 MG CAP PO SCH ×3 (08:39→21:47)
[2018-08-28] MEDS: Baclofen 10 MG TAB PO SCH ×3 (08:39→21:47)
[2018-08-28] MEDS: Saccharomyces boulardii 250 MG CAP PO SCH (08:39)
[2018-08-28] MEDS: Silver Sulfadiazine 1% Cream 50 GM JAR TOP SCH (08:41)
[2018-08-28] MEDS: Enoxaparin Sodium 40 MG/0.4 ML SYRINGE SC SCH (08:41)
[2018-08-28] MEDS: HYDROcodone/Acetaminophen 10/325 mg Tablet PO PRN (10:58)
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
[2018-08-28] MEDS: Morphine 4 MG/ML VIAL SLOW IVP PRN ×2 (12:37→22:55)
[2018-08-29] MEDS: Promethazine HCl 25 MG/ML VIAL SLOW IVP PRN ×3 (00:46→15:42)
[2018-08-29] MEDS: Meropenem 1 GM in Sodium Chloride 0.9% 100 ML IVPB SCH ×2 (08:22→15:41)
[2018-08-29] MEDS: Enoxaparin Sodium 40 MG/0.4 ML SYRINGE SC SCH (08:23)
[2018-08-29] MEDS: Gabapentin 300 MG CAP PO SCH ×3 (08:23→21:03)
[2018-08-29] MEDS: Baclofen 10 MG TAB PO SCH ×3 (08:23→21:03)
[2018-08-29] MEDS: clonazePAM 0.5 MG TAB PO SCH ×3 (08:23→21:02)
[2018-08-29] MEDS: Saccharomyces boulardii 250 MG CAP PO SCH (08:23)
[2018-08-29] MEDS: Silver Sulfadiazine 1% Cream 50 GM JAR TOP SCH (08:24)
[2018-08-29] MEDS: HYDROcodone/Acetaminophen 10/325 mg Tablet PO PRN ×2 (08:25→21:08)
[2018-08-29 15:38] LABS: CRP (Inflammatory) Less than 0.50 mg/dL (= or < 0.5)
[2018-08-30] MEDS: Meropenem 1 GM in Sodium Chloride 0.9% 100 ML IVPB SCH ×3 (00:05→16:18)
[2018-08-30] MEDS: Promethazine HCl 25 MG/ML VIAL SLOW IVP PRN ×3 (00:11→16:20)
[2018-08-30 07:07] LABS: ALT (SGPT) 139 U/L (8-55); AST (SGOT) 157 U/L (5-34); Alkaline Phosphatase 99 U/L (40-150); Bilirubin, Direct 0.5 mg/dL (0.1-0.3); Bilirubin, Total 0.7 mg/dL (0.2-1.2); Protein, Total 6.8 g/dL (6.0-8.3)
[2018-08-30] MEDS: Gabapentin 300 MG CAP PO SCH ×3 (08:27→20:01)
[2018-08-30] MEDS: Saccharomyces boulardii 250 MG CAP PO SCH (08:27)
[2018-08-30] MEDS: Baclofen 10 MG TAB PO SCH ×3 (08:27→20:01)
[2018-08-30] MEDS: HYDROcodone/Acetaminophen 10/325 mg Tablet PO PRN ×2 (08:27→16:19)
[2018-08-30] MEDS: clonazePAM 0.5 MG TAB PO SCH ×3 (08:27→20:01)
[2018-08-30] MEDS: Enoxaparin Sodium 40 MG/0.4 ML SYRINGE SC SCH (08:28)
[2018-08-30] MEDS: Silver Sulfadiazine 1% Cream 50 GM JAR TOP SCH (08:35)
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
[2018-08-31] MEDS: Promethazine HCl 25 MG/ML VIAL SLOW IVP PRN ×3 (00:03→15:52)
[2018-08-31] MEDS: Meropenem 1 GM in Sodium Chloride 0.9% 100 ML IVPB SCH ×3 (00:03→15:52)
[2018-08-31] MEDS: HYDROcodone/Acetaminophen 10/325 mg Tablet PO PRN (08:06)
[2018-08-31] MEDS: Gabapentin 300 MG CAP PO SCH ×3 (08:06→21:30)
[2018-08-31] MEDS: clonazePAM 0.5 MG TAB PO SCH ×3 (08:07→21:42)
[2018-08-31] MEDS: Baclofen 10 MG TAB PO SCH ×3 (08:07→21:30)
[2018-08-31] MEDS: Silver Sulfadiazine 1% Cream 50 GM JAR TOP SCH (08:07)
[2018-08-31] MEDS: Saccharomyces boulardii 250 MG CAP PO SCH (08:07)
[2018-08-31] MEDS: Enoxaparin Sodium 40 MG/0.4 ML SYRINGE SC SCH (08:07)
[2018-09-01] MEDS: Meropenem 1 GM in Sodium Chloride 0.9% 100 ML IVPB SCH ×3 (00:07→16:36)
[2018-09-01] MEDS: Promethazine HCl 25 MG/ML VIAL SLOW IVP PRN ×3 (00:08→16:36)
[2018-09-01 06:56] LABS: ALT (SGPT) 135 U/L (8-55); AST (SGOT) 157 U/L (5-34); Albumin 3.1 g/dL (3.5-5.0); Alkaline Phosphatase 115 U/L (40-150); Bilirubin, Direct 0.4 mg/dL (0.1-0.3); Bilirubin, Total 0.7 mg/dL (0.2-1.2)
[2018-09-01] MEDS: clonazePAM 0.5 MG TAB PO SCH ×3 (09:22→20:41)
[2018-09-01] MEDS: Gabapentin 300 MG CAP PO SCH ×3 (09:22→20:41)
[2018-09-01] MEDS: Baclofen 10 MG TAB PO SCH ×3 (09:22→20:41)
[2018-09-01] MEDS: Enoxaparin Sodium 40 MG/0.4 ML SYRINGE SC SCH (09:22)
[2018-09-01] MEDS: Silver Sulfadiazine 1% Cream 50 GM JAR TOP SCH (09:23)
[2018-09-01] MEDS: Saccharomyces boulardii 250 MG CAP PO SCH (09:23)
[2018-09-01] MEDS: HYDROcodone/Acetaminophen 10/325 mg Tablet PO PRN (13:32)
[2018-09-02] MEDS: Promethazine HCl 25 MG/ML VIAL SLOW IVP PRN ×3 (00:24→15:33)
[2018-09-02] MEDS: Meropenem 1 GM in Sodium Chloride 0.9% 100 ML IVPB SCH ×4 (00:26→23:59)
[2018-09-02] MEDS: HYDROcodone/Acetaminophen 10/325 mg Tablet PO PRN ×2 (05:46→15:33)
[2018-09-02] MEDS: Saccharomyces boulardii 250 MG CAP PO SCH (08:25)
[2018-09-02] MEDS: clonazePAM 0.5 MG TAB PO SCH ×3 (08:25→20:58)
[2018-09-02] MEDS: Gabapentin 300 MG CAP PO SCH ×3 (08:25→20:58)
[2018-09-02] MEDS: Enoxaparin Sodium 40 MG/0.4 ML SYRINGE SC SCH (08:25)
[2018-09-02] MEDS: Silver Sulfadiazine 1% Cream 50 GM JAR TOP SCH (08:26)
[2018-09-02] MEDS: Baclofen 10 MG TAB PO SCH ×3 (08:26→20:58)
[2018-09-03] MEDS: Promethazine HCl 25 MG/ML VIAL SLOW IVP PRN ×4 (00:01→23:57)
[2018-09-03] MEDS: Gabapentin 300 MG CAP PO SCH ×3 (08:11→21:05)
[2018-09-03] MEDS: HYDROcodone/Acetaminophen 10/325 mg Tablet PO PRN (08:11)
[2018-09-03] MEDS: Baclofen 10 MG TAB PO SCH ×3 (08:11→21:05)
[2018-09-03] MEDS: clonazePAM 0.5 MG TAB PO SCH ×3 (08:11→21:05)
[2018-09-03] MEDS: Saccharomyces boulardii 250 MG CAP PO SCH (08:13)
[2018-09-03] MEDS: Silver Sulfadiazine 1% Cream 50 GM JAR TOP SCH (08:13)
[2018-09-03] MEDS: Enoxaparin Sodium 40 MG/0.4 ML SYRINGE SC SCH (08:13)
[2018-09-03] MEDS: Meropenem 1 GM in Sodium Chloride 0.9% 100 ML IVPB SCH ×3 (08:14→23:57)
[2018-09-04 06:13] LABS: Eosinophils 4 % (0-10); Lymphocytes 50 % (21-51); MDiff Complete? YES; Mean Corpuscular HGB CONC 33.3 g/dL (32.0-36.0); Mean Corpuscular Hemoglobin 30.8 pg (27.0-31.0); Mean Corpuscular Volume 92.7 fL (78.0-98.0); Mean Platelet Volume 6.3 fL (7.4-10.4); Monocytes 8 % (0-10); Neutrophil 30 % (42-75); Platelet Count 216 thou/uL (130-400); Platelet Morphology Comment Appears Adequate; RBC Distribution Width 11.9 % (11.5-14.5); RBC Morphology Normal; Reactive Lymphocytes 8 % (0-10); Red Blood Cell (RBC) Count 4.22 mill/uL (4.70-6.10); White Blood Cell (WBC) Count 6.2 thou/uL (4.8-10.8)
[2018-09-04 06:18] LABS: ALT (SGPT) 144 U/L (8-55); AST (SGOT) 183 U/L (5-34); Alkaline Phosphatase 101 U/L (40-150); Anion Gap 11 mmol/L (10-20); BUN (Urea Nitrogen) 20 mg/dL (8.9-20.6); Bilirubin, Total 0.8 mg/dL (0.2-1.2); CRP (Inflammatory) Less than 0.50 mg/dL (= or < 0.5); Calc. Creatinine Clearance 227 mL/min (70-130); Calcium 8.3 mg/dL (7.8-10.44); Carbon Dioxide 25 mmol/L (22-29); Chloride 110 mmol/L (98-107); Estimated GFR-MDRD Greater than 90; Globulin 3.9 g/dL (2.4-3.5); Glucose 81 mg/dL (70-105); Potassium 4.5 mmol/L (3.5-5.1); Protein, Total 6.9 g/dL (6.0-8.3); Sodium 141 mmol/L (136-145)
[2018-09-04] MEDS: Saccharomyces boulardii 250 MG CAP PO SCH (08:21)
[2018-09-04] MEDS: Gabapentin 300 MG CAP PO SCH ×3 (08:21→20:53)
[2018-09-04] MEDS: Promethazine HCl 25 MG/ML VIAL SLOW IVP PRN ×2 (08:21→16:51)
[2018-09-04] MEDS: Enoxaparin Sodium 40 MG/0.4 ML SYRINGE SC SCH (08:21)
[2018-09-04] MEDS: clonazePAM 0.5 MG TAB PO SCH ×3 (08:22→20:53)
[2018-09-04] MEDS: Meropenem 1 GM in Sodium Chloride 0.9% 100 ML IVPB SCH ×2 (08:22→16:52)
[2018-09-04] MEDS: Baclofen 10 MG TAB PO SCH ×3 (08:22→20:53)
[2018-09-04] MEDS: Silver Sulfadiazine 1% Cream 50 GM JAR TOP SCH (08:23)
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
[2018-09-04 13:56] VITALS: BMI 37.5
[2018-09-05] MEDS: Meropenem 1 GM in Sodium Chloride 0.9% 100 ML IVPB SCH (00:33)
[2018-09-05] MEDS: Promethazine HCl 25 MG/ML VIAL SLOW IVP PRN ×3 (00:34→15:48)
[2018-09-05 08:12] VITALS: BP 159/87; TEMP 98
[2018-09-05] MEDS: Baclofen 10 MG TAB PO SCH ×2 (08:30→15:38)
[2018-09-05] MEDS: Gabapentin 300 MG CAP PO SCH ×2 (08:30→15:38)
[2018-09-05] MEDS: clonazePAM 0.5 MG TAB PO SCH ×2 (08:30→15:38)
[2018-09-05] MEDS: Enoxaparin Sodium 40 MG/0.4 ML SYRINGE SC SCH (08:30)
[2018-09-05] MEDS: Silver Sulfadiazine 1% Cream 50 GM JAR TOP SCH (08:32)
[2018-09-05] MEDS: Saccharomyces boulardii 250 MG CAP PO SCH (08:37)
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
== END 2018-09-05 17:45 | disposition home or self-care (01) | DRG 690 ==
LOC: MADMS 16:01
PROVIDERS: ADMIT Family Medicine; ATTEND Family Medicine
DX: N12 Tubulo-interstitial nephritis, not specified as acute or chronic (principal); T21.34XA Burn of third degree of lower back, initial encounter; G82.20 Paraplegia, unspecified; B96.89 Other specified bacterial agents as the cause of diseases classified elsewhere; N31.9 Neuromuscular dysfunction of bladder, unspecified; B19.20 Unspecified viral hepatitis C without hepatic coma; G89.29 Other chronic pain; G43.909 Migraine, unspecified, not intractable, without status migrainosus; X08.8XXA Exposure to other specified smoke, fire and flames, initial encounter; L97.529 Non-pressure chronic ulcer of other part of left foot with unspecified severity; S24.104S Unspecified injury at T11-T12 level of thoracic spinal cord, sequela; V03.90XS Pedestrian on foot injured in collision with car, pick-up truck or van, unspecified whether traffic or nontraffic accident, sequela; Z98.1 Arthrodesis status; Z88.1 Allergy status to other antibiotic agents; Z90.5 Acquired absence of kidney
CPT/HCPCS: 36415; 80053; 80076; 85025; 86140; G0283-GP; J1650; J2185; J2270; J2550; J3490

== ENCOUNTER 2018-09-24 22:35 | Emergency (ER) | payer MEDICARE, MEDICAID ==
[2018-09-24 23:28] LABS: Bilirubin Small (Negative); Blood, Urine Trace (Negative); Glucose, Urine (Dipstick) Negative (Negative); Leukocyte Trace (Negative); Nitrite Negative (Negative); Protein, Urine (Dipstick) 30 mg/dL (Neg-Trace); Urobilinogen > or = 8.0 mg/dL (Less than 2)
[2018-09-24 23:33] LABS: #Basophils 0.2 thou/uL (0.0-0.2); #Eosinphils 0.2 thou/uL (0.0-0.7); #Lymphocytes 3.4 thou/uL (1.20-3.40); #Monocytes 0.6 thou/uL (0.11-0.59); #Neutrophils 3.9 thou/uL (1.40-6.50); %Basophils 2.1 % (0.0-1.0); %Eosinophils 2.7 % (0.0-10.0); %Lymphocytes 41.2 % (21.0-51.0); %Monocytes 7.2 % (0.0-10.0); %Neutrophils 46.8 % (42.0-75.0); Hemoglobin 13.1 g/dL (14.0-18.0); Mean Corpuscular HGB CONC 33.4 g/dL (32.0-36.0); Mean Corpuscular Hemoglobin 31.1 pg (27.0-31.0); Mean Corpuscular Volume 93.1 fL (78.0-98.0); Mean Platelet Volume 6.1 fL (7.4-10.4); Platelet Count 217 thou/uL (130-400); RBC Distribution Width 12.3 % (11.5-14.5); White Blood Cell (WBC) Count 8.3 thou/uL (4.8-10.8)
[2018-09-24 23:40] LABS: Clarity Hazy (Clear); RBC/HPF 0-3 HPF (0-3)
[2018-09-24 23:41] LABS: Bacteria/HPF 1+ HPF (None Seen)
[2018-09-24] MEDS ORDERED: Morphine 4 MG/ML VIAL ONE (23:44)
[2018-09-24] MEDS ORDERED: Promethazine HCl 25 MG/ML VIAL ONE (23:44)
[2018-09-24 23:46] LABS: ALT (SGPT) 87 U/L (8-55); AST (SGOT) 98 U/L (5-34); Albumin 3.4 g/dL (3.5-5.0); Alkaline Phosphatase 115 U/L (40-150); Anion Gap 14 mmol/L (10-20); BUN (Urea Nitrogen) 13 mg/dL (8.9-20.6); Bilirubin, Total 1.3 mg/dL (0.2-1.2); Calc. Creatinine Clearance 0 mL/min (70-130); Calcium 8.2 mg/dL (7.8-10.44); Carbon Dioxide 23 mmol/L (22-29); Chloride 107 mmol/L (98-107); Estimated GFR-MDRD Greater than 90; Globulin 4.2 g/dL (2.4-3.5); Glucose 94 mg/dL (70-105); Potassium 3.5 mmol/L (3.5-5.1); Protein, Total 7.6 g/dL (6.0-8.3); Sodium 140 mmol/L (136-145)
[2018-09-24 23:57] LABS: INR-International Normal Ratio 1.1; Prothrombin Time 14.5 SEC (12.0-14.7)
[2018-09-25 00:15] LABS: D-Dimer Test 1.15 *mcg/mL (0.27-0.43)
[2018-09-25] MEDS ORDERED: Meropenem 1 GM VIAL ONE (00:26)
[2018-09-25] MEDS ORDERED: Sodium Chloride 0.9% 100 ML ONE (00:26)
[2018-09-25] MEDS ORDERED: Enoxaparin Sodium 60 MG/0.6 ML SYRINGE ONE (00:35)
== END 2018-09-25 00:48 | disposition short-term general hospital (02) ==
LOC: MADERS 22:35
DX: N39.0 Urinary tract infection, site not specified (principal); E66.9 Obesity, unspecified; F41.9 Anxiety disorder, unspecified; F32.9 Major depressive disorder, single episode, unspecified; F17.210 Nicotine dependence, cigarettes, uncomplicated; Z79.899 Other long term (current) drug therapy
CPT/HCPCS: 80053; 81003; 81015; 85025; 85379; 85610; 87040; 87086; 96365; 96372; 96375; J1650; J2185; J2270; J2550; J3490

== ENCOUNTER 2018-10-25 23:00 | Emergency (ER) | payer MEDICARE ==
[2018-10-25] MEDS ORDERED: Morphine 4 MG/ML VIAL ONE (23:22)
[2018-10-25] MEDS ORDERED: Sodium Chloride 0.9% 1,000 ML ONE (23:23)
[2018-10-25] MEDS ORDERED: Sodium Chloride 0.9% 100 ML ONE (23:23)
[2018-10-25] MEDS ORDERED: Promethazine HCl 25 MG/ML VIAL ONE (23:23)
[2018-10-25 23:46] LABS: #Basophils 0.2 thou/uL (0.0-0.2); #Eosinphils 0.2 thou/uL (0.0-0.7); #Lymphocytes 2.6 thou/uL (1.20-3.40); #Monocytes 1.1 thou/uL (0.11-0.59); %Basophils 2.1 % (0.0-1.0); %Eosinophils 1.8 % (0.0-10.0); %Lymphocytes 26.1 % (21.0-51.0); %Monocytes 10.6 % (0.0-10.0); %Neutrophils 59.4 % (42.0-75.0); Hemoglobin 13.7 g/dL (14.0-18.0); Mean Corpuscular HGB CONC 32.3 g/dL (32.0-36.0); Mean Corpuscular Hemoglobin 31.3 pg (27.0-31.0); Mean Platelet Volume 6.3 fL (7.4-10.4); Platelet Count 194 thou/uL (130-400); RBC Distribution Width 13.2 % (11.5-14.5); Red Blood Cell (RBC) Count 4.37 mill/uL (4.70-6.10)
[2018-10-26 00:03] LABS: ALT (SGPT) 57 U/L (8-55); AST (SGOT) 62 U/L (5-34); Albumin 3.3 g/dL (3.5-5.0); Alkaline Phosphatase 96 U/L (40-150); Anion Gap 12 mmol/L (10-20); BUN (Urea Nitrogen) 18 mg/dL (8.9-20.6); Bilirubin, Total 0.9 mg/dL (0.2-1.2); Calc. Creatinine Clearance 0 mL/min (70-130); Calcium 8.3 mg/dL (7.8-10.44); Carbon Dioxide 25 mmol/L (22-29); Chloride 108 mmol/L (98-107); Estimated GFR-MDRD Greater than 90; Globulin 3.8 g/dL (2.4-3.5); Glucose 95 mg/dL (70-105); Potassium 3.8 mmol/L (3.5-5.1); Protein, Total 7.1 g/dL (6.0-8.3); Sodium 141 mmol/L (136-145)
[2018-10-26 00:26] LABS: Bilirubin Negative (Negative); Blood, Urine Trace (Negative); Clarity Clear (Clear); Glucose, Urine (Dipstick) Negative (Negative); Leukocyte Small (Negative); Nitrite Positive (Negative); Protein, Urine (Dipstick) 30 mg/dL (Neg-Trace); RBC/HPF 0-3 HPF (0-3)
[2018-10-26 00:27] LABS: Bacteria/HPF 2+ HPF (None Seen); Squamous Epithelial 0-3 HPF (0-3); WBC/HPF 21-50 HPF (0-3)
[2018-10-26] MEDS ORDERED: cefTRIAXone\\ROCEPHIN 1 GM VIAL ONE (00:34)
[2018-10-26] MEDS ORDERED: Sodium Chloride 0.9% 100 ML ONE (00:35)
[2018-10-26] MEDS ORDERED: Morphine 4 MG/ML VIAL ONE (01:19)
== END 2018-10-26 02:14 | disposition home or self-care (01) ==
LOC: MADERS 23:00
DX: N10 Acute pyelonephritis (principal); I71.4 Abdominal aortic aneurysm, without rupture; F41.9 Anxiety disorder, unspecified; F17.210 Nicotine dependence, cigarettes, uncomplicated; E66.9 Obesity, unspecified; Z79.891 Long term (current) use of opiate analgesic; Z79.899 Other long term (current) drug therapy
CPT/HCPCS: 80053; 81015; 83605; 85025; 87040; 87077; 87086; 87186; 96365; 96367; 96375; 96376; J0696; J1642; J2270; J2550; J3490; J7050

== ENCOUNTER 2018-12-03 19:41 | Emergency (ER) | payer MEDICARE, MEDICAID ==
[2018-12-03 20:48] LABS: Bilirubin Negative (Negative); Blood, Urine Large (Negative); Clarity Cloudy (Clear); Glucose, Urine (Dipstick) Negative (Negative); Leukocyte Large (Negative); Nitrite Positive (Negative); Protein, Urine (Dipstick) 100 mg/dL (Neg-Trace)
[2018-12-03 20:56] LABS: Bacteria/HPF 1+ HPF (None Seen); Mucous/LPF None Seen LPF (<2+); Squamous Epithelial 0-3 HPF (0-3); WBC/HPF Greater than 50 HPF (0-3)
[2018-12-03 21:35] LABS: #Basophils 0.2 thou/uL (0.0-0.2); #Eosinphils 0.2 thou/uL (0.0-0.7); #Lymphocytes 3.7 thou/uL (1.20-3.40); #Neutrophils 5.2 thou/uL (1.40-6.50); %Basophils 1.5 % (0.0-1.0); %Eosinophils 1.5 % (0.0-10.0); %Monocytes 9.5 % (0.0-10.0); %Neutrophils 51.5 % (42.0-75.0); Mean Corpuscular HGB CONC 32.3 g/dL (32.0-36.0); Mean Corpuscular Hemoglobin 30.8 pg (27.0-31.0); Mean Corpuscular Volume 95.4 fL (78.0-98.0); Mean Platelet Volume 6.4 fL (7.4-10.4); Platelet Count 205 thou/uL (130-400); RBC Distribution Width 11.5 % (11.5-14.5); Red Blood Cell (RBC) Count 4.22 mill/uL (4.70-6.10); White Blood Cell (WBC) Count 10.2 thou/uL (4.8-10.8)
[2018-12-03] MEDS ORDERED: Meropenem 1 GM VIAL ONE (21:49)
[2018-12-03] MEDS ORDERED: Acetaminophen 500 MG TAB ONE (21:49)
[2018-12-03] MEDS ORDERED: Sodium Chloride 0.9% 1,000 ML ONE (21:49)
[2018-12-03] MEDS ORDERED: Sodium Chloride 0.9% 100 ML ONE ×2 (21:49→22:03)
[2018-12-03 21:50] LABS: ALT (SGPT) 37 U/L (8-55); AST (SGOT) 47 U/L (5-34); Albumin 3.2 g/dL (3.5-5.0); Alkaline Phosphatase 105 U/L (40-110); Anion Gap 10 mmol/L (10-20); BUN (Urea Nitrogen) 15 mg/dL (8.9-20.6); Bilirubin, Total 0.9 mg/dL (0.2-1.2); Calc. Creatinine Clearance 0 mL/min (70-130); Calcium 8.2 mg/dL (7.8-10.44); Carbon Dioxide 24 mmol/L (22-29); Chloride 111 mmol/L (98-107); Estimated GFR-MDRD Greater than 90; Glucose 89 mg/dL (70-105); Lipase 8 U/L (8-78); Potassium 3.4 mmol/L (3.5-5.1); Protein, Total 7.2 g/dL (6.0-8.3); Sodium 142 mmol/L (136-145)
[2018-12-03] MEDS ORDERED: Morphine 4 MG/ML VIAL ONE (22:02)
[2018-12-03] MEDS ORDERED: Prochlorperazine 10 MG/2 ML VIAL ONE (22:03)
== END 2018-12-03 23:03 | disposition short-term general hospital (02) ==
LOC: MADERS 19:41
DX: N12 Tubulo-interstitial nephritis, not specified as acute or chronic (principal); F41.9 Anxiety disorder, unspecified; E66.9 Obesity, unspecified; F32.9 Major depressive disorder, single episode, unspecified; F17.210 Nicotine dependence, cigarettes, uncomplicated; Z79.899 Other long term (current) drug therapy
CPT/HCPCS: 51701; 80053; 81003; 81015; 83605; 83690; 85025; 87040; 87077; 87086; 96365; 96368; 96375; J0780; J2185; J2270; J3490; J7050

== ENCOUNTER 2018-12-30 01:27 | Emergency (ER) | payer MEDICARE, MEDICAID ==
[2018-12-30] MEDS ORDERED: Promethazine HCl 25 MG/ML VIAL ONE (01:45)
[2018-12-30] MEDS ORDERED: Sodium Chloride 0.9% 100 ML ONE ×2 (01:45→02:56)
[2018-12-30] MEDS ORDERED: Sodium Chloride 0.9% 1,000 ML ONE (01:45)
[2018-12-30] MEDS ORDERED: Ibuprofen 800 MG TAB ONE (01:45)
[2018-12-30] MEDS ORDERED: Morphine 4 MG/ML VIAL ONE (01:51)
[2018-12-30 02:28] LABS: #Basophils 0.1 thou/uL (0.0-0.2); #Eosinphils 0.1 thou/uL (0.0-0.7); #Lymphocytes 1.5 thou/uL (1.20-3.40); #Monocytes 0.9 thou/uL (0.11-0.59); #Neutrophils 5.5 thou/uL (1.40-6.50); %Basophils 1.5 % (0.0-1.0); %Eosinophils 0.9 % (0.0-10.0); %Lymphocytes 18.6 % (21.0-51.0); Hemoglobin 13.4 g/dL (14.0-18.0); Mean Corpuscular HGB CONC 31.3 g/dL (32.0-36.0); Mean Corpuscular Hemoglobin 30.3 pg (27.0-31.0); Mean Corpuscular Volume 96.7 fL (78.0-98.0); Mean Platelet Volume 6.5 fL (7.4-10.4); Platelet Count 193 thou/uL (130-400); RBC Distribution Width 12.1 % (11.5-14.5); Red Blood Cell (RBC) Count 4.41 mill/uL (4.70-6.10)
[2018-12-30 02:34] LABS: Bilirubin Small (Negative); Blood, Urine Large (Negative); Clarity Cloudy (Clear); Glucose, Urine (Dipstick) Negative (Negative); Leukocyte Moderate (Negative); Nitrite Positive (Negative); Protein, Urine (Dipstick) 100 mg/dL (Neg-Trace); Urobilinogen > or = 8.0 mg/dL (Less than 2)
[2018-12-30 02:41] LABS: ALT (SGPT) 53 U/L (8-55); AST (SGOT) 66 U/L (5-34); Albumin 3.3 g/dL (3.5-5.0); Alkaline Phosphatase 110 U/L (40-110); Anion Gap 13 mmol/L (10-20); BUN (Urea Nitrogen) 14 mg/dL (8.9-20.6); Bilirubin, Total 0.9 mg/dL (0.2-1.2); Calc. Creatinine Clearance 0 mL/min (70-130); Carbon Dioxide 23 mmol/L (22-29); Chloride 109 mmol/L (98-107); Estimated GFR-MDRD Greater than 90; Globulin 4.1 g/dL (2.4-3.5); Glucose 132 mg/dL (70-105); Potassium 3.9 mmol/L (3.5-5.1); Protein, Total 7.4 g/dL (6.0-8.3); Sodium 141 mmol/L (136-145)
[2018-12-30 02:45] LABS: RBC/HPF 21-50 HPF (0-3); WBC/HPF Greater than 50 HPF (0-3)
[2018-12-30 02:46] LABS: Bacteria/HPF 3+ HPF (None Seen); Mucous/LPF Rare LPF (<2+)
[2018-12-30] MEDS ORDERED: cefTRIAXone\\ROCEPHIN 1 GM VIAL ONE (02:56)
== END 2018-12-30 04:20 | disposition home or self-care (01) ==
LOC: MADERS 01:27
DX: N10 Acute pyelonephritis (principal); F41.9 Anxiety disorder, unspecified; E66.9 Obesity, unspecified; F17.210 Nicotine dependence, cigarettes, uncomplicated; Z79.899 Other long term (current) drug therapy
CPT/HCPCS: 80053; 81003; 81015; 83605; 85025; 87077; 87086; 87186; 96361; 96365; 96367; 96375; J0696; J2270; J2550; J3490; J7050

== ENCOUNTER 2019-01-20 19:59 | Emergency (ER) | payer MEDICARE, MEDICAID ==
[~2019-01-20 19:59] MED LIST changes: +Iopamidol 370 76% 150 ML VIAL FS ONE
[2019-01-20] MEDS ORDERED: Sodium Chloride 0.9% 50 ML ONE (20:22)
[2019-01-20] MEDS ORDERED: Promethazine HCl 25 MG/ML VIAL ONE ×2 (20:22→22:20)
--- NOTE | 2019-01-20 20:50 | RAD ---
XR Chest 1 View Portable History: Chest pain Comparison: Radiograph April Findings: Port catheter is similar with tip at the inferior SVC. Lungs are hypoinflated with bibasila r atelectasis. No pneumothorax. No effusion. No acute osseous abnormality. Impression: No acute thoracic abnormality or significant change.
[2019-01-20 20:57] LABS: Band 6 % (5-11); Eosinophils 3 % (0-10); Hemoglobin 13.9 g/dL (14.0-18.0); Lymphocytes 39 % (21-51); MDiff Complete? YES; Mean Corpuscular HGB CONC 31.5 g/dL (32.0-36.0); Mean Corpuscular Hemoglobin 30.1 pg (27.0-31.0); Mean Corpuscular Volume 95.6 fL (78.0-98.0); Mean Platelet Volume 6.9 fL (7.4-10.4); Monocytes 5 % (0-10); Neutrophil 47 % (42-75); Platelet Count 242 thou/uL (130-400); Platelet Morphology Comment Appears Adequate; RBC Distribution Width 12.6 % (11.5-14.5); Red Blood Cell (RBC) Count 4.61 mill/uL (4.70-6.10)
[2019-01-20 21:00] LABS: ALT (SGPT) 51 U/L (8-55); AST (SGOT) 67 U/L (5-34); Albumin 3.4 g/dL (3.5-5.0); Alkaline Phosphatase 98 U/L (40-110); Anion Gap 15 mmol/L (10-20); BUN (Urea Nitrogen) 15 mg/dL (8.9-20.6); Bilirubin, Total 1.5 mg/dL (0.2-1.2); CK (CPK) 57 U/L (30-200); Calc. Creatinine Clearance 0 mL/min (70-130); Calcium 8.6 mg/dL (7.8-10.44); Carbon Dioxide 22 mmol/L (22-29); Chloride 109 mmol/L (98-107); Estimated GFR-MDRD Greater than 90; Globulin 4.2 g/dL (2.4-3.5); Glucose 115 mg/dL (70-105); Potassium 3.5 mmol/L (3.5-5.1); Protein, Total 7.6 g/dL (6.0-8.3); Sodium 142 mmol/L (136-145)
[2019-01-20 21:06] LABS: CKMB 0.5 ng/mL (0-6.6)
[2019-01-20] MEDS ORDERED: Morphine 10 MG/ML VIAL ONE (21:22)
--- NOTE | 2019-01-20 22:03 | CT ---
CTA Angio Chest W WO Con History: Chest pain Comparison: Radiograph same day Findings: CT angiogram chest performed after the intravenous ministration of contrast. 3-D rendering provided. No proximal segmental pulmonary arterial filling defect. 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 Similar appearance of the high density material along the descending thoracic aorta axial image 62 which may reflect accessory vessel versus postoperative pledgets. Absence of the left kidney. No pericardial effusion. Thoracic spine is intact. Sternum and manubrium are intact. Lungs are mildly hypoinflated with atelectatic changes in the lung bases. No acute displaced rib frac ture. Impression: 1. No pulmonary embolism. 2. No acute intrathoracic abnormality.
[2019-01-20] MEDS ORDERED: Ketorolac Tromethamine 30 MG/ML VIAL ONE (22:20)
[2019-01-20] MEDS ORDERED: Sodium Chloride 0.9% 1,000 ML ONE (22:20)
[2019-01-20 22:32] LABS: Bilirubin Small (Negative); Blood, Urine Trace (Negative); Clarity Clear (Clear); Glucose, Urine (Dipstick) Negative (Negative); Leukocyte Trace (Negative); Nitrite Positive (Negative); Protein, Urine (Dipstick) 30 mg/dL (Neg-Trace)
[2019-01-20 22:40] LABS: WBC/HPF Greater than 50 HPF (0-3)
[2019-01-20 22:41] LABS: Bacteria/HPF 3+ HPF (None Seen)
[2019-01-20] MEDS ORDERED: cefTRIAXone\\ROCEPHIN 1 GM VIAL ONE (22:53)
== END 2019-01-21 00:24 | disposition home or self-care (01) ==
LOC: MADERS 19:59
DX: M94.0 Chondrocostal junction syndrome [Tietze] (principal); N12 Tubulo-interstitial nephritis, not specified as acute or chronic; F41.9 Anxiety disorder, unspecified; F32.9 Major depressive disorder, single episode, unspecified; F17.210 Nicotine dependence, cigarettes, uncomplicated; I71.4 Abdominal aortic aneurysm, without rupture; M86.9 Osteomyelitis, unspecified
CPT/HCPCS: 36415; 71045; 71275; 80053; 81003; 81015; 82550; 82553; 84484; 85025; 85379; 87086; 93005; 94760; 96361; 96365; 96375; 96376; J0696; J1642; J1885; J2270; J2550; J3490; J7050

== ENCOUNTER 2019-01-23 21:18 | Emergency (ER) | payer MEDICARE, MEDICAID ==
[~2019-01-23 21:18] MED LIST changes: +Iopamidol 370 76% 100 ML VIAL ONE; -Iopamidol 370 76% 150 ML VIAL FS ONE; -Sodium Chloride 0.9% 100 ML BAG ONE
[2019-01-23] MEDS ORDERED: cefTRIAXone\\ROCEPHIN 1 GM VIAL ONE (21:39)
[2019-01-23] MEDS ORDERED: Morphine 10 MG/ML VIAL ONE (21:39)
[2019-01-23] MEDS ORDERED: Sodium Chloride 0.9% 1,000 ML ONE (21:39)
[2019-01-23] MEDS ORDERED: Promethazine HCl 25 MG SUPP ONE (21:40)
[2019-01-23] MEDS ORDERED: Promethazine HCl 25 MG/ML VIAL ONE (21:41)
[2019-01-23] MEDS ORDERED: Sodium Chloride 0.9% 50 ML ONE (21:42)
[2019-01-23] MEDS ORDERED: Fentanyl 100 MCG/2 ML VIAL ONE (22:35)
[2019-01-23 23:01] LABS: #Basophils 0.1 thou/uL (0.0-0.2); #Eosinphils 0.2 thou/uL (0.0-0.7); #Monocytes 0.5 thou/uL (0.11-0.59); #Neutrophils 2.9 thou/uL (1.40-6.50); %Basophils 1.5 % (0.0-1.0); %Eosinophils 3.1 % (0.0-10.0); %Lymphocytes 34.9 % (21.0-51.0); %Monocytes 9.1 % (0.0-10.0); %Neutrophils 51.5 % (42.0-75.0); Hemoglobin 13.2 g/dL (14.0-18.0); Mean Corpuscular HGB CONC 30.3 g/dL (32.0-36.0); Mean Corpuscular Hemoglobin 30.1 pg (27.0-31.0); Mean Corpuscular Volume 99.5 fL (78.0-98.0); Mean Platelet Volume 7.4 fL (7.4-10.4); Platelet Count 197 thou/uL (130-400); RBC Distribution Width 12.9 % (11.5-14.5); White Blood Cell (WBC) Count 5.6 thou/uL (4.8-10.8)
[2019-01-23 23:39] LABS: ALT (SGPT) 45 U/L (8-55); AST (SGOT) 79 U/L (5-34); Albumin 2.9 g/dL (3.5-5.0); Alkaline Phosphatase 87 U/L (40-110); Anion Gap 14 mmol/L (10-20); BUN (Urea Nitrogen) 12 mg/dL (8.9-20.6); Bilirubin, Total 0.7 mg/dL (0.2-1.2); Calc. Creatinine Clearance 0 mL/min (70-130); Calcium 7.7 mg/dL (7.8-10.44); Carbon Dioxide 21 mmol/L (22-29); Chloride 110 mmol/L (98-107); Estimated GFR-MDRD Greater than 90; Globulin 3.9 g/dL (2.4-3.5); Glucose 136 mg/dL (70-105); Potassium 4.6 mmol/L (3.5-5.1); Protein, Total 6.8 g/dL (6.0-8.3); Sodium 140 mmol/L (136-145)
--- NOTE | 2019-01-23 23:50 | CT ---
CT ABDOMEN AND PELVIS WITH IV CONTRAST: 01/23/19 HISTORY: Abdominal pain. FINDINGS: Comparison made with the exams of 06/05/18 and 03/26/18. Lung bases are unremarkable. The liver, spleen, pancreas, adrenal glands and right kidney are normal. The patient is status post left nephrectomy. No free air, free fluid or lymphadenopathy is seen in t he abdomen or pelvis. A normal appearing appendix is noted. Scoliosis of the thoracolumbar spine with chronic changes in the hip joints are again noted. Penile p rosthesis with bulb adjacent to the right side of the bladder is redemonstrated. IMPRESSION: No evidence of bowel obstruction or acute process. POS: OFF
[2019-01-24] MEDS ORDERED: Fentanyl 100 MCG/2 ML VIAL ONE (00:22)
== END 2019-01-24 00:34 | disposition home or self-care (01) ==
LOC: MADERS 21:18
DX: N10 Acute pyelonephritis (principal); F41.9 Anxiety disorder, unspecified; E66.9 Obesity, unspecified; Z89.421 Acquired absence of other right toe(s); F32.9 Major depressive disorder, single episode, unspecified; Z87.891 Personal history of nicotine dependence
CPT/HCPCS: 36415; 74177; 80053; 85025; 96365; 96367; 96375; 96376; J0696; J1642; J2270; J2550; J3010; J7050; Q9967

== ENCOUNTER 2019-03-15 06:15 | Inpatient (IN) | payer MEDICARE, OTHER ==
[2019-03-15 16:41] VITALS: BMI 35.2
[2019-03-15] MEDS: cefTRIAXone\\ROCEPHIN 1 GM in Sodium Chloride 0.9% 100 ML IVPB SCH (17:40)
[2019-03-15 18:46] LABS: Bilirubin Negative (Negative); Blood, Urine Negative (Negative); Clarity Clear (Clear); Glucose, Urine (Dipstick) Negative (Negative); Leukocyte Trace (Negative); Nitrite Negative (Negative); Protein, Urine (Dipstick) Negative (Neg-Trace); Urobilinogen 0.2 mg/dL (Less than 2)
[2019-03-15 18:55] LABS: Bacteria/HPF Rare-Few HPF (None Seen); RBC/HPF 0-3 HPF (0-3); Squamous Epithelial 0-3 HPF (0-3)
[2019-03-15] MEDS ORDERED: Promethazine HCl 25 MG/ML VIAL SLOW IVP PRN (20:04)
[2019-03-15] MEDS: Gabapentin 300 MG CAP PO SCH (21:03)
[2019-03-15] MEDS: HYDROcodone/Acetaminophen 10/325 mg Tablet PO SCH (21:03)
[2019-03-15] MEDS: clonazePAM 0.5 MG TAB PO SCH (21:04)
[2019-03-15] MEDS ORDERED: Sodium Chloride 0.9% 50 ML ONE (23:02)
[2019-03-16] MEDS: Vancomycin HCl 1 GM in Sodium Chloride 0.9% 250 ML 250 ML IVPB SCH ×2 (02:43→14:41)
[2019-03-16] MEDS: Vancomycin HCl 750 MG in Sodium Chloride 0.9% 250 ML 250 ML IVPB SCH ×2 (02:44→14:41)
[2019-03-16] MEDS: HYDROcodone/Acetaminophen 10/325 mg Tablet PO SCH (08:49)
[2019-03-16] MEDS: Gabapentin 300 MG CAP PO SCH ×3 (08:50→21:18)
[2019-03-16] MEDS: clonazePAM 0.5 MG TAB PO SCH ×3 (08:50→21:18)
[2019-03-16] MEDS ORDERED: Senokot S 8.6-50 MG TAB PO PRN (11:48)
[2019-03-16] MEDS ORDERED: Mag-Al Plus 1200 MG/1200 MG/120 MG/30 ML UDCUP PO PRN (11:48)
[2019-03-16] MEDS ORDERED: Morphine 2 MG/ML SYRINGE SLOW IVP PRN (11:51)
[2019-03-16] MEDS ORDERED: Acetaminophen 325 MG TAB PO PRN (11:51)
[2019-03-16] MEDS ORDERED: HYDROcodone/Acetaminophen 10/325 mg Tablet PO PRN (11:55)
[2019-03-16] MEDS: Promethazine HCl 25 MG/ML VIAL SLOW IVP PRN ×2 (12:30→22:57)
[2019-03-16 12:34] LABS: ALT (SGPT) 50 U/L (8-55); AST (SGOT) 66 U/L (5-34); Albumin 3.2 g/dL (3.5-5.0); Alkaline Phosphatase 101 U/L (40-110); Anion Gap 12 mmol/L (10-20); BUN (Urea Nitrogen) 14 mg/dL (8.9-20.6); Bilirubin, Total 0.6 mg/dL (0.2-1.2); Calc. Creatinine Clearance 216 mL/min (70-130); Calcium 8.5 mg/dL (7.8-10.44); Carbon Dioxide 24 mmol/L (22-29); Chloride 108 mmol/L (98-107); Estimated GFR-MDRD Greater than 90; Globulin 4.2 g/dL (2.4-3.5); Glucose 94 mg/dL (70-105); Potassium 3.8 mmol/L (3.5-5.1); Protein, Total 7.4 g/dL (6.0-8.3); Sodium 140 mmol/L (136-145)
[2019-03-16] MEDS: cefTRIAXone\\ROCEPHIN 1 GM in Sodium Chloride 0.9% 100 ML IVPB SCH (17:44)
[2019-03-16] MEDS: HYDROcodone/Acetaminophen 10/325 mg Tablet PO PRN (17:46)
[2019-03-16] MEDS ORDERED: Baclofen 10 MG TAB PO SCH (22:15)
[2019-03-17] MEDS: Vancomycin HCl 1 GM in Sodium Chloride 0.9% 250 ML 250 ML IVPB SCH ×2 (02:33→13:07)
[2019-03-17] MEDS: Vancomycin HCl 750 MG in Sodium Chloride 0.9% 250 ML 250 ML IVPB SCH ×2 (02:34→14:25)
[2019-03-17 05:49] LABS: #Neutrophils 2.4 thou/uL (1.40-6.50); %Basophils 1.3 % (0.0-1.0); %Eosinophils 6.3 % (0.0-10.0); %Lymphocytes 46.8 % (21.0-51.0); %Monocytes 10.7 % (0.0-10.0); %Neutrophils 34.9 % (42.0-75.0); Hemoglobin 13.5 g/dL (14.0-18.0); Mean Corpuscular HGB CONC 31.3 g/dL (32.0-36.0); Mean Corpuscular Hemoglobin 30.7 pg (27.0-31.0); Mean Corpuscular Volume 98.2 fL (78.0-98.0); Mean Platelet Volume 6.7 fL (7.4-10.4); Platelet Count 189 thou/uL (130-400); White Blood Cell (WBC) Count 6.9 thou/uL (4.8-10.8)
[2019-03-17 05:50] LABS: #Basophils 0.1 thou/uL (0.0-0.2); #Eosinphils 0.4 thou/uL (0.0-0.7); #Lymphocytes 3.2 thou/uL (1.20-3.40); #Monocytes 0.7 thou/uL (0.11-0.59)
[2019-03-17] MEDS: clonazePAM 0.5 MG TAB PO SCH ×3 (08:52→21:26)
[2019-03-17] MEDS: Baclofen 10 MG TAB PO SCH ×3 (08:52→21:26)
[2019-03-17] MEDS: Enoxaparin Sodium 40 MG/0.4 ML SYRINGE SC SCH (08:52)
[2019-03-17] MEDS: Gabapentin 300 MG CAP PO SCH ×3 (08:53→21:27)
[2019-03-17] MEDS: Promethazine HCl 25 MG/ML VIAL SLOW IVP PRN ×2 (08:53→17:11)
[2019-03-17] MEDS: HYDROcodone/Acetaminophen 10/325 mg Tablet PO PRN ×2 (13:05→21:27)
[2019-03-17] MEDS: cefTRIAXone\\ROCEPHIN 1 GM in Sodium Chloride 0.9% 100 ML IVPB SCH (17:53)
[2019-03-18] MEDS: Vancomycin HCl 750 MG in Sodium Chloride 0.9% 250 ML 250 ML IVPB SCH ×2 (02:45→14:42)
[2019-03-18] MEDS: Vancomycin HCl 1 GM in Sodium Chloride 0.9% 250 ML 250 ML IVPB SCH ×2 (02:45→14:43)
[2019-03-18] MEDS: Promethazine HCl 25 MG/ML VIAL SLOW IVP PRN ×3 (05:22→22:49)
[2019-03-18] MEDS: clonazePAM 0.5 MG TAB PO SCH ×3 (09:16→22:49)
[2019-03-18] MEDS: Gabapentin 300 MG CAP PO SCH ×3 (09:17→22:48)
[2019-03-18] MEDS: Baclofen 10 MG TAB PO SCH ×3 (09:18→22:49)
[2019-03-18] MEDS: Enoxaparin Sodium 40 MG/0.4 ML SYRINGE SC SCH (09:18)
[2019-03-18] MEDS: HYDROcodone/Acetaminophen 10/325 mg Tablet PO PRN ×2 (09:19→23:02)
[2019-03-18] MEDS: cefTRIAXone\\ROCEPHIN 1 GM in Sodium Chloride 0.9% 100 ML IVPB SCH (18:24)
[2019-03-19] MEDS: Vancomycin HCl 750 MG in Sodium Chloride 0.9% 250 ML 250 ML IVPB SCH ×2 (02:50→15:09)
[2019-03-19] MEDS: Vancomycin HCl 1 GM in Sodium Chloride 0.9% 250 ML 250 ML IVPB SCH ×2 (02:50→15:09)
[2019-03-19] MEDS: Baclofen 10 MG TAB PO SCH ×3 (09:13→22:28)
[2019-03-19] MEDS: Gabapentin 300 MG CAP PO SCH ×3 (09:13→22:28)
[2019-03-19] MEDS: clonazePAM 0.5 MG TAB PO SCH ×3 (09:14→22:28)
[2019-03-19] MEDS: Enoxaparin Sodium 40 MG/0.4 ML SYRINGE SC SCH (09:14)
[2019-03-19] MEDS: HYDROcodone/Acetaminophen 10/325 mg Tablet PO PRN (09:20)
[2019-03-19] MEDS: Promethazine HCl 25 MG/ML VIAL SLOW IVP PRN ×2 (09:21→18:22)
[2019-03-19 13:20] LABS: Vancomycin, Trough 17.5 ug/mL
[2019-03-19] MEDS: cefTRIAXone\\ROCEPHIN 1 GM in Sodium Chloride 0.9% 100 ML IVPB SCH (18:22)
[2019-03-19 19:12] VITALS: BP 172/80; TEMP 99.1
[2019-03-20] MEDS: Vancomycin HCl 750 MG in Sodium Chloride 0.9% 250 ML 250 ML IVPB SCH (02:10)
[2019-03-20] MEDS: Vancomycin HCl 1 GM in Sodium Chloride 0.9% 250 ML 250 ML IVPB SCH (02:10)
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
--- NOTE | 2019-03-20 10:47 | PRG ---
DATE OF SERVICE: 03/18/2019 SUBJECTIVE: The patient says he feels a lot better. His back feels better and the right lower side feels better. Still has the intermittent nausea that he usually gets with the vancomycin. He is getting the Phenergan for this and it helps. Pharmacy is managing the vancomycin dosing. OBJECTIVE: GENERAL: The patient looks much better. He is sitting up in his bed. He appears very comfortable, in no distress, very talkative and in good spirits. VITAL SIGNS: Show a temperature 97.5, pulse 79, respirations 16, O2 saturation 95% on room air, blood pressure 133/70. LUNGS: Clear. HEART: Regular rate. LABORATORY DATA: His lab that was done on 03/17 showed an H and H of 13.5 and 43.2, white blood cell count 6900 with 35% segs, 47% lymphocytes, and platelet count of 189,000. Sodium 140, potassium 3.8, BUN 14, creatinine 0.67, estimated GFR greater than 90, glucose 94. His vancomycin trough level is 23. ASSESSMENT: 1. Urinary tract infection/pyelonephritis. a. Care initiated at [facility] from 03/07 until 03/16/2019. b. Urine culture grew Escherichia hermannii sensitive to the ceftriaxone and Enterococcus avium sensitive to vancomycin. c. Transferred to [facility] on 03/16/2019 and vancomycin and Rocephin continued for 2 weeks. d. Improving as of 03/18/2019. 2. Neurogenic bladder: a. Usually managed by patient with intermittent catheterizations. b. Complicated by repeated episodes of urinary tract infection and pyelonephritis. c. Presently has indwelling Mendieta catheter as of 03/18/2019. 3. Paraplegia. 4. Chronic hepatitis C. 5. Anxiety disorder. Controlled. 6. Chronic pain secondary to degenerative change in his lower thoracic spine and from a left intercostal neuropathy. PLAN: Continue present care. Continue IV antibiotics. Job ID: [id number]
--- NOTE | 2019-03-20 10:48 | PRG ---
DATE OF SERVICE: SUBJECTIVE: The patient said he has a headache this morning, otherwise he is doing okay. OBJECTIVE: GENERAL: The patient is lying in bed on his stomach. He is not in any acute distress. VITAL SIGNS: His temperature is 97.9, pulse 82, respirations 20, O2 saturation 96% on room air, blood pressure 128/64. LUNGS: Clear. HEART: Regular rate. ASSESSMENT: 1. Urinary tract infection, pyelonephritis. a. Initially hospitalized at [facility] from 03/07/2019 until 03/16/2019, where cultures and Rocephin initiated and later vancomycin. b. Urine culture grew Escherichia hermannii sensitive to the Rocephin and Enterococcus avium sensitive to vancomycin. c. Receiving a 14-day course of these antibiotics. d. Remains afebrile and right lower abdominal pain improving as of 03/19/2019. 2. Paraplegia. a. Neurogenic bladder. Ordinarily manages with self catheterization. Presently, has a Mendieta catheter. b. Complicated by repeated urinary tract infection and pyelonephritis. 3. Hepatitis C. a. Asymptomatic. b. Opted for no treatment. PLAN: Continue present care. Continue IV vancomycin and Rocephin. Job ID: [id number]
--- NOTE | 2019-03-21 01:59 | PQF ---
[employer] Crystal Reports Winform ViewerDEBBIE SMITH SKYE DANIELS MD [id number] CLINICAL DOCUMENTATION CLARIFICATION FORM: POST DISCHARGE Addendum to original discharge summary date: ____ Late entry note date: __ DATE: 03/21/2019 ATTN : SKYE DANIELS MD Please exercise your independent, professional judgment in responding to the clarification form. Clinical indicators are provided on the bottom of this form for your review Please check appropriate box(s): [ y ] UTI due to Self-catheterization [ ] UTI due to not Self-catheterization [ ] Other diagnosis _neurogenic bladder [ ] Unable to determine In addition, please specify: Present on Admission (POA): [y ] Yes [ ] No [ ] Unable to determine For continuity of documentation, please document condition throughout progress notes and discharge summary. Thank You. CLINICAL INDICATORS - SIGNS / SYMPTOMS / LABS He manage the neurogenic bladder with self catheterization - Documented in H&P on 03/15 by SKYE DANIELS MD UTI with Pyelonephritis - Documented in H&P on 03/15 by SKYE DANIELS MD Urine culture E.Coli - Documented in PNs on 03/19 by SKYE DANIELS MD RISK FACTORS He has left paraplegic and with neurogenic bladder - Documented in H&P on 03/15 by SKYE DANIELS MD Complicated having only one kidney - Documented in H&P on 03/15 by SKEY DANIELS MD TREATMENT: Vancomycin 1.750 every 12 hrs and ceftriaxone 1g every 12 hrs - Documented in H& P on 03/15 by SKYE DANIELS MD Started 14days vancomycin on 03/15 - Documented in H&P on 03/15 by SKYE DANIELS MD Mendieta catheter placed [employer] Crystal Reports Winform Viewer(This form is maintained as a part of the permanent medical record) 2014 [employer]. All Rights Reserved [email or web address] [not provided] [email or web address]
== END 2019-03-19 18:58 | disposition critical access hospital (66) | DRG 699 ==
LOC: MADMS 06:15
PROVIDERS: ADMIT Family Medicine; ATTEND Family Medicine
DX: T83.518A Infection and inflammatory reaction due to other urinary catheter, initial encounter (principal); N12 Tubulo-interstitial nephritis, not specified as acute or chronic; G82.20 Paraplegia, unspecified; Z90.81 Acquired absence of spleen; G89.29 Other chronic pain; Z90.5 Acquired absence of kidney; Z89.422 Acquired absence of other left toe(s); Z88.8 Allergy status to other drugs, medicaments and biological substances; B96.20 Unspecified Escherichia coli [E. coli] as the cause of diseases classified elsewhere; B19.20 Unspecified viral hepatitis C without hepatic coma; G43.909 Migraine, unspecified, not intractable, without status migrainosus; N31.9 Neuromuscular dysfunction of bladder, unspecified; F41.9 Anxiety disorder, unspecified
CPT/HCPCS: 36415; 80053; 80202; 81001; 85025; J0696; J1642; J1650; J2550; J3370; J3490; J7050

== ENCOUNTER 2019-03-19 18:58 | Emergency (ER) | payer MEDICARE, OTHER ==
[~2019-03-19 18:58] MED LIST changes: -Iopamidol 370 76% 100 ML VIAL ONE; +Iopamidol 370 76% 125 ML VIAL FS ONE
[2019-03-19 19:33] LABS: #Basophils 0.2 thou/uL (0.0-0.2); #Eosinphils 0.4 thou/uL (0.0-0.7); #Lymphocytes 4.1 thou/uL (1.20-3.40); #Neutrophils 3.4 thou/uL (1.40-6.50); %Basophils 1.9 % (0.0-1.0); %Eosinophils 4.9 % (0.0-10.0); %Lymphocytes 45.1 % (21.0-51.0); %Neutrophils 37.2 % (42.0-75.0); Mean Corpuscular HGB CONC 32.5 g/dL (32.0-36.0); Mean Corpuscular Hemoglobin 31.4 pg (27.0-31.0); Mean Corpuscular Volume 96.6 fL (78.0-98.0); Mean Platelet Volume 6.9 fL (7.4-10.4); Platelet Count 208 thou/uL (130-400); RBC Distribution Width 12.1 % (11.5-14.5); Red Blood Cell (RBC) Count 4.16 mill/uL (4.70-6.10); White Blood Cell (WBC) Count 9.2 thou/uL (4.8-10.8)
[2019-03-19] MEDS ORDERED: Sodium Chloride 0.9% 1,000 ML ONE ×2 (19:40→20:58)
[2019-03-19 19:45] LABS: INR-International Normal Ratio 1.1; PTT 39.5 SEC (22.9-36.1); Prothrombin Time 13.7 SEC (12.0-14.7)
--- NOTE | 2019-03-19 19:52 | RAD ---
Exam: Chest one view HISTORY:Chest pain. Comparison: 01/20/2019 FINDINGS: Cardiac silhouette:Normal Aorta: Atherosclerosis Pulmonary vessels: Normal Costophrenic angles: Clear Lines and tubes: Stable left-sided Mediport catheter LUNGS: No masses or consolidation. Pneumothorax: None Osseous abnormalities: None IMPRESSION: 1. Atherosclerosis. 2. No acute cardiopulmonary process.
[2019-03-19 19:53] LABS: D-Dimer Test 0.98 *mcg/mL (0.27-0.43)
[2019-03-19 19:55] LABS: ALT (SGPT) 52 U/L (8-55); AST (SGOT) 66 U/L (5-34); Alkaline Phosphatase 105 U/L (40-110); Anion Gap 11 mmol/L (10-20); BUN (Urea Nitrogen) 12 mg/dL (8.9-20.6); Bilirubin, Total 0.4 mg/dL (0.2-1.2); Calc. Creatinine Clearance 0 mL/min (70-130); Carbon Dioxide 24 mmol/L (22-29); Chloride 110 mmol/L (98-107); Estimated GFR-MDRD Greater than 90; Glucose 109 mg/dL (70-105); Lipase 74 U/L (8-78); Potassium 3.9 mmol/L (3.5-5.1); Sodium 141 mmol/L (136-145)
[2019-03-19] MEDS ORDERED: Promethazine HCl 25 MG/ML VIAL ONE (20:35)
[2019-03-19] MEDS ORDERED: Morphine 4 MG/ML VIAL ONE (20:35)
[2019-03-19] MEDS ORDERED: Sodium Chloride 0.9% 100 ML ONE (20:36)
[2019-03-19 20:47] LABS: Bilirubin Negative (Negative); Blood, Urine Negative (Negative); Clarity Clear (Clear); Glucose, Urine (Dipstick) Negative (Negative); Leukocyte Negative (Negative); Nitrite Negative (Negative); Protein, Urine (Dipstick) Negative (Neg-Trace); Urobilinogen 0.2 mg/dL (Less than 2)
--- NOTE | 2019-03-19 21:51 | CT ---
EXAM: CT ABDOMEN AND PELVIS HISTORY: Epigastric abdominal tenderness. COMPARISON: 03/12/2019, 01/23/2019 Procedure: Multiple contiguous axial images were obtained and a CT of the abdomen and pelvis with IV contrast. C oronal reformats were performed. FINDINGS: Lower Chest: No acute abnormal Vessels: Stable caliber of a nonaneurysmal aorta. No evidence of periaortic fat stranding. Postoperat jason changes are noted with multiple surgical clips. Evaluation is limited due to timing of contrast bolus. No appreciable change since the examination from 03/12/2019 Heart: Normal heart size Abdomen: Portal vein:Cannot be assessed due to timing of contrast bolus Gallbladder: Likely surgically absent Liver: Limited evaluation due to timing of contrast bolus. Grossly no abnormality. Pancreas: Limited evaluation due to timing of contrast bolus. Grossly no abnormality. Spleen: Limited evaluation due to timing of contrast bolus. Grossly no abnormality Adrenals: Limited evaluation due to timing of contrast bolus. Grossly no abnormality. Kidneys: Surgically absent left kidney. Appropriate enhancement of the right kidney. There is excreti on of contrast into a decompressed intrarenal and extrarenal collecting system. No filling defect Peritoneum: No ascites or free air, no fluid collection. Bowel: Limited evaluation due to the lack of oral contrast administration. No evidence of bowel obstr uction. Ileocecal junction is unremarkable. Normal caliber appendix. Stable stranding at the tip of the appendix, likely representing chronic change. No evidence of a periappendiceal abscess or perfora tion. Scattered fecal material in a nondistended, nondilated colon. Mesentery and Retroperitoneum: No enlarged mesenteric or retroperitoneal lymph nodes. Abdominal Wall: within normal limits. Pelvis: Reproductive Organs: Penile implant is noted. Pelvis: No mass, lymphadenopathy, free air or free fluid. Bladder: Decompressed with [place] catheter. Contrast opacifies the urinary bladder. Bones: Stable scoliosis of the spine. Chronic changes/destructive changes in the left and right hip a re redemonstrated. Nonspecific fluid in both hip joint spaces. IMPRESSION: 1. Limited evaluation due to timing of contrast bolus. No acute abnormality in the abdomen or pelvis. 2. Normal caliber aorta. Within the limitations of this exam, no obvious periaortic abnormality. No e vidence of aneurysm. Transcribed Date/Time: 03/19/2019 10:34 PM
--- NOTE | 2019-03-19 22:14 | CT ---
Exam: CT angiogram of the chest HISTORY: Elevated d-dimer. Chest pain. COMPARISON: 01/20/2019 TECHNIQUE: CT angiogram of the chest is performed in the axial plane. Three-dimensional reformatted i mages are submitted for interpretation FINDINGS: Mediastinum: No mass, lymphadenopathy or hematoma. HEART: Normal size. No significant pericardial fluid. Aorta: Redemonstration of a chronic peripherally calcified ductus diverticulum aneurysm with appearan ce of the graft at the proximal descending thoracic aorta. Findings are unchanged. Visualized thoracic aorta has a overall normal caliber. The visualized abdominal aorta also has a normal caliber . No periaortic fat stranding. Upper solid abdominal viscera: No abnormality enhancement. Trachea and central bronchi: Patent Pleural spaces: No effusion Lung parenchyma: Dependent atelectatic changes. No masses or consolidation. Pneumothorax: None Osseous structures: No lytic or blastic lesions Pulmonary arteries:Adequate contrast opacification pulmonary arterial system to the level of the prox imal lobar arteries. No filling defect to suggest thromboembolism. Evaluation the mid to distal lobe arteries as well as the segmental and subsegmental arteries is limited due to bolus. IMPRESSION: 1. No evidence of pulmonary artery embolism to the level of proximal lobar arteries. 2. Additional findings as above.
[2019-03-19] MEDS ORDERED: Sodium Chloride 0.9% 500 ML ONE (22:21)
[2019-03-19] MEDS ORDERED: Pantoprazole 40 MG VIAL ONE (22:54)
== END 2019-03-19 23:43 | disposition short-term general hospital (02) ==
LOC: MADERS 18:58
DX: R07.9 Chest pain, unspecified (principal); R10.816 Epigastric abdominal tenderness; G82.20 Paraplegia, unspecified; F41.9 Anxiety disorder, unspecified; E66.9 Obesity, unspecified; F32.9 Major depressive disorder, single episode, unspecified; F17.210 Nicotine dependence, cigarettes, uncomplicated; Z79.899 Other long term (current) drug therapy
CPT/HCPCS: 36415; 71045; 71275; 74177; 80053; 81003; 83605; 83690; 84484; 85025; 85379; 85610; 85730; 87040; 87086; 93005; 94760; 96361; 96374; 96375; C9113; J2270; J2550; J3490; J7050; Q9967

== ENCOUNTER 2019-03-24 11:21 | Inpatient (IN) | payer MEDICARE, MEDICAID ==
[2019-03-24 19:48] VITALS: BMI 34.4
[2019-03-24] MEDS ORDERED: Acetaminophen 325 MG TAB PO PRN (21:40)
[2019-03-24] MEDS ORDERED: Mag-Al Plus 1200 MG/1200 MG/120 MG/30 ML UDCUP PO PRN (21:40)
[2019-03-24] MEDS ORDERED: Baclofen 10 MG TAB PO SCH (21:45)
[2019-03-24] MEDS ORDERED: Gabapentin 300 MG CAP PO SCH (21:45)
[2019-03-24] MEDS ORDERED: clonazePAM 0.5 MG TAB PO SCH (21:45)
[2019-03-24] MEDS: HYDROcodone/Acetaminophen 10/325 mg Tablet PO PRN (22:09)
[2019-03-24] MEDS: Promethazine HCl 25 MG/ML VIAL SLOW IVP PRN (22:10)
[2019-03-24] MEDS: Vancomycin 1.5 GRAM/300 ML BAG 1.5 GM in Premix Bag 1 BAG IVPB SCH (22:11)
[2019-03-24 23:51] LABS: Bilirubin Negative (Negative); Blood, Urine Trace (Negative); Clarity Clear (Clear); Glucose, Urine (Dipstick) Negative (Negative); Leukocyte Small (Negative); Nitrite Negative (Negative); Protein, Urine (Dipstick) Negative (Neg-Trace); Urobilinogen 0.2 mg/dL (Less than 2)
[2019-03-24 23:57] LABS: RBC/HPF 0-3 HPF (0-3)
[2019-03-24 23:58] LABS: Bacteria/HPF Rare-Few HPF (None Seen); Mucous/LPF 1+ LPF (<2+); Squamous Epithelial None Seen HPF (0-3)
[2019-03-25] MEDS: cefTRIAXone\\ROCEPHIN 1 GM in Sodium Chloride 0.9% 100 ML IVPB SCH (03:08)
[2019-03-25] MEDS ORDERED: FLU VACC QS2019-20(6MOS UP)/PF 60 MCG/0.5 ML SYRINGE IM ONE (09:00)
[2019-03-25] MEDS: clonazePAM 0.5 MG TAB PO SCH ×3 (09:40→21:40)
[2019-03-25] MEDS: Enoxaparin Sodium 40 MG/0.4 ML SYRINGE SC SCH (09:41)
[2019-03-25] MEDS: Gabapentin 300 MG CAP PO SCH ×3 (09:41→21:41)
[2019-03-25] MEDS: Aspirin 325 mg Enteric Coated Tablet PO SCH (09:41)
[2019-03-25] MEDS: Baclofen 10 MG TAB PO SCH ×3 (09:41→21:43)
[2019-03-25] MEDS: Vancomycin 1.5 GRAM/300 ML BAG 1.5 GM in Premix Bag 1 BAG IVPB SCH ×2 (09:43→21:41)
[2019-03-25] MEDS: Promethazine HCl 25 MG/ML VIAL SLOW IVP PRN ×2 (09:46→17:39)
[2019-03-25] MEDS: HYDROcodone/Acetaminophen 10/325 mg Tablet PO PRN ×2 (09:48→17:38)
[2019-03-25 10:37] LABS: ALT (SGPT) 65 U/L (8-55); AST (SGOT) 85 U/L (5-34); Alkaline Phosphatase 95 U/L (40-110); Anion Gap 15 mmol/L (10-20); BUN (Urea Nitrogen) 17 mg/dL (8.9-20.6); Bilirubin, Total 0.5 mg/dL (0.2-1.2); Calc. Creatinine Clearance 232 mL/min (70-130); Calcium 8.2 mg/dL (7.8-10.44); Carbon Dioxide 22 mmol/L (22-29); Chloride 109 mmol/L (98-107); Estimated GFR-MDRD Greater than 90; Globulin 4.2 g/dL (2.4-3.5); Glucose 109 mg/dL (70-105); Potassium 4.5 mmol/L (3.5-5.1); Protein, Total 7.2 g/dL (6.0-8.3); Sodium 141 mmol/L (136-145)
[2019-03-26] MEDS: Promethazine HCl 25 MG/ML VIAL SLOW IVP PRN ×4 (00:02→21:45)
[2019-03-26] MEDS: cefTRIAXone\\ROCEPHIN 1 GM in Sodium Chloride 0.9% 100 ML IVPB SCH ×2 (02:55→15:20)
[2019-03-26 06:14] LABS: Hemoglobin 13.2 g/dL (14.0-18.0); Mean Corpuscular HGB CONC 31.5 g/dL (32.0-36.0); Mean Corpuscular Hemoglobin 30.6 pg (27.0-31.0); Mean Corpuscular Volume 97.2 fL (78.0-98.0); Mean Platelet Volume 8.3 fL (7.4-10.4); Platelet Count 206 thou/uL (130-400); RBC Distribution Width 11.7 % (11.5-14.5); Red Blood Cell (RBC) Count 4.32 mill/uL (4.70-6.10); White Blood Cell (WBC) Count 8.4 thou/uL (4.8-10.8)
[2019-03-26 06:40] LABS: Band 2 % (5-11); Lymphocytes 39 % (21-51); MDiff Complete? YES; Manual Diff?? YES; Neutrophil 48 % (42-75)
[2019-03-26 06:41] LABS: Anisocytosis SLIGHT = 6-15 cells (100X) (0-5/hpf); Eosinophils 5 % (0-10); Monocytes 6 % (0-10); Platelet Morphology Comment Appears Adequate
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
[2019-03-26] MEDS: Aspirin 325 mg Enteric Coated Tablet PO SCH (09:18)
[2019-03-26] MEDS: Gabapentin 300 MG CAP PO SCH ×3 (09:18→21:05)
[2019-03-26] MEDS: Enoxaparin Sodium 40 MG/0.4 ML SYRINGE SC SCH (09:18)
[2019-03-26] MEDS: clonazePAM 0.5 MG TAB PO SCH ×3 (09:18→21:05)
[2019-03-26] MEDS: Baclofen 10 MG TAB PO SCH ×3 (09:18→21:05)
--- NOTE | 2019-03-26 09:19 | PRG ---
DATE OF SERVICE: 03/26/2019 SUBJECTIVE: The patient has no complaint. OBJECTIVE: GENERAL: The patient is lying in bed, sleeping, but easily aroused. VITAL SIGNS: Temperature 97.9, pulse 98, respirations 20, O2 saturation 96% on room air, and blood pressure 133/63. LUNGS: Clear. HEART: Regular rate. LABORATORY DATA: H and H of 13.2 and 42, white cell count 8400 with 48% segs, 2 % bands, 39% lymphocytes, and platelet count of 206. Sodium 141, potassium 4.5, BUN 17, and creatinine 0.61. AST 85, ALT 65, total bilirubin 0.5, and alkaline phos 95. ASSESSMENT: 1. Urinary tract infection/pyelonephritis. a. Blood cultures, no growth. b. Urine culture grew Escherichia hermannii, sensitive to Rocephin, and Enterococcus avium, sensitive to vancomycin. c. On a 14-day course of antibiotics, started on 03/15/2019 and will complete on 03/28/19. d. Doing well, remains afebrile. 2. Paraplegia. 3. Hepatitis C. a. The patient has opted for no treatment since he felt the treatment would increase his risk of infection. b. Complicated by mild elevation of liver enzymes. PLAN: Continue present care, continue IV antibiotics until this is completed, scheduled for 03/28. Job ID: [id number] MTDD
[2019-03-26 09:21] LABS: Vancomycin, Trough 19.2 ug/mL
[2019-03-26] MEDS: HYDROcodone/Acetaminophen 10/325 mg Tablet PO PRN ×3 (09:24→21:45)
[2019-03-26] MEDS: Vancomycin 1.5 GRAM/300 ML BAG 1.5 GM in Premix Bag 1 BAG IVPB SCH ×5 (09:27→22:01)
[2019-03-27] MEDS: Aspirin 325 mg Enteric Coated Tablet PO SCH (08:17)
[2019-03-27] MEDS: clonazePAM 0.5 MG TAB PO SCH ×3 (08:17→21:00)
[2019-03-27] MEDS: Baclofen 10 MG TAB PO SCH ×3 (08:17→21:00)
[2019-03-27] MEDS: Gabapentin 300 MG CAP PO SCH ×3 (08:17→21:00)
[2019-03-27] MEDS: Enoxaparin Sodium 40 MG/0.4 ML SYRINGE SC SCH (08:17)
--- NOTE | 2019-03-27 08:56 | PRG ---
DATE OF SERVICE: 03/27/2019 SUBJECTIVE: The patient said he is doing okay. He had no complaint. OBJECTIVE: GENERAL: The patient lying in bed, alert, appears comfortable, in no distress. VITAL SIGNS: His temperature is 97.7, pulse 92, respirations 18, O2 saturation 95% on room air, and blood pressure 120/58. LUNGS: Clear. HEART: Regular rate. ASSESSMENT: 1. Urinary tract infection/pyelonephritis. a. Blood cultures, no growth. b. Urine culture grew Escherichia hermannii, sensitive to Rocephin and Enterococcus avium, sensitive to vancomycin. c. On a 14-day course of antibiotics, started on 03/15/2019 and will complete on 03/28/2019. d. Doing well, remains afebrile. 2. Paraplegia. 3. Hepatitis C. a. The patient has opted for no treatment since he felt the treatment would increase his risk of infection. b. Complicated by mild elevation of liver enzymes. 4. Neurogenic bladder. PLAN: Continue present care. We will remove Mendieta catheter. The patient can resume his self-catheterizations. He will complete his antibiotics tomorrow and anticipate be discharged on 03/29/2019. Job ID: [id number] [facility]
[2019-03-27] MEDS: Promethazine HCl 25 MG/ML VIAL SLOW IVP PRN ×3 (09:04→21:40)
[2019-03-27] MEDS: HYDROcodone/Acetaminophen 10/325 mg Tablet PO PRN ×2 (09:05→15:25)
[2019-03-27] MEDS: Vancomycin 1.5 GRAM/300 ML BAG 1.5 GM in Premix Bag 1 BAG IVPB SCH ×2 (09:06→21:39)
[2019-03-27] MEDS: cefTRIAXone\\ROCEPHIN 1 GM in Sodium Chloride 0.9% 100 ML IVPB SCH (13:41)
[2019-03-28] MEDS: HYDROcodone/Acetaminophen 10/325 mg Tablet PO PRN (08:06)
[2019-03-28] MEDS: clonazePAM 0.5 MG TAB PO SCH ×3 (08:06→20:49)
[2019-03-28] MEDS: Gabapentin 300 MG CAP PO SCH ×3 (08:06→20:49)
[2019-03-28] MEDS: Baclofen 10 MG TAB PO SCH ×3 (08:06→20:49)
[2019-03-28] MEDS: Aspirin 325 mg Enteric Coated Tablet PO SCH (08:07)
[2019-03-28] MEDS: Promethazine HCl 25 MG/ML VIAL SLOW IVP PRN ×2 (08:07→15:08)
[2019-03-28] MEDS: Enoxaparin Sodium 40 MG/0.4 ML SYRINGE SC SCH (08:07)
--- NOTE | 2019-03-28 09:05 | PRG ---
DATE OF SERVICE: 03/28/2019 SUBJECTIVE: The patient said he is doing all right. He had no complaint. OBJECTIVE: GENERAL: The patient is lying in bed, alert, appears comfortable, in no distress. VITAL SIGNS: His temperature is 97.1, pulse 102, respirations 16, O2 saturation 95% on room air, and blood pressure 146/87. LUNGS: Clear. HEART: Regular rate. ASSESSMENT: 1. Urinary tract infection, pyelonephritis. a. Blood cultures, no growth. b. Urine culture grew Escherichia hermannii, sensitive to Rocephin and Enterococcus avium, sensitive to vancomycin. c. Completing a 14-day course of these antibiotics on today 03/28/2019. d. Doing well, remains afebrile. 2. Paraplegia. 3. Hepatitis C. a. The patient has opted for no treatment since he felt the treatment would increase his risk of infection due to the immunosuppression of the medication for treatment. b. Complicated by mild elevation of liver enzymes. 4. Neurogenic bladder. a. Managed with self-catheterizations. PLAN: The patient will complete the antibiotics late today. Anticipate discharge in the morning. Job ID: [id number] [facility]
[2019-03-28] MEDS: Vancomycin 1.5 GRAM/300 ML BAG 1.5 GM in Premix Bag 1 BAG IVPB SCH (09:33)
[2019-03-28] MEDS: cefTRIAXone\\ROCEPHIN 1 GM in Sodium Chloride 0.9% 100 ML IVPB SCH (13:16)
[2019-03-29] MEDS: Promethazine 25 MG TAB PO PRN ×2 (00:01→10:53)
[2019-03-29] MEDS: HYDROcodone/Acetaminophen 10/325 mg Tablet PO PRN ×2 (00:01→10:53)
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
[2019-03-29] MEDS: clonazePAM 0.5 MG TAB PO SCH (09:38)
[2019-03-29] MEDS: Gabapentin 300 MG CAP PO SCH (09:38)
[2019-03-29] MEDS: Baclofen 10 MG TAB PO SCH (09:38)
[2019-03-29] MEDS: Aspirin 325 mg Enteric Coated Tablet PO SCH (09:38)
[2019-03-29] MEDS: Enoxaparin Sodium 40 MG/0.4 ML SYRINGE SC SCH (09:39)
[2019-03-29 09:47] VITALS: BP 119/70; TEMP 98.5
[2019-03-29] MEDS: cefTRIAXone\\ROCEPHIN 1 GM in Sodium Chloride 0.9% 100 ML IVPB SCH (14:16)
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
== END 2019-03-29 15:25 | disposition home or self-care (01) | DRG 690 ==
LOC: MADMS 19:10
PROVIDERS: ADMIT Family Medicine; ATTEND Family Medicine
DX: N12 Tubulo-interstitial nephritis, not specified as acute or chronic (principal); T83.518A Infection and inflammatory reaction due to other urinary catheter, initial encounter; G82.20 Paraplegia, unspecified; Z79.82 Long term (current) use of aspirin; B19.20 Unspecified viral hepatitis C without hepatic coma; G89.29 Other chronic pain; Z90.81 Acquired absence of spleen; Z79.899 Other long term (current) drug therapy; B96.20 Unspecified Escherichia coli [E. coli] as the cause of diseases classified elsewhere; D72.829 Elevated white blood cell count, unspecified; Z98.1 Arthrodesis status; S24.104S Unspecified injury at T11-T12 level of thoracic spinal cord, sequela; N31.9 Neuromuscular dysfunction of bladder, unspecified
CPT/HCPCS: 36415; 80053; 80202; 81001; 85025; J0696; J1650; J2550; J3490; Q0169

== ENCOUNTER 2019-04-08 03:15 | Emergency (ER) | payer MEDICARE, MEDICAID ==
[2019-04-08 04:08] LABS: #Basophils 0.2 thou/uL (0.0-0.2); #Eosinphils 0.1 thou/uL (0.0-0.7); #Lymphocytes 2.4 thou/uL (1.20-3.40); #Monocytes 1.4 thou/uL (0.11-0.59); #Neutrophils 10.5 thou/uL (1.40-6.50); %Basophils 1.6 % (0.0-1.0); %Eosinophils 0.5 % (0.0-10.0); %Lymphocytes 16.2 % (21.0-51.0); %Monocytes 9.5 % (0.0-10.0); %Neutrophils 72.1 % (42.0-75.0); Hemoglobin 13.5 g/dL (14.0-18.0); Mean Corpuscular HGB CONC 32.5 g/dL (32.0-36.0); Mean Corpuscular Hemoglobin 31.3 pg (27.0-31.0); Mean Corpuscular Volume 96.2 fL (78.0-98.0); Mean Platelet Volume 6.7 fL (7.4-10.4); Platelet Count 197 thou/uL (130-400); RBC Distribution Width 11.6 % (11.5-14.5); Red Blood Cell (RBC) Count 4.33 mill/uL (4.70-6.10); White Blood Cell (WBC) Count 14.6 thou/uL (4.8-10.8)
[2019-04-08 04:27] LABS: ALT (SGPT) 56 U/L (8-55); AST (SGOT) 71 U/L (5-34); Albumin 3.3 g/dL (3.5-5.0); Alkaline Phosphatase 108 U/L (40-110); Anion Gap 13 mmol/L (10-20); BUN (Urea Nitrogen) 14 mg/dL (8.9-20.6); Bilirubin, Total 1.3 mg/dL (0.2-1.2); Calc. Creatinine Clearance 0 mL/min (70-130); Calcium 8.2 mg/dL (7.8-10.44); Carbon Dioxide 21 mmol/L (22-29); Chloride 105 mmol/L (98-107); Estimated GFR-MDRD Greater than 90; Globulin 4.5 g/dL (2.4-3.5); Glucose 94 mg/dL (70-105); Lipase 11 U/L (8-78); Potassium 3.6 mmol/L (3.5-5.1); Protein, Total 7.8 g/dL (6.0-8.3); Sodium 135 mmol/L (136-145)
[2019-04-08 04:28] LABS: CRP (Inflammatory) 1.77 mg/dL (= or < 0.5)
[2019-04-08] MEDS ORDERED: Pantoprazole 40 MG VIAL ONE (04:29)
[2019-04-08] MEDS ORDERED: Promethazine HCl 25 MG/ML VIAL ONE (04:29)
[2019-04-08] MEDS ORDERED: Sodium Chloride 0.9% 1,000 ML ONE ×2 (04:29→05:13)
[2019-04-08 04:51] LABS: Bilirubin Negative (Negative); Blood, Urine Large (Negative); Clarity Cloudy (Clear); Glucose, Urine (Dipstick) Negative (Negative); Leukocyte Trace (Negative); Nitrite Negative (Negative); Protein, Urine (Dipstick) 30 mg/dL (Neg-Trace)
[2019-04-08 04:57] LABS: Bacteria/HPF 3+ HPF (None Seen); Mucous/LPF 4+ LPF (<2+); RBC/HPF Greater than 50 HPF (0-3)
[2019-04-08] MEDS ORDERED: Sodium Chloride 0.9% 100 ML ONE (05:13)
[2019-04-08] MEDS ORDERED: Piperacillin/Tazobactam 4.5 GM VIAL ONE (05:13)
[2019-04-08] MEDS ORDERED: Vancomycin 1.5 GRAM/300 ML BAG 1.5 GM/300 ML BAG ONE (05:52)
--- NOTE | 2019-04-08 08:36 | CT ---
PRELIMINARY REPORT/[facility]/AFTER HOURS PROCEDURE CT ABDOMEN AND PELVIS WITH IV CONTRAST: HISTORY: Right lower quadrant pain. TECHNIQUE: Axial images were performed with multiplanar reconstructions. The patient was given iodinated contra st intravenously. The patient was not given oral contrast material. COMPARISONS: None. FINDINGS: Clear lung bases. Liver, spleen, adrenals, and pancreas show no abnormality. Absent LEFT kidney. RIGHT kidney is unre markable. There has been previous cholecystectomy with normal sized biliary tree. No abdominal ascites or pneumoperitoneum. Normal aorta. No lymphadenopathy. No bowel dilatation or inflammation and normal appendix. Pelvis shows no masses or free fluid. Penile pump prosthesis in place RIGHT anterior lower pelvis. Normal urinary bladder. No acute bony abnormality. Rotoscoliosis and previous posterior fusion lumbar spine. IMPRESSION: 1. No explanation for RIGHT lower quadrant pain with normal appendix and no other abnormality in the region. 2. Absent LEFT kidney. 3, No other acute change identified. ELECTRONICALLY SIGNED BY: Joss Stokes MD Apr 08, 2019 5:10:11 AM [employer] This report is intended for review by the ordering physician only, in accordance of law. If you recei ve this report in error, please call [facility] at [phone]. FINAL REPORT EMERGENT AFTER HOURS CT ABDOMEN AND PELVIS WITH CONTRAST: HISTORY: Right lower quadrant pain. COMPARISON: 03/19/2019 FINDINGS: ABDOMEN: The lung bases are clear. The liver and spleen show no focal findings. The pancreas region is unremarkable. The gallbladder is absent. The right and left adrenal glands and the right kidney are normal. The left kidney is absent. There i s no significant periaortic or mesenteric adenopathy. There is an anastomotic suture line seen within the ileum. The appendix is retrocecal in location and normal in appearance. PELVIS: The bladder is thick-walled and somewhat irregular in shape. A penile pump prosthesis is note d. The deformity to both hip regions is a stable finding. IMPRESSION: 1. Post left nephrectomy change. 2. Normal appendix. 3. Chronic changes. This report is in agreement with the temporary report issued by [facility]. CODE QA POS: [facility]
[2019-04-08] MEDS ORDERED: Iopamidol 370 76% 100 ML VIAL ONE (10:07)
== END 2019-04-08 07:22 | disposition short-term general hospital (02) ==
LOC: MADERS 03:15
DX: A41.9 Sepsis, unspecified organism (principal); R11.2 Nausea with vomiting, unspecified; N39.0 Urinary tract infection, site not specified; I71.4 Abdominal aortic aneurysm, without rupture; M86.9 Osteomyelitis, unspecified; F41.9 Anxiety disorder, unspecified; I71.2 Thoracic aortic aneurysm, without rupture; E66.9 Obesity, unspecified; F32.9 Major depressive disorder, single episode, unspecified; F17.210 Nicotine dependence, cigarettes, uncomplicated; Z79.899 Other long term (current) drug therapy
CPT/HCPCS: 36415; 51701; 74177; 80053; 81003; 81015; 82150; 82550; 83605; 83690; 84484; 85025; 86140; 87040; 87077; 87086; 87186; 87804; 93005; 96365; 96367; 96375; C9113; J2543; J2550; J3490; J7050; Q9967

== ENCOUNTER 2019-05-06 12:46 | Emergency (ER) | payer MEDICARE, OTHER ==
[2019-05-06 13:27] LABS: Bilirubin Negative (Negative); Blood, Urine Large (Negative); Clarity Cloudy (Clear); Glucose, Urine (Dipstick) Negative (Negative); Leukocyte Small (Negative); Nitrite Positive (Negative); Protein, Urine (Dipstick) 30 mg/dL (Neg-Trace)
[2019-05-06 13:28] LABS: Bacteria/HPF 4+ HPF (None Seen); Squamous Epithelial None Seen HPF (0-3); WBC/HPF Greater Than 50 HPF (0-3)
[2019-05-06] MEDS ORDERED: Sodium Chloride 0.9% 1,000 ML ONE (13:36)
[2019-05-06] MEDS ORDERED: Morphine 4 MG/ML VIAL ONE (13:36)
[2019-05-06] MEDS ORDERED: cefTRIAXone\\ROCEPHIN 2 GM VIAL ONE (13:36)
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
[2019-05-06 14:09] LABS: #Basophils 0.1 thou/uL (0.0-0.2); #Monocytes 0.8 thou/uL (0.11-0.59); #Neutrophils 4.2 thou/uL (1.40-6.50); %Basophils 1.4 % (0.0-1.0); %Eosinophils 0.3 % (0.0-10.0); %Monocytes 9.5 % (0.0-10.0); %Neutrophils 51.9 % (42.0-75.0); Hemoglobin 13.7 g/dL (14.0-18.0); Mean Corpuscular HGB CONC 32.6 g/dL (32.0-36.0); Mean Corpuscular Hemoglobin 31.2 pg (27.0-31.0); Mean Corpuscular Volume 95.8 fL (78.0-98.0); Mean Platelet Volume 7.5 fL (7.4-10.4); Platelet Count 175 thou/uL (130-400); White Blood Cell (WBC) Count 8.2 thou/uL (4.8-10.8)
[2019-05-06 14:15] LABS: Anion Gap 13 mmol/L (10-20); BUN (Urea Nitrogen) 17 mg/dL (8.9-20.6); Calc. Creatinine Clearance 0 mL/min (70-130); Calcium 8.5 mg/dL (7.8-10.44); Carbon Dioxide 23 mmol/L (22-29); Chloride 108 mmol/L (98-107); Estimated GFR-MDRD Greater than 90; Glucose 105 mg/dL (70-105); Potassium 3.8 mmol/L (3.5-5.1); Sodium 140 mmol/L (136-145)
== END 2019-05-06 15:25 | disposition home or self-care (01) ==
LOC: MADERS 12:46
DX: M25.552 Pain in left hip (principal); N39.0 Urinary tract infection, site not specified; I71.4 Abdominal aortic aneurysm, without rupture; F41.9 Anxiety disorder, unspecified; E66.9 Obesity, unspecified; G58.0 Intercostal neuropathy; F32.9 Major depressive disorder, single episode, unspecified; F17.210 Nicotine dependence, cigarettes, uncomplicated; Z79.891 Long term (current) use of opiate analgesic; Z79.899 Other long term (current) drug therapy; V89.9XXA Person injured in unspecified vehicle accident, initial encounter
CPT/HCPCS: 51701; 80048; 81003; 81015; 83605; 85025; 87077; 87086; 87186; 96365; 96375; J0696; J2270; J7050

== ENCOUNTER 2019-08-31 11:10 | Emergency (ER) | payer MEDICARE, MEDICAID ==
[~2019-08-31 11:10] MED LIST changes: -Iopamidol 370 76% 125 ML VIAL FS ONE; +Sodium Chloride 0.9% 100 ML BAG ONE
[2019-08-31 12:04] LABS: #Basophils 0.1 thou/uL (0.0-0.2); #Eosinphils 0.2 thou/uL (0.0-0.7); #Lymphocytes 2.2 thou/uL (1.20-3.40); #Monocytes 0.9 thou/uL (0.11-0.59); #Neutrophils 5.9 thou/uL (1.40-6.50); %Basophils 1.2 % (0.0-1.0); %Eosinophils 2.2 % (0.0-10.0); %Lymphocytes 23.4 % (21.0-51.0); %Monocytes 9.5 % (0.0-10.0); %Neutrophils 63.8 % (42.0-75.0); Hemoglobin 13.9 g/dL (14.0-18.0); Mean Corpuscular HGB CONC 30.8 g/dL (32.0-36.0); Mean Corpuscular Hemoglobin 30.5 pg (27.0-31.0); Mean Corpuscular Volume 98.9 fL (78.0-98.0); Mean Platelet Volume 6.5 fL (7.4-10.4); Platelet Count 216 thou/uL (130-400); RBC Distribution Width 13.6 % (11.5-14.5); Red Blood Cell (RBC) Count 4.56 mill/uL (4.70-6.10); White Blood Cell (WBC) Count 9.2 thou/uL (4.8-10.8)
[2019-08-31] MEDS ORDERED: Sodium Chloride 0.9% 1,000 ML ONE (12:06)
[2019-08-31 12:10] LABS: Bilirubin Moderate (Negative); Blood, Urine Large (Negative); Clarity Slightly Cloudy (Clear); Glucose, Urine (Dipstick) Negative (Negative); Leukocyte Trace (Negative); Nitrite Positive (Negative); Protein, Urine (Dipstick) 100 mg/dL (Neg-Trace); Urobilinogen > or = 8.0 mg/dL (Less than 2)
[2019-08-31 12:14] LABS: Bacteria/HPF 1+ HPF (None Seen); RBC/HPF Greater than 50 HPF (0-3)
[2019-08-31 12:17] LABS: ALT (SGPT) 41 U/L (8-55); AST (SGOT) 53 U/L (5-34); Albumin 3.2 g/dL (3.5-5.0); Alkaline Phosphatase 112 U/L (40-110); Anion Gap 13 mmol/L (10-20); BUN (Urea Nitrogen) 18 mg/dL (8.9-20.6); Bilirubin, Total 1.2 mg/dL (0.2-1.2); Calc. Creatinine Clearance 0 mL/min (70-130); Carbon Dioxide 20 mmol/L (22-29); Chloride 111 mmol/L (98-107); Estimated GFR-MDRD Greater than 90; Globulin 4.1 g/dL (2.4-3.5); Glucose 131 mg/dL (70-105); Potassium 3.3 mmol/L (3.5-5.1); Protein, Total 7.3 g/dL (6.0-8.3); Sodium 141 mmol/L (136-145)
[2019-08-31] MEDS ORDERED: Acetaminophen 500 MG TAB ONE (12:20)
[2019-08-31] MEDS ORDERED: Prochlorperazine 10 MG/2 ML VIAL ONE (12:20)
[2019-08-31] MEDS ORDERED: cefTRIAXone\\ROCEPHIN 1 GM VIAL ONE (12:32)
[2019-08-31] MEDS ORDERED: Morphine 4 MG/ML VIAL ONE (13:08)
== END 2019-08-31 13:10 | disposition home or self-care (01) ==
LOC: MADERS 11:10
DX: N10 Acute pyelonephritis (principal); M86.9 Osteomyelitis, unspecified; I71.6 Thoracoabdominal aortic aneurysm, without rupture; F41.9 Anxiety disorder, unspecified; E66.9 Obesity, unspecified; G58.0 Intercostal neuropathy; F32.9 Major depressive disorder, single episode, unspecified; F17.210 Nicotine dependence, cigarettes, uncomplicated; Z79.899 Other long term (current) drug therapy
CPT/HCPCS: 51701; 80053; 81003; 81015; 83605; 85025; 87040; 87077; 87086; 87186; 96365; 96375; J0696; J0780; J2270; J3490; J7050

== ENCOUNTER 2019-12-16 14:49 | Emergency (ER) | payer MEDICARE, OTHER ==
[2019-12-16] MEDS ORDERED: Morphine 4 MG/ML VIAL ONE (15:29)
[2019-12-16] MEDS ORDERED: Promethazine HCl 25 MG/ML VIAL ONE (15:29)
[2019-12-16] MEDS ORDERED: Sodium Chloride 0.9% 1,000 ML ONE (15:29)
[2019-12-16 15:36] LABS: #Basophils 0.1 thou/uL (0.0-0.2); #Eosinphils 0.4 thou/uL (0.0-0.7); #Lymphocytes 3.1 thou/uL (1.20-3.40); #Monocytes 0.8 thou/uL (0.11-0.59); #Neutrophils 3.3 thou/uL (1.40-6.50); %Basophils 1.9 % (0.0-1.0); %Eosinophils 4.7 % (0.0-10.0); %Lymphocytes 39.8 % (21.0-51.0); %Monocytes 10.6 % (0.0-10.0); Hemoglobin 13.1 g/dL (14.0-18.0); Mean Corpuscular Hemoglobin 31.3 pg (27.0-31.0); Mean Corpuscular Volume 97.9 fL (78.0-98.0); Mean Platelet Volume 6.6 fL (7.4-10.4); Platelet Count 185 thou/uL (130-400); RBC Distribution Width 12.6 % (11.5-14.5); Red Blood Cell (RBC) Count 4.19 mill/uL (4.70-6.10); White Blood Cell (WBC) Count 7.7 thou/uL (4.8-10.8)
[2019-12-16 15:51] LABS: Anion Gap 14 mmol/L (10-20); BUN (Urea Nitrogen) 21 mg/dL (8.9-20.6); Bilirubin, Total 0.7 mg/dL (0.2-1.2); Calc. Creatinine Clearance 0 mL/min (70-130); Calcium 7.9 mg/dL (7.8-10.44); Carbon Dioxide 22 mmol/L (22-29); Chloride 110 mmol/L (98-107); Estimated GFR-MDRD Greater than 90; Glucose 138 mg/dL (70-105); Potassium 3.6 mmol/L (3.5-5.1); Sodium 142 mmol/L (136-145)
[2019-12-16 15:52] LABS: ALT (SGPT) 39 U/L (8-55); AST (SGOT) 61 U/L (5-34); Albumin 3.1 g/dL (3.5-5.0); Alkaline Phosphatase 108 U/L (40-110); Globulin 4.2 g/dL (2.4-3.5); Protein, Total 7.3 g/dL (6.0-8.3)
[2019-12-16] MEDS ORDERED: cefTRIAXone\\ROCEPHIN 1 GM VIAL ONE (16:19)
[2019-12-16] MEDS ORDERED: Sodium Chloride 0.9% 100 ML ONE (16:20)
[2019-12-16 16:50] LABS: Bilirubin Negative (Negative); Blood, Urine Moderate (Negative); Glucose, Urine (Dipstick) Negative (Negative); Ketone, Urine Negative (Negative); Leukocyte Trace (Negative); Nitrite Negative (Negative); Protein, Urine (Dipstick) Negative (Neg-Trace); Specific Gravity, Urine 1.025 (1.005-1.030)
[2019-12-16 16:53] LABS: Clarity Hazy (Clear)
[2019-12-16 16:56] LABS: Bacteria/HPF 1+ HPF (None Seen); Squamous Epithelial 0-3 HPF (0-3)
== END 2019-12-16 17:52 | disposition home or self-care (01) ==
LOC: MADERS 14:49
DX: N10 Acute pyelonephritis (principal); F41.9 Anxiety disorder, unspecified; E66.9 Obesity, unspecified; F32.9 Major depressive disorder, single episode, unspecified; Z87.891 Personal history of nicotine dependence; Z79.899 Other long term (current) drug therapy
CPT/HCPCS: 80053; 81003; 81015; 83605; 85025; 86140; 87040; 87077; 87086; 87186; 96365; 96368; 96375; J0696; J2270; J2550; J3490; J7050

== ENCOUNTER 2020-01-14 20:45 | Emergency (ER) | payer MEDICARE, OTHER, MEDICAID ==
[2020-01-14 21:42] LABS: Bilirubin Negative (Negative); Blood, Urine Large (Negative); Clarity Cloudy (Clear); Glucose, Urine (Dipstick) Negative (Negative); Ketone, Urine Trace mg/dL (Negative); Leukocyte Large (Negative); Nitrite Positive (Negative); Protein, Urine (Dipstick) 30 mg/dL (Neg-Trace); Urobilinogen > or = 8.0 mg/dL (Less than 2)
[2020-01-14 21:49] LABS: Bacteria/HPF 3+ HPF (None Seen); Squamous Epithelial 0-3 HPF (0-3); WBC/HPF Greater than 50 HPF (0-3)
[2020-01-14 21:50] LABS: Mucous/LPF 2+ LPF (<2+)
[2020-01-14 21:52] LABS: Specific Gravity, Urine 1.025 (1.002-1.036)
[2020-01-14] MEDS ORDERED: Promethazine HCl 25 MG/ML VIAL ONE (22:22)
[2020-01-14] MEDS ORDERED: Sodium Chloride 0.9% 100 ML ONE (22:22)
[2020-01-14] MEDS ORDERED: Sodium Chloride 0.9% 1,000 ML ONE (22:22)
[2020-01-14] MEDS ORDERED: cefTRIAXone\\ROCEPHIN 2 GM VIAL ONE (22:22)
[2020-01-14 22:30] LABS: #Basophils 0.1 thou/uL (0.0-0.2); #Lymphocytes 1.5 thou/uL (1.20-3.40); #Monocytes 0.4 thou/uL (0.11-0.59); %Basophils 1.4 % (0.0-1.0); %Eosinophils 0.1 % (0.0-10.0); %Lymphocytes 20.9 % (21.0-51.0); %Neutrophils 71.5 % (42.0-75.0); Hemoglobin 14.1 g/dL (14.0-18.0); Mean Corpuscular HGB CONC 32.2 g/dL (32.0-36.0); Mean Corpuscular Hemoglobin 32.1 pg (27.0-31.0); Mean Corpuscular Volume 99.6 fL (78.0-98.0); Mean Platelet Volume 6.8 fL (7.4-10.4); Platelet Count 198 thou/uL (130-400); RBC Distribution Width 12.5 % (11.5-14.5)
[2020-01-14] MEDS ORDERED: HYDROcodone/Acetaminophen 5/325 mg Tablet ONE (22:41)
[2020-01-14 22:43] LABS: ALT (SGPT) 49 U/L (8-55); Albumin 3.4 g/dL (3.5-5.0); Alkaline Phosphatase 120 U/L (40-110); Anion Gap 17 mmol/L (10-20); BUN (Urea Nitrogen) 16 mg/dL (8.9-20.6); Bilirubin, Total 1.4 mg/dL (0.2-1.2); Calc. Creatinine Clearance 0 mL/min (70-130); Calcium 8.3 mg/dL (7.8-10.44); Carbon Dioxide 22 mmol/L (22-29); Chloride 108 mmol/L (98-107); Estimated GFR-MDRD Greater than 90; Globulin 4.6 g/dL (2.4-3.5); Glucose 95 mg/dL (70-105); Potassium 5.3 mmol/L (3.5-5.1); Sodium 142 mmol/L (136-145)
[2020-01-14 22:48] LABS: AST (SGOT) 86 U/L (5-34)
[2020-01-14] MEDS ORDERED: Sulfameth/Trimethoprim DS 800-160mg TAB ONE (23:21)
== END 2020-01-15 01:36 | disposition home or self-care (01) ==
LOC: MADERS 20:45
DX: N39.0 Urinary tract infection, site not specified (principal); R11.2 Nausea with vomiting, unspecified; I71.4 Abdominal aortic aneurysm, without rupture; F41.9 Anxiety disorder, unspecified; F32.9 Major depressive disorder, single episode, unspecified; M86.9 Osteomyelitis, unspecified; E66.9 Obesity, unspecified; G58.0 Intercostal neuropathy; Z87.891 Personal history of nicotine dependence; Z79.899 Other long term (current) drug therapy
CPT/HCPCS: 51701; 80053; 81003; 81015; 83605; 85025; 87077; 87086; 87186; 96374; J0696; J2550; J3490; J7050

== ENCOUNTER 2020-02-26 15:12 | Inpatient (IN) | payer MEDICARE, OTHER ==
[2020-02-26] MEDS ORDERED: Melatonin 3 MG TAB PO PRN (21:17)
[2020-02-26] MEDS ORDERED: HYDROcodone/Acetaminophen 10/325 mg Tablet PO PRN (21:18)
[2020-02-26] MEDS: Scopolamine 1.5 mg/72 hour Patch TOP SCH (21:51)
[2020-02-26] MEDS: Gabapentin 300 MG CAP PO SCH (21:52)
[2020-02-26] MEDS: Baclofen 10 MG TAB PO SCH (21:53)
[2020-02-26] MEDS: Vancomycin HCl 25 MG/ML Oral PO SCH (21:54)
[2020-02-26] MEDS ORDERED: clonazePAM 0.5 MG TAB PO SCH (22:00)
[2020-02-27] MEDS: Vancomycin HCl 25 MG/ML Oral PO SCH ×3 (03:00→17:47)
[2020-02-27] MEDS: Baclofen 10 MG TAB PO SCH ×3 (04:59→21:00)
[2020-02-27] MEDS: Gabapentin 300 MG CAP PO SCH ×3 (04:59→21:00)
[2020-02-27 06:04] LABS: #Basophils 0.3 thou/uL (0.0-0.2); #Eosinphils 0.6 thou/uL (0.0-0.7); #Lymphocytes 4.2 thou/uL (1.20-3.40); #Monocytes 1.3 thou/uL (0.11-0.59); #Neutrophils 4.3 thou/uL (1.40-6.50); %Basophils 2.4 % (0.0-1.0); %Eosinophils 6.1 % (0.0-10.0); %Lymphocytes 39.1 % (21.0-51.0); %Monocytes 12.2 % (0.0-10.0); %Neutrophils 40.1 % (42.0-75.0); Hemoglobin 11.6 g/dL (14.0-18.0); Mean Corpuscular HGB CONC 32.6 g/dL (32.0-36.0); Mean Platelet Volume 7.5 fL (7.4-10.4); Platelet Count 158 thou/uL (130-400); Red Blood Cell (RBC) Count 3.64 mill/uL (4.70-6.10); White Blood Cell (WBC) Count 10.6 thou/uL (4.8-10.8)
[2020-02-27 06:15] LABS: ALT (SGPT) 48 U/L (8-55); AST (SGOT) 55 U/L (5-34); Albumin 2.2 g/dL (3.5-5.0); Alkaline Phosphatase 68 U/L (40-110); Anion Gap 14 mmol/L (10-20); BUN (Urea Nitrogen) 11 mg/dL (8.9-20.6); Bilirubin, Total 0.9 mg/dL (0.2-1.2); Calc. Creatinine Clearance 240 mL/min (70-130); Calcium 7.2 mg/dL (7.8-10.44); Carbon Dioxide 17 mmol/L (22-29); Chloride 114 mmol/L (98-107); Globulin 3.7 g/dL (2.4-3.5); Glucose 101 mg/dL (70-105); Potassium 3.3 mmol/L (3.5-5.1); Protein, Total 5.9 g/dL (6.0-8.3); Sodium 142 mmol/L (136-145)
[2020-02-27] MEDS ORDERED: HYDROcodone/Acetaminophen 10/325 mg Tablet PO PRN (08:17)
[2020-02-27] MEDS ORDERED: Acetaminophen 325 MG TAB PO PRN (08:17)
[2020-02-27] MEDS: clonazePAM 0.5 MG TAB PO SCH ×3 (10:04→21:00)
[2020-02-27] MEDS: Saccharomyces boulardii 250 MG CAP PO SCH (10:07)
[2020-02-27] MEDS: Morphine 2 MG/ML SYRINGE SLOW IVP PRN ×2 (10:07→19:34)
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
[2020-02-27] MEDS: cefTRIAXone\\ROCEPHIN 2 GM in Sodium Chloride 0.9% 100 ML IVPB SCH (15:08)
[2020-02-27] MEDS ORDERED: FLU VACC QS2020-21(6MOS UP)/PF 60 MCG/0.5 ML SYRINGE IM ONE (21:00)
[2020-02-28] MEDS: Morphine 2 MG/ML SYRINGE SLOW IVP PRN ×2 (05:17→15:50)
[2020-02-28] MEDS: Baclofen 10 MG TAB PO SCH ×3 (05:18→21:19)
[2020-02-28] MEDS: Gabapentin 300 MG CAP PO SCH ×3 (05:18→21:19)
[2020-02-28] MEDS: Saccharomyces boulardii 250 MG CAP PO SCH (09:38)
[2020-02-28] MEDS: clonazePAM 0.5 MG TAB PO SCH ×3 (09:38→21:17)
[2020-02-28] MEDS: Promethazine HCl 12.5 MG in Sodium Chloride 0.9% 50 ML IVPB PRN (09:43)
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
[2020-02-28] MEDS: cefTRIAXone\\ROCEPHIN 2 GM in Sodium Chloride 0.9% 100 ML IVPB SCH (15:46)
[2020-02-28] MEDS: HYDROcodone/Acetaminophen 10/325 mg Tablet PO PRN (21:21)
[2020-02-29] MEDS: Morphine 2 MG/ML SYRINGE SLOW IVP PRN ×2 (04:30→21:48)
[2020-02-29] MEDS: Gabapentin 300 MG CAP PO SCH ×3 (06:25→21:47)
[2020-02-29] MEDS: Baclofen 10 MG TAB PO SCH ×3 (06:26→21:48)
[2020-02-29] MEDS: clonazePAM 0.5 MG TAB PO SCH ×3 (09:55→21:46)
[2020-02-29] MEDS: Saccharomyces boulardii 250 MG CAP PO SCH (09:55)
[2020-02-29] MEDS: Promethazine HCl 12.5 MG in Sodium Chloride 0.9% 50 ML IVPB PRN (10:05)
[2020-02-29] MEDS: cefTRIAXone\\ROCEPHIN 2 GM in Sodium Chloride 0.9% 100 ML IVPB SCH (15:02)
[2020-02-29] MEDS: HYDROcodone/Acetaminophen 10/325 mg Tablet PO PRN (15:12)
[2020-02-29] MEDS: Scopolamine 1.5 mg/72 hour Patch TOP SCH (21:46)
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
[2020-03-01] MEDS: Gabapentin 300 MG CAP PO SCH ×3 (05:55→21:30)
[2020-03-01] MEDS: Baclofen 10 MG TAB PO SCH ×3 (05:56→21:30)
[2020-03-01] MEDS: clonazePAM 0.5 MG TAB PO SCH ×3 (08:42→21:29)
[2020-03-01] MEDS: Saccharomyces boulardii 250 MG CAP PO SCH (08:43)
[2020-03-01] MEDS: Morphine 2 MG/ML SYRINGE SLOW IVP PRN (14:42)
[2020-03-01] MEDS: cefTRIAXone\\ROCEPHIN 2 GM in Sodium Chloride 0.9% 100 ML IVPB SCH (14:44)
[2020-03-01] MEDS: Promethazine HCl 12.5 MG in Sodium Chloride 0.9% 50 ML IVPB PRN (18:06)
[2020-03-01] MEDS ORDERED: Promethazine HCl 25 MG/ML VIAL ONE ×2 (18:15→18:22)
[2020-03-01] MEDS: HYDROcodone/Acetaminophen 10/325 mg Tablet PO PRN (22:40)
[2020-03-02] MEDS: HYDROcodone/Acetaminophen 10/325 mg Tablet PO PRN ×3 (04:51→20:53)
[2020-03-02] MEDS: Baclofen 10 MG TAB PO SCH ×3 (05:39→20:55)
[2020-03-02] MEDS: Gabapentin 300 MG CAP PO SCH ×3 (05:39→20:55)
[2020-03-02] MEDS: Promethazine HCl 12.5 MG in Sodium Chloride 0.9% 50 ML IVPB PRN (05:53)
[2020-03-02] MEDS: clonazePAM 0.5 MG TAB PO SCH ×3 (08:40→20:54)
[2020-03-02] MEDS: Morphine 2 MG/ML SYRINGE SLOW IVP PRN (08:41)
[2020-03-02] MEDS: Saccharomyces boulardii 250 MG CAP PO SCH (08:41)
[2020-03-02] MEDS ORDERED: Cepastat Lozenges 1 LOZ PO PRN (11:29)
[2020-03-02] MEDS: cefTRIAXone\\ROCEPHIN 2 GM in Sodium Chloride 0.9% 100 ML IVPB SCH (14:50)
[2020-03-03] MEDS: Morphine 2 MG/ML SYRINGE SLOW IVP PRN ×3 (01:09→21:30)
[2020-03-03] MEDS: Promethazine HCl 12.5 MG in Sodium Chloride 0.9% 50 ML IVPB PRN ×2 (04:32→18:38)
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
[2020-03-03] MEDS: Gabapentin 300 MG CAP PO SCH ×3 (05:33→21:59)
[2020-03-03] MEDS: Baclofen 10 MG TAB PO SCH ×3 (05:33→21:59)
[2020-03-03] MEDS: Saccharomyces boulardii 250 MG CAP PO SCH (08:15)
[2020-03-03] MEDS: HYDROcodone/Acetaminophen 10/325 mg Tablet PO PRN (08:15)
[2020-03-03] MEDS: clonazePAM 0.5 MG TAB PO SCH ×3 (08:15→21:48)
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
[2020-03-03] MEDS: cefTRIAXone\\ROCEPHIN 2 GM in Sodium Chloride 0.9% 100 ML IVPB SCH (13:51)
[2020-03-03] MEDS: Scopolamine 1.5 mg/72 hour Patch TOP SCH (21:49)
[2020-03-04] MEDS: Morphine 2 MG/ML SYRINGE SLOW IVP PRN ×2 (05:32→18:23)
[2020-03-04] MEDS: Gabapentin 300 MG CAP PO SCH ×3 (05:33→21:05)
[2020-03-04] MEDS: Baclofen 10 MG TAB PO SCH ×3 (05:34→21:05)
[2020-03-04 06:01] LABS: #Basophils 0.2 thou/uL (0.0-0.2); #Eosinphils 0.5 thou/uL (0.0-0.7); #Lymphocytes 3.3 thou/uL (1.20-3.40); #Monocytes 0.6 thou/uL (0.11-0.59); #Neutrophils 3.3 thou/uL (1.40-6.50); %Basophils 2.8 % (0.0-1.0); %Eosinophils 5.9 % (0.0-10.0); %Lymphocytes 42.1 % (21.0-51.0); %Monocytes 7.2 % (0.0-10.0); %Neutrophils 42.1 % (42.0-75.0); Hemoglobin 12.5 g/dL (14.0-18.0); Mean Corpuscular HGB CONC 32.1 g/dL (32.0-36.0); Mean Corpuscular Hemoglobin 31.8 pg (27.0-31.0); Mean Corpuscular Volume 99.1 fL (78.0-98.0); Mean Platelet Volume 6.3 fL (7.4-10.4); Platelet Count 299 thou/uL (130-400); RBC Distribution Width 13.1 % (11.5-14.5); Red Blood Cell (RBC) Count 3.93 mill/uL (4.70-6.10); White Blood Cell (WBC) Count 7.8 thou/uL (4.8-10.8)
[2020-03-04 06:07] LABS: Anion Gap 9 mmol/L (10-20); BUN (Urea Nitrogen) 10 mg/dL (8.9-20.6); CRP (Inflammatory) 1.03 mg/dL (= or < 0.5); Calc. Creatinine Clearance 265 mL/min (70-130); Calcium 7.2 mg/dL (7.8-10.44); Carbon Dioxide 26 mmol/L (22-29); Chloride 107 mmol/L (98-107); Glucose 77 mg/dL (70-105); Potassium 4.3 mmol/L (3.5-5.1); Sodium 138 mmol/L (136-145)
[2020-03-04] MEDS: clonazePAM 0.5 MG TAB PO SCH ×3 (09:33→21:06)
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
[2020-03-04] MEDS: Saccharomyces boulardii 250 MG CAP PO SCH (09:34)
[2020-03-04] MEDS: Promethazine HCl 12.5 MG in Sodium Chloride 0.9% 50 ML IVPB PRN ×2 (11:44→21:16)
[2020-03-04] MEDS: HYDROcodone/Acetaminophen 10/325 mg Tablet PO PRN (14:32)
[2020-03-04] MEDS: cefTRIAXone\\ROCEPHIN 2 GM in Sodium Chloride 0.9% 100 ML IVPB SCH (14:34)
[2020-03-04] MEDS: Acetaminophen 325 MG TAB PO PRN (21:15)
[2020-03-05] MEDS: Morphine 2 MG/ML SYRINGE SLOW IVP PRN ×2 (05:07→20:02)
[2020-03-05] MEDS: Gabapentin 300 MG CAP PO SCH ×3 (05:12→21:01)
[2020-03-05] MEDS: Baclofen 10 MG TAB PO SCH ×3 (05:13→21:01)
[2020-03-05] MEDS: Promethazine HCl 12.5 MG in Sodium Chloride 0.9% 50 ML IVPB PRN ×2 (06:06→20:03)
[2020-03-05] MEDS: Saccharomyces boulardii 250 MG CAP PO SCH (08:41)
[2020-03-05] MEDS: clonazePAM 0.5 MG TAB PO SCH ×3 (08:41→20:03)
[2020-03-05] MEDS: cefTRIAXone\\ROCEPHIN 2 GM in Sodium Chloride 0.9% 100 ML IVPB SCH (14:33)
[2020-03-06] MEDS: Morphine 2 MG/ML SYRINGE SLOW IVP PRN ×3 (04:33→22:06)
[2020-03-06] MEDS: Baclofen 10 MG TAB PO SCH ×3 (04:34→22:06)
[2020-03-06] MEDS: Gabapentin 300 MG CAP PO SCH ×3 (04:34→22:06)
[2020-03-06] MEDS: Promethazine HCl 12.5 MG in Sodium Chloride 0.9% 50 ML IVPB PRN ×3 (04:34→22:04)
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
[2020-03-06] MEDS: Saccharomyces boulardii 250 MG CAP PO SCH (08:11)
[2020-03-06] MEDS: clonazePAM 0.5 MG TAB PO SCH ×3 (08:12→22:00)
[2020-03-06] MEDS: cefTRIAXone\\ROCEPHIN 2 GM in Sodium Chloride 0.9% 100 ML IVPB SCH (14:15)
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
[2020-03-06] MEDS: Scopolamine 1.5 mg/72 hour Patch TOP SCH (22:09)
[2020-03-07] MEDS: Promethazine HCl 12.5 MG in Sodium Chloride 0.9% 50 ML IVPB PRN ×2 (06:01→17:09)
[2020-03-07] MEDS: Gabapentin 300 MG CAP PO SCH ×3 (06:02→21:27)
[2020-03-07] MEDS: Baclofen 10 MG TAB PO SCH ×3 (06:03→21:28)
[2020-03-07] MEDS: Morphine 2 MG/ML SYRINGE SLOW IVP PRN ×2 (06:04→15:53)
[2020-03-07] MEDS: Saccharomyces boulardii 250 MG CAP PO SCH (09:37)
[2020-03-07] MEDS: clonazePAM 0.5 MG TAB PO SCH ×3 (09:37→21:29)
[2020-03-07] MEDS: cefTRIAXone\\ROCEPHIN 2 GM in Sodium Chloride 0.9% 100 ML IVPB SCH (14:50)
[2020-03-08] MEDS: Morphine 2 MG/ML SYRINGE SLOW IVP PRN ×2 (02:19→17:12)
[2020-03-08] MEDS: Promethazine HCl 12.5 MG in Sodium Chloride 0.9% 50 ML IVPB PRN ×2 (02:21→17:11)
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
[2020-03-08] MEDS: Gabapentin 300 MG CAP PO SCH ×3 (05:03→21:06)
[2020-03-08] MEDS: Baclofen 10 MG TAB PO SCH ×3 (05:03→21:06)
[2020-03-08] MEDS: Saccharomyces boulardii 250 MG CAP PO SCH (09:17)
[2020-03-08] MEDS: clonazePAM 0.5 MG TAB PO SCH ×3 (09:17→21:05)
[2020-03-08] MEDS: cefTRIAXone\\ROCEPHIN 2 GM in Sodium Chloride 0.9% 100 ML IVPB SCH (14:17)
[2020-03-08] MEDS: HYDROcodone/Acetaminophen 10/325 mg Tablet PO PRN (21:09)
[2020-03-09] MEDS: Morphine 2 MG/ML SYRINGE SLOW IVP PRN ×3 (01:32→18:24)
[2020-03-09] MEDS: Promethazine HCl 12.5 MG in Sodium Chloride 0.9% 50 ML IVPB PRN ×3 (01:37→18:24)
[2020-03-09] MEDS: Gabapentin 300 MG CAP PO SCH ×3 (05:38→21:40)
[2020-03-09] MEDS: Baclofen 10 MG TAB PO SCH ×3 (05:40→21:40)
[2020-03-09] MEDS: HYDROcodone/Acetaminophen 10/325 mg Tablet PO PRN (05:42)
[2020-03-09] MEDS: clonazePAM 0.5 MG TAB PO SCH ×3 (09:38→20:10)
[2020-03-09] MEDS: Saccharomyces boulardii 250 MG CAP PO SCH (09:38)
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
[2020-03-09] MEDS: cefTRIAXone\\ROCEPHIN 2 GM in Sodium Chloride 0.9% 100 ML IVPB SCH (14:12)
[2020-03-09] MEDS: Scopolamine 1.5 mg/72 hour Patch TOP SCH (20:10)
[2020-03-09] MEDS: Acetaminophen 325 MG TAB PO PRN (21:38)
[2020-03-10 01:09] LABS: #Basophils 0.2 thou/uL (0.0-0.2); #Eosinphils 0.3 thou/uL (0.0-0.7); #Lymphocytes 2.1 thou/uL (1.20-3.40); #Monocytes 0.9 thou/uL (0.11-0.59); #Neutrophils 4.3 thou/uL (1.40-6.50); %Basophils 2.4 % (0.0-1.0); %Eosinophils 3.5 % (0.0-10.0); %Lymphocytes 26.7 % (21.0-51.0); %Neutrophils 55.4 % (42.0-75.0); Hemoglobin 13.1 g/dL (14.0-18.0); Mean Corpuscular HGB CONC 32.6 g/dL (32.0-36.0); Mean Corpuscular Hemoglobin 31.8 pg (27.0-31.0); Mean Corpuscular Volume 97.6 fL (78.0-98.0); Mean Platelet Volume 6.1 fL (7.4-10.4); Platelet Count 193 thou/uL (130-400); RBC Distribution Width 12.2 % (11.5-14.5); White Blood Cell (WBC) Count 7.8 thou/uL (4.8-10.8)
[2020-03-10] MEDS: Cefepime 2 GM in Sodium Chloride 0.9% 100 ML IVPB SCH ×3 (01:23→12:49)
[2020-03-10] MEDS: Morphine 2 MG/ML SYRINGE SLOW IVP PRN ×2 (01:48→11:21)
[2020-03-10 01:51] LABS: ALT (SGPT) 39 U/L (8-55); AST (SGOT) 60 U/L (5-34); Albumin 2.6 g/dL (3.5-5.0); Alkaline Phosphatase 99 U/L (40-110); Anion Gap 13 mmol/L (10-20); BUN (Urea Nitrogen) 13 mg/dL (8.9-20.6); Bilirubin, Total 0.7 mg/dL (0.2-1.2); Calc. Creatinine Clearance 225 mL/min (70-130); Calcium 7.5 mg/dL (7.8-10.44); Carbon Dioxide 21 mmol/L (22-29); Chloride 105 mmol/L (98-107); Globulin 4.8 g/dL (2.4-3.5); Glucose 113 mg/dL (70-105); Protein, Total 7.4 g/dL (6.0-8.3); Sodium 135 mmol/L (136-145)
[2020-03-10 02:11] LABS: SARS-CoV-2 NAA Rapid Test Not Detected (NotDetected)
[2020-03-10 02:12] LABS: CRP (Inflammatory) 0.79 mg/dL (= or < 0.5)
[2020-03-10 03:07] LABS: Bilirubin Negative (Negative); Blood, Urine Large (Negative); Glucose, Urine (Dipstick) Negative (Negative); Ketone, Urine Negative (Negative); Leukocyte Trace (Negative); Nitrite Negative (Negative); Protein, Urine (Dipstick) Negative (Neg-Trace); Specific Gravity, Urine 1.015 (1.005-1.030); Urobilinogen 0.2 mg/dL (Less than 2)
[2020-03-10 03:08] LABS: Clarity Cloudy (Clear)
[2020-03-10 03:14] LABS: Bacteria/HPF Rare-Few HPF (None Seen); RBC/HPF Greater than 50 HPF (0-3); Squamous Epithelial None Seen HPF (0-3)
[2020-03-10 03:17] LABS: Urine Culture Reflex Yes Yes
[2020-03-10] MEDS: Promethazine HCl 12.5 MG in Sodium Chloride 0.9% 50 ML IVPB PRN ×3 (04:05→20:10)
[2020-03-10] MEDS: Baclofen 10 MG TAB PO SCH ×3 (05:33→20:12)
[2020-03-10] MEDS: Gabapentin 300 MG CAP PO SCH ×3 (05:33→20:11)
--- NOTE | 2020-03-10 07:48 | RAD ---
Exam: Chest one view HISTORY:Fevers. Chills. Comparison: 10/29/2008 FINDINGS: Lines and tubes: Left-sided Mediport catheter terminates in the region of the superior vena cava/righ t atrium. Cardiac silhouette: Normal Aorta: Calcified focus at the level aortic knob is once again noted Pulmonary vessels: Normal Costophrenic angles: Clear LUNGS: No masses or consolidation. There are chronic changes. Pneumothorax: None Osseous abnormalities: None IMPRESSION: No acute cardiopulmonary process.
[2020-03-10] MEDS: clonazePAM 0.5 MG TAB PO SCH ×3 (08:51→20:11)
[2020-03-10] MEDS: Saccharomyces boulardii 250 MG CAP PO SCH (08:51)
[2020-03-10] MEDS: HYDROcodone/Acetaminophen 10/325 mg Tablet PO PRN ×2 (08:52→17:25)
[2020-03-10] MEDS: Acetaminophen 325 MG TAB PO PRN (10:55)
[2020-03-10] MEDS: Vancomycin HCl 1 GM in Sodium Chloride 0.9% 250 ML 250 ML IVPB SCH ×2 (10:56→23:03)
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
[2020-03-10] MEDS: Clotrimazole 1% Cream 15 GM TUBE TOP SCH (21:00)
[2020-03-11] MEDS: Cefepime 2 GM in Sodium Chloride 0.9% 100 ML IVPB SCH ×2 (01:05→13:24)
[2020-03-11] MEDS: HYDROcodone/Acetaminophen 10/325 mg Tablet PO PRN ×2 (04:57→21:48)
[2020-03-11] MEDS: Acetaminophen 325 MG TAB PO PRN ×2 (04:58→13:51)
[2020-03-11] MEDS: Baclofen 10 MG TAB PO SCH ×3 (05:01→21:17)
[2020-03-11] MEDS: Gabapentin 300 MG CAP PO SCH ×3 (05:01→21:16)
[2020-03-11 05:57] LABS: Anion Gap 11 mmol/L (10-20); BUN (Urea Nitrogen) 13 mg/dL (8.9-20.6); CRP (Inflammatory) 7.18 mg/dL (= or < 0.5); Calc. Creatinine Clearance 236 mL/min (70-130); Calcium 7.6 mg/dL (7.8-10.44); Carbon Dioxide 24 mmol/L (22-29); Chloride 107 mmol/L (98-107); Glucose 108 mg/dL (70-105); Potassium 4.2 mmol/L (3.5-5.1); Sodium 138 mmol/L (136-145)
[2020-03-11 05:58] LABS: Anisocytosis SLIGHT = 6-15 cells (100X) (0-5/hpf); Band 5 % (5-11); Eosinophils 2 % (0-10); Lymphocytes 31 % (21-51); MDiff Complete? YES; Mean Corpuscular Hemoglobin 33.2 pg (27.0-31.0); Mean Corpuscular Volume 97.5 fL (78.0-98.0); Mean Platelet Volume 5.8 fL (7.4-10.4); Monocytes 11 % (0-10); Neutrophil 50 % (42-75); Platelet Count 137 thou/uL (130-400); Platelet Morphology Comment Appears Adequate; Poikilocytosis SLIGHT = 6-15 cells (100X) (0-5/hpf); RBC Distribution Width 12.7 % (11.5-14.5); Red Blood Cell (RBC) Count 3.93 mill/uL (4.70-6.10); White Blood Cell (WBC) Count 10.4 thou/uL (4.8-10.8)
[2020-03-11] MEDS: Promethazine HCl 12.5 MG in Sodium Chloride 0.9% 50 ML IVPB PRN ×3 (08:09→23:58)
[2020-03-11] MEDS: Saccharomyces boulardii 250 MG CAP PO SCH (08:10)
[2020-03-11] MEDS: Morphine 2 MG/ML SYRINGE SLOW IVP PRN ×3 (08:11→23:52)
[2020-03-11] MEDS: clonazePAM 0.5 MG TAB PO SCH ×3 (08:11→21:15)
[2020-03-11] MEDS: Clotrimazole 1% Cream 15 GM TUBE TOP SCH ×2 (08:11→21:23)
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
[2020-03-11] MEDS: Vancomycin HCl 1 GM in Sodium Chloride 0.9% 250 ML 250 ML IVPB SCH ×2 (11:27→23:42)
[2020-03-11] MEDS ORDERED: Ibuprofen 200 MG TAB PO PRN (17:41)
[2020-03-12] MEDS: Cefepime 2 GM in Sodium Chloride 0.9% 100 ML IVPB SCH ×2 (01:25→13:01)
[2020-03-12] MEDS: Gabapentin 300 MG CAP PO SCH ×3 (06:04→21:32)
[2020-03-12 06:06] LABS: SARS-CoV-2 MS2 Positive; SARS-CoV-2 N Gene Negative; SARS-CoV-2 S Gene Negative; SARS-CoV-2 by NAA Not Detected (NotDetected); SARS-CoV-2 orf1ab Negative
[2020-03-12] MEDS: HYDROcodone/Acetaminophen 10/325 mg Tablet PO PRN ×2 (06:06→14:53)
[2020-03-12] MEDS: Baclofen 10 MG TAB PO SCH ×3 (06:08→21:32)
[2020-03-12 06:37] LABS: Hemoglobin 13.3 g/dL (14.0-18.0); Mean Corpuscular HGB CONC 33.2 g/dL (32.0-36.0); Mean Corpuscular Hemoglobin 32.5 pg (27.0-31.0); Mean Corpuscular Volume 97.9 fL (78.0-98.0); Platelet Count 175 thou/uL (130-400); RBC Distribution Width 12.8 % (11.5-14.5); Red Blood Cell (RBC) Count 4.09 mill/uL (4.70-6.10); White Blood Cell (WBC) Count 9.6 thou/uL (4.8-10.8)
[2020-03-12 06:38] LABS: Manual Diff?? NO; Mean Platelet Volume 6.2 fL (7.4-10.4)
[2020-03-12 06:40] LABS: %Neutrophils 46.8 % (42.0-75.0)
[2020-03-12 06:41] LABS: #Eosinphils 0.5 thou/uL (0.0-0.7); #Monocytes 1.3 thou/uL (0.11-0.59); #Neutrophils 4.5 thou/uL (1.40-6.50); %Basophils 2.1 % (0.0-1.0); %Eosinophils 5.5 % (0.0-10.0); %Lymphocytes 31.9 % (21.0-51.0); %Monocytes 13.6 % (0.0-10.0)
[2020-03-12 06:42] LABS: #Basophils 0.2 thou/uL (0.0-0.2); MDiff Complete? YES
[2020-03-12 06:45] LABS: Carbon Dioxide 24 mmol/L (22-29); Chloride 106 mmol/L (98-107); Sodium 137 mmol/L (136-145)
[2020-03-12 06:46] LABS: BUN (Urea Nitrogen) 11 mg/dL (8.9-20.6); Calc. Creatinine Clearance 238 mL/min (70-130)
[2020-03-12 06:47] LABS: Calcium 7.9 mg/dL (7.8-10.44); Glucose 88 mg/dL (70-105)
[2020-03-12 06:49] LABS: Anion Gap 11 mmol/L (10-20)
[2020-03-12] MEDS: Morphine 2 MG/ML SYRINGE SLOW IVP PRN ×2 (08:01→17:09)
[2020-03-12] MEDS: Promethazine HCl 12.5 MG in Sodium Chloride 0.9% 50 ML IVPB PRN ×2 (08:02→15:42)
[2020-03-12] MEDS: clonazePAM 0.5 MG TAB PO SCH ×3 (08:03→21:13)
[2020-03-12] MEDS: Clotrimazole 1% Cream 15 GM TUBE TOP SCH ×2 (08:04→21:14)
[2020-03-12] MEDS: Saccharomyces boulardii 250 MG CAP PO SCH (08:04)
[2020-03-12 08:26] LABS: #Lymphocytes 3.1 thou/uL (1.20-3.40)
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
[2020-03-12] MEDS: Vancomycin HCl 1 GM in Sodium Chloride 0.9% 250 ML 250 ML IVPB SCH ×2 (11:53→23:55)
[2020-03-12] MEDS: Scopolamine 1.5 mg/72 hour Patch TOP SCH (21:13)
[2020-03-12] MEDS: Acetaminophen 325 MG TAB PO PRN (21:31)
[2020-03-13] MEDS: Cefepime 2 GM in Sodium Chloride 0.9% 100 ML IVPB SCH ×2 (01:07→13:45)
[2020-03-13] MEDS: Morphine 2 MG/ML SYRINGE SLOW IVP PRN ×3 (01:14→16:47)
[2020-03-13] MEDS: Promethazine HCl 12.5 MG in Sodium Chloride 0.9% 50 ML IVPB PRN ×3 (02:42→19:25)
[2020-03-13] MEDS: Baclofen 10 MG TAB PO SCH ×3 (05:30→21:05)
[2020-03-13] MEDS: Gabapentin 300 MG CAP PO SCH ×3 (05:30→21:05)
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
[2020-03-13] MEDS: Saccharomyces boulardii 250 MG CAP PO SCH (09:11)
[2020-03-13] MEDS: clonazePAM 0.5 MG TAB PO SCH ×3 (09:11→21:05)
[2020-03-13] MEDS: Clotrimazole 1% Cream 15 GM TUBE TOP SCH ×2 (09:22→21:06)
[2020-03-13 09:59] LABS: #Basophils 0.1 thou/uL (0.0-0.2); #Eosinphils 0.5 thou/uL (0.0-0.7); #Lymphocytes 2.3 thou/uL (1.20-3.40); #Monocytes 0.8 thou/uL (0.11-0.59); #Neutrophils 3.4 thou/uL (1.40-6.50); %Eosinophils 7.5 % (0.0-10.0); %Lymphocytes 32.4 % (21.0-51.0); %Monocytes 11.1 % (0.0-10.0); Hemoglobin 12.8 g/dL (14.0-18.0); Mean Corpuscular Hemoglobin 32.2 pg (27.0-31.0); Mean Corpuscular Volume 97.7 fL (78.0-98.0); Mean Platelet Volume 6.4 fL (7.4-10.4); Platelet Count 192 thou/uL (130-400); RBC Distribution Width 12.6 % (11.5-14.5); Red Blood Cell (RBC) Count 3.97 mill/uL (4.70-6.10); White Blood Cell (WBC) Count 7.2 thou/uL (4.8-10.8)
[2020-03-13 10:07] LABS: Anion Gap 11 mmol/L (10-20); BUN (Urea Nitrogen) 15 mg/dL (8.9-20.6); Calc. Creatinine Clearance 219 mL/min (70-130); Calcium 7.9 mg/dL (7.8-10.44); Carbon Dioxide 22 mmol/L (22-29); Chloride 109 mmol/L (98-107); Glucose 132 mg/dL (70-105); Potassium 3.7 mmol/L (3.5-5.1); Sodium 138 mmol/L (136-145)
[2020-03-13 10:49] LABS: Vancomycin, Trough 13.7 ug/mL
[2020-03-13] MEDS: HYDROcodone/Acetaminophen 10/325 mg Tablet PO PRN (22:55)
[2020-03-14] MEDS: Cefepime 2 GM in Sodium Chloride 0.9% 100 ML IVPB SCH ×2 (00:28→12:45)
[2020-03-14] MEDS: Baclofen 10 MG TAB PO SCH ×3 (05:36→21:40)
[2020-03-14] MEDS: Gabapentin 300 MG CAP PO SCH ×3 (05:36→21:40)
[2020-03-14] MEDS: Morphine 2 MG/ML SYRINGE SLOW IVP PRN ×2 (05:44→14:55)
[2020-03-14] MEDS: Promethazine HCl 12.5 MG in Sodium Chloride 0.9% 50 ML IVPB PRN ×2 (07:44→18:27)
[2020-03-14] MEDS: Saccharomyces boulardii 250 MG CAP PO SCH (09:25)
[2020-03-14] MEDS: clonazePAM 0.5 MG TAB PO SCH ×3 (09:25→21:40)
[2020-03-14] MEDS: Clotrimazole 1% Cream 15 GM TUBE TOP SCH ×2 (09:26→21:40)
[2020-03-14] MEDS: HYDROcodone/Acetaminophen 10/325 mg Tablet PO PRN (11:29)
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
[2020-03-14] MEDS: Acetaminophen 325 MG TAB PO PRN (21:44)
[2020-03-15] MEDS: Cefepime 2 GM in Sodium Chloride 0.9% 100 ML IVPB SCH ×2 (01:43→13:09)
[2020-03-15] MEDS: Gabapentin 300 MG CAP PO SCH ×3 (05:13→21:02)
[2020-03-15] MEDS: Baclofen 10 MG TAB PO SCH ×3 (05:13→21:01)
[2020-03-15] MEDS: Morphine 2 MG/ML SYRINGE SLOW IVP PRN ×2 (06:30→16:12)
[2020-03-15] MEDS: clonazePAM 0.5 MG TAB PO SCH ×3 (08:00→21:01)
[2020-03-15] MEDS: Saccharomyces boulardii 250 MG CAP PO SCH (08:00)
[2020-03-15] MEDS: Clotrimazole 1% Cream 15 GM TUBE TOP SCH ×2 (08:00→21:04)
[2020-03-15] MEDS: Promethazine HCl 12.5 MG in Sodium Chloride 0.9% 50 ML IVPB PRN ×2 (08:03→16:13)
[2020-03-15] MEDS ORDERED: Morphine 2 MG/ML VIAL ONE (16:05)
[2020-03-15] MEDS: Acetaminophen 325 MG TAB PO PRN (16:24)
[2020-03-15] MEDS: Scopolamine 1.5 mg/72 hour Patch TOP SCH (21:03)
[2020-03-16] MEDS: Cefepime 2 GM in Sodium Chloride 0.9% 100 ML IVPB SCH ×2 (01:20→13:03)
[2020-03-16] MEDS: Gabapentin 300 MG CAP PO SCH ×3 (05:35→21:12)
[2020-03-16] MEDS: Baclofen 10 MG TAB PO SCH ×3 (05:35→21:12)
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
[2020-03-16] MEDS: Promethazine HCl 12.5 MG in Sodium Chloride 0.9% 50 ML IVPB PRN (08:01)
[2020-03-16] MEDS: Saccharomyces boulardii 250 MG CAP PO SCH (08:02)
[2020-03-16] MEDS: HYDROcodone/Acetaminophen 10/325 mg Tablet PO PRN (08:02)
[2020-03-16] MEDS: clonazePAM 0.5 MG TAB PO SCH ×2 (08:02→21:11)
[2020-03-16] MEDS: Clotrimazole 1% Cream 15 GM TUBE TOP SCH ×2 (08:03→21:12)
[2020-03-16] MEDS ORDERED: clonazePAM 0.5 MG TAB PO SCH (16:00)
[2020-03-17] MEDS: Cefepime 2 GM in Sodium Chloride 0.9% 100 ML IVPB SCH (00:17)
[2020-03-17] MEDS: Baclofen 10 MG TAB PO SCH ×3 (05:28→21:59)
[2020-03-17] MEDS: Gabapentin 300 MG CAP PO SCH ×3 (05:28→21:57)
[2020-03-17] MEDS: HYDROcodone/Acetaminophen 10/325 mg Tablet PO PRN (09:26)
[2020-03-17] MEDS: Saccharomyces boulardii 250 MG CAP PO SCH (09:27)
[2020-03-17] MEDS: clonazePAM 0.5 MG TAB PO SCH ×3 (09:27→21:57)
[2020-03-17] MEDS: Clotrimazole 1% Cream 15 GM TUBE TOP SCH ×2 (09:28→21:59)
[2020-03-17] MEDS: Promethazine HCl 12.5 MG in Sodium Chloride 0.9% 50 ML IVPB PRN ×2 (09:28→17:21)
[2020-03-17 10:33] VITALS: BMI 33.9
[2020-03-17] MEDS: Morphine 2 MG/ML SYRINGE SLOW IVP PRN (14:19)
[2020-03-17] MEDS ORDERED: Morphine 2 MG/ML VIAL SLOW IVP PRN (16:43)
[2020-03-17] MEDS ORDERED: Morphine 2 MG/ML SYRINGE SLOW IVP PRN (22:17)
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
[2020-03-18] MEDS: Gabapentin 300 MG CAP PO SCH ×3 (06:24→21:06)
[2020-03-18] MEDS: Baclofen 10 MG TAB PO SCH ×3 (06:25→21:05)
[2020-03-18] MEDS ORDERED: Morphine 2 MG/ML VIAL SLOW IVP PRN (07:46)
[2020-03-18] MEDS: HYDROcodone/Acetaminophen 10/325 mg Tablet PO PRN ×2 (07:56→15:49)
[2020-03-18] MEDS: clonazePAM 0.5 MG TAB PO SCH ×3 (07:57→21:04)
[2020-03-18] MEDS: Clotrimazole 1% Cream 15 GM TUBE TOP SCH ×2 (07:59→21:12)
[2020-03-18] MEDS: Saccharomyces boulardii 250 MG CAP PO SCH (08:00)
[2020-03-18] MEDS: Promethazine HCl 12.5 MG in Sodium Chloride 0.9% 50 ML IVPB PRN (08:00)
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
[2020-03-18 11:50] LABS: Bilirubin Small (Negative); Blood, Urine Large (Negative); Clarity Slightly Cloudy (Clear); Glucose, Urine (Dipstick) Negative (Negative); Ketone, Urine Negative (Negative); Leukocyte Small (Negative); Nitrite Negative (Negative); Protein, Urine (Dipstick) 100 mg/dL (Neg-Trace); Specific Gravity, Urine 1.015 (1.005-1.030); Urobilinogen 0.2 mg/dL (Less than 2); pH, Urine 6.5 (5.0-9.0)
[2020-03-18 11:58] LABS: RBC/HPF Greater than 50 HPF (0-3)
[2020-03-18 11:59] LABS: Bacteria/HPF 1+ HPF (None Seen)
[2020-03-18] MEDS: Scopolamine 1.5 mg/72 hour Patch TOP SCH (21:08)
[2020-03-18] MEDS: Promethazine 25 MG TAB PO PRN (21:10)
[2020-03-19] MEDS: HYDROcodone/Acetaminophen 10/325 mg Tablet PO PRN ×2 (00:15→08:03)
[2020-03-19] MEDS: Baclofen 10 MG TAB PO SCH (05:44)
[2020-03-19] MEDS: Gabapentin 300 MG CAP PO SCH (05:45)
[2020-03-19] MEDS: Saccharomyces boulardii 250 MG CAP PO SCH (08:02)
[2020-03-19] MEDS: clonazePAM 0.5 MG TAB PO SCH (08:03)
[2020-03-19] MEDS: Clotrimazole 1% Cream 15 GM TUBE TOP SCH (08:03)
[2020-03-19 08:31] VITALS: BP 148/98; TEMP 98
[2020-03-19] MEDS: Promethazine 25 MG TAB PO PRN (08:42)
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
== END 2020-03-19 13:00 | disposition home or self-care (01) | DRG 690 ==
LOC: MADMS 19:34
PROVIDERS: ADMIT Family Medicine; ATTEND Family Medicine
DX: N12 Tubulo-interstitial nephritis, not specified as acute or chronic (principal); G82.20 Paraplegia, unspecified; B37.49 Other urogenital candidiasis; D84.9 Immunodeficiency, unspecified; S24.104S Unspecified injury at T11-T12 level of thoracic spinal cord, sequela; B19.20 Unspecified viral hepatitis C without hepatic coma; N31.9 Neuromuscular dysfunction of bladder, unspecified; G43.909 Migraine, unspecified, not intractable, without status migrainosus; G58.0 Intercostal neuropathy; G89.29 Other chronic pain; M54.9 Dorsalgia, unspecified; Z90.81 Acquired absence of spleen; Z90.5 Acquired absence of kidney; B34.9 Viral infection, unspecified; Z88.1 Allergy status to other antibiotic agents; Z20.822 Contact with and (suspected) exposure to COVID-19; Z88.8 Allergy status to other drugs, medicaments and biological substances
CPT/HCPCS: 0240U; 36415; 71045; 80048; 80053; 80202; 81001; 85025; 86140; 87040; 87086; 87635; J0692; J0696; J2270; J2550; J3370; J3490; J7050; Q0169; U0003

== ENCOUNTER 2020-04-03 18:15 | Inpatient (IN) | payer MEDICARE, MEDICAID ==
[2020-04-03] MEDS: clonazePAM 0.5 MG TAB PO SCH (21:15)
[2020-04-03] MEDS: Baclofen 10 MG TAB PO SCH (21:16)
[2020-04-03] MEDS: HYDROcodone/Acetaminophen 10/325 mg Tablet PO PRN (21:17)
[2020-04-03] MEDS: Gabapentin 300 MG CAP PO SCH (21:17)
[2020-04-03 21:59] VITALS: BMI 32.9
[2020-04-03] MEDS: Promethazine 25 MG TAB PO PRN (22:54)
[2020-04-04] MEDS: Cefepime 2 GM in Sodium Chloride 0.9% 100 ML IVPB SCH ×2 (01:49→15:04)
[2020-04-04] MEDS: SODIUM CHLORIDE 0.9% IRR PRN ×2 (02:44→16:01)
[2020-04-04] MEDS: GENTAMICIN IRR PRN ×2 (02:44→16:01)
[2020-04-04] MEDS: Gabapentin 300 MG CAP PO SCH ×3 (05:31→21:54)
[2020-04-04] MEDS: Baclofen 10 MG TAB PO SCH ×3 (05:32→21:56)
[2020-04-04] MEDS: Acetaminophen 325 MG TAB PO PRN ×2 (05:44→15:14)
[2020-04-04 06:03] LABS: #Basophils 0.2 thou/uL (0.0-0.2); #Eosinphils 0.7 thou/uL (0.0-0.7); #Lymphocytes 3.2 thou/uL (1.20-3.40); #Monocytes 1.2 thou/uL (0.11-0.59); #Neutrophils 5.6 thou/uL (1.40-6.50); %Basophils 1.7 % (0.0-1.0); %Eosinophils 6.7 % (0.0-10.0); %Lymphocytes 29.3 % (21.0-51.0); %Monocytes 11.3 % (0.0-10.0); Hemoglobin 11.5 g/dL (14.0-18.0); Mean Corpuscular HGB CONC 32.5 g/dL (32.0-36.0); Mean Corpuscular Hemoglobin 31.1 pg (27.0-31.0); Mean Corpuscular Volume 95.8 fL (78.0-98.0); Mean Platelet Volume 5.5 fL (7.4-10.4); Platelet Count 387 thou/uL (130-400); RBC Distribution Width 12.2 % (11.5-14.5)
[2020-04-04 06:18] LABS: ALT (SGPT) 12 U/L (8-55); AST (SGOT) 28 U/L (5-34); Albumin 2.3 g/dL (3.5-5.0); Alkaline Phosphatase 55 U/L (40-110); Anion Gap 11 mmol/L (10-20); BUN (Urea Nitrogen) 12 mg/dL (8.9-20.6); Bilirubin, Total 0.6 mg/dL (0.2-1.2); CRP (Inflammatory) 9.79 mg/dL (= or < 0.5); Calc. Creatinine Clearance 216 mL/min (70-130); Carbon Dioxide 24 mmol/L (22-29); Chloride 103 mmol/L (98-107); Globulin 5.9 g/dL (2.4-3.5); Glucose 91 mg/dL (70-105); Potassium 4.2 mmol/L (3.5-5.1); Protein, Total 8.2 g/dL (6.0-8.3); Sodium 134 mmol/L (136-145)
[2020-04-04] MEDS: Enoxaparin Sodium 40 MG/0.4 ML SYRINGE SC SCH (08:20)
[2020-04-04] MEDS: Floranex Packet PO SCH (08:20)
[2020-04-04] MEDS: clonazePAM 0.5 MG TAB PO SCH ×3 (08:20→21:57)
[2020-04-04] MEDS: HYDROcodone/Acetaminophen 10/325 mg Tablet PO PRN ×2 (08:21→17:46)
[2020-04-04] MEDS: Ibuprofen 200 MG TAB PO PRN (19:37)
[2020-04-05] MEDS: Cefepime 2 GM in Sodium Chloride 0.9% 100 ML IVPB SCH ×2 (01:27→14:10)
[2020-04-05] MEDS: GENTAMICIN IRR PRN ×2 (02:04→14:52)
[2020-04-05] MEDS: SODIUM CHLORIDE 0.9% IRR PRN ×2 (02:04→14:52)
[2020-04-05] MEDS: Gabapentin 300 MG CAP PO SCH ×3 (06:04→21:17)
[2020-04-05] MEDS: clonazePAM 0.5 MG TAB PO SCH ×3 (06:06→21:17)
[2020-04-05] MEDS: Baclofen 10 MG TAB PO SCH ×3 (06:07→21:17)
[2020-04-05] MEDS: Enoxaparin Sodium 40 MG/0.4 ML SYRINGE SC SCH (09:27)
[2020-04-05] MEDS: Floranex Packet PO SCH (09:27)
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
[2020-04-05] MEDS: Promethazine 25 MG TAB PO PRN (14:10)
[2020-04-05] MEDS: Acetaminophen 325 MG TAB PO PRN (16:36)
[2020-04-05] MEDS: Ibuprofen 200 MG TAB PO PRN (19:19)
[2020-04-06] MEDS: Cefepime 2 GM in Sodium Chloride 0.9% 100 ML IVPB SCH ×2 (01:24→14:10)
[2020-04-06] MEDS: SODIUM CHLORIDE 0.9% IRR PRN ×2 (01:35→14:54)
[2020-04-06] MEDS: GENTAMICIN IRR PRN ×2 (01:35→14:54)
[2020-04-06] MEDS: Gabapentin 300 MG CAP PO SCH ×2 (05:39→14:12)
[2020-04-06] MEDS: clonazePAM 0.5 MG TAB PO SCH ×2 (05:41→14:12)
[2020-04-06] MEDS: Baclofen 10 MG TAB PO SCH ×2 (05:41→14:13)
[2020-04-06] MEDS: Enoxaparin Sodium 40 MG/0.4 ML SYRINGE SC SCH (09:23)
[2020-04-06] MEDS: Floranex Packet PO SCH (09:24)
[2020-04-06] MEDS ORDERED: Acetaminophen 325 MG TAB PO PRN ×2 (09:28→12:33)
[2020-04-06] MEDS ORDERED: HYDROcodone/Acetaminophen 10/325 mg Tablet PO PRN (09:29)
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
[2020-04-06] MEDS: Promethazine 25 MG TAB PO PRN (11:39)
[2020-04-06] MEDS ORDERED: Saccharomyces boulardii 250 MG CAP PO SCH (12:00)
[2020-04-06] MEDS: Ibuprofen 200 MG TAB PO PRN (13:03)
[2020-04-06 15:04] LABS: Bilirubin Small (Negative); Blood, Urine Large (Negative); Clarity Cloudy (Clear); Glucose, Urine (Dipstick) Negative (Negative); Ketone, Urine Trace mg/dL (Negative); Leukocyte Small (Negative); Nitrite Negative (Negative); Protein, Urine (Dipstick) 30 mg/dL (Neg-Trace); Specific Gravity, Urine 1.015 (1.005-1.030)
[2020-04-06 15:14] LABS: Bacteria/HPF 1+ HPF (None Seen); RBC/HPF Greater than 50 HPF (0-3); Squamous Epithelial 0-3 HPF (0-3)
[2020-04-06 15:15] LABS: Urine Culture Reflex Yes Yes
[2020-04-06 15:33] VITALS: BP 133/82; TEMP 102.9
--- NOTE | 2020-04-06 15:42 | RAD ---
PORTABLE CHEST ONE VIEW: Date: 04-06-2020 Time: 3:11 p.m. History: Fever Comparison: 03-25-2020 FINDINGS: The heart size is normal. Left sided portal catheter remains in place. No lobar consolidation, pneumo thoraces or pleural effusions are seen. IMPRESSION: No acute process. POS: OFF
[2020-04-06] MEDS ORDERED: Sodium Chloride 0.9% 1,000 ML IV SCH (15:45)
[2020-04-06] MEDS ORDERED: Morphine 2 MG/ML VIAL SLOW IVP SCH (16:00)
[2020-04-06] MEDS ORDERED: Vancomycin HCl 750 MG in Sodium Chloride 0.9% 250 ML 250 ML IVPB SCH (16:00)
[2020-04-06 16:09] LABS: Band 3 % (5-11); Eosinophils 3 % (0-10); Hemoglobin 11.1 g/dL (14.0-18.0); Lymphocytes 14 % (21-51); MDiff Complete? YES; Mean Corpuscular HGB CONC 32.8 g/dL (32.0-36.0); Mean Corpuscular Hemoglobin 31.3 pg (27.0-31.0); Mean Corpuscular Volume 95.4 fL (78.0-98.0); Mean Platelet Volume 5.5 fL (7.4-10.4); Monocytes 9 % (0-10); Neutrophil 71 % (42-75); Platelet Count 414 thou/uL (130-400); RBC Distribution Width 12.2 % (11.5-14.5); Red Blood Cell (RBC) Count 3.52 mill/uL (4.70-6.10); White Blood Cell (WBC) Count 13.6 thou/uL (4.8-10.8)
[2020-04-06 16:10] LABS: Anisocytosis SLIGHT = 6-15 cells (100X) (0-5/hpf); Hypochromia SLIGHT = 6-15 cells (100X) (0-5/hpf)
[2020-04-06 16:11] LABS: Platelet Morphology Comment Appears Increased
[2020-04-06] MEDS ORDERED: Vancomycin HCl 500 MG in Sodium Chloride 0.9% 100 ML IVPB SCH (17:00)
[2020-04-06] MEDS ORDERED: Promethazine HCl 25 MG/ML VIAL SLOW IVP SCH (18:45)
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
[2020-04-07] MEDS ORDERED: Saccharomyces boulardii 250 MG CAP PO SCH (09:00)
--- NOTE | 2020-04-11 17:38 | PQF ---
CLINICAL DOCUMENTATION CLARIFICATION FORM: Dear : Umang Gonzalez MD Date / Time: 04/11/2020 Please exercise your independent, professional judgment in responding to the clarification form. Clinical indicators are provided on the bottom of this form for your review Please check appropriate box(es): [ ] UTI is a complication of catheterization [ ] UTI is not a complication of catheterization [ ] Other diagnosis (Please specify if any) [ ] Unable to determine In addition, please specify: Present on Admission (POA): [ ] Yes [ ] No [ ] Unable to determine Physician Signature: Date/Time: For continuity of documentation, please document condition throughout progress notes and discharge summary. Thank You. To be completed by CDI/Coding staff for physician review: Present Clinical Indicators - Signs / Symptoms / Labs Results and Location in Medical Record [ ] CT / x-ray results [ ] Altered vitals [x] Urinary tract infection with need for continued IV antibiotics H&P on 04/05 [x] Neurogenic bladder is managed by self catheterization H&P on 04/05 [x] He has conitnued to run a low grade fever H&P on 04/05 [x] Neruogenic bladder complicated by UTI, pyelonephritis H&P on 04/05 [x] He is on IV cefepime 2g ever 12hrs until 04/17 with gentamicin lock Progress notes on 04/06 [ ] Infection Present Risk Factors Results and Location in Medical Record [x] Self catheterization [ ] Poor healing factors Family practice H&P on 03/23 [ ] Recent use of antibiotics [ ] Present Treatments Results and Location in Medical Record [x] Vancomycin 500mg IV Medication on 04/06 [x] Cefepine 2gm IV Medication from 04/04 to 04/06 [ ] Surgical procedure/ Evaluation [ ] CDS/Chief Architect Signature: AAS Phone #: Date/Time: 04/11/2020 This is a permanent part of the Medical Record [facility]
--- NOTE | 2020-04-11 17:54 | PQF ---
CLINICAL DOCUMENTATION CLARIFICATION FORM: Dear : Umang Gonzalez MD Date / Time: 04/11/2020 Please exercise your independent, professional judgment in responding to the clarification form. Clinical indicators are provided on the bottom of this form for your review Please check appropriate box(es): [ ] Sepsis due to: Due to: [ ] Device (please specify) [ ] Implant [ ] Graft [ ] Infusion Due to: [ ] Procedure (please specify) [ ] Severe sepsis with associated acute organ dysfunction: [ ] Acute Respiratory Failure [ ] Acute Kidney injury w/o ATN [ ] Acute Kidney Injury w ATN [ ] Encephalopathy (metabolic) (septic) [ ] Disseminated Intravascular Coagulopathy (DIC) [ ] Hepatic Failure [ ] Additional/Other: please specify: [ ] Septic Shock [ ] Localized infection without sepsis [ ] SIRS due to non-infectious process (please specify etiology) [ ] with organ dysfunction [ ] without organ dysfunction [ ] Other diagnosis (Please specify if any) [ ] Unable to determine In addition, please specify: Present on Admission (POA): [ ] Yes [ ] No [ ] Unable to determine Physician Signature: Date/Time: For continuity of documentation, please document condition throughout progress notes and discharge summary. Thank You. To be completed by CDI/Coding staff for physician review: Present Clinical Indicators - Signs / Symptoms / Labs Results and Location in Medical Record [ ] Altered mental status, increased confusion, obtunded [x] Fever or hypothermia (<96.8 F/36 C or > 100.4 F/38C) Low grade fever upto 100.9 [ ] Respiratory rate >20/min, hypoxemia, and or hypercapnia [x] Heart Rate/Tachycardia (>90 bpm), SBP<100mmHg HR 115 - vitals on 04/05 [ ] Acute organ dysfunction/failure [ ] Metabolic acidosis Lactic Acid >2mmol/L OR 36mg/dL, [ ] Oliguria , increase BUN/Cr, decreased GFR, elevated liver enzymes [ ] Coag abnormalities, thrombocytopenia plts <100k [ ] Shock-hypotension resistant to IV fluid boluses [x] WBC count (>12,000/mm^4 or <4000/mm^3 or 70% neuts, 10% bands) Wbc 13.6 - laboratory on 04/06 [x] Transferred to [place] for continuation of the Amy [id number] every 12 hrs until 04/17 for UTI with pseudomonas bacteremia H&P 04/05 [x] One blood culture grew pseudomonas aeruginosa, drawn from his left port-A-Cath, subsequent blood cultures, no growth H&P 04/05 [x] There is a chance that infection may be from the Port-A-Cath H&P 04/05 [x] He did not think that there was infection in the Port-A-Cath, but could not entirely rule this out Discharge summary on 04/07 Present Risk Factors Results and Location in Medical Record [x] Bacteremia H&P 04/05 [x] Pneumonia, UTI, infected wound, gangrenous gall bladder Diabetes or Cancer UTI - H&P 04/05 [x] Chronic left hip septic arthritis & osteomyelitis Discharge summary on 04/07 [ ] Immunosuppression [ ] Advancing Age Present Treatments Results and Location in Medical Record [ ] Initiation Sepsis Protocol ICU [ ] Daily CBC, blood/sputum/wound cx [ ] ID Consult [x] Vancomycin 750mg Iv Medication on 04/06 [x] Cefepime 2gm IV Medication from 04/04 to 04/06 [ ] Vasopressors, meds [ ] Consultants; ID, GI, Pulmonary, Hematology CDS/Landman Signature: AAS Phone #: Date/Time: 04/11/2020 This is a permanent part of the Medical Record [facility]
== END 2020-04-06 18:55 | disposition short-term general hospital (02) | DRG 690 ==
LOC: MADMS 18:15
PROVIDERS: ADMIT Family Medicine; ATTEND Family Medicine
DX: N39.0 Urinary tract infection, site not specified (principal); G82.20 Paraplegia, unspecified; M00.9 Pyogenic arthritis, unspecified; M86.8X8 Other osteomyelitis, other site; G43.909 Migraine, unspecified, not intractable, without status migrainosus; B19.20 Unspecified viral hepatitis C without hepatic coma; N31.9 Neuromuscular dysfunction of bladder, unspecified; G58.0 Intercostal neuropathy; R59.1 Generalized enlarged lymph nodes; S24.104S Unspecified injury at T11-T12 level of thoracic spinal cord, sequela; V83 Occupant of special vehicle mainly used on industrial premises injured in transport accident; Z90.81 Acquired absence of spleen; Z90.5 Acquired absence of kidney; Z89.432 Acquired absence of left foot; Z89.421 Acquired absence of other right toe(s); Z88.1 Allergy status to other antibiotic agents; Z88.8 Allergy status to other drugs, medicaments and biological substances
CPT/HCPCS: 36415; 71045; 80053; 81001; 85007; 85025; 85027; 86140; 87040; 87077; 87086; 87186; J0692; J1580; J1650; J2270; J3370; J3490; J7050; Q0169

== ENCOUNTER 2020-04-11 16:35 | Inpatient (IN) | payer MEDICARE, MEDICAID ==
[2020-04-11] MEDS ORDERED: Acetaminophen 325 MG TAB PO PRN (19:17)
[2020-04-11] MEDS ORDERED: HYDROcodone/Acetaminophen 10/325 mg Tablet PO PRN (19:21)
[2020-04-11] MEDS: clonazePAM 0.5 MG TAB PO SCH (21:28)
[2020-04-11] MEDS: Baclofen 10 MG TAB PO SCH (21:28)
[2020-04-11] MEDS: Vancomycin HCl 750 MG in Sodium Chloride 0.9% 250 ML 250 ML IVPB SCH (21:29)
[2020-04-11] MEDS: Gabapentin 300 MG CAP PO SCH (21:29)
[2020-04-11] MEDS: Vancomycin HCl 500 MG in Sodium Chloride 0.9% 100 ML IVPB SCH (21:30)
[2020-04-12] MEDS: Cefepime 2 GM in Sodium Chloride 0.9% 100 ML IVPB SCH ×2 (02:10→14:00)
[2020-04-12] MEDS: GENTAMICIN IRR PRN ×3 (03:04→11:35)
[2020-04-12] MEDS: SODIUM CHLORIDE 0.9% IRR PRN ×3 (03:04→11:35)
[2020-04-12 05:38] LABS: #Basophils 0.2 thou/uL (0.0-0.2); #Eosinphils 0.4 thou/uL (0.0-0.7); #Lymphocytes 2.7 thou/uL (1.20-3.40); #Monocytes 1.2 thou/uL (0.11-0.59); #Neutrophils 6.3 thou/uL (1.40-6.50); %Eosinophils 3.8 % (0.0-10.0); %Lymphocytes 25.2 % (21.0-51.0); %Monocytes 10.7 % (0.0-10.0); %Neutrophils 58.3 % (42.0-75.0); Hemoglobin 10.6 g/dL (14.0-18.0); Mean Corpuscular HGB CONC 33.9 g/dL (32.0-36.0); Mean Corpuscular Hemoglobin 32.5 pg (27.0-31.0); Mean Corpuscular Volume 95.9 fL (78.0-98.0); Mean Platelet Volume 5.5 fL (7.4-10.4); Platelet Count 281 thou/uL (130-400); RBC Distribution Width 12.2 % (11.5-14.5); Red Blood Cell (RBC) Count 3.27 mill/uL (4.70-6.10); White Blood Cell (WBC) Count 10.8 thou/uL (4.8-10.8)
[2020-04-12] MEDS: Baclofen 10 MG TAB PO SCH ×3 (05:44→21:41)
[2020-04-12] MEDS: clonazePAM 0.5 MG TAB PO SCH ×3 (05:45→21:42)
[2020-04-12] MEDS: Gabapentin 300 MG CAP PO SCH ×3 (05:46→21:42)
[2020-04-12 06:05] LABS: Sodium 139 mmol/L (136-145)
[2020-04-12 06:06] LABS: Anion Gap 12 mmol/L (10-20); BUN (Urea Nitrogen) 14 mg/dL (8.9-20.6); Calc. Creatinine Clearance 229 mL/min (70-130); Carbon Dioxide 23 mmol/L (22-29); Chloride 111 mmol/L (98-107); Potassium 4.2 mmol/L (3.5-5.1)
[2020-04-12 06:07] LABS: ALT (SGPT) 16 U/L (8-55); AST (SGOT) 39 U/L (5-34); Alkaline Phosphatase 78 U/L (40-110); Bilirubin, Total 0.4 mg/dL (0.2-1.2); Globulin 5.7 g/dL (2.4-3.5); Glucose 101 mg/dL (70-105); Protein, Total 7.7 g/dL (6.0-8.3)
[2020-04-12 06:08] LABS: CRP (Inflammatory) 4.17 mg/dL (= or < 0.5)
[2020-04-12] MEDS: Floranex Packet PO SCH ×2 (08:08→09:26)
[2020-04-12] MEDS: Polyethylene Glycol 3350 17 GM Packet PO SCH (08:08)
[2020-04-12] MEDS: Promethazine 25 MG TAB PO PRN (08:09)
[2020-04-12 09:12] LABS: Vancomycin, Trough 17.7 ug/mL
[2020-04-12] MEDS: Vancomycin HCl 750 MG in Sodium Chloride 0.9% 250 ML 250 ML IVPB SCH ×2 (09:13→21:43)
[2020-04-12] MEDS: Vancomycin HCl 500 MG in Sodium Chloride 0.9% 100 ML IVPB SCH ×2 (09:15→21:43)
[2020-04-12] MEDS: Morphine 2 MG/ML VIAL SLOW IVP PRN (11:34)
[2020-04-12] MEDS ORDERED: Gentamicin 80 MG/2 ML VIAL ONE (14:59)
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
[2020-04-12] MEDS: Acetaminophen 325 MG TAB PO PRN (22:04)
[2020-04-13] MEDS: Cefepime 2 GM in Sodium Chloride 0.9% 100 ML IVPB SCH ×2 (00:21→11:31)
[2020-04-13] MEDS ORDERED: Sterile Water 0 ML ONE (01:16)
[2020-04-13] MEDS ORDERED: Gentamicin 80 MG/2 ML VIAL ONE ×2 (01:16→12:43)
[2020-04-13] MEDS: SODIUM CHLORIDE 0.9% IRR PRN (01:32)
[2020-04-13] MEDS: GENTAMICIN IRR PRN (01:32)
[2020-04-13] MEDS: HYDROcodone/Acetaminophen 10/325 mg Tablet PO PRN ×2 (01:40→08:17)
[2020-04-13] MEDS: Baclofen 10 MG TAB PO SCH ×3 (05:42→21:30)
[2020-04-13] MEDS: clonazePAM 0.5 MG TAB PO SCH ×3 (05:42→21:30)
[2020-04-13] MEDS: Gabapentin 300 MG CAP PO SCH ×3 (05:43→21:31)
[2020-04-13] MEDS: Floranex Packet PO SCH (08:17)
[2020-04-13] MEDS: Promethazine 25 MG TAB PO PRN (08:17)
[2020-04-13] MEDS: Polyethylene Glycol 3350 17 GM Packet PO SCH (08:17)
[2020-04-13] MEDS: Enoxaparin Sodium 40 MG/0.4 ML SYRINGE SC SCH (08:18)
[2020-04-13] MEDS: Morphine 2 MG/ML VIAL SLOW IVP PRN ×2 (09:55→21:31)
[2020-04-13] MEDS: Vancomycin HCl 500 MG in Sodium Chloride 0.9% 100 ML IVPB SCH ×2 (09:56→21:34)
[2020-04-13] MEDS: Vancomycin HCl 750 MG in Sodium Chloride 0.9% 250 ML 250 ML IVPB SCH ×2 (09:56→21:33)
[2020-04-13] MEDS: Acetaminophen 325 MG TAB PO PRN ×2 (13:46→19:32)
[2020-04-14] MEDS: Cefepime 2 GM in Sodium Chloride 0.9% 100 ML IVPB SCH ×3 (00:10→23:31)
[2020-04-14] MEDS ORDERED: Gentamicin 80 MG/2 ML VIAL ONE (01:13)
[2020-04-14] MEDS: SODIUM CHLORIDE 0.9% IRR PRN ×2 (01:30→14:09)
[2020-04-14] MEDS: GENTAMICIN IRR PRN ×2 (01:30→14:09)
[2020-04-14] MEDS ORDERED: HYDROcodone/Acetaminophen 10/325 mg Tablet ONE (04:25)
[2020-04-14] MEDS: clonazePAM 0.5 MG TAB PO SCH ×3 (05:34→22:09)
[2020-04-14] MEDS: Baclofen 10 MG TAB PO SCH ×3 (05:34→22:09)
[2020-04-14] MEDS: Gabapentin 300 MG CAP PO SCH ×3 (09:11→22:10)
[2020-04-14] MEDS: Promethazine 25 MG TAB PO PRN ×2 (09:49→19:38)
[2020-04-14] MEDS: Morphine 2 MG/ML VIAL SLOW IVP PRN ×2 (10:25→22:09)
[2020-04-14] MEDS: Polyethylene Glycol 3350 17 GM Packet PO SCH (10:45)
[2020-04-14] MEDS: Enoxaparin Sodium 40 MG/0.4 ML SYRINGE SC SCH (10:45)
[2020-04-14] MEDS: Floranex Packet PO SCH (10:45)
[2020-04-14] MEDS: Acetaminophen 325 MG TAB PO PRN ×2 (10:50→17:04)
[2020-04-14] MEDS: Vancomycin HCl 750 MG in Sodium Chloride 0.9% 250 ML 250 ML IVPB SCH ×2 (10:52→22:11)
[2020-04-14] MEDS: Vancomycin HCl 500 MG in Sodium Chloride 0.9% 100 ML IVPB SCH ×2 (11:04→22:12)
[2020-04-15] MEDS ORDERED: Gentamicin 80 MG/2 ML VIAL ONE ×2 (00:03→12:41)
[2020-04-15] MEDS: GENTAMICIN IRR PRN ×2 (02:19→13:32)
[2020-04-15] MEDS: SODIUM CHLORIDE 0.9% IRR PRN ×2 (02:19→13:32)
[2020-04-15] MEDS: Baclofen 10 MG TAB PO SCH ×3 (05:30→21:52)
[2020-04-15] MEDS: Gabapentin 300 MG CAP PO SCH ×3 (05:31→21:54)
[2020-04-15] MEDS: clonazePAM 0.5 MG TAB PO SCH ×3 (05:31→21:53)
[2020-04-15] MEDS: Enoxaparin Sodium 40 MG/0.4 ML SYRINGE SC SCH (08:41)
[2020-04-15] MEDS: Polyethylene Glycol 3350 17 GM Packet PO SCH (08:42)
[2020-04-15] MEDS: Floranex Packet PO SCH (08:42)
[2020-04-15] MEDS: Promethazine 25 MG TAB PO PRN (09:09)
[2020-04-15 10:01] LABS: Vancomycin, Trough 18.2 ug/mL
[2020-04-15] MEDS: Vancomycin HCl 750 MG in Sodium Chloride 0.9% 250 ML 250 ML IVPB SCH ×2 (10:11→21:55)
[2020-04-15] MEDS: Morphine 2 MG/ML VIAL SLOW IVP PRN ×2 (10:18→21:58)
[2020-04-15] MEDS: Vancomycin HCl 500 MG in Sodium Chloride 0.9% 100 ML IVPB SCH ×2 (11:30→21:55)
[2020-04-15] MEDS: Cefepime 2 GM in Sodium Chloride 0.9% 100 ML IVPB SCH (12:24)
[2020-04-15] MEDS ORDERED: Promethazine HCl 25 MG/ML VIAL IM SCH (13:45)
[2020-04-15] MEDS: Acetaminophen 325 MG TAB PO PRN (13:48)
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
[2020-04-15] MEDS ORDERED: Morphine 2 MG/ML VIAL SLOW IVP PRN (22:18)
[2020-04-16] MEDS: Cefepime 2 GM in Sodium Chloride 0.9% 100 ML IVPB SCH ×2 (00:05→11:30)
[2020-04-16] MEDS ORDERED: Gentamicin 80 MG/2 ML VIAL ONE ×2 (00:22→13:32)
[2020-04-16] MEDS: SODIUM CHLORIDE 0.9% IRR PRN (00:44)
[2020-04-16] MEDS: GENTAMICIN IRR PRN (00:44)
[2020-04-16] MEDS: Promethazine HCl 25 MG/ML VIAL SLOW IVP SCH ×4 (02:33→21:43)
[2020-04-16 04:37] VITALS: BMI 33.3
[2020-04-16] MEDS: Baclofen 10 MG TAB PO SCH ×3 (05:24→22:27)
[2020-04-16] MEDS: clonazePAM 0.5 MG TAB PO SCH ×3 (05:25→22:27)
[2020-04-16] MEDS: Gabapentin 300 MG CAP PO SCH ×3 (05:25→22:28)
[2020-04-16] MEDS: Polyethylene Glycol 3350 17 GM Packet PO SCH (08:17)
[2020-04-16] MEDS: Floranex Packet PO SCH (08:17)
[2020-04-16] MEDS: Enoxaparin Sodium 40 MG/0.4 ML SYRINGE SC SCH (08:17)
[2020-04-16] MEDS: HYDROcodone/Acetaminophen 10/325 mg Tablet PO PRN (08:17)
[2020-04-16] MEDS: Morphine 2 MG/ML VIAL SLOW IVP PRN (10:03)
[2020-04-16] MEDS: Vancomycin HCl 500 MG in Sodium Chloride 0.9% 100 ML IVPB SCH ×2 (10:04→22:18)
[2020-04-16] MEDS: Vancomycin HCl 750 MG in Sodium Chloride 0.9% 250 ML 250 ML IVPB SCH ×2 (10:05→22:18)
[2020-04-16] MEDS ORDERED: Promethazine HCl 25 MG/ML VIAL ONE (21:33)
[2020-04-17] MEDS: Cefepime 2 GM in Sodium Chloride 0.9% 100 ML IVPB SCH ×2 (00:15→11:57)
[2020-04-17] MEDS: Morphine 2 MG/ML VIAL SLOW IVP PRN ×2 (00:55→11:59)
[2020-04-17] MEDS ORDERED: Gentamicin 80 MG/2 ML VIAL ONE ×2 (01:27→13:15)
[2020-04-17] MEDS: GENTAMICIN IRR PRN (01:37)
[2020-04-17] MEDS: SODIUM CHLORIDE 0.9% IRR PRN (01:37)
[2020-04-17] MEDS: Baclofen 10 MG TAB PO SCH ×3 (05:34→21:37)
[2020-04-17] MEDS: Gabapentin 300 MG CAP PO SCH ×3 (05:34→21:37)
[2020-04-17] MEDS: clonazePAM 0.5 MG TAB PO SCH ×3 (05:34→21:37)
[2020-04-17] MEDS: Enoxaparin Sodium 40 MG/0.4 ML SYRINGE SC SCH (08:16)
[2020-04-17] MEDS: HYDROcodone/Acetaminophen 10/325 mg Tablet PO PRN (08:17)
[2020-04-17] MEDS: Floranex Packet PO SCH (08:18)
[2020-04-17] MEDS: Polyethylene Glycol 3350 17 GM Packet PO SCH (08:18)
[2020-04-17] MEDS: Vancomycin HCl 750 MG in Sodium Chloride 0.9% 250 ML 250 ML IVPB SCH ×2 (10:00→21:38)
[2020-04-17] MEDS: Vancomycin HCl 500 MG in Sodium Chloride 0.9% 100 ML IVPB SCH ×2 (10:01→22:16)
[2020-04-17] MEDS: Promethazine HCl 25 MG/ML VIAL SLOW IVP SCH ×2 (10:02→21:36)
[2020-04-17] MEDS ORDERED: Promethazine HCl 25 MG/ML VIAL ONE ×2 (10:02→21:25)
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
[2020-04-18] MEDS: Cefepime 2 GM in Sodium Chloride 0.9% 100 ML IVPB SCH ×3 (00:05→23:35)
[2020-04-18] MEDS: Morphine 2 MG/ML VIAL SLOW IVP PRN ×2 (00:39→12:42)
[2020-04-18] MEDS ORDERED: Gentamicin 80 MG/2 ML VIAL ONE ×2 (00:59→13:27)
[2020-04-18] MEDS: Acetaminophen 325 MG TAB PO PRN ×2 (01:09→18:26)
[2020-04-18] MEDS: GENTAMICIN IRR PRN ×2 (01:20→14:20)
[2020-04-18] MEDS: SODIUM CHLORIDE 0.9% IRR PRN ×2 (01:20→14:20)
[2020-04-18 02:54] LABS: Bilirubin Negative (Negative); Blood, Urine Trace (Negative); Clarity Clear (Clear); Glucose, Urine (Dipstick) Negative (Negative); Ketone, Urine Negative (Negative); Leukocyte Trace (Negative); Nitrite Negative (Negative); Protein, Urine (Dipstick) Trace mg/dL (Neg-Trace); Specific Gravity, Urine 1.025 (1.005-1.030)
[2020-04-18 03:07] LABS: RBC/HPF 0-3 HPF (0-3)
[2020-04-18 03:08] LABS: Bacteria/HPF Rare-Few HPF (None Seen); Transitional Epithelial 0-3 HPF (None Seen)
[2020-04-18 03:10] LABS: Urine Culture Reflex No No
[2020-04-18] MEDS: Gabapentin 300 MG CAP PO SCH ×3 (05:09→21:41)
[2020-04-18] MEDS: Baclofen 10 MG TAB PO SCH ×3 (05:10→21:41)
[2020-04-18] MEDS: clonazePAM 0.5 MG TAB PO SCH ×3 (05:10→21:38)
[2020-04-18 06:02] LABS: #Basophils 0.2 thou/uL (0.0-0.2); #Eosinphils 0.6 thou/uL (0.0-0.7); #Lymphocytes 3.1 thou/uL (1.20-3.40); #Monocytes 1.1 thou/uL (0.11-0.59); #Neutrophils 5.5 thou/uL (1.40-6.50); %Basophils 1.9 % (0.0-1.0); %Eosinophils 5.4 % (0.0-10.0); %Lymphocytes 29.4 % (21.0-51.0); %Monocytes 10.9 % (0.0-10.0); %Neutrophils 52.3 % (42.0-75.0); Hemoglobin 10.3 g/dL (14.0-18.0); Mean Corpuscular HGB CONC 33.1 g/dL (32.0-36.0); Mean Corpuscular Hemoglobin 31.7 pg (27.0-31.0); Mean Corpuscular Volume 95.8 fL (78.0-98.0); Mean Platelet Volume 5.4 fL (7.4-10.4); Platelet Count 354 thou/uL (130-400); RBC Distribution Width 11.7 % (11.5-14.5); Red Blood Cell (RBC) Count 3.24 mill/uL (4.70-6.10); White Blood Cell (WBC) Count 10.4 thou/uL (4.8-10.8)
[2020-04-18 06:11] LABS: ALT (SGPT) 17 U/L (8-55); AST (SGOT) 41 U/L (5-34); Albumin 2.2 g/dL (3.5-5.0); Alkaline Phosphatase 80 U/L (40-110); Anion Gap 11 mmol/L (10-20); BUN (Urea Nitrogen) 11 mg/dL (8.9-20.6); Bilirubin, Total 0.7 mg/dL (0.2-1.2); CRP (Inflammatory) 6.36 mg/dL (= or < 0.5); Calc. Creatinine Clearance 221 mL/min (70-130); Calcium 7.9 mg/dL (7.8-10.44); Carbon Dioxide 22 mmol/L (22-29); Chloride 108 mmol/L (98-107); Globulin 6.3 g/dL (2.4-3.5); Glucose 105 mg/dL (70-105); Potassium 3.8 mmol/L (3.5-5.1); Protein, Total 8.5 g/dL (6.0-8.3); Sodium 137 mmol/L (136-145)
[2020-04-18] MEDS ORDERED: Promethazine HCl 25 MG/ML VIAL ONE ×2 (09:34→21:30)
[2020-04-18 09:36] LABS: Vancomycin, Trough 16.9 ug/mL
[2020-04-18] MEDS: Enoxaparin Sodium 40 MG/0.4 ML SYRINGE SC SCH (09:38)
[2020-04-18] MEDS: Floranex Packet PO SCH (09:38)
[2020-04-18] MEDS: Promethazine HCl 25 MG/ML VIAL SLOW IVP SCH ×2 (09:39→21:37)
[2020-04-18] MEDS: Polyethylene Glycol 3350 17 GM Packet PO SCH (09:39)
[2020-04-18] MEDS: Vancomycin HCl 750 MG in Sodium Chloride 0.9% 250 ML 250 ML IVPB SCH ×2 (10:08→21:40)
[2020-04-18] MEDS: Vancomycin HCl 500 MG in Sodium Chloride 0.9% 100 ML IVPB SCH ×2 (10:13→22:01)
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
[2020-04-18] MEDS ORDERED: Promethazine HCl 6.25 MG/5 ML Syrup ONE (21:29)
[2020-04-19] MEDS ORDERED: Gentamicin 80 MG/2 ML VIAL ONE ×2 (00:15→12:37)
[2020-04-19] MEDS: Morphine 2 MG/ML VIAL SLOW IVP PRN ×2 (00:39→12:45)
[2020-04-19] MEDS: GENTAMICIN IRR PRN ×2 (00:40→12:52)
[2020-04-19] MEDS: SODIUM CHLORIDE 0.9% IRR PRN ×2 (00:40→12:52)
[2020-04-19] MEDS: clonazePAM 0.5 MG TAB PO SCH ×3 (05:25→15:05)
[2020-04-19] MEDS: Gabapentin 300 MG CAP PO SCH ×3 (05:25→22:01)
[2020-04-19] MEDS: Baclofen 10 MG TAB PO SCH ×3 (05:25→22:01)
[2020-04-19 05:58] LABS: #Basophils 0.2 thou/uL (0.0-0.2); #Eosinphils 0.6 thou/uL (0.0-0.7); #Monocytes 1.2 thou/uL (0.11-0.59); #Neutrophils 5.1 thou/uL (1.40-6.50); %Basophils 1.5 % (0.0-1.0); %Eosinophils 6.2 % (0.0-10.0); %Lymphocytes 30.1 % (21.0-51.0); %Monocytes 11.5 % (0.0-10.0); %Neutrophils 50.6 % (42.0-75.0); Hemoglobin 10.3 g/dL (14.0-18.0); Mean Corpuscular HGB CONC 32.2 g/dL (32.0-36.0); Mean Corpuscular Hemoglobin 30.9 pg (27.0-31.0); Mean Platelet Volume 5.4 fL (7.4-10.4); Platelet Count 367 thou/uL (130-400); RBC Distribution Width 11.9 % (11.5-14.5); Red Blood Cell (RBC) Count 3.34 mill/uL (4.70-6.10); White Blood Cell (WBC) Count 10.1 thou/uL (4.8-10.8)
[2020-04-19 06:03] LABS: Anion Gap 10 mmol/L (10-20); BUN (Urea Nitrogen) 13 mg/dL (8.9-20.6); Calc. Creatinine Clearance 225 mL/min (70-130); Carbon Dioxide 23 mmol/L (22-29); Chloride 108 mmol/L (98-107); Glucose 110 mg/dL (70-105); Potassium 3.8 mmol/L (3.5-5.1); Sodium 137 mmol/L (136-145)
[2020-04-19 08:36] LABS: ALT (SGPT) 17 U/L (8-55); AST (SGOT) 35 U/L (5-34); Albumin 2.2 g/dL (3.5-5.0); Alkaline Phosphatase 77 U/L (40-110); Bilirubin, Total 0.6 mg/dL (0.2-1.2); CRP (Inflammatory) 6.33 mg/dL (= or < 0.5); Globulin 6.3 g/dL (2.4-3.5); Protein, Total 8.5 g/dL (6.0-8.3)
[2020-04-19] MEDS: Polyethylene Glycol 3350 17 GM Packet PO SCH (09:23)
[2020-04-19] MEDS: Floranex Packet PO SCH (09:23)
[2020-04-19] MEDS: Enoxaparin Sodium 40 MG/0.4 ML SYRINGE SC SCH (09:27)
[2020-04-19] MEDS: Promethazine HCl 25 MG/ML VIAL SLOW IVP SCH ×2 (10:00→22:04)
[2020-04-19] MEDS: Vancomycin HCl 750 MG in Sodium Chloride 0.9% 250 ML 250 ML IVPB SCH ×2 (10:07→22:05)
[2020-04-19] MEDS: Vancomycin HCl 500 MG in Sodium Chloride 0.9% 100 ML IVPB SCH ×2 (11:14→23:32)
[2020-04-19] MEDS: Cefepime 2 GM in Sodium Chloride 0.9% 100 ML IVPB SCH (12:06)
--- NOTE | 2020-04-19 18:46 | RAD ---
Portable frontal chest radiograph: 04/19/2020 COMPARISON: 04/06/2020 HISTORY: Cough FINDINGS: There is stable rounded calcification medial to the proximal thoracic aorta. There is a left-sided Po rt-A-Cath in place. There is no pneumothorax or pleural fluid. There is no focal consolidation or alveolar edema. IMPRESSION: Stable appearance of the chest.
[2020-04-19] MEDS: Acetaminophen 325 MG TAB PO PRN (20:24)
[2020-04-19] MEDS ORDERED: Promethazine HCl 25 MG/ML VIAL ONE (21:53)
[2020-04-20] MEDS ORDERED: Gentamicin 80 MG/2 ML VIAL ONE ×2 (00:53→13:07)
[2020-04-20] MEDS: Morphine 2 MG/ML VIAL SLOW IVP PRN ×2 (01:11→13:11)
[2020-04-20] MEDS: Cefepime 2 GM in Sodium Chloride 0.9% 100 ML IVPB SCH ×2 (01:14→12:30)
[2020-04-20] MEDS: Gabapentin 300 MG CAP PO SCH ×3 (05:40→21:33)
[2020-04-20] MEDS: Baclofen 10 MG TAB PO SCH ×3 (05:40→21:32)
[2020-04-20] MEDS: clonazePAM 0.5 MG TAB PO SCH ×3 (05:40→21:33)
[2020-04-20] MEDS ORDERED: Promethazine HCl 25 MG/ML VIAL SLOW IVP SCH (10:30)
[2020-04-20] MEDS: Enoxaparin Sodium 40 MG/0.4 ML SYRINGE SC SCH (10:32)
[2020-04-20] MEDS: Polyethylene Glycol 3350 17 GM Packet PO SCH (10:32)
[2020-04-20] MEDS: Floranex Packet PO SCH (10:32)
[2020-04-20] MEDS: Promethazine HCl 25 MG/ML VIAL SLOW IVP SCH ×3 (10:37→22:00)
[2020-04-20] MEDS: Vancomycin HCl 750 MG in Sodium Chloride 0.9% 250 ML 250 ML IVPB SCH ×2 (10:39→22:16)
[2020-04-20] MEDS ORDERED: Promethazine HCl 25 MG/ML VIAL ONE (11:06)
[2020-04-20] MEDS: Vancomycin HCl 500 MG in Sodium Chloride 0.9% 100 ML IVPB SCH ×2 (11:49→22:16)
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
[2020-04-20] MEDS: GENTAMICIN IRR PRN (13:17)
[2020-04-20] MEDS: SODIUM CHLORIDE 0.9% IRR PRN (13:17)
[2020-04-20] MEDS: Acetaminophen 325 MG TAB PO PRN (17:27)
[2020-04-21] MEDS: Cefepime 2 GM in Sodium Chloride 0.9% 100 ML IVPB SCH ×2 (00:11→13:59)
[2020-04-21] MEDS ORDERED: Gentamicin 80 MG/2 ML VIAL ONE ×2 (00:49→11:42)
[2020-04-21] MEDS: SODIUM CHLORIDE 0.9% IRR PRN (01:08)
[2020-04-21] MEDS: GENTAMICIN IRR PRN (01:08)
[2020-04-21] MEDS: Baclofen 10 MG TAB PO SCH ×3 (05:31→21:37)
[2020-04-21] MEDS: clonazePAM 0.5 MG TAB PO SCH ×3 (05:31→21:35)
[2020-04-21] MEDS: Gabapentin 300 MG CAP PO SCH ×3 (05:32→21:36)
[2020-04-21 05:33] LABS: #Basophils 0.1 thou/uL (0.0-0.2); #Eosinphils 0.7 thou/uL (0.0-0.7); #Lymphocytes 2.7 thou/uL (1.20-3.40); #Monocytes 1.2 thou/uL (0.11-0.59); #Neutrophils 4.8 thou/uL (1.40-6.50); %Basophils 1.4 % (0.0-1.0); %Eosinophils 6.9 % (0.0-10.0); %Lymphocytes 28.7 % (21.0-51.0); %Monocytes 12.7 % (0.0-10.0); %Neutrophils 50.4 % (42.0-75.0); Mean Corpuscular HGB CONC 32.5 g/dL (32.0-36.0); Mean Corpuscular Hemoglobin 31.1 pg (27.0-31.0); Mean Corpuscular Volume 95.8 fL (78.0-98.0); Mean Platelet Volume 5.3 fL (7.4-10.4); Platelet Count 366 thou/uL (130-400); RBC Distribution Width 11.9 % (11.5-14.5); Red Blood Cell (RBC) Count 3.22 mill/uL (4.70-6.10); White Blood Cell (WBC) Count 9.5 thou/uL (4.8-10.8)
[2020-04-21 05:47] LABS: ALT (SGPT) 14 U/L (8-55); AST (SGOT) 32 U/L (5-34); Albumin 2.2 g/dL (3.5-5.0); Alkaline Phosphatase 75 U/L (40-110); Anion Gap 11 mmol/L (10-20); BUN (Urea Nitrogen) 11 mg/dL (8.9-20.6); Bilirubin, Total 0.6 mg/dL (0.2-1.2); Calc. Creatinine Clearance 218 mL/min (70-130); Calcium 7.7 mg/dL (7.8-10.44); Carbon Dioxide 22 mmol/L (22-29); Chloride 108 mmol/L (98-107); Glucose 131 mg/dL (70-105); Potassium 3.7 mmol/L (3.5-5.1); Protein, Total 8.2 g/dL (6.0-8.3); Sodium 137 mmol/L (136-145)
[2020-04-21] MEDS: HYDROcodone/Acetaminophen 10/325 mg Tablet PO PRN (08:29)
[2020-04-21] MEDS: Enoxaparin Sodium 40 MG/0.4 ML SYRINGE SC SCH (08:29)
[2020-04-21] MEDS: Floranex Packet PO SCH (08:30)
[2020-04-21] MEDS: Polyethylene Glycol 3350 17 GM Packet PO SCH (08:30)
[2020-04-21] MEDS ORDERED: Promethazine HCl 25 MG/ML VIAL ONE ×2 (09:44→21:28)
[2020-04-21] MEDS: Vancomycin HCl 500 MG in Sodium Chloride 0.9% 100 ML IVPB SCH (09:47)
[2020-04-21] MEDS: Vancomycin HCl 750 MG in Sodium Chloride 0.9% 250 ML 250 ML IVPB SCH (09:47)
[2020-04-21] MEDS: Morphine 2 MG/ML VIAL SLOW IVP PRN ×2 (09:48→22:37)
[2020-04-21] MEDS: Promethazine HCl 25 MG/ML VIAL SLOW IVP SCH ×2 (09:49→21:37)
[2020-04-21 09:56] LABS: SARS-CoV-2 NAA Rapid Test Not Detected (NotDetected)
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
[2020-04-21] MEDS ORDERED: SODIUM CHLORIDE 0.9% IRR PRN (11:47)
[2020-04-21] MEDS ORDERED: GENTAMICIN IRR PRN (11:47)
[2020-04-21] MEDS: Acetaminophen 325 MG TAB PO PRN ×2 (17:30→21:35)
[2020-04-22] MEDS: Gabapentin 300 MG CAP PO SCH ×2 (06:06→13:58)
[2020-04-22] MEDS: Baclofen 10 MG TAB PO SCH ×2 (06:07→13:57)
[2020-04-22] MEDS: clonazePAM 0.5 MG TAB PO SCH ×3 (06:07→13:58)
[2020-04-22 08:21] VITALS: BP 147/82
[2020-04-22] MEDS: Polyethylene Glycol 3350 17 GM Packet PO SCH (09:06)
[2020-04-22] MEDS: Floranex Packet PO SCH (09:06)
[2020-04-22] MEDS: Enoxaparin Sodium 40 MG/0.4 ML SYRINGE SC SCH (09:06)
[2020-04-22] MEDS ORDERED: Promethazine HCl 25 MG/ML VIAL ONE (10:05)
[2020-04-22] MEDS: Promethazine HCl 25 MG/ML VIAL SLOW IVP SCH (10:19)
[2020-04-22] MEDS: Acetaminophen 325 MG TAB PO PRN (10:26)
[2020-04-22] MEDS: Morphine 2 MG/ML VIAL SLOW IVP PRN (10:26)
[2020-04-22 14:13] VITALS: TEMP 100.8
[2020-04-22] MEDS: HYDROcodone/Acetaminophen 10/325 mg Tablet PO PRN (15:43)
--- NOTE | 2020-04-23 05:16 | PRG ---
DATE OF SERVICE: 04/21/[address] Adalberto Ashford, Infectious Disease at [facility]. He knows Ashish very very well from numerous times that he has cared for him and also from his care during his most recent hospitalization. He reviewed our present record. I have visited with him about the persistence of the fever with negative blood cultures and urine culture. Dr. Ashford said that the patient did not have evidence of urinary tract infection with the repeated negative cultures. The fever had persisted in spite of the IV antibiotics. He felt like there must be another source of the fever, is suspicious that this might be coming. From his left hip from his CT scan that he has of the pelvis on 03/26/2020, there was evidence of progressive erosive changes, possible chronic osteomyelitis of the left hip. Dr. Ashford had recommended that the patient be transferred to [facility] or to [facility], where he also consults. There, he would need a [facility] nuclear scan and also a CT-guided aspiration of that left hip to see if there is any active infection going on and whether or not this was the site of the continual fever. He had asked that the present antibiotics all be stopped preparatory to this aspiration. Presently, both of these hospitals have no available beds. I have spoke with the hospitalist, Dr. Shine and she is agreeable to accepting the patient as soon as a bed is available. For now, we will continue present care here at [facility]. I have stopped the gentamicin lock, the vancomycin, and the cefepime. Job ID: [id number]
--- NOTE | 2020-04-23 05:46 | PRG ---
DATE OF SERVICE: 04/22/2020 SUBJECTIVE: Arrangements have been made for the patient to be transferred to [facility] once there is an available bed. He has been accepted and this move will be made once bed is available. The patient said he did not have a very good night, just did not feel good, he said he had some temperature. OBJECTIVE: VITAL SIGNS: Review of his vital signs, chart showed that his temperature max over the last 24 hours has been 100.2. His temp this morning is 98.7, pulse 103, respirations 20, O2 saturation 98% on room air, blood pressure 147/82. LUNGS: Clear. HEART: Regular rate. ASSESSMENT: 1. Continued temp elevations. a. Blood culture, urine culture drawn on 04/18 have no growth. b. Etiology of the fever, not known. I suspect this could be from a septic left hip. 2. Recent urinary tract infection. a. Urine culture on 04/06/2020 grew Enterococcus faecalis sensitive to the vancomycin with negative blood cultures. b. Recent urinary tract infection documented with Serratia marcescens, for which he had completed his course of cefepime. c. Vancomycin and cefepime have been stopped on the morning of 04/21/2020. 3. History of recurrent urinary tract infection requiring repeat hospitalization. 4. Paraplegia. 5. Neurogenic bladder. 6. Hepatitis C. a. Asymptomatic. b. Has opted no treatment. c. Etiology from previous blood transfusion. PLAN: The patient is awaiting transfer to [facility]. I spoke to Dr. Ashford and there was concern that these continued low-grade fevers may be coming from a septic left hip. He intends to have a [facility] nuclear scan and also CT-guided aspiration of the left hip. Transfer will be made once bed is available. Job ID: [id number]
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
== END 2020-04-22 16:30 | disposition short-term general hospital (02) | DRG 690 ==
LOC: MADMS 17:34
PROVIDERS: ADMIT Family Medicine; ATTEND Family Medicine
DX: N39.0 Urinary tract infection, site not specified (principal); G82.20 Paraplegia, unspecified; M86.8X8 Other osteomyelitis, other site; M00.9 Pyogenic arthritis, unspecified; N31.9 Neuromuscular dysfunction of bladder, unspecified; G43.909 Migraine, unspecified, not intractable, without status migrainosus; B19.20 Unspecified viral hepatitis C without hepatic coma; G89.29 Other chronic pain; M54.5 Low back pain; Z90.5 Acquired absence of kidney; Z90.81 Acquired absence of spleen; Z79.899 Other long term (current) drug therapy; Z88.1 Allergy status to other antibiotic agents; Z89.422 Acquired absence of other left toe(s); Z89.421 Acquired absence of other right toe(s); Z88.8 Allergy status to other drugs, medicaments and biological substances; Z87.820 Personal history of traumatic brain injury; Z20.822 Contact with and (suspected) exposure to COVID-19; R59.1 Generalized enlarged lymph nodes
CPT/HCPCS: 0240U; 36415; 71045; 80053; 80202; 81001; 85025; 86140; 87040; 87086; J0692; J1580; J1650; J2270; J2550; J3370; J3490; J7050; Q0169

== ENCOUNTER 2020-05-23 18:45 | Inpatient (IN) | payer MEDICARE, MEDICAID ==
[2020-05-23] MEDS ORDERED: diphenhydrAMINE 25 MG CAP PO PRN (21:16)
[2020-05-23] MEDS ORDERED: Senokot 8.6 MG TAB PO PRN (21:25)
[2020-05-23] MEDS ORDERED: Gabapentin 300 MG CAP PO SCH (22:15)
[2020-05-23] MEDS ORDERED: Baclofen 10 MG TAB PO SCH (22:15)
[2020-05-23] MEDS ORDERED: OXYCODONE PO PRN (22:17)
[2020-05-23] MEDS ORDERED: ACETAMINOPHEN PO PRN (22:17)
[2020-05-23] MEDS ORDERED: Zolpidem Tartrate 5 MG TAB PO SCH (22:30)
[2020-05-23] MEDS: Acetaminophen 325 MG TAB PO PRN (22:44)
[2020-05-23] MEDS: Morphine 4 MG/ML VIAL SLOW IVP PRN (22:45)
[2020-05-23] MEDS ORDERED: AMIKACIN FS SCH (23:59)
[2020-05-23] MEDS ORDERED: SODIUM CHLORIDE 0.9% FS SCH (23:59)
[2020-05-24] MEDS ORDERED: Ibuprofen 200 MG TAB PO PRN (00:13)
[2020-05-24] MEDS: CEFIDEROCOL FS SCH ×6 (01:53→17:16)
[2020-05-24] MEDS: SODIUM CHLORIDE 0.9% FS SCH ×7 (01:53→17:16)
[2020-05-24] MEDS: Morphine 4 MG/ML VIAL SLOW IVP PRN ×4 (04:52→22:23)
[2020-05-24 05:36] LABS: #Basophils 0.1 thou/uL (0.0-0.2); #Eosinphils 0.3 thou/uL (0.0-0.7); #Lymphocytes 3.5 thou/uL (1.20-3.40); #Neutrophils 3.8 thou/uL (1.40-6.50); %Basophils 1.6 % (0.0-1.0); %Eosinophils 3.9 % (0.0-10.0); %Lymphocytes 39.6 % (21.0-51.0); %Neutrophils 43.9 % (42.0-75.0); Hemoglobin 8.8 g/dL (14.0-18.0); Mean Corpuscular HGB CONC 33.7 g/dL (32.0-36.0); Mean Corpuscular Hemoglobin 31.1 pg (27.0-31.0); Mean Corpuscular Volume 92.2 fL (78.0-98.0); Mean Platelet Volume 5.4 fL (7.4-10.4); Platelet Count 320 thou/uL (130-400); RBC Distribution Width 13.1 % (11.5-14.5); Red Blood Cell (RBC) Count 2.85 mill/uL (4.70-6.10); White Blood Cell (WBC) Count 8.7 thou/uL (4.8-10.8)
[2020-05-24 05:53] LABS: ALT (SGPT) 23 U/L (8-55); AST (SGOT) 57 U/L (5-34); Albumin 2.2 g/dL (3.5-5.0); Alkaline Phosphatase 108 U/L (40-110); Anion Gap 11 mmol/L (10-20); BUN (Urea Nitrogen) 9 mg/dL (8.9-20.6); Bilirubin, Total 0.6 mg/dL (0.2-1.2); CRP (Inflammatory) 3.03 mg/dL (= or < 0.5); Calc. Creatinine Clearance 217 mL/min (70-130); Calcium 7.6 mg/dL (7.8-10.44); Carbon Dioxide 24 mmol/L (22-29); Chloride 105 mmol/L (98-107); Glucose 94 mg/dL (70-105); Potassium 3.7 mmol/L (3.5-5.1); Protein, Total 7.2 g/dL (6.0-8.3); Sodium 136 mmol/L (136-145)
[2020-05-24] MEDS: AMIKACIN FS SCH (07:34)
[2020-05-24] MEDS: clonazePAM 0.5 MG TAB PO PRN ×2 (08:11→14:51)
[2020-05-24] MEDS: Floranex Packet PO SCH (08:11)
[2020-05-24] MEDS: Baclofen 10 MG TAB PO SCH ×3 (08:11→20:05)
[2020-05-24] MEDS: Gabapentin 300 MG CAP PO SCH ×3 (10:37→20:06)
[2020-05-24] MEDS: Zolpidem Tartrate 5 MG TAB PO SCH (20:05)
[2020-05-25] MEDS: SODIUM CHLORIDE 0.9% FS SCH ×8 (02:00→20:05)
[2020-05-25] MEDS: CEFIDEROCOL FS SCH ×7 (02:00→20:05)
[2020-05-25] MEDS: Morphine 4 MG/ML VIAL SLOW IVP PRN ×4 (02:30→22:37)
[2020-05-25] MEDS: AMIKACIN FS SCH (07:59)
[2020-05-25] MEDS: clonazePAM 0.5 MG TAB PO PRN ×2 (08:00→15:46)
[2020-05-25] MEDS: Baclofen 10 MG TAB PO SCH ×3 (08:00→22:28)
[2020-05-25] MEDS: Gabapentin 300 MG CAP PO SCH ×3 (08:00→22:29)
[2020-05-25] MEDS: Floranex Packet PO SCH (08:01)
[2020-05-25] MEDS: Promethazine HCl 25 MG/ML VIAL SLOW IVP PRN (10:16)
[2020-05-25] MEDS: Zolpidem Tartrate 5 MG TAB PO SCH (22:29)
[2020-05-26] MEDS: Promethazine HCl 25 MG/ML VIAL SLOW IVP PRN ×2 (00:37→14:13)
[2020-05-26] MEDS: CEFIDEROCOL FS SCH ×3 (02:21→11:29)
[2020-05-26] MEDS: SODIUM CHLORIDE 0.9% FS SCH ×4 (02:21→11:29)
[2020-05-26] MEDS: Gabapentin 300 MG CAP PO SCH ×3 (09:44→21:11)
[2020-05-26] MEDS: Morphine 4 MG/ML VIAL SLOW IVP PRN ×3 (09:45→21:38)
[2020-05-26] MEDS: Floranex Packet PO SCH (09:45)
[2020-05-26] MEDS: Enoxaparin Sodium 40 MG/0.4 ML SYRINGE SC SCH (09:45)
[2020-05-26] MEDS: Baclofen 10 MG TAB PO SCH ×3 (09:45→21:11)
[2020-05-26] MEDS: Amikacin Sulfate 1,000 MG in Sodium Chloride 0.9% 100 ML IVPB SCH (10:04)
[2020-05-26] MEDS: AMIKACIN FS SCH (10:25)
[2020-05-26] MEDS: CEFIDEROCOL SULFATE TOSYLATE IVPB SCH ×4 (11:28→17:41)
[2020-05-26] MEDS: SODIUM CHLORIDE 0.9% IVPB SCH ×4 (11:28→17:41)
[2020-05-26] MEDS ORDERED: CEFIDEROCOL SULFATE TOSYLATE IVPB SCH (18:00)
[2020-05-26] MEDS ORDERED: SODIUM CHLORIDE 0.9% IVPB SCH (18:00)
[2020-05-26] MEDS: Zolpidem Tartrate 5 MG TAB PO SCH (21:11)
[2020-05-27] MEDS: Morphine 4 MG/ML VIAL SLOW IVP PRN ×5 (02:11→19:58)
[2020-05-27] MEDS: CEFIDEROCOL SULFATE TOSYLATE IVPB SCH ×6 (02:13→18:10)
[2020-05-27] MEDS: SODIUM CHLORIDE 0.9% IVPB SCH ×6 (02:13→18:10)
[2020-05-27] MEDS: Promethazine HCl 25 MG/ML VIAL SLOW IVP PRN ×3 (05:57→22:47)
[2020-05-27] MEDS: Amikacin Sulfate 1,000 MG in Sodium Chloride 0.9% 100 ML IVPB SCH (09:27)
[2020-05-27] MEDS: Floranex Packet PO SCH (09:42)
[2020-05-27] MEDS: Baclofen 10 MG TAB PO SCH ×3 (09:42→20:00)
[2020-05-27] MEDS: Enoxaparin Sodium 40 MG/0.4 ML SYRINGE SC SCH (09:43)
[2020-05-27] MEDS: Gabapentin 300 MG CAP PO SCH ×3 (09:43→19:59)
[2020-05-27] MEDS: Simethicone Chewable 80 MG TAB PO PRN (18:14)
[2020-05-27] MEDS: Zolpidem Tartrate 5 MG TAB PO SCH (19:59)
[2020-05-28] MEDS: Morphine 4 MG/ML VIAL SLOW IVP PRN ×5 (00:06→19:00)
[2020-05-28] MEDS: SODIUM CHLORIDE 0.9% IVPB SCH ×6 (01:48→19:02)
[2020-05-28] MEDS: CEFIDEROCOL SULFATE TOSYLATE IVPB SCH ×6 (01:48→19:02)
[2020-05-28] MEDS: Promethazine HCl 25 MG/ML VIAL SLOW IVP PRN ×3 (05:48→23:12)
[2020-05-28] MEDS: Amikacin Sulfate 1,000 MG in Sodium Chloride 0.9% 100 ML IVPB SCH (09:46)
[2020-05-28] MEDS: Floranex Packet PO SCH (09:47)
[2020-05-28] MEDS: Baclofen 10 MG TAB PO SCH ×3 (09:48→21:00)
[2020-05-28] MEDS: Enoxaparin Sodium 40 MG/0.4 ML SYRINGE SC SCH (09:48)
[2020-05-28] MEDS: Gabapentin 300 MG CAP PO SCH ×3 (09:48→21:00)
[2020-05-28] MEDS: Zolpidem Tartrate 5 MG TAB PO SCH (21:00)
[2020-05-29] MEDS: Morphine 4 MG/ML VIAL SLOW IVP PRN ×4 (01:15→20:02)
[2020-05-29] MEDS: SODIUM CHLORIDE 0.9% IVPB SCH ×7 (02:35→20:01)
[2020-05-29] MEDS: CEFIDEROCOL SULFATE TOSYLATE IVPB SCH ×6 (02:35→20:01)
[2020-05-29] MEDS: AMIKACIN SULFATE IVPB SCH (08:15)
[2020-05-29] MEDS: Gabapentin 300 MG CAP PO SCH ×3 (08:29→22:06)
[2020-05-29] MEDS: clonazePAM 0.5 MG TAB PO PRN ×2 (08:29→16:20)
[2020-05-29] MEDS: Baclofen 10 MG TAB PO SCH ×3 (08:29→22:07)
[2020-05-29] MEDS: Floranex Packet PO SCH (08:29)
[2020-05-29] MEDS: Enoxaparin Sodium 40 MG/0.4 ML SYRINGE SC SCH (08:30)
[2020-05-29] MEDS: Promethazine HCl 25 MG/ML VIAL SLOW IVP PRN (16:22)
[2020-05-29] MEDS: Zolpidem Tartrate 5 MG TAB PO SCH (22:07)
[2020-05-29] MEDS: clonazePAM 0.5 MG TAB PO SCH (22:07)
[2020-05-30] MEDS: Morphine 4 MG/ML VIAL SLOW IVP PRN ×3 (00:59→15:58)
[2020-05-30] MEDS: CEFIDEROCOL SULFATE TOSYLATE IVPB SCH ×6 (03:15→17:48)
[2020-05-30] MEDS: SODIUM CHLORIDE 0.9% IVPB SCH ×7 (03:15→17:48)
[2020-05-30] MEDS: Promethazine HCl 25 MG/ML VIAL SLOW IVP PRN ×2 (04:45→17:44)
[2020-05-30] MEDS: AMIKACIN SULFATE IVPB SCH (08:07)
[2020-05-30] MEDS: Floranex Packet PO SCH (08:07)
[2020-05-30] MEDS: clonazePAM 0.5 MG TAB PO SCH ×3 (08:21→20:27)
[2020-05-30] MEDS: Gabapentin 300 MG CAP PO SCH ×3 (08:22→20:28)
[2020-05-30] MEDS: Enoxaparin Sodium 40 MG/0.4 ML SYRINGE SC SCH (08:22)
[2020-05-30] MEDS: Baclofen 10 MG TAB PO SCH ×3 (08:22→20:27)
[2020-05-30] MEDS: Zolpidem Tartrate 5 MG TAB PO SCH (20:28)
[2020-05-31] MEDS: Morphine 4 MG/ML VIAL SLOW IVP PRN ×4 (00:44→21:17)
[2020-05-31] MEDS: Promethazine HCl 25 MG/ML VIAL SLOW IVP PRN ×3 (02:05→17:50)
[2020-05-31] MEDS: SODIUM CHLORIDE 0.9% IVPB SCH ×7 (02:10→19:30)
[2020-05-31] MEDS: CEFIDEROCOL SULFATE TOSYLATE IVPB SCH ×6 (02:10→19:30)
[2020-05-31] MEDS: HYDROcodone/Acetaminophen 10/325 mg Tablet PO PRN (04:12)
[2020-05-31] MEDS: clonazePAM 0.5 MG TAB PO SCH ×3 (08:55→20:18)
[2020-05-31] MEDS: Gabapentin 300 MG CAP PO SCH ×3 (08:55→20:18)
[2020-05-31] MEDS: Floranex Packet PO SCH (08:55)
[2020-05-31] MEDS: Baclofen 10 MG TAB PO SCH ×3 (08:55→20:18)
[2020-05-31] MEDS: Enoxaparin Sodium 40 MG/0.4 ML SYRINGE SC SCH (08:56)
[2020-05-31] MEDS: AMIKACIN SULFATE IVPB SCH (09:02)
[2020-05-31] MEDS: Zolpidem Tartrate 5 MG TAB PO SCH (20:18)
[2020-06-01] MEDS: Morphine 4 MG/ML VIAL SLOW IVP PRN ×5 (01:30→21:56)
[2020-06-01] MEDS: Promethazine HCl 25 MG/ML VIAL SLOW IVP PRN ×3 (01:31→16:57)
[2020-06-01] MEDS: SODIUM CHLORIDE 0.9% IVPB SCH ×7 (01:34→18:33)
[2020-06-01] MEDS: CEFIDEROCOL SULFATE TOSYLATE IVPB SCH ×6 (01:34→18:33)
[2020-06-01] MEDS: clonazePAM 0.5 MG TAB PO SCH ×3 (08:55→20:04)
[2020-06-01] MEDS: Baclofen 10 MG TAB PO SCH ×3 (08:56→20:04)
[2020-06-01] MEDS: Floranex Packet PO SCH (08:56)
[2020-06-01] MEDS: Gabapentin 300 MG CAP PO SCH ×3 (08:57→20:04)
[2020-06-01] MEDS: AMIKACIN SULFATE IVPB SCH (09:01)
[2020-06-01] MEDS: Enoxaparin Sodium 40 MG/0.4 ML SYRINGE SC SCH (09:02)
[2020-06-01] MEDS: Zolpidem Tartrate 5 MG TAB PO SCH (20:05)
[2020-06-02] MEDS: Morphine 4 MG/ML VIAL SLOW IVP PRN ×4 (02:05→23:58)
[2020-06-02] MEDS: CEFIDEROCOL SULFATE TOSYLATE IVPB SCH ×6 (02:06→18:06)
[2020-06-02] MEDS: SODIUM CHLORIDE 0.9% IVPB SCH ×7 (02:06→18:06)
[2020-06-02 05:38] LABS: #Basophils 0.2 thou/uL (0.0-0.2); #Eosinphils 0.6 thou/uL (0.0-0.7); #Lymphocytes 2.8 thou/uL (1.20-3.40); #Monocytes 1.1 thou/uL (0.11-0.59); #Neutrophils 3.4 thou/uL (1.40-6.50); %Basophils 2.7 % (0.0-1.0); %Eosinophils 7.9 % (0.0-10.0); %Lymphocytes 34.3 % (21.0-51.0); %Monocytes 13.6 % (0.0-10.0); %Neutrophils 41.5 % (42.0-75.0); Hemoglobin 9.2 g/dL (14.0-18.0); Mean Corpuscular HGB CONC 30.9 g/dL (32.0-36.0); Mean Corpuscular Hemoglobin 30.3 pg (27.0-31.0); Mean Platelet Volume 5.9 fL (7.4-10.4); Platelet Count 404 thou/uL (130-400); RBC Distribution Width 13.1 % (11.5-14.5); Red Blood Cell (RBC) Count 3.04 mill/uL (4.70-6.10); White Blood Cell (WBC) Count 8.1 thou/uL (4.8-10.8)
[2020-06-02 05:47] LABS: ALT (SGPT) 24 U/L (8-55); AST (SGOT) 56 U/L (5-34); Albumin 2.1 g/dL (3.5-5.0); Alkaline Phosphatase 99 U/L (40-110); Anion Gap 10 mmol/L (10-20); BUN (Urea Nitrogen) 10 mg/dL (8.9-20.6); Bilirubin, Total 0.4 mg/dL (0.2-1.2); CRP (Inflammatory) 0.93 mg/dL (= or < 0.5); Calc. Creatinine Clearance 231 mL/min (70-130); Calcium 7.6 mg/dL (7.8-10.44); Carbon Dioxide 26 mmol/L (22-29); Chloride 107 mmol/L (98-107); Globulin 5.3 g/dL (2.4-3.5); Glucose 114 mg/dL (70-105); Potassium 3.7 mmol/L (3.5-5.1); Protein, Total 7.4 g/dL (6.0-8.3); Sodium 139 mmol/L (136-145)
[2020-06-02] MEDS: Promethazine HCl 25 MG/ML VIAL SLOW IVP PRN (05:55)
[2020-06-02] MEDS: Baclofen 10 MG TAB PO SCH ×3 (08:29→20:34)
[2020-06-02] MEDS: Floranex Packet PO SCH (08:29)
[2020-06-02] MEDS: Gabapentin 300 MG CAP PO SCH ×3 (08:29→20:35)
[2020-06-02] MEDS: clonazePAM 0.5 MG TAB PO SCH ×3 (08:34→20:34)
[2020-06-02] MEDS: AMIKACIN SULFATE IVPB SCH (08:50)
[2020-06-02] MEDS: Enoxaparin Sodium 40 MG/0.4 ML SYRINGE SC SCH (08:51)
[2020-06-02] MEDS: Zolpidem Tartrate 5 MG TAB PO SCH (20:35)
[2020-06-03] MEDS: Promethazine HCl 25 MG/ML VIAL SLOW IVP PRN ×2 (01:53→12:57)
[2020-06-03] MEDS: CEFIDEROCOL SULFATE TOSYLATE IVPB SCH ×6 (02:11→20:11)
[2020-06-03] MEDS: SODIUM CHLORIDE 0.9% IVPB SCH ×7 (02:11→20:11)
[2020-06-03] MEDS: Morphine 4 MG/ML VIAL SLOW IVP PRN ×4 (05:53→22:34)
[2020-06-03] MEDS: AMIKACIN SULFATE IVPB SCH (09:52)
[2020-06-03] MEDS: clonazePAM 0.5 MG TAB PO SCH ×3 (09:55→20:12)
[2020-06-03] MEDS: Baclofen 10 MG TAB PO SCH ×3 (09:55→20:13)
[2020-06-03] MEDS: Gabapentin 300 MG CAP PO SCH ×3 (09:55→20:11)
[2020-06-03] MEDS: Floranex Packet PO SCH (09:55)
[2020-06-03] MEDS: Enoxaparin Sodium 40 MG/0.4 ML SYRINGE SC SCH (09:56)
[2020-06-03] MEDS: Zolpidem Tartrate 5 MG TAB PO SCH (20:12)
[2020-06-04] MEDS: Promethazine HCl 25 MG/ML VIAL SLOW IVP PRN ×3 (00:27→18:15)
[2020-06-04] MEDS: CEFIDEROCOL SULFATE TOSYLATE IVPB SCH ×6 (01:46→20:06)
[2020-06-04] MEDS: SODIUM CHLORIDE 0.9% IVPB SCH ×7 (01:46→20:06)
[2020-06-04] MEDS: Morphine 4 MG/ML VIAL SLOW IVP PRN ×4 (03:14→22:32)
[2020-06-04] MEDS: AMIKACIN SULFATE IVPB SCH (08:16)
[2020-06-04] MEDS: clonazePAM 0.5 MG TAB PO SCH ×3 (08:21→21:08)
[2020-06-04] MEDS: Gabapentin 300 MG CAP PO SCH ×3 (08:22→21:08)
[2020-06-04] MEDS: Floranex Packet PO SCH (08:22)
[2020-06-04] MEDS: Baclofen 10 MG TAB PO SCH ×3 (08:23→21:09)
[2020-06-04] MEDS: Enoxaparin Sodium 40 MG/0.4 ML SYRINGE SC SCH (08:23)
[2020-06-04] MEDS: Zolpidem Tartrate 5 MG TAB PO SCH (21:09)
[2020-06-05] MEDS: Promethazine HCl 25 MG/ML VIAL SLOW IVP PRN ×3 (00:46→21:06)
[2020-06-05] MEDS: SODIUM CHLORIDE 0.9% IVPB SCH ×7 (02:11→19:01)
[2020-06-05] MEDS: CEFIDEROCOL SULFATE TOSYLATE IVPB SCH ×6 (02:11→19:01)
[2020-06-05] MEDS: Morphine 4 MG/ML VIAL SLOW IVP PRN ×4 (06:04→18:59)
[2020-06-05] MEDS: AMIKACIN SULFATE IVPB SCH (07:52)
[2020-06-05] MEDS: clonazePAM 0.5 MG TAB PO SCH ×3 (07:56→21:07)
[2020-06-05] MEDS: Floranex Packet PO SCH (07:56)
[2020-06-05] MEDS: Baclofen 10 MG TAB PO SCH ×3 (07:57→21:09)
[2020-06-05] MEDS: Gabapentin 300 MG CAP PO SCH ×3 (07:57→21:08)
[2020-06-05] MEDS: Enoxaparin Sodium 40 MG/0.4 ML SYRINGE SC SCH ×2 (08:02→08:03)
[2020-06-05] MEDS: Zolpidem Tartrate 5 MG TAB PO SCH (21:07)
[2020-06-05] MEDS ORDERED: Morphine 4 MG/ML VIAL SLOW IVP SCH (22:30)
[2020-06-06] MEDS: SODIUM CHLORIDE 0.9% IVPB SCH ×7 (01:51→19:15)
[2020-06-06] MEDS: CEFIDEROCOL SULFATE TOSYLATE IVPB SCH ×6 (01:51→19:15)
[2020-06-06] MEDS: Promethazine HCl 25 MG/ML VIAL SLOW IVP PRN ×3 (03:35→17:21)
[2020-06-06] MEDS: Morphine 4 MG/ML VIAL SLOW IVP PRN ×3 (05:36→14:37)
[2020-06-06] MEDS: Floranex Packet PO SCH (09:36)
[2020-06-06] MEDS: clonazePAM 0.5 MG TAB PO SCH ×3 (09:37→20:50)
[2020-06-06] MEDS: AMIKACIN SULFATE IVPB SCH (09:38)
[2020-06-06] MEDS: Gabapentin 300 MG CAP PO SCH ×3 (09:38→20:46)
[2020-06-06] MEDS: Baclofen 10 MG TAB PO SCH ×3 (09:38→20:46)
[2020-06-06] MEDS: Zolpidem Tartrate 5 MG TAB PO SCH (20:51)
[2020-06-07] MEDS: CEFIDEROCOL SULFATE TOSYLATE IVPB SCH ×6 (02:48→20:25)
[2020-06-07] MEDS: SODIUM CHLORIDE 0.9% IVPB SCH ×7 (02:48→20:25)
[2020-06-07] MEDS: HYDROcodone/Acetaminophen 10/325 mg Tablet PO PRN (04:35)
[2020-06-07] MEDS: Floranex Packet PO SCH (09:02)
[2020-06-07] MEDS: Baclofen 10 MG TAB PO SCH ×3 (09:02→21:31)
[2020-06-07] MEDS: clonazePAM 0.5 MG TAB PO SCH ×3 (09:02→21:31)
[2020-06-07] MEDS: Enoxaparin Sodium 40 MG/0.4 ML SYRINGE SC SCH (09:02)
[2020-06-07] MEDS: Gabapentin 300 MG CAP PO SCH ×3 (09:03→21:31)
[2020-06-07] MEDS: AMIKACIN SULFATE IVPB SCH (09:03)
[2020-06-07] MEDS: Morphine 4 MG/ML VIAL SLOW IVP PRN ×3 (09:17→21:33)
[2020-06-07] MEDS: Promethazine HCl 25 MG/ML VIAL SLOW IVP PRN ×2 (10:35→17:55)
[2020-06-07] MEDS: Zolpidem Tartrate 5 MG TAB PO SCH (21:32)
[2020-06-08] MEDS: CEFIDEROCOL SULFATE TOSYLATE IVPB SCH ×6 (02:50→17:32)
[2020-06-08] MEDS: SODIUM CHLORIDE 0.9% IVPB SCH ×7 (02:50→17:32)
[2020-06-08] MEDS: Promethazine HCl 25 MG/ML VIAL SLOW IVP PRN ×2 (02:51→12:54)
[2020-06-08] MEDS: Morphine 4 MG/ML VIAL SLOW IVP PRN ×3 (05:20→15:36)
[2020-06-08] MEDS: AMIKACIN SULFATE IVPB SCH (08:33)
[2020-06-08] MEDS: Enoxaparin Sodium 40 MG/0.4 ML SYRINGE SC SCH (08:35)
[2020-06-08] MEDS: clonazePAM 0.5 MG TAB PO SCH ×3 (08:36→20:28)
[2020-06-08] MEDS: Gabapentin 300 MG CAP PO SCH ×3 (08:36→20:29)
[2020-06-08] MEDS: Floranex Packet PO SCH (08:37)
[2020-06-08] MEDS: Baclofen 10 MG TAB PO SCH ×3 (08:37→20:27)
[2020-06-08] MEDS: Zolpidem Tartrate 5 MG TAB PO SCH (20:28)
[2020-06-09] MEDS: SODIUM CHLORIDE 0.9% IVPB SCH ×7 (02:43→19:20)
[2020-06-09] MEDS: CEFIDEROCOL SULFATE TOSYLATE IVPB SCH ×6 (02:43→19:20)
[2020-06-09] MEDS: Morphine 4 MG/ML VIAL SLOW IVP PRN ×4 (02:44→23:11)
[2020-06-09] MEDS: Simethicone Chewable 80 MG TAB PO PRN (04:38)
[2020-06-09 06:08] LABS: #Basophils 0.1 thou/uL (0.0-0.2); #Eosinphils 0.4 thou/uL (0.0-0.7); #Lymphocytes 3.5 thou/uL (1.20-3.40); #Monocytes 0.8 thou/uL (0.11-0.59); #Neutrophils 3.2 thou/uL (1.40-6.50); %Basophils 1.6 % (0.0-1.0); %Eosinophils 5.3 % (0.0-10.0); %Lymphocytes 43.4 % (21.0-51.0); %Neutrophils 39.7 % (42.0-75.0); Hemoglobin 9.2 g/dL (14.0-18.0); Mean Corpuscular HGB CONC 31.1 g/dL (32.0-36.0); Mean Corpuscular Hemoglobin 30.2 pg (27.0-31.0); Mean Platelet Volume 6.4 fL (7.4-10.4); Platelet Count 284 thou/uL (130-400); RBC Distribution Width 13.2 % (11.5-14.5); Red Blood Cell (RBC) Count 3.06 mill/uL (4.70-6.10)
[2020-06-09] MEDS: Promethazine HCl 25 MG/ML VIAL SLOW IVP PRN ×3 (06:09→18:19)
[2020-06-09 06:27] LABS: ALT (SGPT) 23 U/L (8-55); AST (SGOT) 55 U/L (5-34); Albumin 2.1 g/dL (3.5-5.0); Alkaline Phosphatase 91 U/L (40-110); Anion Gap 13 mmol/L (10-20); BUN (Urea Nitrogen) 11 mg/dL (8.9-20.6); Bilirubin, Total 0.5 mg/dL (0.2-1.2); CRP (Inflammatory) 1.81 mg/dL (= or < 0.5); Calc. Creatinine Clearance 215 mL/min (70-130); Calcium 7.7 mg/dL (7.8-10.44); Carbon Dioxide 24 mmol/L (22-29); Chloride 108 mmol/L (98-107); Globulin 5.3 g/dL (2.4-3.5); Glucose 105 mg/dL (70-105); Potassium 3.7 mmol/L (3.5-5.1); Protein, Total 7.4 g/dL (6.0-8.3); Sodium 141 mmol/L (136-145)
[2020-06-09] MEDS: Floranex Packet PO SCH (09:00)
[2020-06-09] MEDS: AMIKACIN SULFATE IVPB SCH (09:03)
[2020-06-09] MEDS: clonazePAM 0.5 MG TAB PO SCH ×3 (09:04→22:16)
[2020-06-09] MEDS: Baclofen 10 MG TAB PO SCH ×3 (09:04→22:16)
[2020-06-09] MEDS: Gabapentin 300 MG CAP PO SCH ×3 (09:05→22:16)
[2020-06-09] MEDS: Enoxaparin Sodium 40 MG/0.4 ML SYRINGE SC SCH (09:05)
[2020-06-09] MEDS: Zolpidem Tartrate 5 MG TAB PO SCH (22:17)
[2020-06-10] MEDS: Promethazine HCl 25 MG/ML VIAL SLOW IVP PRN ×3 (01:19→14:54)
[2020-06-10] MEDS: CEFIDEROCOL SULFATE TOSYLATE IVPB SCH ×6 (02:35→19:52)
[2020-06-10] MEDS: SODIUM CHLORIDE 0.9% IVPB SCH ×7 (02:35→19:52)
[2020-06-10] MEDS: Morphine 4 MG/ML VIAL SLOW IVP PRN ×3 (07:54→18:03)
[2020-06-10] MEDS: Baclofen 10 MG TAB PO SCH ×3 (08:47→21:39)
[2020-06-10] MEDS: Gabapentin 300 MG CAP PO SCH ×3 (08:47→21:40)
[2020-06-10] MEDS: clonazePAM 0.5 MG TAB PO SCH ×3 (08:47→21:39)
[2020-06-10] MEDS: AMIKACIN SULFATE IVPB SCH (08:48)
[2020-06-10] MEDS: Floranex Packet PO SCH (08:48)
[2020-06-10] MEDS: Enoxaparin Sodium 40 MG/0.4 ML SYRINGE SC SCH (08:49)
[2020-06-10] MEDS: Zolpidem Tartrate 5 MG TAB PO SCH (21:39)
[2020-06-11] MEDS: SODIUM CHLORIDE 0.9% IVPB SCH ×8 (02:47→19:28)
[2020-06-11] MEDS: CEFIDEROCOL SULFATE TOSYLATE IVPB SCH ×7 (02:47→19:28)
[2020-06-11] MEDS: Floranex Packet PO SCH (07:55)
[2020-06-11] MEDS: Promethazine HCl 25 MG/ML VIAL SLOW IVP PRN (08:07)
[2020-06-11] MEDS: Baclofen 10 MG TAB PO SCH ×4 (08:35→21:23)
[2020-06-11] MEDS: AMIKACIN SULFATE IVPB SCH (08:37)
[2020-06-11] MEDS: Gabapentin 300 MG CAP PO SCH ×4 (08:37→21:24)
[2020-06-11] MEDS: Enoxaparin Sodium 40 MG/0.4 ML SYRINGE SC SCH (08:37)
[2020-06-11] MEDS: clonazePAM 0.5 MG TAB PO SCH ×4 (09:00→21:23)
[2020-06-11] MEDS: Morphine 4 MG/ML VIAL SLOW IVP PRN ×2 (12:10→19:35)
[2020-06-11] MEDS: Zolpidem Tartrate 5 MG TAB PO SCH (21:24)
[2020-06-12] MEDS: CEFIDEROCOL SULFATE TOSYLATE IVPB SCH ×6 (02:45→17:49)
[2020-06-12] MEDS: SODIUM CHLORIDE 0.9% IVPB SCH ×7 (02:45→17:49)
[2020-06-12] MEDS: Morphine 4 MG/ML VIAL SLOW IVP PRN ×4 (02:59→21:22)
[2020-06-12] MEDS: Promethazine HCl 25 MG/ML VIAL SLOW IVP PRN ×2 (05:14→15:23)
[2020-06-12] MEDS: AMIKACIN SULFATE IVPB SCH (08:04)
[2020-06-12] MEDS: Enoxaparin Sodium 40 MG/0.4 ML SYRINGE SC SCH (08:05)
[2020-06-12] MEDS: Floranex Packet PO SCH (08:05)
[2020-06-12] MEDS: Baclofen 10 MG TAB PO SCH ×3 (08:05→20:31)
[2020-06-12] MEDS: clonazePAM 0.5 MG TAB PO SCH ×3 (08:05→20:30)
[2020-06-12] MEDS: Gabapentin 300 MG CAP PO SCH ×3 (08:06→20:28)
[2020-06-12] MEDS: Zolpidem Tartrate 5 MG TAB PO SCH (20:31)
[2020-06-13] MEDS: SODIUM CHLORIDE 0.9% IVPB SCH ×7 (01:59→17:59)
[2020-06-13] MEDS: CEFIDEROCOL SULFATE TOSYLATE IVPB SCH ×6 (01:59→17:59)
[2020-06-13] MEDS: Promethazine HCl 25 MG/ML VIAL SLOW IVP PRN ×3 (02:11→17:58)
[2020-06-13] MEDS: HYDROcodone/Acetaminophen 10/325 mg Tablet PO PRN ×2 (02:11→07:57)
[2020-06-13] MEDS: Morphine 4 MG/ML VIAL SLOW IVP PRN ×4 (05:49→22:03)
[2020-06-13] MEDS: AMIKACIN SULFATE IVPB SCH (07:56)
[2020-06-13] MEDS: Gabapentin 300 MG CAP PO SCH ×3 (07:58→20:07)
[2020-06-13] MEDS: clonazePAM 0.5 MG TAB PO SCH ×3 (07:58→20:06)
[2020-06-13] MEDS: Enoxaparin Sodium 40 MG/0.4 ML SYRINGE SC SCH (07:59)
[2020-06-13] MEDS: Baclofen 10 MG TAB PO SCH ×3 (07:59→20:07)
[2020-06-13] MEDS: Floranex Packet PO SCH (08:20)
[2020-06-13] MEDS: Acetaminophen 325 MG TAB PO PRN (17:59)
[2020-06-13] MEDS: Zolpidem Tartrate 5 MG TAB PO SCH (20:07)
[2020-06-14] MEDS: Promethazine HCl 25 MG/ML VIAL SLOW IVP PRN ×3 (01:02→20:40)
[2020-06-14] MEDS: CEFIDEROCOL SULFATE TOSYLATE IVPB SCH ×6 (01:03→19:06)
[2020-06-14] MEDS: SODIUM CHLORIDE 0.9% IVPB SCH ×7 (01:03→19:06)
[2020-06-14] MEDS: Morphine 4 MG/ML VIAL SLOW IVP PRN ×4 (05:59→20:39)
[2020-06-14] MEDS: AMIKACIN SULFATE IVPB SCH (09:34)
[2020-06-14] MEDS: clonazePAM 0.5 MG TAB PO SCH ×3 (09:35→20:13)
[2020-06-14] MEDS: Enoxaparin Sodium 40 MG/0.4 ML SYRINGE SC SCH (09:36)
[2020-06-14] MEDS: Floranex Packet PO SCH (09:36)
[2020-06-14] MEDS: Baclofen 10 MG TAB PO SCH ×3 (09:36→20:13)
[2020-06-14] MEDS: Gabapentin 300 MG CAP PO SCH ×3 (09:36→20:13)
[2020-06-14] MEDS: Zolpidem Tartrate 5 MG TAB PO SCH (20:13)
[2020-06-15] MEDS: SODIUM CHLORIDE 0.9% IVPB SCH ×7 (00:59→19:30)
[2020-06-15] MEDS: CEFIDEROCOL SULFATE TOSYLATE IVPB SCH ×6 (00:59→19:30)
[2020-06-15] MEDS: Morphine 4 MG/ML VIAL SLOW IVP PRN ×3 (04:10→21:03)
[2020-06-15] MEDS: Promethazine HCl 25 MG/ML VIAL SLOW IVP PRN ×2 (04:11→15:17)
[2020-06-15] MEDS: Floranex Packet PO SCH (09:39)
[2020-06-15] MEDS: Enoxaparin Sodium 40 MG/0.4 ML SYRINGE SC SCH (09:39)
[2020-06-15] MEDS: Baclofen 10 MG TAB PO SCH ×3 (09:39→20:54)
[2020-06-15] MEDS: clonazePAM 0.5 MG TAB PO SCH ×3 (09:39→20:53)
[2020-06-15] MEDS: AMIKACIN SULFATE IVPB SCH (09:40)
[2020-06-15] MEDS: Gabapentin 300 MG CAP PO SCH ×3 (09:40→20:53)
[2020-06-15] MEDS: Zolpidem Tartrate 5 MG TAB PO SCH (20:54)
[2020-06-16] MEDS: Promethazine HCl 25 MG/ML VIAL SLOW IVP PRN ×4 (00:31→23:13)
[2020-06-16] MEDS: SODIUM CHLORIDE 0.9% IVPB SCH ×7 (01:29→19:26)
[2020-06-16] MEDS: CEFIDEROCOL SULFATE TOSYLATE IVPB SCH ×6 (01:29→19:26)
[2020-06-16] MEDS: Morphine 4 MG/ML VIAL SLOW IVP PRN ×4 (03:59→21:32)
[2020-06-16 05:38] LABS: #Basophils 0.2 thou/uL (0.0-0.2); #Eosinphils 0.6 thou/uL (0.0-0.7); #Lymphocytes 2.5 thou/uL (1.20-3.40); #Monocytes 0.7 thou/uL (0.11-0.59); #Neutrophils 2.4 thou/uL (1.40-6.50); %Basophils 2.4 % (0.0-1.0); %Eosinophils 8.9 % (0.0-10.0); %Lymphocytes 39.2 % (21.0-51.0); %Monocytes 11.7 % (0.0-10.0); %Neutrophils 37.9 % (42.0-75.0); Hemoglobin 9.6 g/dL (14.0-18.0); Mean Corpuscular HGB CONC 30.9 g/dL (32.0-36.0); Mean Corpuscular Hemoglobin 29.9 pg (27.0-31.0); Mean Corpuscular Volume 96.6 fL (78.0-98.0); Mean Platelet Volume 6.7 fL (7.4-10.4); Platelet Count 243 thou/uL (130-400); RBC Distribution Width 13.9 % (11.5-14.5); Red Blood Cell (RBC) Count 3.23 mill/uL (4.70-6.10); White Blood Cell (WBC) Count 6.3 thou/uL (4.8-10.8)
[2020-06-16 05:48] LABS: ALT (SGPT) 24 U/L (8-55); AST (SGOT) 57 U/L (5-34); Albumin 2.1 g/dL (3.5-5.0); Alkaline Phosphatase 95 U/L (40-110); Anion Gap 9 mmol/L (10-20); BUN (Urea Nitrogen) 14 mg/dL (8.9-20.6); Bilirubin, Total 0.5 mg/dL (0.2-1.2); CRP (Inflammatory) 0.66 mg/dL (= or < 0.5); Calc. Creatinine Clearance 205 mL/min (70-130); Calcium 7.7 mg/dL (7.8-10.44); Carbon Dioxide 26 mmol/L (22-29); Chloride 112 mmol/L (98-107); Globulin 4.9 g/dL (2.4-3.5); Glucose 125 mg/dL (70-105); Potassium 4.1 mmol/L (3.5-5.1); Sodium 143 mmol/L (136-145)
[2020-06-16] MEDS: AMIKACIN SULFATE IVPB SCH (07:58)
[2020-06-16] MEDS: Floranex Packet PO SCH (07:59)
[2020-06-16] MEDS: clonazePAM 0.5 MG TAB PO SCH ×3 (08:11→20:02)
[2020-06-16] MEDS: Gabapentin 300 MG CAP PO SCH ×3 (08:11→20:02)
[2020-06-16] MEDS: Baclofen 10 MG TAB PO SCH ×3 (08:11→20:01)
[2020-06-16] MEDS: Enoxaparin Sodium 40 MG/0.4 ML SYRINGE SC SCH (08:12)
[2020-06-16] MEDS: Simethicone Chewable 80 MG TAB PO PRN (18:32)
[2020-06-16] MEDS: Zolpidem Tartrate 5 MG TAB PO SCH (20:03)
[2020-06-17] MEDS: CEFIDEROCOL SULFATE TOSYLATE IVPB SCH ×6 (01:58→19:33)
[2020-06-17] MEDS: SODIUM CHLORIDE 0.9% IVPB SCH ×7 (01:58→19:33)
[2020-06-17] MEDS: Morphine 4 MG/ML VIAL SLOW IVP PRN ×4 (06:15→21:16)
[2020-06-17] MEDS: clonazePAM 0.5 MG TAB PO SCH ×3 (08:24→20:28)
[2020-06-17] MEDS: Baclofen 10 MG TAB PO SCH ×3 (08:24→20:27)
[2020-06-17] MEDS: Gabapentin 300 MG CAP PO SCH ×3 (08:24→20:27)
[2020-06-17] MEDS: Enoxaparin Sodium 40 MG/0.4 ML SYRINGE SC SCH (08:25)
[2020-06-17] MEDS: Promethazine HCl 25 MG/ML VIAL SLOW IVP PRN ×2 (09:05→17:35)
[2020-06-17] MEDS: AMIKACIN SULFATE IVPB SCH (09:09)
[2020-06-17] MEDS: Simethicone Chewable 80 MG TAB PO PRN (12:44)
[2020-06-17] MEDS: Zolpidem Tartrate 5 MG TAB PO SCH (20:28)
[2020-06-18] MEDS: Promethazine HCl 25 MG/ML VIAL SLOW IVP PRN ×3 (00:29→16:37)
[2020-06-18] MEDS: SODIUM CHLORIDE 0.9% IVPB SCH ×7 (01:55→19:22)
[2020-06-18] MEDS: CEFIDEROCOL SULFATE TOSYLATE IVPB SCH ×6 (01:55→19:22)
[2020-06-18] MEDS: Morphine 4 MG/ML VIAL SLOW IVP PRN ×3 (05:55→15:10)
[2020-06-18] MEDS: clonazePAM 0.5 MG TAB PO SCH ×3 (08:58→20:32)
[2020-06-18] MEDS: Gabapentin 300 MG CAP PO SCH ×3 (08:58→20:32)
[2020-06-18] MEDS: Baclofen 10 MG TAB PO SCH ×3 (08:58→20:32)
[2020-06-18] MEDS: Enoxaparin Sodium 40 MG/0.4 ML SYRINGE SC SCH (08:59)
[2020-06-18] MEDS: AMIKACIN SULFATE IVPB SCH (08:59)
[2020-06-18] MEDS: Zolpidem Tartrate 5 MG TAB PO SCH (22:24)
[2020-06-19] MEDS: SODIUM CHLORIDE 0.9% IVPB SCH ×7 (02:03→21:13)
[2020-06-19] MEDS: CEFIDEROCOL SULFATE TOSYLATE IVPB SCH ×6 (02:03→21:13)
[2020-06-19] MEDS: Morphine 4 MG/ML VIAL SLOW IVP PRN ×3 (05:52→18:07)
[2020-06-19] MEDS: Promethazine HCl 25 MG/ML VIAL SLOW IVP PRN ×2 (08:29→15:28)
[2020-06-19] MEDS: AMIKACIN SULFATE IVPB SCH (08:29)
[2020-06-19] MEDS: Enoxaparin Sodium 40 MG/0.4 ML SYRINGE SC SCH (08:30)
[2020-06-19] MEDS: Gabapentin 300 MG CAP PO SCH ×3 (08:30→21:15)
[2020-06-19] MEDS: Baclofen 10 MG TAB PO SCH ×3 (08:31→21:16)
[2020-06-19] MEDS: clonazePAM 0.5 MG TAB PO SCH ×3 (08:31→21:14)
[2020-06-19] MEDS: Zolpidem Tartrate 5 MG TAB PO SCH (21:14)
[2020-06-20] MEDS: Morphine 4 MG/ML VIAL SLOW IVP PRN ×3 (00:02→15:00)
[2020-06-20] MEDS: CEFIDEROCOL SULFATE TOSYLATE IVPB SCH ×6 (03:00→19:51)
[2020-06-20] MEDS: SODIUM CHLORIDE 0.9% IVPB SCH ×7 (03:00→19:51)
[2020-06-20] MEDS: Promethazine HCl 25 MG/ML VIAL SLOW IVP PRN ×3 (03:01→17:59)
[2020-06-20] MEDS: Gabapentin 300 MG CAP PO SCH ×3 (08:55→21:18)
[2020-06-20] MEDS: clonazePAM 0.5 MG TAB PO SCH ×5 (08:56→21:32)
[2020-06-20] MEDS: AMIKACIN SULFATE IVPB SCH (08:56)
[2020-06-20] MEDS: Enoxaparin Sodium 40 MG/0.4 ML SYRINGE SC SCH (08:56)
[2020-06-20] MEDS: Baclofen 10 MG TAB PO SCH ×3 (08:56→21:19)
[2020-06-20 11:46] LABS: Bilirubin Negative (Negative); Blood, Urine Trace (Negative); Clarity Hazy (Clear); Glucose, Urine (Dipstick) Negative (Negative); Ketone, Urine Negative (Negative); Leukocyte Negative (Negative); Nitrite Negative (Negative); Protein, Urine (Dipstick) Trace mg/dL (Neg-Trace); Specific Gravity, Urine 1.015 (1.005-1.030); Urobilinogen 0.2 mg/dL (Less than 2)
[2020-06-20 11:55] LABS: Bacteria/HPF Rare-Few HPF (None Seen); RBC/HPF 0-3 HPF (0-3); Squamous Epithelial 0-3 HPF (0-3); WBC/HPF 0-3 HPF (0-3)
[2020-06-20] MEDS: Zolpidem Tartrate 5 MG TAB PO SCH (21:19)
[2020-06-21] MEDS: SODIUM CHLORIDE 0.9% IVPB SCH ×7 (02:44→20:04)
[2020-06-21] MEDS: CEFIDEROCOL SULFATE TOSYLATE IVPB SCH ×6 (02:44→20:04)
[2020-06-21] MEDS: Baclofen 10 MG TAB PO SCH ×3 (08:58→20:05)
[2020-06-21] MEDS: clonazePAM 0.5 MG TAB PO SCH ×3 (08:58→20:06)
[2020-06-21] MEDS: Enoxaparin Sodium 40 MG/0.4 ML SYRINGE SC SCH (08:58)
[2020-06-21] MEDS: Gabapentin 300 MG CAP PO SCH ×3 (08:58→20:05)
[2020-06-21] MEDS: AMIKACIN SULFATE IVPB SCH (08:59)
[2020-06-21] MEDS: Morphine 2 MG/ML VIAL SLOW IVP PRN ×3 (09:06→23:18)
[2020-06-21] MEDS: Promethazine HCl 25 MG/ML VIAL SLOW IVP PRN ×2 (12:08→18:20)
[2020-06-21] MEDS: Zolpidem Tartrate 5 MG TAB PO SCH (20:05)
[2020-06-22] MEDS: Promethazine HCl 25 MG/ML VIAL SLOW IVP PRN ×3 (02:44→18:09)
[2020-06-22] MEDS: CEFIDEROCOL SULFATE TOSYLATE IVPB SCH ×6 (02:47→19:39)
[2020-06-22] MEDS: SODIUM CHLORIDE 0.9% IVPB SCH ×7 (02:47→19:39)
[2020-06-22] MEDS: Gabapentin 300 MG CAP PO SCH ×3 (09:00→20:54)
[2020-06-22] MEDS: AMIKACIN SULFATE IVPB SCH (09:00)
[2020-06-22] MEDS: Enoxaparin Sodium 40 MG/0.4 ML SYRINGE SC SCH (09:00)
[2020-06-22] MEDS: Baclofen 10 MG TAB PO SCH ×3 (09:00→20:53)
[2020-06-22] MEDS: clonazePAM 0.5 MG TAB PO SCH ×3 (09:17→20:54)
[2020-06-22] MEDS: Morphine 2 MG/ML VIAL SLOW IVP PRN ×2 (09:30→15:52)
[2020-06-22] MEDS: Zolpidem Tartrate 5 MG TAB PO SCH (20:55)
[2020-06-23] MEDS: Morphine 2 MG/ML VIAL SLOW IVP PRN ×3 (01:02→16:31)
[2020-06-23] MEDS: Simethicone Chewable 80 MG TAB PO PRN (01:14)
[2020-06-23] MEDS: CEFIDEROCOL SULFATE TOSYLATE IVPB SCH ×6 (03:50→20:09)
[2020-06-23] MEDS: SODIUM CHLORIDE 0.9% IVPB SCH ×7 (03:50→20:09)
[2020-06-23 06:26] LABS: ALT (SGPT) 31 U/L (8-55); AST (SGOT) 69 U/L (5-34); Albumin 2.1 g/dL (3.5-5.0); Alkaline Phosphatase 98 U/L (40-110); Anion Gap 12 mmol/L (10-20); BUN (Urea Nitrogen) 15 mg/dL (8.9-20.6); BUN/Creatinine Ratio 23.08; Bilirubin, Total 0.5 mg/dL (0.2-1.2); Calc. Creatinine Clearance 207 mL/min (70-130); Calcium 7.5 mg/dL (7.8-10.44); Carbon Dioxide 24 mmol/L (22-29); Chloride 109 mmol/L (98-107); Glucose 97 mg/dL (70-105); Phosphorus 3.3 mg/dL (2.3-4.7); Potassium 3.9 mmol/L (3.5-5.1); Protein, Total 7.1 g/dL (6.0-8.3); Sodium 141 mmol/L (136-145)
[2020-06-23 06:29] LABS: Eosinophils 12 % (0-10); Hemoglobin 9.6 g/dL (14.0-18.0); Hypochromia SLIGHT = 6-15 cells (100X) (0-5/hpf); Lymphocytes 44 % (21-51); MDiff Complete? YES; Mean Corpuscular HGB CONC 32.9 g/dL (32.0-36.0); Mean Corpuscular Hemoglobin 30.8 pg (27.0-31.0); Mean Corpuscular Volume 93.5 fL (78.0-98.0); Mean Platelet Volume 6.6 fL (7.4-10.4); Monocytes 12 % (0-10); Neutrophil 32 % (42-75); Platelet Count 252 thou/uL (130-400); Platelet Morphology Comment Appears Adequate; RBC Distribution Width 13.7 % (11.5-14.5); Red Blood Cell (RBC) Count 3.11 mill/uL (4.70-6.10); White Blood Cell (WBC) Count 5.4 thou/uL (4.8-10.8)
[2020-06-23] MEDS: Baclofen 10 MG TAB PO SCH ×3 (09:03→20:55)
[2020-06-23] MEDS: clonazePAM 0.5 MG TAB PO SCH ×3 (09:03→20:55)
[2020-06-23] MEDS: AMIKACIN SULFATE IVPB SCH (09:03)
[2020-06-23] MEDS: Gabapentin 300 MG CAP PO SCH ×3 (09:03→20:54)
[2020-06-23] MEDS: Enoxaparin Sodium 40 MG/0.4 ML SYRINGE SC SCH (09:04)
[2020-06-23 09:22] VITALS: BMI 33.3
[2020-06-23] MEDS: Acetaminophen 325 MG TAB PO PRN (10:17)
[2020-06-23] MEDS: Promethazine HCl 25 MG/ML VIAL SLOW IVP PRN ×2 (12:19→23:16)
[2020-06-23] MEDS: Zolpidem Tartrate 5 MG TAB PO SCH (20:54)
[2020-06-24] MEDS: CEFIDEROCOL SULFATE TOSYLATE IVPB SCH ×6 (04:57→21:17)
[2020-06-24] MEDS: SODIUM CHLORIDE 0.9% IVPB SCH ×8 (04:57→21:17)
[2020-06-24] MEDS: Morphine 2 MG/ML VIAL SLOW IVP PRN ×3 (08:01→18:24)
[2020-06-24] MEDS: clonazePAM 0.5 MG TAB PO SCH ×3 (08:04→21:15)
[2020-06-24] MEDS: Baclofen 10 MG TAB PO SCH ×3 (08:04→21:14)
[2020-06-24] MEDS: Gabapentin 300 MG CAP PO SCH ×3 (08:04→21:15)
[2020-06-24] MEDS: Enoxaparin Sodium 40 MG/0.4 ML SYRINGE SC SCH (08:04)
[2020-06-24] MEDS: AMIKACIN SULFATE IVPB SCH ×2 (08:06→10:05)
[2020-06-24] MEDS: Promethazine HCl 25 MG/ML VIAL SLOW IVP PRN ×2 (13:00→20:08)
[2020-06-24] MEDS ORDERED: Promethazine HCl 25 MG/ML VIAL ONE (13:05)
[2020-06-24] MEDS: Acetaminophen 325 MG TAB PO PRN (15:43)
[2020-06-24] MEDS ORDERED: Ibuprofen 200 MG TAB PO PRN (18:12)
[2020-06-24] MEDS: Zolpidem Tartrate 5 MG TAB PO SCH (21:16)
[2020-06-25] MEDS: Morphine 2 MG/ML VIAL SLOW IVP PRN ×5 (02:33→23:47)
[2020-06-25] MEDS: SODIUM CHLORIDE 0.9% IVPB SCH ×7 (04:56→20:19)
[2020-06-25] MEDS: CEFIDEROCOL SULFATE TOSYLATE IVPB SCH ×6 (04:56→20:19)
[2020-06-25] MEDS: Baclofen 10 MG TAB PO SCH ×3 (08:16→20:25)
[2020-06-25] MEDS: clonazePAM 0.5 MG TAB PO SCH ×3 (08:16→20:25)
[2020-06-25] MEDS: Gabapentin 300 MG CAP PO SCH ×3 (08:16→20:24)
[2020-06-25] MEDS: AMIKACIN SULFATE IVPB SCH (08:17)
[2020-06-25] MEDS: Enoxaparin Sodium 40 MG/0.4 ML SYRINGE SC SCH (08:17)
[2020-06-25] MEDS: Promethazine HCl 25 MG/ML VIAL SLOW IVP PRN ×2 (11:16→18:07)
[2020-06-25] MEDS: Zolpidem Tartrate 5 MG TAB PO SCH (20:25)
[2020-06-26] MEDS: SODIUM CHLORIDE 0.9% IVPB SCH ×7 (05:01→21:34)
[2020-06-26] MEDS: CEFIDEROCOL SULFATE TOSYLATE IVPB SCH ×6 (05:01→21:34)
[2020-06-26] MEDS: Gabapentin 300 MG CAP PO SCH ×3 (08:57→20:12)
[2020-06-26] MEDS: clonazePAM 0.5 MG TAB PO SCH ×3 (08:57→20:11)
[2020-06-26] MEDS: Enoxaparin Sodium 40 MG/0.4 ML SYRINGE SC SCH (08:58)
[2020-06-26] MEDS: Baclofen 10 MG TAB PO SCH ×3 (08:58→20:13)
[2020-06-26] MEDS: Morphine 2 MG/ML VIAL SLOW IVP PRN ×3 (09:31→23:07)
[2020-06-26] MEDS: AMIKACIN SULFATE IVPB SCH (09:32)
[2020-06-26] MEDS: Promethazine HCl 25 MG/ML VIAL SLOW IVP PRN ×2 (11:41→19:40)
[2020-06-26] MEDS: Zolpidem Tartrate 5 MG TAB PO SCH (20:12)
[2020-06-27] MEDS: Morphine 2 MG/ML VIAL SLOW IVP PRN ×4 (03:55→20:26)
[2020-06-27] MEDS: Promethazine HCl 25 MG/ML VIAL SLOW IVP PRN ×3 (03:56→18:14)
[2020-06-27] MEDS: CEFIDEROCOL SULFATE TOSYLATE IVPB SCH ×6 (03:57→21:32)
[2020-06-27] MEDS: SODIUM CHLORIDE 0.9% IVPB SCH ×7 (03:57→21:32)
[2020-06-27] MEDS: Baclofen 10 MG TAB PO SCH ×3 (09:20→20:25)
[2020-06-27] MEDS: Gabapentin 300 MG CAP PO SCH ×3 (09:20→20:25)
[2020-06-27] MEDS: clonazePAM 0.5 MG TAB PO SCH ×3 (09:20→20:25)
[2020-06-27] MEDS: AMIKACIN SULFATE IVPB SCH (09:20)
[2020-06-27] MEDS: Enoxaparin Sodium 40 MG/0.4 ML SYRINGE SC SCH (09:22)
[2020-06-27] MEDS: Zolpidem Tartrate 5 MG TAB PO SCH (20:25)
[2020-06-28] MEDS: Promethazine HCl 25 MG/ML VIAL SLOW IVP PRN ×4 (00:08→22:21)
[2020-06-28] MEDS: CEFIDEROCOL SULFATE TOSYLATE IVPB SCH ×6 (03:42→21:42)
[2020-06-28] MEDS: SODIUM CHLORIDE 0.9% IVPB SCH ×7 (03:42→21:42)
[2020-06-28] MEDS: Morphine 2 MG/ML VIAL SLOW IVP PRN ×4 (03:50→22:21)
[2020-06-28] MEDS: Gabapentin 300 MG CAP PO SCH ×3 (08:50→20:25)
[2020-06-28] MEDS: clonazePAM 0.5 MG TAB PO SCH ×3 (08:51→20:24)
[2020-06-28] MEDS: Enoxaparin Sodium 40 MG/0.4 ML SYRINGE SC SCH (08:52)
[2020-06-28] MEDS: Baclofen 10 MG TAB PO SCH ×3 (08:52→20:25)
[2020-06-28] MEDS: AMIKACIN SULFATE IVPB SCH (08:52)
[2020-06-28] MEDS: Zolpidem Tartrate 5 MG TAB PO SCH (20:25)
[2020-06-29] MEDS: Morphine 2 MG/ML VIAL SLOW IVP PRN ×3 (04:24→19:56)
[2020-06-29] MEDS: Promethazine HCl 25 MG/ML VIAL SLOW IVP PRN ×3 (04:25→19:56)
[2020-06-29] MEDS: SODIUM CHLORIDE 0.9% IVPB SCH ×7 (04:26→21:34)
[2020-06-29] MEDS: CEFIDEROCOL SULFATE TOSYLATE IVPB SCH ×6 (04:26→21:34)
[2020-06-29] MEDS: AMIKACIN SULFATE IVPB SCH (09:47)
[2020-06-29] MEDS: Enoxaparin Sodium 40 MG/0.4 ML SYRINGE SC SCH (09:48)
[2020-06-29] MEDS: clonazePAM 0.5 MG TAB PO SCH ×3 (09:48→20:15)
[2020-06-29] MEDS: Baclofen 10 MG TAB PO SCH ×3 (09:48→19:58)
[2020-06-29] MEDS: Gabapentin 300 MG CAP PO SCH ×3 (09:48→19:58)
[2020-06-29] MEDS: Zolpidem Tartrate 5 MG TAB PO SCH (19:59)
[2020-06-30] MEDS: Promethazine HCl 25 MG/ML VIAL SLOW IVP PRN ×3 (03:01→19:55)
[2020-06-30] MEDS: Morphine 2 MG/ML VIAL SLOW IVP PRN ×3 (03:01→23:02)
[2020-06-30] MEDS: SODIUM CHLORIDE 0.9% IVPB SCH ×7 (03:02→21:26)
[2020-06-30] MEDS: CEFIDEROCOL SULFATE TOSYLATE IVPB SCH ×6 (03:02→21:26)
[2020-06-30 06:02] LABS: #Basophils 0.1 thou/uL (0.0-0.2); #Eosinphils 0.6 thou/uL (0.0-0.7); #Lymphocytes 3.5 thou/uL (1.20-3.40); #Monocytes 0.7 thou/uL (0.11-0.59); #Neutrophils 2.4 thou/uL (1.40-6.50); %Basophils 1.7 % (0.0-1.0); %Eosinophils 7.9 % (0.0-10.0); %Lymphocytes 48.1 % (21.0-51.0); %Neutrophils 32.4 % (42.0-75.0); Hemoglobin 9.9 g/dL (14.0-18.0); Mean Corpuscular HGB CONC 31.4 g/dL (32.0-36.0); Mean Corpuscular Hemoglobin 29.7 pg (27.0-31.0); Mean Corpuscular Volume 94.7 fL (78.0-98.0); Mean Platelet Volume 6.3 fL (7.4-10.4); Platelet Count 286 thou/uL (130-400); RBC Distribution Width 13.5 % (11.5-14.5); Red Blood Cell (RBC) Count 3.33 mill/uL (4.70-6.10); White Blood Cell (WBC) Count 7.2 thou/uL (4.8-10.8)
[2020-06-30 06:16] LABS: ALT (SGPT) 35 U/L (8-55); AST (SGOT) 73 U/L (5-34); Albumin 2.2 g/dL (3.5-5.0); Alkaline Phosphatase 93 U/L (40-110); Anion Gap 12 mmol/L (10-20); BUN (Urea Nitrogen) 13 mg/dL (8.9-20.6); Bilirubin, Total 0.5 mg/dL (0.2-1.2); Calc. Creatinine Clearance 195 mL/min (70-130); Calcium 7.6 mg/dL (7.8-10.44); Carbon Dioxide 22 mmol/L (22-29); Chloride 109 mmol/L (98-107); Globulin 5.3 g/dL (2.4-3.5); Glucose 98 mg/dL (70-105); Potassium 4.1 mmol/L (3.5-5.1); Protein, Total 7.5 g/dL (6.0-8.3); Sodium 139 mmol/L (136-145)
[2020-06-30] MEDS: AMIKACIN SULFATE IVPB SCH (08:52)
[2020-06-30] MEDS: Enoxaparin Sodium 40 MG/0.4 ML SYRINGE SC SCH (08:52)
[2020-06-30] MEDS: clonazePAM 0.5 MG TAB PO SCH ×3 (08:53→20:06)
[2020-06-30] MEDS: Gabapentin 300 MG CAP PO SCH ×3 (08:53→20:07)
[2020-06-30] MEDS: Baclofen 10 MG TAB PO SCH ×3 (08:53→20:06)
[2020-06-30] MEDS: Zolpidem Tartrate 5 MG TAB PO SCH (20:06)
[2020-07-01] MEDS: Morphine 2 MG/ML VIAL SLOW IVP PRN ×3 (04:25→20:04)
[2020-07-01] MEDS: CEFIDEROCOL SULFATE TOSYLATE IVPB SCH ×6 (04:25→21:12)
[2020-07-01] MEDS: SODIUM CHLORIDE 0.9% IVPB SCH ×7 (04:25→21:12)
[2020-07-01] MEDS: Promethazine HCl 25 MG/ML VIAL SLOW IVP PRN ×3 (04:25→20:14)
[2020-07-01] MEDS: AMIKACIN SULFATE IVPB SCH (09:24)
[2020-07-01] MEDS: clonazePAM 0.5 MG TAB PO SCH ×3 (09:26→21:10)
[2020-07-01] MEDS: Enoxaparin Sodium 40 MG/0.4 ML SYRINGE SC SCH (09:26)
[2020-07-01] MEDS: Gabapentin 300 MG CAP PO SCH ×3 (09:27→21:10)
[2020-07-01] MEDS: Baclofen 10 MG TAB PO SCH ×3 (09:28→21:10)
[2020-07-01] MEDS: Zolpidem Tartrate 5 MG TAB PO SCH (21:10)
[2020-07-02] MEDS: CEFIDEROCOL SULFATE TOSYLATE IVPB SCH ×6 (04:14→21:50)
[2020-07-02] MEDS: SODIUM CHLORIDE 0.9% IVPB SCH ×7 (04:14→21:50)
[2020-07-02] MEDS: Morphine 2 MG/ML VIAL SLOW IVP PRN ×4 (05:26→19:39)
[2020-07-02] MEDS: Baclofen 10 MG TAB PO SCH ×3 (09:50→20:00)
[2020-07-02] MEDS: clonazePAM 0.5 MG TAB PO SCH ×3 (09:51→20:00)
[2020-07-02] MEDS: Gabapentin 300 MG CAP PO SCH ×3 (09:51→20:00)
[2020-07-02] MEDS: AMIKACIN SULFATE IVPB SCH (09:52)
[2020-07-02] MEDS: Enoxaparin Sodium 40 MG/0.4 ML SYRINGE SC SCH (09:52)
[2020-07-02] MEDS: Promethazine HCl 25 MG/ML VIAL SLOW IVP PRN ×3 (11:33→23:10)
[2020-07-02] MEDS: Zolpidem Tartrate 5 MG TAB PO SCH (20:00)
[2020-07-03] MEDS: Morphine 2 MG/ML VIAL SLOW IVP PRN ×4 (03:27→23:55)
[2020-07-03] MEDS: CEFIDEROCOL SULFATE TOSYLATE IVPB SCH ×6 (03:27→20:38)
[2020-07-03] MEDS: SODIUM CHLORIDE 0.9% IVPB SCH ×7 (03:27→20:38)
[2020-07-03] MEDS: Baclofen 10 MG TAB PO SCH ×3 (09:09→20:40)
[2020-07-03] MEDS: Gabapentin 300 MG CAP PO SCH ×3 (09:09→20:40)
[2020-07-03] MEDS: clonazePAM 0.5 MG TAB PO SCH ×3 (09:09→20:39)
[2020-07-03] MEDS: Enoxaparin Sodium 40 MG/0.4 ML SYRINGE SC SCH (09:10)
[2020-07-03] MEDS: AMIKACIN SULFATE IVPB SCH (09:16)
[2020-07-03] MEDS: Acetaminophen 325 MG TAB PO PRN (11:59)
[2020-07-03] MEDS: Promethazine HCl 25 MG/ML VIAL SLOW IVP PRN ×2 (12:00→18:20)
[2020-07-03] MEDS: Zolpidem Tartrate 5 MG TAB PO SCH (20:40)
[2020-07-04] MEDS: SODIUM CHLORIDE 0.9% IVPB SCH ×5 (05:14→11:36)
[2020-07-04] MEDS: CEFIDEROCOL SULFATE TOSYLATE IVPB SCH ×4 (05:14→11:36)
[2020-07-04] MEDS: Gabapentin 300 MG CAP PO SCH ×3 (08:26→22:14)
[2020-07-04] MEDS: Baclofen 10 MG TAB PO SCH ×3 (08:26→22:13)
[2020-07-04] MEDS: clonazePAM 0.5 MG TAB PO SCH ×3 (08:26→22:13)
[2020-07-04] MEDS: Enoxaparin Sodium 40 MG/0.4 ML SYRINGE SC SCH (08:27)
[2020-07-04] MEDS: Morphine 2 MG/ML VIAL SLOW IVP PRN ×2 (08:44→16:12)
[2020-07-04] MEDS: AMIKACIN SULFATE IVPB SCH (08:47)
[2020-07-04] MEDS: Promethazine HCl 25 MG/ML VIAL SLOW IVP PRN ×2 (11:37→18:16)
[2020-07-04] MEDS: Zolpidem Tartrate 5 MG TAB PO SCH (22:13)
[2020-07-05] MEDS: HYDROcodone/Acetaminophen 10/325 mg Tablet PO PRN (01:46)
[2020-07-05 07:46] VITALS: BP 144/99; TEMP 98.4
[2020-07-05] MEDS: clonazePAM 0.5 MG TAB PO SCH (08:44)
[2020-07-05] MEDS: Gabapentin 300 MG CAP PO SCH (08:44)
[2020-07-05] MEDS: Baclofen 10 MG TAB PO SCH (08:44)
[2020-07-05] MEDS: Enoxaparin Sodium 40 MG/0.4 ML SYRINGE SC SCH (08:45)
== END 2020-07-05 12:15 | disposition home health service (06) | DRG 540 ==
LOC: MADMS 18:45
PROVIDERS: ADMIT Family Medicine; ATTEND Family Medicine
DX: M86.8X8 Other osteomyelitis, other site (principal); Z16.24 Resistance to multiple antibiotics; G82.20 Paraplegia, unspecified; N31.9 Neuromuscular dysfunction of bladder, unspecified; B19.20 Unspecified viral hepatitis C without hepatic coma; G89.29 Other chronic pain; G58.0 Intercostal neuropathy; G43.909 Migraine, unspecified, not intractable, without status migrainosus; B96.5 Pseudomonas (aeruginosa) (mallei) (pseudomallei) as the cause of diseases classified elsewhere; Z90.5 Acquired absence of kidney; Z90.81 Acquired absence of spleen; Z79.899 Other long term (current) drug therapy; Z87.440 Personal history of urinary (tract) infections
CPT/HCPCS: 36415; 80053; 80069; 80150; 81001; 85025; 85652; 86140; 87086; J0278; J0693; J1642; J1650; J2270; J2550; J3490